=== PATIENT | female | born 1970 | race Caucasian/White ===

== ENCOUNTER → 2018-01-12 09:28 | Outpatient (CLI) | payer OTHER, SELFPAY ==
--- NOTE | 2018-01-12 09:37 | MRI_ITS ---
STUDY: MRI CERVICAL SPINE WITHOUT CONTRAST REASON FOR EXAM: Female, 47 years old. Radiculopathy and burning in hands. TECHNIQUE: Standardized fat and water weighted pulse sequences were obtained in the sagittal and axial planes. COMPARISON: Radiographs of the cervical spine dated February 10, 2013. FINDINGS: Normal foramen magnum and brainstem-cervical cord junction. Normal craniovertebral junction. Normal anterior atlantoaxial articulation. Normal odontoid process. Normal cervical lordosis. Normal vertebral bodies and posterior osseous elements. C2-3: Normal endplates. Normal disc height, signal and morphology. Normal central canal and intervertebral neural foramina. C3-4: There is a mild disc bulge and osteophyte complex. There is mild left-sided neural foraminal narrowing with uncovertebral facet joint arthropathy. The right neural foramen is patent. C4-5: Normal endplates. Normal disc height, signal and morphology. Normal central canal and intervertebral neural foramina. C5-6: There is narrowing of the disc. There is a broad central disc protrusion. There is severe left-sided neural foraminal narrowing with probable nerve impingement. The right neural foramen is mildly narrowed. There is mild central acquired canal stenosis. C6-7: There is irregularity of the inferior endplate of C6 probably related to Schmorl's node. There is a mild disc bulge and osteophyte complex. There is narrowing of the disc. There is mild left-sided neural foraminal narrowing without evidence for nerve impingement. The right neural foramen is patent. There is no significant central acquired canal stenosis. C7-T1: Normal endplates. Normal disc height, signal and morphology. Normal central canal and intervertebral neural foramina. Normal cervical cord. There is no demonstrated cervical cord syrinx cavity. Normal visualized soft tissue structures. There is moderate mucoperiosteal thickening in the right maxillary sinus and left maxillary sinus. MRI/Spine Cervical (Routine) IMPRESSION: Multilevel degenerative disc disease and degenerative arthropathy of the cervical spine with neural foraminal narrowing, acquired canal stenosis and potential nerve impingement as described. Electronically Signed: Yeni Kuhn MD at 11:59 EDT , Service support ,
== END ==
PROVIDERS: Family Provider Family Medicine; PCP Family Medicine
DX: M54.12 Radiculopathy, cervical region (principal)
CPT/HCPCS: 72141

== ENCOUNTER → 2018-02-16 10:21 | Outpatient (CLI) | payer OTHER, SELFPAY ==
--- NOTE | 2018-02-16 10:23 | BI_ITS ---
MAMMOGRAPHY - BILATERAL SCREENING REASON FOR EXAM: Female, 48 years old. Routine annual screening examination. PERTINENT HISTORY: Non-contributory. TECHNIQUE: Digital bilateral breast remedios (3D mammographic acquisition) in the CC and MLO projections. 2-D mediolateral oblique (MLO) and craniocaudad (CC) views of both breasts were obtained. CAD: Full Field Digital Mammography with Computer Added Detection was performed. COMPARISON: Comparison is made with prior outside examination dated January 14, 2017. FINDINGS: Breast Composition: The breasts are heterogeneously dense, which may obscure small masses. There are no dominant masses or suspicious calcifications. Stable benign appearing bilateral axillary lymph nodes. No other significant abnormalities are identified. There has been no significant change since the prior study. BI/SCREENING MAMM (CAD), BILAT IMPRESSION: Stable bilateral screening mammogram. Yearly follow-up mammogram recommended. (A) ASSESSMENT CATEGORY: BIRADS Category 2: Benign. A letter regarding these results will be sent to the patient by the facility within 30 days. Approximately 10% of breast cancers are not detected by mammography. A normal mammogram should not delay biopsy of a clinically suspicious abnormality. [id number] Electronically Signed: Marquise Carmona MD at 9:53 EDT Tel [phone], Service support ,
== END ==
PROVIDERS: Family Provider Family Medicine; PCP Family Medicine; Visit Provider Nurse Practitioner Women's Health
DX: Z12.31 Encounter for screening mammogram for malignant neoplasm of breast (principal)
CPT/HCPCS: 77063; 77067

== ENCOUNTER 2018-04-26 10:00 | Outpatient (RCR) | payer OTHER, SELFPAY ==
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
--- NOTE | 2018-04-26 10:43 | HP.PTDCSUM_ITS ---
HP - PT D/C Summary It has been my pleasure to treat SHIRA LEAL under orders from Out of Town Doctor, for the diagnosis of Cervical Fusion for a total of 9 visit(s). Discharge Date: Please see the following information for a summary of their discharge status. - Subjective Subjective: Patient reports that everything is changing- the fire from the armpit to the fingers is gone- jaw tightness is gone. Shocking hands are worse - is using her body more and thats when they get worse and swelling the shoulders has gotten worse. She is icing and laying supine with legs elevated which is not helping a ton. can tap a place in her shoulder and it will be shoot to her hands. Can use a lax ball to help relieve it but then its swells up. MD is trying to push through a breast reduction but the insurance is not helping. The more activity increases GLORIA at the occiput and her hands are blue. Reaches a 7-8/10 daily- If she has to put a bra on its worse and is done at about 2:00. Once she takes her bra off for an hour she is better but not great. Ice helps but she can't do it all day everyday- heat now makes it worse. Plans to go call the MD - Pain Cerv. Spine Pain Intensity (Out of 10): Unrated LUE Pain Intensity (Out of 10): Unrated RUE Pain Intensity (Out of 10): 2 - Objective Objective/Function: Posture: good throughout session. Observation: well healing incision along right anterior neck- no s/s of infection. Palpation: tender along upper trap and cervical paraspinals. ROM: UE: WNL in all planes Cervical: Flex: 50 degrees Extn: 65 degrees right sb: 50 degrees left sb: 45 degrees Rot: right: 50 degrees, left: 50 degrees. Strength: scap: good, Shoulder: 5/5 Elbow: 5/5 Wrist: 5/5, Vocational Training Director: Left: 65,60,70 Right: 70, 70, 75. Sensation/Reflex: WNL. Patient has made excellent in progress in therapy, she has good ROM and strength at this time- she is appropriate to return to MD for further evaluation. - Goals Goal 1:: Patient will be I with HEP and progression Goal Progress: Goal Met Goal 2:: Patient will maintain proper posture t/o tx session to demo increased scap s/s. Goal Progress: Goal Met Goal 3:: Patient will report 1 week 0/10 pain Goal Progress: Progressing - Plan Plan: Discharge to HEP - D/C Information If there are questions or concerns regarding this patient's physical therapy, please feel free to call me at [phone]. Thank you for the referral of this patient. Sincerely, Coleen Kyle
== END 2018-04-26 18:25 | disposition home or self-care (01) ==
LOC: PT 10:00
PROVIDERS: Family Provider Family Medicine; PCP Family Medicine
DX: Z98.1 Arthrodesis status (principal)
CPT/HCPCS: 97110; 97162; 97164

== ENCOUNTER → 2018-10-12 10:25 | Outpatient (CLI) | payer OTHER, SELFPAY ==
[2017-12-01 14:14] VITALS: BMI 31.6
[2018-10-12 17:09] LABS: Absolute Lymphocyte Count 1.92 X10^3/ul (0.83-4.51); Absolute Neutrophil Count 6.5 X10^3/uL (2.0-7.7); Basophil# 0.06 X10^3/uL; Basophil% 0.6 % (0-1); Eosinophil# 0.31 X10^3/uL; Eosinophils% 3.3 % (0-5); Hematocrit 43.4 % (37-47); Hemoglobin 14.9 g/dl (12.0-15.0); Lymphocyte # 1.92 X10^3/ul (4.0); Lymphocyte % 20.4 % (19-41); Mean Corp Hgb Conc 34.3 g/gl (32-36); Mean Corpuscular Hgb 29.6 pg (27.0-32.0); Mean Corpuscular Volume 86.3 fL (81-99); Mean Platelet Vol. 9.6 fl (6.2-12.0); Monocyte# 0.55 X10^3/uL; Monocyte% 5.9 % (0-10); Neutrophil # 6.54 X10^3/uL (2.7-7.7); Neutrophil % 69.6 % (47-70); Platelet Count 320 K/mm3 (150-450); RBC Distribution Width CV 13.4 % (11.6-14.6); RBC Distribution Width SD 41.3 fl (35.1-43.9); Red Blood Count 5.03 M/mm3 (4.2-5.4); White Blood Count 9.4 K/mm3 (4.4-11.0)
[2018-10-12 17:22] LABS: POSITIVE COUNT NO; POSITIVE DIFFERENTIAL NO; POSITIVE MORPHOLOGY NO
[2018-10-12 17:32] LABS: ALB/GLOB Ratio 1.2 RATIO (0.9-2.4); AST(SGOT) 24 U/L (15-37); Alanine Aminotransfer ALT/SGPT 38 U/L (13-56); Alkaline Phosphatase 97 U/L (45-117); Anion Gap 9 (5-15); BUN 10 mg/dL (7-18); BUN/Creat Ratio 13.1 RATIO (10-20); Calcium,Total 8.6 mg/dL (8.5-10.1); Chloride 106 mmol/L (98-107); Creatinine, Serum 0.76 mg/dL (0.55-1.02); EST Glomerular Filtration Rate 86 mL/min (>60); Est Glom Filt Rate - Afr Amer 104 mL/min (>60); Globulin 3.4 g/dL (2.2-4.2); Glucose 86 mg/dL (74-106); Potassium 3.7 mmol/L (3.5-5.1); Protein, Total 7.4 g/dL (6.4-8.2); Sodium Level 138 mmol/L (136-145); Thyroid Stim Hormone (TSH) 3.71 uIU/mL (0.358-3.74)
== END ==
PROVIDERS: Family Provider Family Medicine; PCP Family Medicine; Visit Provider Family Medicine Geriatric Medicine
DX: Z00.00 Encounter for general adult medical examination without abnormal findings (principal)
CPT/HCPCS: 36415; 80053; 84443; 85025

== ENCOUNTER → 2019-03-20 | Outpatient (CLI) | payer OTHER, SELFPAY ==
--- NOTE | 2019-03-20 17:30 | BI_ITS ---
MAMMOGRAPHY - BILATERAL SCREENING REASON FOR EXAM: Female, 49 years old. Routine annual screening examination. PERTINENT HISTORY: Non-contributory. History of bilateral breast reduction surgery. TECHNIQUE: Digital bilateral breast charisse (3D mammographic acquisition) in the CC and MLO projections. 2-D mediolateral oblique (MLO) and craniocaudad (CC) views of both breasts were obtained. CAD: Full Field Digital Mammography with Computer Added Detection was performed. COMPARISON: Comparison is made with prior study dated February 16, 2018. FINDINGS: Breast Composition: The breasts are heterogeneously dense, which may obscure small masses. There are no dominant masses or suspicious calcifications. Since prior study, the patient underwent bilateral breast reduction surgery. Stable appearance of the benign appearing axillary lymph nodes. No other significant abnormalities are identified. BI/SCREEN MAMM (CAD) W/CHARISSE BILAT IMPRESSION: Stable bilateral screening mammogram. Yearly follow-up mammogram recommended. (A) ASSESSMENT CATEGORY: BIRADS Category 2: Benign. A letter regarding these results will be sent to the patient by the facility within 30 days. Approximately 10% of breast cancers are not detected by mammography. A normal mammogram should not delay biopsy of a clinically suspicious abnormality. [id number] Electronically Signed: Marquise Carmona, at 9:01 EDT , Service support ,
== END | disposition home or self-care (01) ==
LOC: OPBI 03-21 07:35
PROVIDERS: Family Provider Family Medicine; PCP Family Medicine; Referring Provider Nurse Practitioner Women's Health; Visit Provider Nurse Practitioner Women's Health
DX: Z12.31 Encounter for screening mammogram for malignant neoplasm of breast (principal)
CPT/HCPCS: 77063; 77067

== ENCOUNTER → 2019-07-16 16:35 | Outpatient (CLI) | payer OTHER, SELFPAY ==
[2019-07-16 15:38] VITALS: BMI 31.6
[2019-07-16 17:48] LABS: Estradiol 33.6 pg/mL; Follicle Stimulating Hormone 9.7 mIU/mL; Thyroid Stim Hormone (TSH) 2.15 uIU/mL (0.358-3.74)
== END ==
PROVIDERS: Family Provider Family Medicine; PCP Family Medicine; Referring Provider Obstetrics & Gynecology; Visit Provider Obstetrics & Gynecology
DX: N80.9 Endometriosis, unspecified (principal)
CPT/HCPCS: 36415; 82670; 83001; 84443

== ENCOUNTER → 2019-08-03 12:25 | Outpatient (CLI) | payer OTHER, SELFPAY ==
[2019-07-16 15:38] VITALS: BMI 31.6
--- NOTE | 2019-08-03 12:27 | US_ITS ---
STUDY: ULTRASOUND OF THE FEMALE PELVIS - COMPLETE REASON FOR EXAM: Female, 49 years old. Pelvic pain LMP: TECHNIQUE: Transabdominal and transvaginal TECHNICAL QUALITY: Adequate. COMPARISON: None. FINDINGS: The uterus is not present status post hysterectomy The right ovary is visualized. The right ovary measures 1.7 x 1.2 x 1.1 cm. There is no right ovarian cyst or ovarian mass. There is no visualized right adnexal mass or complex lesion. There is normal arterial and normal venous vascularity. The left ovary is visualized. The left ovary measures 1.7 x 1.5 x 1 cm. There is no left ovarian cyst or ovarian mass. There is no visualized left adnexal mass or complex lesion. There is normal arterial and normal venous vascularity. There is no fluid in the cul-de-sac. The pre void volume of the bladder was 183 ml. US/Pelvic (Non ) IMPRESSION: Unremarkable pelvis status post hysterectomy Electronically Signed: Luke Zuluaga MD at 19:51 EDT , Service support ,
--- NOTE | 2019-08-03 12:47 | US_ITS ---
STUDY: ULTRASOUND OF THE FEMALE PELVIS - COMPLETE REASON FOR EXAM: Female, 49 years old. Pelvic pain LMP: TECHNIQUE: Transabdominal and transvaginal TECHNICAL QUALITY: Adequate. COMPARISON: None. FINDINGS: The uterus is not present status post hysterectomy The right ovary is visualized. The right ovary measures 1.7 x 1.2 x 1.1 cm. There is no right ovarian cyst or ovarian mass. There is no visualized right adnexal mass or complex lesion. There is normal arterial and normal venous vascularity. The left ovary is visualized. The left ovary measures 1.7 x 1.5 x 1 cm. There is no left ovarian cyst or ovarian mass. There is no visualized left adnexal mass or complex lesion. There is normal arterial and normal venous vascularity. There is no fluid in the cul-de-sac. The pre void volume of the bladder was 183 ml. US/Transvaginal Non- IMPRESSION: Unremarkable pelvis status post hysterectomy Electronically Signed: Luke Zuluaga MD at 19:51 EDT , Service support ,
== END ==
PROVIDERS: Family Provider Family Medicine; PCP Family Medicine; Referring Provider Obstetrics & Gynecology; Visit Provider Obstetrics & Gynecology
DX: N80.9 Endometriosis, unspecified (principal)
CPT/HCPCS: 76830; 76856

== ENCOUNTER → 2019-12-25 | Outpatient (CLI) | payer OTHER, SELFPAY ==
[2019-08-23 15:13] VITALS: BMI 31.6
[2019-12-25 11:23] LABS: Erythrocyte Sedimentation Rate 4 mm/hr (0-20)
== END | disposition home or self-care (01) ==
LOC: LABSPEC 10:48
PROVIDERS: PCP Family Medicine; Referring Provider Nurse Practitioner Family; Visit Provider Nurse Practitioner Family
DX: R10.31 Right lower quadrant pain (principal); R19.7 Diarrhea, unspecified
CPT/HCPCS: 85652

== ENCOUNTER → 2020-08-15 17:52 | Outpatient (CLI) | payer OTHER, SELFPAY ==
[2019-08-23 15:13] VITALS: BMI 31.6
== END ==
PROVIDERS: PCP Family Medicine; Referring Provider Nurse Practitioner Family; Visit Provider Nurse Practitioner Family
DX: Z20.828 Contact with and (suspected) exposure to other viral communicable diseases (principal)
CPT/HCPCS: 87635; C9803; U0003

== ENCOUNTER → 2021-04-21 16:40 | Outpatient (CLI) | payer OTHER, SELFPAY ==
[2021-04-07 16:11] VITALS: BMI 31.6
--- NOTE | 2021-04-21 16:30 | BI_ITS ---
MAMMOGRAPHY - BILATERAL SCREENING REASON FOR EXAM: Female, 51 years old. Routine annual screening examination. PERTINENT HISTORY: Non-contributory. TECHNIQUE: Digital bilateral breast charisse (3D mammographic acquisition) in the CC and MLO projections. 2-D mediolateral oblique (MLO) and craniocaudad (CC) views of both breasts were obtained. CAD: Full Field Digital Mammography with Computer Added Detection was performed. COMPARISON: Comparison is made with prior study dated 03/20/2019 and 02/16/2018. FINDINGS: Breast Composition: The breasts are heterogeneously dense, which may obscure small masses. There are no dominant masses or suspicious calcifications. Stable small benign-appearing bilateral axillary lymph nodes. Status post bilateral breast reduction surgery No other significant abnormalities are identified. There has been no significant change since the prior study. BI/SCRN MAMM (CAD)W/CHARISSE BILAT IMPRESSION: Stable bilateral screening mammogram. Yearly follow-up mammogram recommended. (A) ASSESSMENT CATEGORY: BIRADS Category 2: Benign. A letter regarding these results will be sent to the patient by the facility within 30 days. Approximately 10% of breast cancers are not detected by mammography. A normal mammogram should not delay biopsy of a clinically suspicious abnormality. [id number] Electronically Signed: Marquise Carmona MD at 8:04 EDT , Service support ,
== END ==
PROVIDERS: PCP Family Medicine; Referring Provider Obstetrics & Gynecology; Visit Provider Obstetrics & Gynecology
DX: Z12.31 Encounter for screening mammogram for malignant neoplasm of breast (principal)
CPT/HCPCS: 77063; 77067

== ENCOUNTER 2021-07-24 15:25 | Emergency (ER) | payer OTHER, SELFPAY ==
[2021-07-24 15:26] VITALS: BP 155/99; PULSE 93; RESP 18; TEMP 36.3; O2SAT 96; BMI 31.8
[2021-07-24 15:29] VITALS: BP 155/99; PULSE 93; RESP 18; TEMP 36.3; O2SAT 96
[2021-07-24 15:55] VITALS: O2SAT 96
--- NOTE | 2021-07-24 15:58 | RAD_ITS ---
EXAM: XR CHEST, 2 VIEWS CLINICAL INDICATION: cough. negative covid tests x 2. TECHNIQUE: Frontal and lateral views of the chest. This report was created using [employer] report generation technology. COMPARISON: None. FINDINGS: LUNGS AND PLEURAL SPACES: Unremarkable. No consolidation or edema. No pneumothorax. No effusion. HEART: Unremarkable. Cardiac silhouette not enlarged. MEDIASTINUM: Central airways and mediastinal contour are unremarkable. BONES/JOINTS: Unremarkable. No displaced fracture. No destructive or sclerotic lesions. Visualized joint spaces are unremarkable. SOFT TISSUES: Unremarkable. RAD/Chest PA and Lateral IMPRESSION: No acute cardiopulmonary disease. Electronically Signed: Gina Espinal MD at 16:22 EDT Tel , Service support ,
--- NOTE | 2021-07-24 15:59 | EX.ED.VIS.UR ---
HPI HPI - URI History of Present Illness Chief Complaint: Shortness of Breath Informant: patient Onset/Context/Timing Onset: Days Context: Gradual Onset Timing: Intermittent Current Severity: Mild Maximum Severity: Mild Associated Symptoms Associated Symptoms: Positive for Nasal Congestion, Sinus Pressure, Shortness of Breath and Nonproductive cough Narrative Narrative: 51-year-old female treated for sinusitis recently with amoxicillin twice daily for 10 days. Has had 2 - Covid test. Said she felt better after the 10 days antibiotics and then started feeling not as well and ill again on Tuesday. She denies vomiting or diarrhea. Nonproductive cough and mild shortness of breath. No chest pain. No hemoptysis. No leg swelling. Prior similar symptoms: Yes Recent Illness/Hospitalization: No ROS ROS ED ROS Narrative Nonproductive cough. Review of Systems ROS Unobtainable: Denies due to encephalopathy Constitutional Constitutional ED: Reports fever(s); Denies chills or subjective Eyes Eyes: Denies change in vision ENT ENT ED: Denies ear pain or sore throat Cardiovascular Cardiovascular: Denies chest pain or palpitations Respiratory/Chest Respiratory/Chest: Reports cough and dyspnea Gastrointestinal Gastrointestinal: Denies abdominal pain, diarrhea, nausea or vomiting Genitourinary Genitourinary ED: Denies dysuria or hematuria Musculoskeletal Musculoskeletal: Denies arthralgias or myalgias Integumentary Denies rash Neurologic Neurologic: Denies headache(s) Psychiatric Psychiatric: Denies depression Endocrine Endocrinology: Denies polyuria Hematologic/Lymphatic Hematologic/Lymphatic: Denies easy bruising Allergic/Immunologic Allergic/Immunologic ED: Denies urticaria [facility] Medical History (Updated 07/24/21 @ 16:[address] Aamir Santos MD) 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 Home Medications glxteflk-hvdj-WI-calcium-mins 1 ea PO DAILY 10/13/17 [History Last Taken 10/13/17 1] levonorgestrel-ethinyl estradiol 0.1 mg-20 mcg tablet 1 tab PO QDAY #84 tab 04/07/21 [Rx Last Taken Unknown] Allergy/AdvReac Type Severity Reaction Status Date / Time No Known Allergies Allergy Verified 07/24/21 15:29 Family History Grandfather COPD (chronic obstructive pulmonary disease) Heart disease Grandmother COPD (chronic obstructive pulmonary disease) Myocardial infarction, Onset Age: 50 Diabetes Surgical History H/O neck surgery Hx of breast reduction, elective S/P laparoscopic assisted vaginal hysterectomy (LA[facility]) Social History Smoking Status: Former smoker alcohol intake: current details: social substance use type: does not use caffeine: Yes what type of physical activity do you participate in: none seatbelt use: always do you feel safe at home: Yes additional social history: [employer] EXAM Physical Exam Narrative Exam Narrative: Well-appearing middle-aged female. Vital signs stable afebrile. Pulse ox 96% on room air no signs hypoxia. HEENT exam normal. Moist with memories. Lungs clear to auscultation bilaterally. Coarse on the right. No wheezing. No rales rhonchi. Heart regular rate and rhythm rate about 90 no murmur. Abdomen soft nontender. Moving all 4 extremities. Calves nontender no edema or cords. Neurologic exam normal. Const Vital Signs: 07/24/21 15:26 07/24/21 15:29 07/24/21 15:55 Temperature 97.3 F L 97.3 F L Temperature Source Temporal Temporal Pulse Rate 93 93 Respiratory Rate 18 18 Respiratory Effort Short of Breath Respiratory Depth Normal Respiratory Pattern Normal Blood Pressure 155/99 H 155/99 H Blood Pressure Mean 117 117 Pulse Ox 96 96 Oxygen Delivery Method Room Air Positive well nourished and well developed; Negative for obese, cachectic or contractures General Appearance ED: well developed and NAD; Negative for cachectic, contractures, cyanotic or diaphoretic Nutritional Appearance: Negative for cachectic or obese HEENT Reports TM's clear and moist mucous membranes normocephalic External Ear: external ears normal External Auditory Canal: EAC's normal Tympanic Membrane ED: Yes TM's clear Eyes PERRL and EOMs intact bilaterally Neck no lymphadenopathy, supple, no meningeal signs and no JVD General: Negative for anterior neck swelling or lymphadenopathy Resp normal respiratory effort and clear to auscultation bilaterally Auscultation: Negative for rales, rhonchi or wheezes Cardio S1 normal heart sound, S2 normal heart sound and no murmurs Rate: regular rate Rhythm: regular rhythm GI non-tender, non-distended and no masses Auscultation: normoactive bowel sounds Palpation: soft; Negative for tender or guarding Back/Spine no CVA tenderness Extremity normal to inspection and full ROM Neuro oriented x3 Sensorium / Orientation: alert, oriented to person, oriented to place and oriented to time; Negative for orientation impaired, lethargic or stuporous Motor Exam: strength 5/5 throughout Psych mental status grossly normal Skin Lesions: no lesions Rashes: no rashes MDM MDM MDM Narrative Medical decision making narrative: 51-year-old female with URI symptoms. Status post recent 10-day antibiotic course of amoxicillin. 2 prior negative Covid test. Chest x-ray being obtained. Sent in by her PCP for evaluation and a chest x-ray to be done. Repeat exam doing well at 4:30 PM and will be discharged home. Outpatient follow-up. Radiography Diagnostic Testing: Clinical Impression(s) from Imaging Studies Chest X-Ray 07/24/21 15:58 IMPRESSION: No acute cardiopulmonary disease. Electronically Signed: Gina Espinal MD at 16:22 EDT Tel , Service support , Chest x-ray 2 views AP and lateral interpreted by myself and the radiologist shows no acute abnormality. I did go over the film with the patient. Discharge Plan Triage Chief Complaint: Shortness of Breath ED Provider: Aamir Santos Dx/Rx/DC Orders Clinical Impression: Viral URI Instructions: ED URI, Viral, No Abx (Adult) Prescriptions: No Action levonorgestrel-ethinyl estrad [Aviane] 0.1-20 mg-mcg tablet 1 tab PO QDAY Qty: 84 RF: 4 zhtkwemu-fkuy-IC-calcium-mins 1 EACH tablet 1 ea PO DAILY RF: 0 Primary Care Provider: Luke Boss Referrals: Luke Boss MD [Primary Care Provider] - Activity Restrictions/Additional Instructions: Fluids and rest. Follow-up with your PCP if not improving. Chest x-ray normal today. Disposition Disposition: Home, Self Care
== END 2021-07-24 16:36 | disposition home or self-care (01) ==
PROVIDERS: Emergency Provider Emergency Medicine; PCP Family Medicine
DX: J06.9 Acute upper respiratory infection, unspecified (principal); Z87.891 Personal history of nicotine dependence
CPT/HCPCS: 71046; 99282

== ENCOUNTER → 2022-05-19 | Outpatient (CLI) | payer OTHER, SELFPAY ==
--- NOTE | 2022-05-19 12:51 | BI_ITS ---
MAMMOGRAPHY - BILATERAL SCREENING 3-D TOMOSYNTHESIS REASON FOR EXAM: Female, 52 years old. Routine screening mammogram. PERTINENT HISTORY: No significant family history. TECHNIQUE: 2-D mammograms and 3-D Tomosynthesis of the breast (s) were performed. CAD was performed. COMPARISON: 04/21/2021, 03/20/2019, 02/16/2018. FINDINGS: The breast composition is composed of scattered fibroglandular density. Stable lymph nodes. No dense spiculated masses or suspicious microcalcifications are identified. No architectural distortion is identified. There is no skin thickening or retraction. BI/SCRN MAMM (CAD)W/CHARISSE BILAT IMPRESSION: No interval change and no mammographic signs of malignancy. Routine yearly mammograms recommended. ASSESSMENT CATEGORY: BIRADS Category 2: Benign. A letter regarding these results will be sent to the patient by the facility within 30 days. FOLLOW UP RECOMMENDATION: Yearly follow up mammogram recommended. (A) Approximately 10% of breast cancers are not detected by mammography. A normal mammogram should not delay biopsy of a clinically suspicious abnormality. Electronically Signed: Kendell Flores MD at 15:08 EDT ,
== END | disposition home or self-care (01) ==
LOC: OPBI 12:50
PROVIDERS: PCP Family Medicine; Visit Provider Obstetrics & Gynecology
DX: Z12.31 Encounter for screening mammogram for malignant neoplasm of breast (principal)
CPT/HCPCS: 77063; 77067

== ENCOUNTER → 2022-09-27 | Outpatient (CLI) | payer OTHER, SELFPAY ==
[2022-09-27 09:07] LABS: Absolute Lymphocyte Count 1.75 X10^3/uL (0.83-4.51); Absolute Neutrophil Count 4.6 X10^3/uL (2.0-7.7); Basophil# 0.09 X10^3/uL; Basophil% 1.2 % (0-1); Eosinophil# 0.48 X10^3/uL; Eosinophils% 6.4 % (0-5); Hematocrit 41.3 % (37-47); Hemoglobin 13.8 g/dL (12.0-15.0); Lymphocyte # 1.75 X10^3/ul (0.83-4.51); Lymphocyte % 23.5 % (19-41); Mean Corp Hgb Conc 33.4 g/dL (32-36); Mean Corpuscular Hgb 29.1 pg (27.0-32.0); Mean Corpuscular Volume 87.1 fL (81-99); Mean Platelet Vol. 9.6 fl (6.2-12.0); Monocyte# 0.54 X10^3/uL; Monocyte% 7.2 % (0-10); NRBC Flagged by Analyzer 0 % (0-5); Neutrophil # 4.55 X10^3/uL (2.7-7.7); Neutrophil % 61.2 % (47-70); Platelet Count 319 K/mm3 (150-450); RBC Distribution Width CV 12.3 % (11.6-14.6); RBC Distribution Width SD 39.3 fl (35.1-43.9); Red Blood Count 4.74 M/mm3 (4.2-5.4); White Blood Count 7.5 K/mm3 (4.4-11.0)
[2022-09-27 09:41] LABS: ALB/GLOB Ratio 1.1 RATIO (0.9-2.4); AST(SGOT) 22 U/L (15-37); Alanine Aminotransfer ALT/SGPT 25 U/L (13-56); Albumin, Serum 3.7 g/dL (3.2-5.0); Alkaline Phosphatase 103 U/L (45-117); Anion Gap 6 (5-15); BUN 17 mg/dL (7-18); BUN/Creat Ratio 17.9 RATIO (10-20); Calcium,Total 8.7 mg/dL (8.5-10.1); Chloride 109 mmol/L (98-107); Cholesterol 177 mg/dL (200); Creatinine, Serum 0.95 mg/dL (0.55-1.02); EST Glomerular Filtration Rate 65 mL/min (>60); Est Glom Filt Rate - Afr Amer 79 mL/min (>60); Globulin 3.3 g/dL (2.2-4.2); Glucose 98 mg/dL (74-106); High Density Lipoprotein 49 mg/dL; Potassium 3.8 mmol/L (3.5-5.1); Sodium Level 141 mmol/L (136-145); Thyroid Stim Hormone (TSH) 5.47 uIU/mL (0.358-3.74); Triglycerides 177 mg/dL; Very Low Density Lipoprotein 35 mg/dL (5-40)
[2022-09-27 09:50] LABS: Vitamin D,25 Hydroxy 22.7 ng/mL
[2022-09-27 09:55] LABS: Hemoglobin A1c 5.5 % (3.8-5.6)
[2022-09-27 12:06] LABS: Free T3 2.7 pg/mL (2.18-3.98); T4 Free Direct 0.82 ng/dL (0.76-1.46)
== END | disposition home or self-care (01) ==
LOC: LAB 08:20
PROVIDERS: PCP Internal Medicine; Referring Provider Internal Medicine; Visit Provider Internal Medicine
DX: Z00.00 Encounter for general adult medical examination without abnormal findings (principal); I10 Essential (primary) hypertension; E55.9 Vitamin D deficiency, unspecified
CPT/HCPCS: 36415; 80053; 80061; 82306; 83036; 84439; 84443; 84481; 85025

== ENCOUNTER → 2022-12-23 | Outpatient (CLI) | payer OTHER, SELFPAY ==
[2022-12-23 12:26] LABS: Free T3 2.4 pg/mL (2.18-3.98); T4 Free Direct 0.78 ng/dL (0.76-1.46); Thyroid Stim Hormone (TSH) 4.22 uIU/mL (0.358-3.74)
== END | disposition home or self-care (01) ==
LOC: LAB 10:45
PROVIDERS: PCP Internal Medicine; Referring Provider Internal Medicine; Visit Provider Internal Medicine
DX: R79.89 Other specified abnormal findings of blood chemistry (principal)
CPT/HCPCS: 36415; 84439; 84443; 84481

== ENCOUNTER → 2023-01-05 | Outpatient (CLI) | payer OTHER, SELFPAY ==
[2023-01-05 15:34] LABS: Bacteria 0 SEEN /hpf (None Seen); Mucous, Urine 0 SEEN /hpf (<or=2+); Red Blood Cells-Urine 0 SEEN /hpf (0-5); White Blood Cells 0 SEEN /hpf (0-5)
[2023-01-05 16:16] LABS: Color, Urine Straw (Yellow); Glucose, Dipstick Normal (Normal); Ketone-Dipstick Negative (Negative); Leukocyte Esterase-Dipstick Negative /ul (Negative); Nitrite-Dipstick Negative (Negative); Occult Blood-Urine Negative /ul (Negative); Protein-Dipstick Negative (Negative); Urine Bilirubin Dipstick Negative (Negative); Urine Clarity Clear (Clear); Urine Urobilinogen Normal (Normal)
[2023-01-05 16:26] LABS: Squamous Epithelial Cells - UA 0-5 SEEN /hpf (5-10)
== END | disposition home or self-care (01) ==
PROVIDERS: PCP Internal Medicine; Referring Provider Physician Assistant Surgical; Visit Provider Physician Assistant Surgical
DX: R39.9 Unspecified symptoms and signs involving the genitourinary system (principal)
CPT/HCPCS: 81001; 87086; 87088

== ENCOUNTER → 2023-04-05 | Outpatient (CLI) | payer OTHER, SELFPAY ==
--- NOTE | 2023-04-05 08:11 | VDLE_ITS ---
Reason For Study: Rt Leg Swelling RIGHT LEFT GSV is normal. CFV is compressible, spontaneous, phasic, CFV is compressible, spontaneous, phasic, competent, and demonstrates normal competent and demonstrates normal augmentation. augmentation. FV is compressible, spontaneous, phasic, competent and demonstrates normal augmentation. POP V is compressible, spontaneous, phasic, competent and demonstrates normal augmentation. T/P Trunk is compressible. PTV is compressible. RT PerV is compressible. Procedure This is a venous duplex using B-mode, color flow and spectral Doppler. Exam performed in department. The exam was diagnostic. A preliminary report was called and/or faxed to Dr. uSero. VL/Venous Duplex US, Unilateral Interpretation Summary Deep veins of the right lower extremity are patent and compressible segmentally . There is no evidence of right lower extremity deep vein thrombosis. The right great sapheno us vein appears patent and compressible segmentally. Ordering Physician: NELI SUERO Referring Physician: Lenore Proctor M.D. Performed By: Papa Liu RVT
== END | disposition home or self-care (01) ==
PROVIDERS: PCP Internal Medicine; Referring Provider Chiropractor; Visit Provider Chiropractor
DX: R22.41 Localized swelling, mass and lump, right lower limb (principal)
CPT/HCPCS: 93971

== ENCOUNTER → 2023-05-25 | Outpatient (CLI) | payer OTHER, SELFPAY ==
--- NOTE | 2023-05-25 07:31 | BI_ITS ---
MAMMOGRAPHY - BILATERAL SCREENING REASON FOR EXAM: Female, 53 years old. Routine annual screening examination. PERTINENT HISTORY: Mother with breast cancer. History of bilateral breast reduction surgery. TECHNIQUE: Digital bilateral breast charisse (3D mammographic acquisition) in the CC and MLO projections. 2-D mediolateral oblique (MLO) and craniocaudad (CC) views of both breasts were obtained. CAD: Full Field Digital Mammography with Computer Added Detection was performed. COMPARISON: Comparison is made with prior study date May 19, 2022 and April 21, 2012 FINDINGS: Breast Composition: The breasts are heterogeneously dense, which may obscure small masses. There are no dominant masses or suspicious calcifications. Stable bilateral axillary lymph nodes. No other significant abnormalities are identified. There has been no significant change since the prior study. BI/SCRN MAMM (CAD)W/CHARISSE BILAT IMPRESSION: Stable bilateral screening mammogram. Yearly follow-up mammogram recommended. (A) ASSESSMENT CATEGORY: BIRADS Category 2: Benign. A letter regarding these results will be sent to the patient by the facility within 30 days. Approximately 10% of breast cancers are not detected by mammography. A normal mammogram should not delay biopsy of a clinically suspicious abnormality. [id number] Electronically Signed: Marquise Carmona MD at 8:51 EDT ,
== END | disposition home or self-care (01) ==
LOC: OPBI 07:30
PROVIDERS: PCP Family Medicine; Referring Provider Obstetrics & Gynecology; Visit Provider Obstetrics & Gynecology
DX: Z12.31 Encounter for screening mammogram for malignant neoplasm of breast (principal)
CPT/HCPCS: 77063; 77067

== ENCOUNTER → 2023-07-27 | Outpatient (CLI) | payer OTHER, SELFPAY ==
[2023-07-27 08:57] LABS: Free T3 2.3 pg/mL (2.18-3.98); T4 Free Direct 0.81 ng/dL (0.76-1.46)
== END | disposition home or self-care (01) ==
PROVIDERS: PCP Internal Medicine; Referring Provider Internal Medicine; Visit Provider Internal Medicine
DX: R79.89 Other specified abnormal findings of blood chemistry (principal)
CPT/HCPCS: 36415; 84439; 84443; 84481

== ENCOUNTER → 2023-09-03 | Outpatient (CLI) | payer OTHER, SELFPAY ==
[2023-09-03 10:11] LABS: Hemoglobin A1c 5.6 % (3.8-5.6)
[2023-09-03 10:12] LABS: ALB/GLOB Ratio 0.9 RATIO (0.9-2.4); AST(SGOT) 40 U/L (15-37); Alanine Aminotransfer ALT/SGPT 71 U/L (13-56); Albumin, Serum 3.4 g/dL (3.2-5.0); Alkaline Phosphatase 120 U/L (45-117); Anion Gap 4 (5-15); BUN 13 mg/dL (7-18); BUN/Creat Ratio 14.4 RATIO (10-20); CRP 3.22 mg/L (0.0-3.0); Calcium,Total 8.6 mg/dL (8.5-10.1); Chloride 111 mmol/L (98-107); EST Glomerular Filtration Rate 69 mL/min (>60); Est Glom Filt Rate - Afr Amer 84 mL/min (>60); Globulin 3.6 g/dL (2.2-4.2); Glucose 95 mg/dL (74-106); Potassium 4.1 mmol/L (3.5-5.1); Sodium Level 141 mmol/L (136-145)
[2023-09-03 10:45] LABS: Erythrocyte Sedimentation Rate 10 mm/hr (0-30)
[2023-09-03 10:47] LABS: Absolute Lymphocyte Count 1.36 X10^3/uL (0.83-4.51); Absolute Neutrophil Count 5.1 X10^3/uL (2.0-7.7); Basophil# 0.09 X10^3/uL; Basophil% 1.2 % (0-1); Eosinophil# 0.38 X10^3/uL; Eosinophils% 5.1 % (0-5); Hemoglobin 14.2 g/dL (12.0-15.0); Lymphocyte # 1.36 X10^3/ul (0.83-4.51); Lymphocyte % 18.2 % (19-41); Mean Corp Hgb Conc 32.3 g/dL (32-36); Mean Corpuscular Hgb 28.2 pg (27.0-32.0); Mean Corpuscular Volume 87.5 fL (81-99); Monocyte% 6.7 % (0-10); NRBC Flagged by Analyzer 0 % (0-5); Neutrophil # 5.12 X10^3/uL (2.7-7.7); Neutrophil % 68.4 % (47-70); Platelet Count 300 K/mm3 (150-450); RBC Distribution Width CV 13.6 % (11.6-14.6); RBC Distribution Width SD 43.2 fl (35.1-43.9); Red Blood Count 5.03 M/mm3 (4.2-5.4); White Blood Count 7.5 K/mm3 (4.4-11.0)
[2023-09-04 13:07] LABS: Lyme Scn Total Ab w/Rflx Negative (Negative)
[2023-09-05 09:19] LABS: Insulin 12.2 mU/L (2.6-37.6); Vitamin B12 642 pg/mL (211-911); Vitamin D,25 Hydroxy 39.4 ng/mL
== END | disposition home or self-care (01) ==
LOC: LAB 08:46
PROVIDERS: PCP Internal Medicine; Visit Provider Internal Medicine
DX: R79.89 Other specified abnormal findings of blood chemistry (principal); I10 Essential (primary) hypertension; R53.83 Other fatigue; E53.8 Deficiency of other specified B group vitamins; E55.9 Vitamin D deficiency, unspecified; W57.XXXA Bitten or stung by nonvenomous insect and other nonvenomous arthropods, initial encounter
CPT/HCPCS: 36415; 80053; 82306; 82607; 83036; 83525; 85025; 85652; 86140; 86618

== ENCOUNTER → 2023-09-07 | Outpatient (CLI) | payer OTHER, SELFPAY ==
--- NOTE | 2023-09-07 07:17 | US_ITS ---
STUDY: ABDOMINAL ULTRASOUND - RIGHT UPPER QUADRANT REASON FOR VISIT: Female, 53 years old Elevated LFTs TECHNIQUE: Ultrasound evaluation of the right upper quadrant was performed with real-time and static hitchcock-scale imaging. TECHNICAL QUALITY: Adequate. COMPARISON: None. FINDINGS: Liver: The liver measures 17.5 cm. Increased echogenicity of liver parenchyma due to fatty infiltration. The bile ducts are within normal limits. There is hepatic color flow. The direction of portal flow is hepatopetal. There is no demonstrated mass lesion. Gallbladder: Normal distended gallbladder. The gallbladder wall measures 1.7 mm. There is a negative sonographic Bonner''s sign. There is no pericholecystic fluid. There are no gallstones. Common Bile Duct (C.B.D.): The common bile duct measures 7.3 mm. Pancreas: Normal size of the head, body and tail of the pancreas. Mild increased echogenicity of the pancreas. There is no demonstrated pancreatic mass or cyst. The pancreatic duct is not dilated. Right Kidney: Normal size of the right kidney. The right kidney measures 10.6 x 5.5 x 4.5 cm. Normal renal cortex. The right cortex measures 1.2 cm. There is an anechoic cyst measuring 1.1 x 0.9 x 0.8 cm.. There is no right hydronephrosis. US/Liver IMPRESSION: 1. Mild diffuse hepatic steatosis. 2. Small right renal cyst. 3. No acute abnormality in the right upper quadrant of the abdomen. Electronically Signed: Panda Grimaldo MD at 14:37 EST ,
== END | disposition home or self-care (01) ==
LOC: US 07:16
PROVIDERS: PCP Internal Medicine; Referring Provider Internal Medicine; Visit Provider Internal Medicine
DX: R79.89 Other specified abnormal findings of blood chemistry (principal)
CPT/HCPCS: 76705

== ENCOUNTER → 2024-01-05 | Outpatient (CLI) | payer OTHER, SELFPAY ==
[2024-01-05 11:14] LABS: Absolute Lymphocyte Count 1.48 X10^3/uL (0.83-4.51); Absolute Neutrophil Count 4.8 X10^3/uL (2.0-7.7); Basophil# 0.09 X10^3/uL; Basophil% 1.3 % (0-1); Eosinophil# 0.21 X10^3/uL; Hemoglobin 13.7 g/dL (12.0-15.0); Lymphocyte # 1.48 X10^3/ul (0.83-4.51); Lymphocyte % 21.1 % (19-41); Mean Corp Hgb Conc 32.6 g/dL (32-36); Mean Corpuscular Hgb 27.7 pg (27.0-32.0); Mean Corpuscular Volume 84.8 fL (81-99); Mean Platelet Vol. 9.6 fl (6.2-12.0); Monocyte# 0.42 X10^3/uL; NRBC Flagged by Analyzer 0 % (0-5); Neutrophil # 4.77 X10^3/uL (2.7-7.7); Neutrophil % 68.2 % (47-70); Platelet Count 321 K/mm3 (150-450); RBC Distribution Width CV 12.7 % (11.6-14.6); RBC Distribution Width SD 39.1 fl (35.1-43.9); Red Blood Count 4.95 M/mm3 (4.2-5.4)
[2024-01-05 11:34] LABS: Insulin 9.8 mU/L (2.6-37.6); Vitamin D,25 Hydroxy 27.9 ng/mL
[2024-01-05 11:37] LABS: Hemoglobin A1c 5.6 % (3.8-5.6)
[2024-01-05 11:43] LABS: AST(SGOT) 20 U/L (15-37); Alanine Aminotransfer ALT/SGPT 28 U/L (13-56); Albumin, Serum 3.5 g/dL (3.2-5.0); Alkaline Phosphatase 102 U/L (45-117); Anion Gap 7 (5-15); BUN 9 mg/dL (7-18); BUN/Creat Ratio 11.4 RATIO (10-20); Calcium,Total 8.8 mg/dL (8.5-10.1); Chloride 111 mmol/L (98-107); Cholesterol 158 mg/dL (200); Creatinine, Serum 0.79 mg/dL (0.55-1.02); EST Glomerular Filtration Rate 81 mL/min (>60); Est Glom Filt Rate - Afr Amer 98 mL/min (>60); Globulin 3.5 g/dL (2.2-4.2); Glucose 95 mg/dL (74-106); High Density Lipoprotein 50 mg/dL; Potassium 3.6 mmol/L (3.5-5.1); Sodium Level 142 mmol/L (136-145); Thyroid Stim Hormone (TSH) 3.06 uIU/mL (0.358-3.74); Triglycerides 131 mg/dL; Very Low Density Lipoprotein 26 mg/dL (5-40)
== END | disposition home or self-care (01) ==
LOC: LAB 10:16
PROVIDERS: PCP Internal Medicine; Referring Provider Internal Medicine; Visit Provider Internal Medicine
DX: R79.89 Other specified abnormal findings of blood chemistry (principal); E88.819 Insulin resistance, unspecified; I10 Essential (primary) hypertension; Z13.220 Encounter for screening for lipoid disorders; E55.9 Vitamin D deficiency, unspecified
CPT/HCPCS: 36415; 80053; 80061; 82306; 83036; 83525; 84443; 85025

== ENCOUNTER 2024-03-13 15:02 | Emergency (ER) | payer OTHER, SELFPAY ==
[2024-03-13 15:06] VITALS: BP 180/105; PULSE 79; RESP 18; TEMP 36.2; O2SAT 98; BMI 33.0
[2024-03-13 15:19] VITALS: BMI 33.5
--- NOTE | 2024-03-13 16:11 | EDS_ITS ---
HPI History of Present Illness Chief Complaint: Neuro S/Sx Informant: patient Onset/Context/Timing Onset: Days Context: Sudden Onset Timing: Intermittent Quality: Sharp, throbbing Location: Occiput and lateral occipital area Worsened by: Laying down and pressure on the back of her neck. Relieved by: Nausea, vomiting, ice, and heat. Associated Symptoms Associated Symptoms: Expressive aphasia Narrative Narrative: Patient presents with headache and neck pain that has been intermittent over the past few days. Patient states it is gradually getting worse. Patient states is becoming more frequent. Patient states that whenever she lays on her neck, it triggers headache. Patient states the headache starts in the occiput and radiates to her temporal areas bilaterally. Patient states that it causes her to have some nausea and vomiting. Patient states the nausea and vomiting helps with the headache. Patient also states that when she puts ice or heat on the back of her neck it helps with her headache. Patient states her headache is also triggered with palpation to the atlantooccipital area. Patient states that she was talking to her and she was having difficulty getting some of the words out. Patient states that her told her that she was not making sense. Patient states this only lasted for a few seconds. Patient states that her symptoms started a few weeks after her most recent cervical fusion surgery. Patient also admits to some soreness in both of her shoulders. Patient states she has also been feeling some muscle spasms in her tongue at times. [facility] Medical History (Updated 03/13/24 @ 19:[address] Jamari Arroyo, DO) Arthritis Degenerative disc disease Hypertension 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 Home Medications ?Medication ?Instructions ?Recorded ?Last Taken ?Type multivit-iron 18 mg-folic acid 400 1 ea PO DAILY SUPPLEMENTS 10/13/17 10/13/17 History mcg-calcium 500 mg-minerals tablet 1 vitamin d3 PO 09/29/22 Unknown History glucosamine PO 09/14/23 Unknown History tumeric PO 09/14/23 Unknown History tuna oil PO 09/14/23 Unknown History restorative formulations HTN 180 PX PO 01/11/24 Unknown History metoprolol tartrate 25 mg tablet 12.5 mg (1/2 x 25 mg) PO DAILY #30 02/06/24 Unknown Rx tabs cyclobenzaprine 10 mg tablet 10 mg PO HS PRN muscle spasm #10 03/13/24 Unknown Rx tabs Allergy/AdvReac Type Severity Reaction Status Date / Time animal dander Allergy sneezing Verified 03/13/24 15:06 house dust Allergy sneezing Verified 03/13/24 15:06 mold (mold spores) Allergy Other Verified 03/13/24 15:06 Seasonal Allergies: Uncoded Allergy sneezing Verified 03/13/24 15:06 Family History Grandfather COPD (chronic obstructive pulmonary disease) Heart disease Grandmother COPD (chronic obstructive pulmonary disease) Myocardial infarction, Onset Age: 50 Diabetes Mother Breast cancer, Onset Age: 73 Surgical History (Updated 03/13/24 @ 16:[address] Jamari Arroyo DO) Hx of lumbar discectomy History of carpal tunnel surgery H/O section H/O neck surgery Hx of breast reduction, elective S/P laparoscopic assisted vaginal hysterectomy (LAVH) Social History Smoking Status: Former smoker alcohol intake: current details: social substance use type: does not use caffeine: Yes what type of physical activity do you participate in: none seatbelt use: always do you feel safe at home: Yes additional social history: Jalil FOSTER ED Constitutional Constitutional ED: Denies chills or fever(s) Eyes Eyes: Denies blurry vision or change in vision ENT ENT ED: Denies rhinorrhea or sore throat Cardiovascular Cardiovascular: Reports palpitations; Denies chest pain Respiratory/Chest Respiratory/Chest: Denies cough or dyspnea Gastrointestinal Gastrointestinal: Reports nausea and vomiting Genitourinary Genitourinary ED: Denies dysuria or hematuria Musculoskeletal Musculoskeletal: Reports neck pain; Denies back pain Integumentary Denies abscess or rash Neurologic Neurologic: Reports headache(s); Denies weakness Allergic/Immunologic Allergic/Immunologic ED: Denies mouth swelling or urticaria EXAM Physical Exam Const Vital Signs: 03/13/24 15:06 03/13/24 16:55 03/13/24 18:00 Temperature 97.1 F L Temperature Source Temporal Pulse Rate 79 74 69 Respiratory Rate 18 15 17 Blood Pressure 180/105 H 152/85 H 128/71 H Blood Pressure Mean 130 107 90 Pulse Ox 98 Oxygen Delivery Method Room Air Room Air Room Air Positive well nourished and well developed General Appearance ED: well developed and NAD HEENT Reports moist mucous membranes Neck supple and no JVD Resp normal respiratory effort and clear to auscultation bilaterally Cardio regular rate and regular rhythm GI non-tender and non-distended Palpation: soft Back/Spine Back/Spine Narrative: There is mild cervical paraspinal muscle spasm and tenderness. There is no bony crepitance or step-off noted. Neuro oriented x3, CN's II-XII intact bilaterally and no sensory deficits noted Sensorium / Orientation: alert Motor Exam: strength 5/5 throughout Psych mental status grossly normal MDM MDM MDM Narrative Medical decision making narrative: Differential diagnose include stroke, cardiac dysrhythmia, cardiac ischemia, intracranial bleeding, tension headache, migraine headache, and electrolyte abnormality. CT scan of the brain will be obtained to assess for intracranial bleeding and stroke. EKG will be obtained to assess for cardiac dysrhythmia and cardiac ischemia. Chest x-ray will be obtained to assess for pneumonia or pneumothorax. CBC will be obtained to assess for leukocytosis and anemia. Basic metabolic profile will be obtained to assess for electrolyte abnormality and renal function. PT with INR and PTT will be obtained to assess for coagulopathy. High-sensitivity troponin will be obtained to assess for cardiac ischemia. Lab Data Attestation: I reviewed the patient's lab results. Lab results narrative: CBC was reviewed and was within normal limits. Basic metabolic profile was reviewed and was within normal limits. High-sensitivity troponin was reviewed and was normal at 3. Labs: Laboratory Results - last 24 hr 03/13/24 03/13/24 16:30 17:03 WBC 9.0 RBC 4.82 Hgb 13.2 Hct 41.1 MCV 85.3 MCH 27.4 MCHC 32.1 RDW Std Deviation 42.1 RDW Coeff of Ramiro 13.5 Plt Count 364 MPV 9.5 Immature Gran % (Auto) 0.400 Neut % (Auto) 74.3 H Lymph % (Auto) 17.6 L [place] % (Auto) 5.0 Eos % (Auto) 1.9 Baso % (Auto) 0.8 Absolute Neuts (auto) 6.7 Absolute Lymphs (auto) 1.58 Nucleated RBC % 0 PT 14.8 INR 1.2 APTT 35.7 Sodium 139 Potassium 4.0 Chloride 105 Carbon Dioxide 27.0 Anion Gap 7 BUN 7 Creatinine 0.83 Estim Creat Clear Calc 77.48 Est GFR (MDRD) Af Amer 92 Est GFR (MDRD) Non-Af 76 BUN/Creatinine Ratio 8.4 L Glucose 105 Calcium 9.8 Troponin I High Sens 3 POC Glucose 89 Radiography Diagnostic Testing: Clinical Impression(s) from Imaging Studies Brain CT 03/13/24 16:19 IMPRESSION: No acute intracranial findings. Electronically Signed: Jian Bernal MD at 17:31 EDT , Chest X-Ray 03/13/24 16:42 IMPRESSION: No radiographic evidence of acute cardiopulmonary disease. Electronically Signed: Jian Bernal MD at 17:32 EDT , PA and lateral chest x-ray was obtained. There are 2 views. On my independent interpretation, lung singer are clear. There is normal cardiac silhouette. Bony thorax is normal. There is no acute process noted. Radiologist also interpreted the x-ray and agrees. CT scan of the brain was obtained. There is no acute intracranial abnormality. This was interpreted by the radiologist and was also independently reviewed by myself. EKG Initial EKG: Interpretation: Sinus Rhythm (73) and No Acute Injury Pattern Comments: EKG was obtained. On my independent interpretation, it showed a normal sinus rhythm with a rate of 73. ME interval, QRS interval, and QTc intervals were all normal. [place] was normal. There are no acute ST or T wave changes. Prior EKG tracings: not available for review Prior: No Prior Treatment and Re-Evaluation :: Patient was ordered a dose of labetalol initially for her initial blood pressure 180/105. However, prior to administration of the labetalol, patient's blood pressure improved. Currently it is 128/71. Patient was advised of her findings. Patient was advised that this could be a tension headache that could be causing compression of her posterior occipital nerves. Patient was given a prescription for Flexeril. Patient was instructed to take these at bedtime. Patient was instructed to follow-up with her primary care physician as well as her orthopedic spine surgeon. Patient was instructed to return if worse in any way. Patient understood and was agreeable with the plan. All questions were answered. Discharge Plan Triage Chief Complaint: Neuro S/Sx ED Provider: Jamari Arroyo Dx/Rx/DC Orders Clinical Impression: Headache, Degenerative disc disease, Elevated blood pressure reading without diagnosis of hypertension Instructions: ED Headache, Tension Prescriptions: Continued cyclobenzaprine 10 mg tablet 10 mg PO HS PRN (Reason: muscle spasm) Qty: 10 0RF No Action vitamin d3 PO Rx Instructions: 500mg daily OTC tuna oil PO tumeric PO glucosamine PO restorative formulations HTN 180 PX PO Rx Instructions: 2 caps once a day for Blood pressure bfkroadh-gqye-CJ-calcium-mins 1 EACH tablet 1 ea PO DAILY metoprolol tartrate 25 mg tablet 12.5 mg PO DAILY Qty: 30 1RF Primary Care Provider: Lenore Proctor Referrals: Lenore Proctor MD [Primary Care Provider] - 5-7 Days Print Language: Pashto Disposition Disposition: Home, Self Care
--- NOTE | 2024-03-13 16:19 | EKG12_ITS ---
Test Reason : GENERAL Blood Pressure : / mmHG Vent. Rate : 073 BPM Atrial Rate : 073 BPM P-R Int : 150 ms QRS Dur : 084 ms QT Int : 398 ms P-R-T Axes : 056 033 045 degrees QTc Int : 438 ms Normal sinus rhythm Normal ECG Confirmed by MICHELE JIMÉNEZ, INOCENCIA ([id number]), technical editor ROZ CHAPA ([id number]) on 03/15/2024 6:30:34 AM Referred By: Confirmed By:PAM BAUTISTA MD
--- NOTE | 2024-03-13 16:19 | CT_ITS ---
INDICATION: Headache EXAMINATION: CT BRAIN - CT Head or Brain W/O Contrast Injection TECHNIQUE: Multiple axial images were obtained of the head without intravenous contrast. A radiation dose optimization technique was used for this scan. IV Contrast dosage and agent: None. COMPARISON: None. FINDINGS: BRAIN PARENCHYMA: No intra- or extra-axial hemorrhage. No evidence of acute infarct. No intracranial mass or mass effect. There is preservation of the hitchcock/white matter interface. Posterior fossa structures are unremarkable. CSF SPACES: Appropriate for age. No hydrocephalus. Basal cisterns are patent. CALVARIUM, SKULL BASE, PARANASAL SINUSES AND MASTOID AIR CELLS: Opacification of multiple right mastoid air cells. No discrete lytic or blastic abnormalities. ORBITS: Both globes, extraocular muscles, optic nerves and retrobulbar fat appear unremarkable. CT/Brain/Head without Contrast IMPRESSION: No acute intracranial findings. Electronically Signed: Jian Bernal MD at 17:31 EDT ,
--- NOTE | 2024-03-13 16:42 | RAD_ITS ---
INDICATION: Hypertension EXAMINATION/TECHNIQUE: X-RAY - XR Chest 2 Views COMPARISON: 07/24/2021 FINDINGS: LINES/DEVICES: None. LUNGS: No consolidation, edema or effusion. No pneumothorax. MEDIASTINUM AND CARDIOVASCULAR STRUCTURES: Cardiac silhouette not enlarged. Central airways and mediastinal contour are unremarkable. BONES AND SOFT TISSUES: Unremarkable. RAD/Chest PA and Lateral IMPRESSION: No radiographic evidence of acute cardiopulmonary disease. Electronically Signed: Jian Bernal MD at 17:32 EDT ,
[2024-03-13 16:48] LABS: Absolute Lymphocyte Count 1.58 X10^3/uL (0.83-4.51); Absolute Neutrophil Count 6.7 X10^3/uL (2.0-7.7); Basophil# 0.07 X10^3/uL; Basophil% 0.8 % (0-1); Eosinophil# 0.17 X10^3/uL; Eosinophils% 1.9 % (0-5); Hematocrit 41.1 % (37-47); Hemoglobin 13.2 g/dL (12.0-15.0); Lymphocyte # 1.58 X10^3/ul (0.83-4.51); Lymphocyte % 17.6 % (19-41); Mean Corp Hgb Conc 32.1 g/dL (32-36); Mean Corpuscular Hgb 27.4 pg (27.0-32.0); Mean Corpuscular Volume 85.3 fL (81-99); Mean Platelet Vol. 9.5 fl (6.2-12.0); Monocyte# 0.45 X10^3/uL; NRBC Flagged by Analyzer 0 % (0-5); Neutrophil # 6.67 X10^3/uL (2.7-7.7); Neutrophil % 74.3 % (47-70); Platelet Count 364 K/mm3 (150-450); RBC Distribution Width CV 13.5 % (11.6-14.6); RBC Distribution Width SD 42.1 fl (35.1-43.9); Red Blood Count 4.82 M/mm3 (4.2-5.4)
[2024-03-13 16:55] VITALS: BP 152/85; PULSE 74; RESP 15
[2024-03-13 17:01] LABS: Anion Gap 7 (5-15); BUN 7 mg/dL (7-18); BUN/Creat Ratio 8.4 RATIO (10-20); Calcium,Total 9.8 mg/dL (8.5-10.1); Chloride 105 mmol/L (98-107); Creatinine, Serum 0.83 mg/dL (0.55-1.02); EST Glomerular Filtration Rate 76 mL/min (>60); Est Glom Filt Rate - Afr Amer 92 mL/min (>60); Estimated Creatinine Clearance 77.48 ml/min; Glucose 105 mg/dL (74-106); Sodium Level 139 mmol/L (136-145); Troponin-I HS 3 pg/mL (3.0-54.0)
[2024-03-13 17:26] LABS: Bedside Glucose 89 mg/dL (74-106)
[2024-03-13 17:28] LABS: International Normalized Ratio 1.2; Prothrombin Time (Protime)PT. 14.8 SECONDS (11.7-14.9)
[2024-03-13 17:29] LABS: Partial Thromboplast Time 35.7 Seconds (24.1-36.2)
[2024-03-13 18:00] VITALS: BP 128/71; PULSE 69; RESP 17
[2024-03-13 19:13] VITALS: BP 142/89; PULSE 69; RESP 16; TEMP 37.2; O2SAT 98
== END 2024-03-13 19:19 | disposition home or self-care (01) ==
PROVIDERS: Emergency Provider Emergency Medicine; PCP Internal Medicine; Visit Provider Emergency Medicine
DX: R51.9 Headache, unspecified (principal); Z87.891 Personal history of nicotine dependence; R03.0 Elevated blood-pressure reading, without diagnosis of hypertension; I10 Essential (primary) hypertension; Z79.899 Other long term (current) drug therapy; Z90.710 Acquired absence of both cervix and uterus
CPT/HCPCS: 70450; 71046; 80048; 82962; 84484; 85025; 85610; 85730; 93005; 96374; 99283

== ENCOUNTER 2024-03-27 07:00 | Outpatient (RCR) | payer OTHER, SELFPAY ==
--- NOTE | 2024-02-13 08:46 | HP.PTEVAL_ITS ---
Patient's Visit Information Visit Information Visit Information: SHIRA LEAL is a 54 year old F referred to Physical Therapy by Dr. Booker Natarajan MD with a diagnosis of 01/20/24- Removal of plate inspection fusion C5-C7 and anterior cervical dis. Date of Evaluation: 02/13/24 Physical Therapist: Coleen Kyle DPT Visit Plan Frequency: 2-3x /Week Duration: 6 Weeks Plan: 01/20/24- Removal of plate inspection fusion C5-C7 and anterior cervical discectomy and fusion C4-C5 with allograft and plate and Right Shoulder. Focus on postural correction- scapular strength/stabilization. HEP Given IE: Postural education, wall posture drill, bilateral ER with OTB, mid row GTB, scapular retractions Subjective Subjective: In July she had a lot of pain in the right shoulder- clicking/popping- can't lay on it- so she went to the MD at [facility]- injection-did not work-so he wanted to start with the neck- had an MRI- showed disc bulge- she works for a [employer]- she worked through rehab- traction- not seeing success so she had surgery 01/20/24- Removal of plate inspection fusion C5- C7 and anterior cervical disectomy and fusion C4-C5 with allograft and plate. She had anterior neck pain and N/T that is now gone- if she overdoes she does have a little bit of N/T that happens. She went for her check up and she was cleared to lift up to #40. She is not back to herself yet but is working to try to get back to her normal routine. She has upper trap pain on the right side. Its a stabbing and pinching pain and still has a lot of pain in the shoulder. The pain radiates down the back of the arm and the anterior shoulder. The pain radiates down to the deltoid. Sleep: is in the recliner- has made it a few nights in the bed- supine legs elevated with a small roll under the neck. During the day she does not notice the upper trap pain during the day but she does notice the shoulder pain all day. She flew this week and she did okay. She feels that she is healing way faster this time her first one was February of 2018. Neck pain feels more like deep incision healing discomfort- swelling and tightness- she has to have wet food normal: 3/10. when it gets to a 4-5/10 she takes Tylenol and ice and it returns to a 3/10- she feels that it continues to change and heals. Right hand dominate. Upper Trap Pain: Worst: 06/26 Agg: sleeping, pushing on the back of the neck like the neck roll she sleeps with Eases: heat Best: 01/24. Shoulder Pain: Worst: 07/26 Agg: out to the side and above 90 degrees, laying on it Eases: keeping it down to the side. Best: 01/24. Describes the pain as a sharp and shooting pain and can grab her- will take her breathe away. She has not had an MRI on her shoulder. She has had an x-ray. Her shoulder doctor is not convinced that its not a torn RTC. She does not have an apt to see the shoulder doctor until after she finishes PT and with the neck doctor. 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 No GLORIA, blurred vision or dizziness. She does have some tinnitus. She is performing ADL's but she takes breaks as needed- uses heat/ice. PMHx: HTN Meds: beta clay Objective Objective: Posture: slightly guarded- forward head, rounded shoulders- she can correct with verbal cues but does not maintain Gait: good arm swing and trunk rotation Observation: incision healing well no s/s of infection Palpation: tender along upper trap on the right, infraspinatus, and bicipital groove Sensation: WNL to gross touch ROM: Cervical: flexion: mod limitation, extn: mod limitation, sb: severe limitation, rotation: moderate limitation, left shoulder: WFL, right shoulder: flexion: WFL with pain at end range, abd: 90 degrees with pain, IR: to bra line with pain, ER: 60 degrees, Ext: WNL, Elbow/Wrist: WNL Strength: Scap: fair minus, Shoulder: flexion: 4-/5, Abd: 2+/5, Ext: 4/5, IR: 4/5, ER: 4/5, all tested at neutral Elbow: 4+/5, Chief Of Anesthesiology: Right: 40 lbs Left: 65 lbs Special Tests R Shoulder Lift Off Test - Subscapular Tear: Positive R Shoulder Drop Sign - IS Test: Positive R Shoulder Empty Can - SS: Positive R Shoulder Belly Press - SupScap: Positive R Shoulder Neer - Impingement: Positive R Shoulder Qureshi Andrew - Impingement: Positive Balance/Special Test Scores Oswestry Neck Score: 17 Goals Goal 1:: Patient will report participation in home exercise program activities a minimum of 5 days per week, as adjunct to skilled physical therapy intervention in preparation for independent home management upon discharge. Goal 2:: Patient will maintain proper posture t/o tx session to demo increased scap s/s Goal Time Frame: 4-6 Weeks Goal 3:: Patient will demo full AROM of the right shoulder without pain for 1 week Goal Time Frame: 4-6 Weeks Goal 4:: Patient will report 80% improvement Goal Time Frame: 4-6 Weeks Rehabilitation Potential Physical Therapy Diagnosis: Patient presents with hypomobility- she has decreased pain free ROM, scapular strength/stabilization and muscular endurance leading to poor posture and increased pain with ADLs. Rehabilitation Potential: Fair Anticipated Interventions Patient/Client Instruction: Educate patient on: Benefits of Fitness Program Therapeutic Exercise to Include: Strength training, Endurance training, Coordination, Agility training, Body mechanics, Postural training, Flexibilty training, Neuromotor development, Passive ROM, Active ROM, Dynamic Lumbar Stabilization and Scapular Strength/Stabilization For the Purpose of:: To improve muscle performance and motor function Manual Therapy Techniques to Include: Soft tissue mobilization For the Purpose of:: To decrease pain and To decrease swelling/inflammation TENS: Yes Cryotherapy (ice pack, ice massage): Yes Thermo therapy (hot pack): Yes Ultrasound (thermal/non thermal): No Text: Thank you for the opportunity to evaluate your patient. For Medicare and Medicare HMO plans, please review the plan of care and approve it. It will need to be FAXED BACK to us at [phone] for Medicare purposes. For Medicare only, by signing this I certify the plan of care. Please let me know if there are questions or concerns regarding this plan of care. Physician Signature: Date:
--- NOTE | 2024-03-27 07:52 | HP.PTDCSUM ---
Discharge Summary D/C summary: It has been my pleasure to treat SHIRA LEAL referred by Dr. Booker Natarajan MD, with the diagnosis of 01/20/24- Removal of plate inspection fusion C5-C7 and anterior cervical dis for a total of 15 visit(s). Discharge Date: Please see the following information for a summary of their discharge status. Subjective Subjective: The first week back to work was good- but then son got then working and then it was really bad- ended up in ER- thinks neuro may need to get involved- the last few days she feels that she has gotten slightly better. Last week was slightly better- she is a little stiff today she woke on her left side today so she is a little more stiff today. The catching and painful moments are located more on her left side- she pulled weeds on Tuesday and went to work on Tuesday- she is more tight today. She has discomfort in her pec and down the arm to the fingers. She goes back to the [facility] in May. Patient feels that she is 50% back to normal. Pain Cervical neck and shoulders: Pain Intensity (Out of 10): 3 Overall Improvement % Improvement: 50 Objective Objective/Function: Objective: Posture: good throughout session- no guarding Gait: good arm swing and trunk rotation Observation: incision healing well no s/s of infection Palpation: mild tenderness along the left upper trap and pecs Sensation: WNL to gross touch ROM: Cervical: WFL in all ranges with ACDF Bilateral shoulders: WNL without discomfort Elbow/Wrist: WNL Strength: Scap: fair plus, Shoulder: flexion: 4+/5, Abd: 4/5, Ext: 4+/5, IR: 4+/5, ER: 4+/5, all tested at neutral Elbow: 4+/5, Receivable Clerk: Right: 65 lbs Left: 65 lbs Goals Goal 1:: Patient will report participation in home exercise program activities a minimum of 5 days per week, as adjunct to skilled physical therapy intervention in preparation for independent home management upon discharge. Goal Progress: Goal Met Goal 2:: Patient will maintain proper posture t/o tx session to demo increased scap s/s Goal Progress: Goal Met Goal 3:: Patient will demo full AROM of the right shoulder without pain for 1 week Goal Progress: Goal Met Goal 4:: Patient will report 80% improvement Goal Progress: Progressing Plan Plan: 03/27/24: Discharge to [facility]- encourage to call if questions or concerns 01/20/24- Removal of plate inspection fusion C5-C7 and anterior cervical discectomy and fusion C4-C5 with allograft and plate and Right Shoulder. Focus on postural correction- scapular strength/stabilization. D/C Information d/c sentence: If there are questions or concerns regarding this patient's physical therapy, please feel free to call me at [phone]. Thank you for the referral of this patient. Sincerely, Coleen Kyle, ANASTACIOT Balance/Gait/Functional tests Balance/Special Test Scores Oswestry Neck Score: 15 Improvement % Improvement: 50
== END 2024-03-27 19:00 | disposition home or self-care (01) ==
LOC: PT 07:00
PROVIDERS: PCP Internal Medicine; Referring Provider Orthopaedic Surgery Orthopaedic Surgery of the Spine; Visit Provider Orthopaedic Surgery Orthopaedic Surgery of the Spine
DX: M54.12 Radiculopathy, cervical region (principal); M75.41 Impingement syndrome of right shoulder
CPT/HCPCS: 97014; 97110; 97162; 97164; G0283

== ENCOUNTER → 2024-05-30 | Outpatient (CLI) | payer OTHER, SELFPAY ==
--- NOTE | 2024-05-30 07:09 | BI_ITS ---
MAMMOGRAPHY - BILATERAL SCREENING REASON FOR EXAM: Female, 54 years old. Routine annual screening examination. PERTINENT HISTORY: Mother with breast cancer. History of prior bilateral breast reduction surgery. TECHNIQUE: Digital bilateral breast charisse (3D mammographic acquisition) in the CC and MLO projections. 2-D mediolateral oblique (MLO) and craniocaudad (CC) views of both breasts were obtained. CAD: Full Field Digital Mammography with Computer Added Detection was performed. COMPARISON: Comparison is made with prior study May 25, 2023 and May 19, 2022. FINDINGS: Breast Composition: The breasts are heterogeneously dense, which may obscure small masses. There are no dominant masses or suspicious calcifications. No other significant abnormalities are identified. There has been no significant change since the prior study. BI/SCRN MAMM (CAD)W/CHARISSE BILAT IMPRESSION: Stable bilateral screening mammogram. Yearly follow-up mammogram recommended. (A) ASSESSMENT CATEGORY: BIRADS Category 1: Negative. A letter regarding these results will be sent to the patient by the facility within 30 days. Approximately 10% of breast cancers are not detected by mammography. A normal mammogram should not delay biopsy of a clinically suspicious abnormality. [id number] Electronically Signed: Marquise Carmona MD at 8:23 EDT ,
== END | disposition home or self-care (01) ==
LOC: OPBI 07:09
PROVIDERS: PCP Internal Medicine; Referring Provider Obstetrics & Gynecology; Visit Provider Obstetrics & Gynecology
DX: Z12.31 Encounter for screening mammogram for malignant neoplasm of breast (principal); Z80.3 Family history of malignant neoplasm of breast
CPT/HCPCS: 77063; 77067

== ENCOUNTER → 2024-06-27 | Outpatient (CLI) | payer OTHER, SELFPAY ==
[2024-06-27 09:26] LABS: Absolute Lymphocyte Count 1.45 X10^3/uL (0.83-4.51); Absolute Neutrophil Count 4.6 X10^3/uL (2.0-7.7); Basophil# 0.08 X10^3/uL; Basophil% 1.2 % (0-1); Eosinophil# 0.28 X10^3/uL; Eosinophils% 4.1 % (0-5); Hematocrit 45.4 % (37-47); Hemoglobin 14.8 g/dL (12.0-15.0); Lymphocyte # 1.45 X10^3/ul (0.83-4.51); Lymphocyte % 21.4 % (19-41); Mean Corp Hgb Conc 32.6 g/dL (32-36); Mean Corpuscular Hgb 28.1 pg (27.0-32.0); Mean Corpuscular Volume 86.3 fL (81-99); Mean Platelet Vol. 10.1 fl (6.2-12.0); Monocyte# 0.39 X10^3/uL; Monocyte% 5.8 % (0-10); NRBC Flagged by Analyzer 0 % (0-5); Neutrophil # 4.55 X10^3/uL (2.7-7.7); Neutrophil % 67.2 % (47-70); Platelet Count 302 K/mm3 (150-450); RBC Distribution Width CV 13.2 % (11.6-14.6); RBC Distribution Width SD 40.9 fl (35.1-43.9); Red Blood Count 5.26 M/mm3 (4.2-5.4); White Blood Count 6.8 K/mm3 (4.4-11.0)
[2024-06-27 10:40] LABS: ALB/GLOB Ratio 1.2 RATIO (0.9-2.4); AST(SGOT) 26 U/L (15-37); Alanine Aminotransfer ALT/SGPT 32 U/L (13-56); Alkaline Phosphatase 107 U/L (45-117); Anion Gap 5 (5-15); BUN 17 mg/dL (7-18); BUN/Creat Ratio 20.1 RATIO (10-20); Calcium,Total 9.9 mg/dL (8.5-10.1); Chloride 108 mmol/L (98-107); Cholesterol 165 mg/dL (200); Creatinine, Serum 0.85 mg/dL (0.55-1.02); EST Glomerular Filtration Rate 74 mL/min (>60); Est Glom Filt Rate - Afr Amer 90 mL/min (>60); Globulin 3.4 g/dL (2.2-4.2); Glucose 109 mg/dL (74-106); High Density Lipoprotein 57 mg/dL; Potassium 3.8 mmol/L (3.5-5.1); Protein, Total 7.4 g/dL (6.4-8.2); Sodium Level 140 mmol/L (136-145); Triglycerides 111 mg/dL; Very Low Density Lipoprotein 22 mg/dL (5-40)
[2024-06-27 11:06] LABS: Hemoglobin A1c 5.7 % (3.8-5.6)
[2024-06-27 20:43] LABS: Free T3 2.8 pg/mL (2.18-3.98); T4 Free Direct 0.91 ng/dL (0.76-1.46)
[2024-06-28 07:09] LABS: Insulin Level 13.6 uIU/mL (2.6-24.9)
== END | disposition home or self-care (01) ==
LOC: LAB 08:50
PROVIDERS: PCP Internal Medicine; Referring Provider Internal Medicine; Visit Provider Internal Medicine
DX: K76.0 Fatty (change of) liver, not elsewhere classified (principal); R79.89 Other specified abnormal findings of blood chemistry; I10 Essential (primary) hypertension; E88.819 Insulin resistance, unspecified; E55.9 Vitamin D deficiency, unspecified; Z13.220 Encounter for screening for lipoid disorders
CPT/HCPCS: 36415; 80053; 80061; 82306; 83036; 83525; 84439; 84443; 84481; 85025

== ENCOUNTER → 2024-10-05 | Outpatient (CLI) | payer OTHER, SELFPAY ==
--- NOTE | 2024-10-05 10:48 | ECHOD_ITS ---
Reason For Study: R/O Bicuspid AV Procedure This was a 2D Doppler, Color Flow transthoracic echocardiogram. Exam performed in department. Left Ventricle Normal LV size. Left ventricular systolic function is normal. The left ventricular ejection fraction is 60 %. No regional wall motion abnormalities noted. Right Ventricle Normal RV size. Normal systolic function. Atria Normal left atrium. Normal right atrium. Mitral Valve Normal mitral valve. Tricuspid Valve Normal tricuspid valve. Mild tricuspid valve insufficiency. Aortic Valve Trisinus/trileaflet aortic valve. Pulmonic Valve Normal pulmonic valve. Great Vessels Normal aortic root. The pulmonary artery is normal size. Inferior vena cava collapse with respiration. Pericardium/Pleural No pericardial effusion. MMode/2D Measurements & Calculations LVIDd: 4.3 cm IVSd: 1.1 cm Ao root diam: 3.0 cm LVIDs: 2.4 cm LVPWd: 1.1 cm RVDd: 3.1 cm FS: 44.1 % LAV(MOD-bp): 33.2 ml LVAd ap4: 26.6 cm2 LVAd ap2: 25.1 cm2 LAV(MOD-bp) Indexed: 17.9 ml/m2 LVLd ap4: 7.8 cm LVLd ap2: 8.0 cm LAV(MOD-sp2): 31.4 ml EDV(MOD-sp4): 76.5 ml EDV(MOD-sp2): 67.5 ml LAV(MOD-sp4): 31.4 ml EDV(sp4-el): 77.2 ml EDV(sp2-el): 67.1 ml LVAs ap4: 15.3 cm2 LVAs ap2: 12.5 cm2 LVLs ap4: 6.5 cm LVLs ap2: 6.7 cm ESV(MOD-sp4): 32.4 ml ESV(MOD-sp2): 20.2 ml ESV(sp4-el): 30.7 ml ESV(sp2-el): 19.9 ml EF(MOD-sp4): 57.6 % EF(MOD-sp2): 70.0 % EF(sp4-el): 60.3 % SV(MOD-sp4): 44.1 ml SV(MOD-sp2): 47.3 ml SV(sp4-el): 46.5 ml SI(MOD-sp4): 23.8 ml/m2 SI(MOD-sp2): 25.6 ml/m2 LA A4 area: 13.7 cm2 LA dimension(2D): 3.2 cm RA A4 area: 11.3 cm2 TAPSE: 2.2 cm Time Measurements MV dec time: 0.29 sec Doppler Measurements & Calculations MV E max kenny: 55.0 cm/sec Lat Peak E' Kenny: 7.4 cm/sec Med Peak E' Kenny: 6.5 cm/sec MV A max kenny: 75.6 cm/sec E/E' lat: 7.4 E/E' med: 8.5 MV E/A: 0.73 Ao V2 max: 135.9 cm/sec LV V1 max: 93.0 cm/sec MV dec slope: 192.2 cm/sec2 Ao max P.4 mmHg LV V1 max P.5 mmHg Ao V2 mean: 87.2 cm/sec LV V1 mean P.6 mmHg Ao mean P.5 mmHg LV V1 mean: 57.0 cm/sec Ao V2 VTI: 28.9 cm LV V1 VTI: 18.6 cm AV (velocity ratio): 0.65 PA V2 max: 72.8 cm/sec TR max kenny: 230.3 cm/sec TR max P.2 mmHg ECHO/Echo Complete Interpretation Summary Normal LV size. Left ventricular systolic function is normal. The left ventricular ejection fraction is 60 %. Trisinus/trileaflet aortic valve. Ordering Physician: Lenore Proctor Referring Physician: Lenore Proctor Performed By: Laurence Astudillo RDCS
== END | disposition home or self-care (01) ==
LOC: CVS 10:45
PROVIDERS: PCP Internal Medicine; Referring Provider Internal Medicine; Visit Provider Internal Medicine
DX: R06.09 Other forms of dyspnea (principal); I10 Essential (primary) hypertension; Z82.49 Family history of ischemic heart disease and other diseases of the circulatory system; Z82.79 Family history of other congenital malformations, deformations and chromosomal abnormalities
CPT/HCPCS: 93306

== ENCOUNTER 2024-10-31 08:01 | Day surgery (SDC) | payer OTHER, SELFPAY ==
--- NOTE | 2024-10-30 16:13 | PAT.ANESEVAL ---
Pre-Assessment Diagnosis/Proposed Procedure Planned Operative Procedure(s): COLONOSCOPY Anesthesia History Anesthesia History - video tape duplicator: Anesthesia History - video tape duplicator Hx Hospitalization Yes: CERVICAL SURGERY 10/30/24 13:48 Any Problems With Anesthesia Yes: N&V 10/30/24 13:48 Cholinesterase deficiency No 10/30/24 13:48 You/Your Family Experience No 10/30/24 13:48 fever (hyperthermia) with Relationship Recent Exposure to Contagious No 09/17/22 13:14 Disease Does patient have nerve No 10/30/24 13:48 stimulator Patient instructed to have device shut off --Does patient have Pacemaker or ICD? When Was Last Pacemaker Check QUESTION #4 FULL TEXT: You/Your Family Experience fever (hyperthermia) with Anesthesia Last Oral Intake Last Oral intake: Last Oral Intake NPO since Meds taken in AM with sips of water? Meds patient instructed to take am of surgery PONV PONV - video tape duplicator: PONV - video tape duplicator Female Yes 10/30/24 13:48 HX of Motion Sickness No 10/30/24 13:48 HX of N/V After Surgery No 10/30/24 13:48 Non-Smoker Yes 10/30/24 13:48 Duration of Surgery greater No 10/30/24 13:48 than 60 minutes Number of Risk Factors 2 10/30/24 13:48 PONV Score Moderate Risk 10/30/24 13:48 Height & Weight Height & Weight: Anesthesia: Height & Weight Height 5 ft 2 in 10/05/24 14:00 Respiratory Assessment Respiratory Assessment - video tape duplicator: Respiratory Tract Infection Hx - video tape duplicator Hx Respiratory Tract Infection No 10/30/24 13:48 STOP Sleep Apnea STOP Sleep Apnea - video tape duplicator: STOP Sleep Apnea - video tape duplicator Hx Hypertension Yes: CONTROLLED ON MED 10/30/24 13:48 Hx Sleep Apnea No 10/30/24 13:48 CPAP BIPAP Do you snore loudly (louder Yes 10/30/24 13:48 than talking or can be heard Do you often feel tired/ No 10/30/24 13:48 fatigued/ sleepy during daytime? Has anyone observed you stop No 10/30/24 13:48 breathing during sleep? STOP Results Positive 10/30/24 13:48 QUESTION #5 FULL TEXT : Do you snore loudly (louder than talking or can be heard through closed doors)? 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 Specify any problems Hx of Preganancy in last 3 No 10/30/24 13:48 Months Nurse Filling Out Transfusion VCHRISTIN 10/30/24 13:48 & Questions: Date: 10/30/24 10/30/24 13:48 Time: 13:49 10/30/24 13:48 Patient unable to answer at this time (ie. confused, unrespo /Reproduction History /Reproductive History - video tape duplicator: /Reproductive Hx- video tape duplicator Hx Now No 10/30/24 13:48 Gestational Age (in weeks): EDC: Hx Hx Para Hx Section SAB No 10/30/24 13:48 [facility] Medical History (Updated 10/30/24 @ 13:48 by Darline Khan) Alcohol use Wears glasses Post-menopausal Fatty liver Injury of head and neck Former smoker History of echocardiogram Family history of colon cancer Right knee pain Family history of Lopez syndrome Family history of aortic valve disorder Dyspnea on exertion Pes anserine bursitis Contact dermatitis due to poison oak Acute sinusitis, unspecified Acute otitis media, right Arthritis Degenerative disc disease Hypertension 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 Home Medications ?Medication ?Instructions ?Recorded ?Last Taken ?Type multivit-iron 18 mg-folic acid 400 1 ea PO DAILY SUPPLEMENTS 10/13/17 10/25/24 History mcg-calcium 500 mg-minerals tablet glucosamine 1 tab PO DAILY 09/14/23 10/25/24 History f complex for women 1 tab PO TID 10/05/24 10/25/24 History lisinopril 10 mg tablet 10 mg PO QDAY #90 tabs 10/08/24 Unknown Rx CBD Oral (INFORMATIONAL USE 10/25/24 Unknown History ONLY-PT USES ORAL CBD) cholecalciferol (vitamin D3) 10 5 mcg PO QDAY 10/25/24 10/25/24 History mcg/0.25 mL oral drops cod liver oil 1 cap PO DAILY 10/25/24 10/25/24 History turmeric root extract 500 mg 500 mg PO BID 10/25/24 10/25/24 History capsule ascorbic acid 1,000 1 ea PO DAILY PRN 10/30/24 Unknown History [id number]-nqidrnox powder effervescent pack (Emergen-C) Allergy/AdvReac Type Severity Reaction Status Date / Time animal dander Allergy sneezing Verified 10/30/24 13:38 house dust Allergy sneezing Verified 10/30/24 13:38 mold (mold spores) Allergy Other Verified 10/30/24 13:38 Seasonal Allergies: Uncoded Allergy sneezing Verified 10/30/24 13:38 Family History (Updated 10/25/24 @ 09:21 by Yudith Alegria) Grandfather COPD (chronic obstructive pulmonary disease) Heart disease Colon cancer Grandmother COPD (chronic obstructive pulmonary disease) Myocardial infarction, Onset Age: 50 Diabetes Colon cancer Mother Breast cancer, Onset Age: 73 Colon polyps Surgical History (Updated 10/30/24 @ 13:48 by Darline Khan) Hx of colonoscopy S/P cervical spinal fusion Hx of lumbar discectomy History of carpal tunnel surgery H/O section H/O neck surgery Hx of breast reduction, elective S/P laparoscopic assisted vaginal hysterectomy (LAVH) Social History (Updated 10/25/24 @ 09:27 by Yudith Alegria) household members: spouse number of children: 3 current occupational status: employed current occupation: [employer] Smoking Status: Former smoker alcohol intake: current details: social substance use type: does not use caffeine: Yes what type of physical activity do you participate in: none seatbelt use: always do you feel safe at home: Yes additional social history: Jalil Audit: Pertinent Findings Pertinent Findings EKG Perinent findings: March 13, 2024. Normal sinus rhythm. Echo (EF%) pertinent findings: October 05, 2024. Ejection fraction 60%. No aortic stenosis noted. Recommendation Anesthesia Recommendation Anesthesia recommendation: OPTIMIZED for anesthesia
[2024-10-31] VITALS (9 sets, daily range): BP systolic 118–149; BP diastolic 70–78; PULSE 53–67; RESP 16; TEMP 36.3–36.8; O2SAT 98–100; BMI 32.0
--- NOTE | 2024-10-31 08:26 | HP.PCM_ITS ---
HPI - General General Date of Service: 10/31/24 HPI Narrative SHIRA LEAL, is a 54 F who presents for screening colonoscopy due to history of colon polyps. Patient's last colonoscopy was 03/[address] Farrar had polyps at that time. Patient's maternal grandmother and grandfather colon cancer, patient's mom's only had polyps?not greater than a centimeter. Patient has bowel movements once a week, denies any blood. Patient denies any chronic abdominal pain/nausea/vomiting/reflux. [facility] Medical History Alcohol use Wears glasses Post-menopausal Fatty liver Injury of head and neck Former smoker History of echocardiogram Family history of colon cancer Right knee pain Family history of Lopez syndrome Family history of aortic valve disorder Dyspnea on exertion Pes anserine bursitis Contact dermatitis due to poison oak Acute sinusitis, unspecified Acute otitis media, right Arthritis Degenerative disc disease Hypertension 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 Home Medications ?Medication ?Instructions ?Recorded ?Last Taken ?Type multivit-iron 18 mg-folic acid 400 1 ea PO DAILY SUPPLEMENTS 10/13/17 10/25/24 History mcg-calcium 500 mg-minerals tablet glucosamine 1 tab PO DAILY 09/14/23 10/25/24 History f complex for women 1 tab PO TID 10/05/24 10/25/24 History lisinopril 10 mg tablet 10 mg PO QDAY #90 tabs 10/08/24 Unknown Rx CBD Oral (INFORMATIONAL USE 10/25/24 Unknown History ONLY-PT USES ORAL CBD) cholecalciferol (vitamin D3) 10 5 mcg PO QDAY 10/25/24 10/25/24 History mcg/0.25 mL oral drops cod liver oil 1 cap PO DAILY 10/25/24 10/25/24 History turmeric root extract 500 mg 500 mg PO BID 10/25/24 10/25/24 History capsule ascorbic acid 1,000 1 ea PO DAILY PRN 10/30/24 Unknown History [id number]-kflzpcqc powder effervescent pack (Emergen-C) Allergy/AdvReac Type Severity Reaction Status Date / Time animal dander Allergy sneezing Verified 10/31/24 08:33 house dust Allergy sneezing Verified 10/31/24 08:33 mold (mold spores) Allergy Other Verified 10/31/24 08:33 Seasonal Allergies: Uncoded Allergy sneezing Verified 10/31/24 08:33 Family History Grandfather COPD (chronic obstructive pulmonary disease) Heart disease Colon cancer Grandmother COPD (chronic obstructive pulmonary disease) Myocardial infarction, Onset Age: 50 Diabetes Colon cancer Mother Breast cancer, Onset Age: 73 Colon polyps Surgical History Hx of colonoscopy S/P cervical spinal fusion Hx of lumbar discectomy History of carpal tunnel surgery H/O section H/O neck surgery Hx of breast reduction, elective S/P laparoscopic assisted vaginal hysterectomy (LAVH) Social History household members: spouse number of children: 3 current occupational status: employed current occupation: [employer] Smoking Status: Former smoker alcohol intake: current details: social substance use type: does not use caffeine: Yes what type of physical activity do you participate in: none seatbelt use: always do you feel safe at home: Yes additional social history: Jalil Past Medical/Surgical History Planned Operation Planned Operative Procedure(s): COLONOSCOPY S.O.S: No Previous Hospitalizations/Surgeries HX Hospitalizations: Yes (CERVICAL SURGERY) HX of Surgeries: 3 SECTIONS HERNIATED DISC Any Problems With Anesthesia: Yes (N&V) You/Your Family Experience Fever (Hyperthermia) With Anes: No Cholinesterase deficiency: No Cardiovascular Hx Chest Pain within Last 2 months: No Hx of Irregular Heartbeat and/or Afib: No Hx Heart Attack: No Hx Congestive Heart Failure: No Hx Rheumatic Fever: No Hx Hypertension: Yes (CONTROLLED ON MED) Hx Internal Defibrillator: No Hx Pacemaker: No Hx Cardiac Catheterization: No Hx Cardiac Surgery/Stents/Etc.: No Hx Stress Test: No Hx Pain in Legs when Walking/Leg Cramps: No Respiratory Chronic Cough: No HX of Shortness of Breath: No Hoarseness: No Hx Chronic Obstructive Pulmonary Disease (COPD): No Hx Asthma: No Hx Emphysema: No Hx Sleep Apnea: No Hx Respiratory Tract Infection/Cold (presently): No Do You Snore Loudly (louder than talking or can be heard): Yes Do You Often Feel Tired/ Fatigued/ Sleepy Dring Daytime?: No Has Anyone Observed You Stop Breathing During Sleep?: No Result (for STOP score): Positive Hx Smoking: Yes Smoking Status: Former smoker Gastrointestinal Hx Gastrointestinal Disorders: No Hx Gastrointestinal Bleed: No Hx Ulcer: No Hx Hiatal Hernia: No Difficulty Chewing/Swallowing: No Special diet followed at home: No Hx Unplanned Weight Loss of 20#: No HX Unplanned Weight Gain of 20#: No Neurological Hx Seizures: No HX Syncope/Blackout Spells/Unconsciousness: No Hx Transient Ischemic Attacks (TIA): No Hx Multiple Sclerosis: No Hx Parkinson's Disease: No Hx Head/Neck Injury: Yes (NECK TO SPINE FROM HEAD ON SHIRIN, DDD) Hx Headaches: No Hx Back Injury/Pain: No Recent Onset of Speech Difficulty: No Restless Legs: No Does patient have nerve stimulator: No Blood Disorder Hx Leukemia: No Bleeding Tendencies: No Hx Deep Vein Thrombosis: No Hx High Cholesterol: No Blood Transmitted Disease: No Hx Hepatitis: No Hx Cirrhosis: No Hx Anemia: Yes Hx Blood Disorders: No Reproduction : No Is Patient Lactating: No Hx Hysterectomy: No Hx Tubal Ligation: Yes Are You Post Menopause: No Genitourinary Hx Renal Disease: No Musculoskeletal Hx Arthritis: No Hx Rheumatoid Arthritis: No Hx Gout: No Recent Onset of an Orthopedic Problem: No Endocrine Hx Diabetes: No Thyroid Disease: No Hx Steroid Therapy: No Psycho/Social Hx Substance Use: No Hx Alcohol Use: No Hx Anxiety: No Hx Depression: No Mental Illness: No Hx Dementia: No Miscellaneous Hx Cancer: No Recent Exposure to Contagious Disease: No Hx of C-Diff: No Any Loose Teeth: No Allergies animal dander Allergy (Verified 10/31/24 08:33) sneezing house dust Allergy (Verified 10/31/24 08:33) sneezing mold (mold spores) Allergy (Verified 10/31/24 08:33) Other sinusitis Seasonal Allergies: Uncoded Allergy (Verified 10/31/24 08:33) sneezing Discharge Is Pt Admitted From a Correction, or a Usp: No After D/C, Where Do you Plan to Go: Return Home Physical Exam Const alert, oriented x3 and no apparent distress HEENT normocephalic and head/scalp atraumatic Resp normal respiratory effort Cardio regular rate GI soft to palpation and non-tender; Negative for non-distended Palpation: Negative for guarding Extremity no clubbing, cyanosis or edema Skin no rashes or lesions noted Neuro CN's II-XII intact bilaterally Psych mental status grossly normal Assessment & Plan Assessment/Plan (1) Encounter for screening for malignant neoplasm of colon: Surgery Risks - Colonoscopy I discussed with the patient the risks of the procedure: Yes Risks Include but are not Limited To: Risks include but are not limited to: Bleeding, perforation requiring further surgery, inability to complete colonoscopy requiring barium enema.
--- NOTE | 2024-10-31 08:41 | PCM.PRE.AN2 ---
ASA Classification* ASA Classification ASA Classification: 2 Assessment & Plan Anesthesia* Anesthesia Assessment Anesthesia Assessment: Discussed sedation and/or anesthesia options, risks, benefits, and alternatives with patient/parents/legal guardian/POA. Questions invited. The patient/parents/legal guardian/POA seems to understand and agrees to proceed with anesthesia plan. Reviewed the physical assessment, medical history, allergy history and patient home medications list prior to surgery/procedure/anesthetic and documented any changes. Performed airway and anesthesia risk assessments. Anesthesia Type Anesthesia Type: MAC (request zofran due to nausea history) Anesthesia Focused Assessment* Temperature: 98.1 F Pulse Rate: 56 Blood Pressure: 138/71 Respiratory Rate: 16 Pulse Ox: 99 Airway Assessment Mouth opens: >3 cm Mallampati Score: II Focused Labs Anesthesia Preop lab: CBC WBC 6.8 K/mm3 (4.4-11.0) 06/27/24 08:52 RBC 5.26 M/mm3 (4.2-5.4) 06/27/24 08:52 Hgb 14.8 g/dL (12.0-15.0) 06/27/24 08:52 Hct 45.4 % (37-47) 06/27/24 08:52 Plt Count 302 K/mm3 (150-450) 06/27/24 08:52 CHEMISTRY Potassium 3.8 mmol/L (3.5-5.1) 06/27/24 08:52 Sodium 140 mmol/L (136-145) 06/27/24 08:52 BUN 17 mg/dL (7-18) 06/27/24 08:52 Creatinine 0.85 mg/dL (0.55-1.02) 06/27/24 08:52 Glucose 109 mg/dL (74-106) H 06/27/24 08:52 POC Glucose 89 mg/dL (74-106) 03/13/24 17:03 TSH 3.990 uIU/mL (0.358-3.740) H 06/27/24 08:52 COAG PT 14.8 SECONDS (11.7-14.9) 03/13/24 16:30 Pre-Assessment Diagnosis/Proposed Procedure Planned Operative Procedure(s): COLONOSCOPY Anesthesia History Anesthesia History - first aid trainer: Anesthesia History - first aid trainer Hx Hospitalization Yes: CERVICAL SURGERY 10/31/24 08:27 Any Problems With Anesthesia Yes: N&V 10/31/24 08:27 Cholinesterase deficiency No 10/31/24 08:27 You/Your Family Experience No 10/31/24 08:27 fever (hyperthermia) with Relationship Recent Exposure to Contagious No 10/31/24 08:34 Disease Does patient have nerve No 10/31/24 08:27 stimulator Patient instructed to have device shut off --Does patient have Pacemaker or ICD? When Was Last Pacemaker Check QUESTION #4 FULL TEXT: You/Your Family Experience fever (hyperthermia) with Anesthesia Last Oral Intake Last Oral intake: Last Oral Intake NPO since 04:00 10/31/24 08:34 Meds taken in AM with sips of No 10/31/24 08:34 water? Meds patient instructed to take am of surgery PONV PONV - first aid trainer: PONV - first aid trainer Female Yes 10/30/24 13:48 HX of Motion Sickness No 10/30/24 13:48 HX of N/V After Surgery No 10/30/24 13:48 Non-Smoker Yes 10/30/24 13:48 Duration of Surgery greater No 10/30/24 13:48 than 60 minutes Number of Risk Factors 2 10/30/24 13:48 PONV Score Moderate Risk 10/30/24 13:48 Height & Weight Height & Weight: Anesthesia: Height & Weight Height 5 ft 3 in 10/31/24 08:34 Weight: 82 kg 10/31/24 08:34 Body Mass Index (BMI) 32.0 10/31/24 08:34 Respiratory Assessment Respiratory Assessment - first aid trainer: Respiratory Tract Infection Hx - first aid trainer Hx Respiratory Tract Infection No 10/31/24 08:27 STOP Sleep Apnea STOP Sleep Apnea - first aid trainer: STOP Sleep Apnea - first aid trainer Hx Hypertension Yes: CONTROLLED ON MED 10/31/24 08:27 Hx Sleep Apnea No 10/31/24 08:27 CPAP BIPAP Do you snore loudly (louder Yes 10/31/24 08:27 than talking or can be heard Do you often feel tired/ No 10/31/24 08:27 fatigued/ sleepy during daytime? Has anyone observed you stop No 10/31/24 08:27 breathing during sleep? STOP Results Positive 10/31/24 08:27 QUESTION #5 FULL TEXT : Do you snore loudly (louder than talking or can be heard through closed doors)? Tobacco Use History Tobacco Use History - first aid trainer: Tobacco Use History - first aid trainer Tobacco Use Smoking Status Former smoker 10/31/24 08:27 Hx Tobacco Use Yes 10/30/24 13:48 Years Smoking Packs Smoked per Day Smoking Cessation Date was No - quit smoking greater 10/30/24 13:48 within the last 15 years than 15 years ago Hx Smoking Cessation Date 10/17/11 10/30/24 13:48 Hx Smoking Cessation Counseling Hematologic Medial History Hematologic Hx - first aid trainer: Hematologic Medical Hx - documentation coordinator Hx of Blood Transfusion No 10/30/24 13:48 Hx of Transfusion in last 3 No 10/30/24 13:48 Months Date of Last Transfusion (if within last 3 months) Ever experience any problems No 10/30/24 13:48 with transfusion(s)? Specify any problems Hx of Preganancy in last 3 No 10/30/24 13:48 Months Nurse Filling Out Transfusion VCHRISTIN 10/30/24 13:48 & Questions: Date: 10/30/24 10/30/24 13:48 Time: 13:49 10/30/24 13:48 Patient unable to answer at this time (ie. confused, unrespo /Reproduction History /Reproductive History - first aid trainer: /Reproductive Hx- first aid trainer Hx Now No 10/31/24 08:27 Gestational Age (in weeks): EDC: Hx Hx Para Hx Section SAB No 10/30/24 13:48 PFSH Medical History Alcohol use Wears glasses Post-menopausal Fatty liver Injury of head and neck Former smoker History of echocardiogram Family history of colon cancer Right knee pain Family history of Lopez syndrome Family history of aortic valve disorder Dyspnea on exertion Pes anserine bursitis Contact dermatitis due to poison [place] Acute sinusitis, unspecified Acute otitis media, right Arthritis Degenerative disc disease Hypertension 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 Home Medications ?Medication ?Instructions ?Recorded ?Last Taken ?Type multivit-iron 18 mg-folic acid 400 1 ea PO DAILY SUPPLEMENTS 10/13/17 10/25/24 History mcg-calcium 500 mg-minerals tablet glucosamine 1 tab PO DAILY 11/29/23 01/09/25 History f complex for women 1 tab PO TID 10/05/24 10/25/24 History lisinopril 10 mg tablet 10 mg PO QDAY #90 tabs 10/08/24 Unknown Rx CBD Oral (INFORMATIONAL USE 10/25/24 Unknown History ONLY-PT USES ORAL CBD) cholecalciferol (vitamin D3) 10 5 mcg PO QDAY 10/25/24 10/25/24 History mcg/0.25 mL oral drops cod liver oil 1 cap PO DAILY 10/25/24 10/25/24 History turmeric root extract 500 mg 500 mg PO BID 10/25/24 10/25/24 History capsule ascorbic acid 1,000 1 ea PO DAILY PRN 10/30/24 Unknown History zn-trbqzsyzfwsy-hzbwkrhn powder effervescent pack (Emergen-C) Allergy/AdvReac Type Severity Reaction Status Date / Time animal dander Allergy sneezing Verified 10/31/24 08:33 house dust Allergy sneezing Verified 10/31/24 08:33 mold (mold spores) Allergy Other Verified 10/31/24 08:33 Seasonal Allergies: Uncoded Allergy sneezing Verified 10/31/24 08:33 Family History Grandfather COPD (chronic obstructive pulmonary disease) Heart disease Colon cancer Grandmother COPD (chronic obstructive pulmonary disease) Myocardial infarction, Onset Age: 50 Diabetes Colon cancer Mother Breast cancer, Onset Age: 73 Colon polyps Surgical History Hx of colonoscopy S/P cervical spinal fusion Hx of lumbar discectomy History of carpal tunnel surgery H/O section H/O neck surgery Hx of breast reduction, elective S/P laparoscopic assisted vaginal hysterectomy (LAVH) Social History household members: spouse number of children: 3 current occupational status: employed current occupation: [employer] Smoking Status: Former smoker alcohol intake: current details: social substance use type: does not use caffeine: Yes what type of physical activity do you participate in: none seatbelt use: always do you feel safe at home: Yes additional social history: Jalil Review of Systems (Anesthesia) ROS Narrative System reviewed and no additional complaints, except as documented.
--- NOTE | 2024-10-31 09:30 | COLBX_PTH ---
PATIENT: SHIRA LEAL LOC: EN U#:[id number] AGE/SX: 54/F ROOM: RE10/31/[address]: Dr. Sharona Zafar MD : 1970 BED: DIS: 10/31/2024 SPEC #: [id number] RECD: 10/31/24 10:41 STATUS: CELENA REMelony #: [id number] BOBBY: 10/31/24 09:[address]: Sharona Zafar DEPT: SURGICAL PATHOLOGY RECD BY: Teri Hernandez ENTERED: 10/31/24 11:19 SP TYPE: COLON BX OTHR DR: Dr. Lenore Proctor MD Tissues: Rectum, NOS Procedures: Surgery Specimen Level IV HEADER OPERATION: Colonoscopy, biopsy PRE-OP DIAGNOSIS: Encounter for screening for malignant neoplasm of colon TISSUE SUBMITTED: Rectum polyp biopsy x5 MICROSCOPIC DIAGNOSIS Rectal polyp x5, biopsy: Fragments of hyperplastic polyp. SJ.mr 11/01/2024 MICROSCOPIC DESCRIPTION Slides are reviewed. GROSS DESCRIPTION Received in fixative is one container labeled with the patient's name and designated Rectum polyp biopsy x5. The specimen consists of multiple irregular fragments of light best soft tissue that in aggregate measure 1.3 x 0.3 x 0.2 cm. The specimen is totally submitted in one cassette. 10/31/2024 TC:1 CPT:24112
--- NOTE | 2024-10-31 10:33 | OP.COLON_ITS ---
Patient Name: Ana Maria Rodriguez Procedure Date: 10/31/2024 9:58 AM Date of : 1970 Age: 54 Procedure: Colonoscopy Indications: High risk colon cancer surveillance: Personal history of colonic polyps Providers: Sharona Zafar MD Referring MD: Sharona Zafar MD Medicines: Monitored Anesthesia Care Patient Profile: This is a 54 year old female. Last Colonoscopy: 2019. Complications: No immediate complications. Procedure: Pre-Anesthesia Assessment: - Prior to the procedure, a History and Physical was performed, and patient medications and allergies were reviewed. The patient's tolerance of previous anesthesia was also reviewed. The risks and benefits of the procedure and the sedation options and risks were discussed with the patient. All questions were answered, and informed consent was obtained. Prior Anticoagulants: The patient has taken no anticoagulant or antiplatelet agents. ASA Grade Assessment: Per anesthesia. After reviewing the risks and benefits, the patient was deemed in satisfactory condition to undergo the procedure. After I obtained informed consent, the scope was passed under direct vision. Throughout the procedure, the patient's blood pressure, pulse, and oxygen saturations were monitored continuously. The Colonoscope was introduced through the anus and advanced to the cecum, identified by appendiceal orifice and ileocecal valve. The colonoscopy was performed without difficulty. The patient tolerated the procedure well. The quality of the bowel preparation was good. Scope In: 10:06:53 AM Scope Withdrawal Time 0 hours 12 minutes 49 seconds Scope Out: 10:27:17 AM Total Procedure Duration Time 0 hours 20 minutes 24 seconds Findings: Hemorrhoids were found on perianal exam. Five sessile polyps were found in the rectum. The polyps were less than 5 mm in size. These polyps were removed with a cold biopsy forceps. Resection and retrieval were complete. Multiple small-mouthed diverticula were found in the sigmoid colon. The exam was otherwise without abnormality on direct and retroflexion views. Impression: - Hemorrhoids found on perianal exam. - Five less than 5 mm polyps in the rectum, removed with a cold biopsy forceps. Resected and retrieved. - Diverticulosis in the sigmoid colon. - The examination was otherwise normal on direct and retroflexion views. Recommendation: - Discharge patient to home. - Resume previous diet. - Continue present medications. - Await pathology results. - Repeat colonoscopy in 5-10 years for surveillance based on pathology results. Procedure Code(s): --- Professional --- 05877, PT, Colonoscopy, flexible; with biopsy, single or multiple Diagnosis Code(s): --- Professional --- Z86.010, Personal history of colonic polyps K64.9, Unspecified hemorrhoids D12.8, Benign neoplasm of rectum K57.30, Diverticulosis of large intestine without perforation or abscess without bleeding CPT copyright 2021 [employer]. All rights reserved. The codes documented in this report are preliminary and upon backhoe operator review may be revised to meet current compliance requirements. MD Sharona Strange MD 10/31/2024 10:32:51 AM This report has been signed electronically. Number of Addenda: 0 Note Initiated On: 10/31/2024 9:58 AM
--- NOTE | 2024-10-31 10:33 | OP.CCLET_ITS ---
10/31/2024 Lenore Proctor [facility] [address] [place] [address] Re : Colonoscopy procedure for Ana Maria Rodriguez Dear Dr. Proctor This procedure was performed on Thursday, October 31, 2024. My impressions and recommendations are as follows: Impressions : - Hemorrhoids found on perianal exam. - Five less than 5 mm polyps in the rectum, removed with a cold biopsy forceps. Resected and retrieved. - Diverticulosis in the sigmoid colon. - The examination was otherwise normal on direct and retroflexion views. Recommendations : - Discharge patient to home. - Resume previous diet. - Continue present medications. - Await pathology results. - Repeat colonoscopy in 5-10 years for surveillance based on pathology results. My findings are described in the full procedure note, which is enclosed. If I can be of further assistance, please feel free to contact me at Doctor phone number(s): , Work: . Sincerely, MD Sharona Strange MD 10/31/2024 10:32:51 AM This report has been signed electronically.
--- NOTE | 2024-10-31 10:38 | PCM.POST.ANE ---
Anesthesia: Postop Eval I Current Vital Signs Temperature: 97.3 F Pulse Rate: 67 Blood Pressure: 119/77 Respiratory Rate: 16 Pulse Ox: 100 Assessment Airway patent: Yes Spontaneous unlabored respirations: Yes nausea: No Vomiting: No Anesthesia Complication: No Fluid Hydration Crystalloid volume administer (ml): 30 Total IV fluid infused: 30 Progress Note Anesthesia document: Postop Eval 1 completed: Yes
--- NOTE | 2024-10-31 13:00 | POSTOPAN2_ITS ---
Anesthesia Postop Eval I Sum Postop Eval Completion status Anesthesia document: Postop Eval 1 completed: Yes Anesthesia Postop Eval I Summary Anesthesia Postop Eval I Summary: Anesthesia Postop Eval I: Assessment Summary Airway patent Yes 10/31/24 10:38 PASTE UP ARTIST.[email or web address] Spontaneous unlabored Yes 10/31/24 10:38 PASTE UP ARTIST.TNES respirations Mental status nausea No 10/31/24 10:38 PASTE UP ARTIST.TNES Vomiting No 10/31/24 10:38 PASTE UP ARTIST.TNES Anesthesia Postop Eval I: Fluid Summary Crystalloid volume administer 30 10/31/24 10:38 PASTE UP ARTIST.TNES (ml) Colloids volume administered ( ml) Blood Product volume administered (ml) Total IV fluid infused 30 10/31/24 10:38 PASTE UP ARTIST.TNES Anesthesia Postop Eval I: Summary Notes Anesthesia Complication No 10/31/24 10:38 PASTE UP ARTIST.TNES Anesthesia Complication Comment: Post-operative progress note Anesthesia: Postop Eval II Evaluation Mental status: Awake Pain Level: 0 nausea: No Vomiting: No
--- NOTE | 2024-10-31 13:00 | PCM.POSTANE2 ---
Anesthesia Postop Eval I Sum Postop Eval Completion status Anesthesia document: Postop Eval 1 completed: Yes Anesthesia Postop Eval I Summary Anesthesia Postop Eval I Summary: Anesthesia Postop Eval I: Assessment Summary Airway patent Yes 10/31/24 10:38 POSTDOCTORAL [email or web address].[email or web address] Spontaneous unlabored Yes 10/31/24 10:38 POSTDOCTORAL FELLOW.TNES respirations Mental status nausea No 10/31/24 10:38 POSTDOCTORAL FELLOW.[email or web address] Vomiting No 10/31/24 10:38 POSTDOCTORAL FELLOW.TNES Anesthesia Postop Eval I: Fluid Summary Crystalloid volume administer 30 10/31/24 10:38 POSTDOCTORAL FELLOW.TNES (ml) Colloids volume administered ( ml) Blood Product volume administered (ml) Total IV fluid infused 30 10/31/24 10:38 POSTDOCTORAL FELLOW.[email or web address] Anesthesia Postop Eval I: Summary Notes Anesthesia Complication No 10/31/24 10:38 POSTDOCTORAL FELLOW.[email or web address] Anesthesia Complication Comment: Post-operative progress note Anesthesia: Postop Eval II Evaluation Mental status: Awake Pain Level: 0 nausea: No Vomiting: No
== END 2024-10-31 11:32 | disposition home or self-care (01) ==
LOC: EN 08:02 → AC 08:03
PROVIDERS: PCP Internal Medicine; Referring Provider Internal Medicine; Visit Provider Surgery
PROC: 0DJD8ZZ Inspection of Lower Intestinal Tract, Via Natural or Artificial Opening Endoscopic (ICD-10-PCS; CPT 45378; principal; 2024-10-31 09:25)
DX: Z12.11 Encounter for screening for malignant neoplasm of colon (principal); K64.9 Unspecified hemorrhoids; K57.30 Diverticulosis of large intestine without perforation or abscess without bleeding; Z87.891 Personal history of nicotine dependence; Z86.0100 Personal history of colon polyps, unspecified; Z90.710 Acquired absence of both cervix and uterus; D12.8 Benign neoplasm of rectum; I10 Essential (primary) hypertension; Z80.0 Family history of malignant neoplasm of digestive organs
CPT/HCPCS: 45380; 88305; A4216

== ENCOUNTER → 2025-01-16 | Outpatient (CLI) | payer OTHER, SELFPAY ==
[2025-01-16 12:00] LABS: Absolute Lymphocyte Count 1.89 X10^3/uL (0.83-4.51); Absolute Neutrophil Count 4.6 X10^3/uL (2.0-7.7); Basophil# 0.08 X10^3/uL; Basophil% 1.1 % (0-1); Eosinophil# 0.42 X10^3/uL; Eosinophils% 5.7 % (0-5); Hematocrit 42.3 % (37-47); Hemoglobin 14.3 g/dL (12.0-15.0); Lymphocyte # 1.89 X10^3/ul (0.83-4.51); Lymphocyte % 25.6 % (19-41); Mean Corp Hgb Conc 33.8 g/dL (32-36); Mean Corpuscular Hgb 28.8 pg (27.0-32.0); Mean Corpuscular Volume 85.1 fL (81-99); Mean Platelet Vol. 9.6 fl (6.2-12.0); Monocyte# 0.36 X10^3/uL; Monocyte% 4.9 % (0-10); NRBC Flagged by Analyzer 0 % (0-5); Neutrophil # 4.61 X10^3/uL (2.7-7.7); Neutrophil % 62.4 % (47-70); Platelet Count 292 K/mm3 (150-450); RBC Distribution Width CV 13.4 % (11.6-14.6); RBC Distribution Width SD 41.8 fl (35.1-43.9); Red Blood Count 4.97 M/mm3 (4.2-5.4); White Blood Count 7.4 K/mm3 (4.4-11.0)
[2025-01-16 16:47] LABS: Cholesterol 172 mg/dL (<=200); High Density Lipoprotein 58 mg/dL; Low Density Lipoprotein Calc. 93 mg/dL; Triglycerides 102 mg/dL; Very Low Density Lipoprotein 20 mg/dL (5-40); cholesterol:hdl ratio screen 2.96
[2025-01-16 18:00] LABS: ALB/GLOB Ratio 1.6 RATIO (0.9-2.4); AST(SGOT) 32 U/L (<=31); Alanine Aminotransfer ALT/SGPT 28 U/L (<=34); Albumin, Serum 4.4 g/dL (3.5-5.0); Alkaline Phosphatase 105 U/L (35-104); Anion Gap 11 (5-15); BUN 11 mg/dL (4-19); Calcium,Total 9.5 mg/dL (7.6-11.0); Carbon Dioxide 23.5 mmol/L (21.0-32.0); Chloride 106 mmol/L (98-108); Creatinine, Serum 0.73 mg/dL (0.70-1.20); EST Glomerular Filtration Rate 96 (>60); Globulin 2.7 g/dL (2.2-4.2); Glucose 92 mg/dL (70-99); Hemoglobin A1c 5.8 % (<=5.6); Protein, Total 7.1 g/dL (5.9-8.4); Sodium Level 140 mmol/L (133-145); Total Bilirubin 0.56 mg/dL (0.00-1.30)
== END | disposition home or self-care (01) ==
LOC: LAB 11:35
PROVIDERS: PCP Internal Medicine; Referring Provider Internal Medicine; Visit Provider Internal Medicine
DX: K76.0 Fatty (change of) liver, not elsewhere classified (principal); E88.819 Insulin resistance, unspecified; I10 Essential (primary) hypertension; E55.9 Vitamin D deficiency, unspecified; Z13.220 Encounter for screening for lipoid disorders; R73.9 Hyperglycemia, unspecified
CPT/HCPCS: 36415; 80053; 80061; 82306; 83036; 84443; 85025

== ENCOUNTER → 2025-06-19 | Outpatient (CLI) | payer OTHER, SELFPAY ==
--- NOTE | 2025-06-19 07:15 | BI_ITS ---
EXAM: SCRN MAMM (CAD)W/CHARISSE BILAT DATE: 06/19/2025 CLINICAL HISTORY: F, Age 55 y/o , SCREEN FOR BREAST CANCER Mother with breast cancer. History of prior bilateral breast reduction surgery. TECHNIQUE: Procedure Code: [id number] Modality: MG Procedure: SCRN MAMM (CAD)W/CHARISSE BILAT COMPARISON: Prior exam(s) dated May 30, 2024.. FINDINGS: TISSUE DENSITY: The breasts are heterogeneously dense, which may obscure small masses. Bilateral Breast Mammographic Findings: No significant masses, calcifications or other abnormalities are identified. No suspicious masses, areas of developing architectural distortion, or suspicious calcifications. There has been no significant interval change. BI/SCRN MAMM (CAD)W/CHARISSE BILAT IMPRESSION: Stable screening bilateral mammogram. OVERALL FINAL ASSESSMENT BI-RADS 1: NEGATIVE. RECOMMENDATION: Routine annual follow-up in 1 Year A letter with findings and recommendations will be mailed to the patient. Reading Location: [place] [id number]
--- OUTSIDE RECORDS SUMMARY | 2025-06-19 07:28 | XMS RPT_ITS | CCD ---
Author Organization [facility] Providers Care Deputy Bailiff Name Role Phone DerejeAnnitaRANDA AGUILERA Unavailable Unavailable LIZA CASTRO Unavailable Unavailable Ehrler, Nenita Unavailable Unavailable PROVIDER, UNKNOWN Unavailable Unavailable UNKNOWN, PROVIDER Unavailable Unavailable Ehrler, Nenita Unavailable Unavailable PROVIDER, UNKNOWN Unavailable Unavailable UNKNOWN, PROVIDER Unavailable Unavailable Mariana JIMÉNEZ, Shamar Staley Primary Care Provider Dr. Luke Boss Primary Care Provider Dr. Luke Boss Referring Provider Dr. Grisel Voss Attending Provider Dr. Lenore Proctor Attending Provider Dr. Luke Boss Primary Care Provider Dr. Luke Boss Referring Provider Dr. Grisel Voss Attending Provider Dr. Lenore Proctor Attending Provider Dr. Lenore Proctor Primary Care Provider Benjamin Peguero Attending Provider Unavailable Dr. Lenore Proctor Referring Provider NOHEMY Adair Attending Provider Dr. Lenore Proctor Primary Care Provider Dr. Lenore Proctor Referring Provider Dr. Jamari Hobson Attending Provider Dr. Lenore Proctor Primary Care Provider MD NELI SUERO Referring Provider Mitchell DOUGLAS MD, Frank A Primary Care Provider Mey vailable Dr. Lenore Proctor Primary Care Provider Dr. Lenore Proctor Attending Provider [phone] Luke Boss Referring Provider [phone] Grisel Voss Attending Provider CEBUL III, LIZA Primary Care Unavailable NENITA MEHTA Attending Unavailable JUAN LUIS KHALIL Attending Unavailable CEBUL III, LIZA Primary Care Unavailable EHRLER, NENITA Admitting Unavailable EHRLERNENITA Attending Unavailable CEBUL III, LIZA Primary Care Unavailable MIQUEL ZHOU Unavailable Shamar Peña MD Primary Care Provider Esthela JIMÉNEZ, Dr. Grover Primary Care Provider Dr. Lenore Proctor MD Attending Provider Dr. Lenore Proctor MD Referring Provider Bisi JIMÉNEZ, Dr. Strange Attending Provider Dr. Grisel Voss MD Attending Provider [phone] Yudith Alegria Attending Provider Unavailable Charisma JIMÉNEZ, Dr. Tabor Attending Provider [phone] Charisma JIMÉNEZ, Dr. Tabor Other Provider Chong Adair Attending Provider Podlogar GED PREPARATION TEACHER.SHOE SALESMAN, Emilee Unavailable Knoble GED PREPARATION TEACHER.SHOE SALESMAN, Jill Unavailable SHAMAR PEÑA Primary Care Unavailab PRISCILLA Maldonado Attending Unavailable Dr. Lenore Proctor MD Primary Care Provider Dr. Lenore Proctor MD Referring Provider Dr. Lenore Proctor MD Attending Provider Kael Sanabria Attending Provider Lenore Proctor Primary Care Unavailable Lenore Proctor Attending Unavailable Lenore Proctor Primary Care Unavailable Sharona Zafar Attending Unavailable Lenore Proctor Referring Unavailable Lenore Proctor Primary Care Unavailable Lenore Proctor Attending Unavailable Esthela, Lenore Referring Unavailable Shanika Grisel Attending Unavailable Altafony Grisel Referring Unavailable Esthela, Lenore Primary Care Unavailable Esthela, Lenore Attending Unavailable Esthela, Lenore Referring Unavailable Esthela, Lenore Primary Care Unavailable Esthela, Lenore Primary Care Unavailable Esthela, Lenore Attending Unavailable Esthela, Lenore Referring Unavailable Alexandr Mathews Attending Unavailable Esthela, Lenore Primary Care Unavailable Esthela, Lenore Primary Care Unavailable Yudith Alegria Attending Unavailable Esthela, Lenore Primary Care Unavailable Sharona Zafar Consulting Unavailable RobotSharona hollins Attending Unavailable Esthela, Lenore Referring Unavailable Marcanthony Grisel Attending Unavailable Esthela, Lenore Primary Care Unavailable Esthela, Lenore Referring Unavailable Esthela, Lenore Primary Care Unavailable Chong Adair Attending Unavailable Esthela, Lenore Referring Unavailable Esthela, Lenore Attending Unavailable Esthela, Lenore Primary Care Unavailable Kael Foster Attending Unavailable Esthela, Lenore Referring Unavailable Esthela, Lenore Primary Care Unavailable Allergies Allergy Classification Reported Allergen(s) Allergy Type Date of Onset Reaction(s) Facility (6 sources) Seasonal allergy Allergy to substance 8 Other [facility] (3 sources) enviromental Allergy to substance 2 other [facility] (8 sources) house dust [facility]enic [facility] animal dander; Translations: [animal dander] [facility] Seasonal Allergies: Uncoded; Translations: [Seasonal Allergies: Uncoded] Allergy to substance 3 sneezing [facility] (3 sources) Cat Hair Extract Drug Allergy 4 [facility] (5 sources) Mold Extract Drug Allergy 4 Other [facility] Comment on above: sinusitis (2 sources) HYDROcodone Drug Allergy 4 Vomiting Only [facility] (1 source) house dust allergenic extract Drug Allergy 5 [facility] (1 source) Mold Extract Drug Allergy 5 [facility] Medications Current Medications Medication Drug Class(es) Dates Sig (Normalized) Sig (Original) Cbd Oral (Informational Use Only-Pt Uses Oral Cbd) oil (2 sources) Start: 10-25-2024 Cbd Oral (Informational Use Only-Pt Uses Oral Cbd) oil Active 0 .Route October 25, 2024 1:00am As directed acetaminophen 325 mg / oxyCODONE hydrochloride 5 mg oral tablet (16 sources) Opioid Agonist Start: 01-20-2024 End: 01-29-2024 take 1 tablet by mouth every six hours as needed for pain oxyCODONE-acetami nophen (Percocet) 5-325 MG tablet Indications: Cervical stenosis of spine Take 1 tablet by mouth every 6 hours as needed for severe pain (7-10) for up to 7 days. 28 tablet 0 01/22/2024 01/29/2024 Active Start: 10-21-2017 End: 11-03-2017 Oxycodone-Acetaminophen 1 TA BLET tablet Discontinued 2 {tbl} PO EVERY 4 HOURS NEEDED as needed for Moderate-Severe pain October 21, 2017 1:00am November 03, 2017 3:28pm Start: 10-21-2017 End: 11-03-2017 take 2 tablets by mouth every four hours as needed Oxycodone-Acetaminophen Discontinued 2 TABLET PO EVERY 4 HOURS NEEDED October 21, 2017 1:00am November 03, 2017 3:28pm [id number] 200 actuat albuterol 0.09 mg/actuat metered dose inhaler (2 sources) beta2-Adrenergic Agonist Start: 11-28-2024 Albut yeimy Sulfate 90 mcg/actuation HFA aerosol inhaler Active 2 NMA INHALATION EVERY 6 HOURS as needed for shortness of breath or wheezing 8.5 November 28, 2024 1:00am With spacer amoxicillin 875 mg / clavulanate 125 mg oral tablet (3 sources) Penicillin-class Antibacterial Start: 03-13-2025 Amoxicillin-Pot Clavulanate 875-125 mg tablet Active 1 {tbl} PO TWICE A DAY March 13, 2025 12:00am Start: 03-14-2024 End: 07-25-2024 Amoxicillin-Pot Clavulanate 875-125 mg tablet Discontinued 1 {tbl} PO TWICE A DAY March 14, 2024 12:00am July 25, 2024 8:07am Ascorbic Acid (7 sources) Vitamin C ascorbic acid (V ITAMIN C ORAL) Take by mouth. Active ascorbic acid (V ITAMIN C ORAL) Take by mouth. 0 Active Comment on above: Take by mouth. Ascorbic Aodp-Slmvbpad-Hwi (Emergen-C) 1,000 mg powder effervescent in packet (2 sources) Start: 5 Ascorbic Ijdx-Ajixrwjl-Ypv (Emergen-C) 1,000 mg powder effervescent in packet Active 1 NMA PO DAILY NEEDED October 30, 2024 1:00am cholecalciferol 0.025 mg oral capsule (3 sources) Vitamin D Start: 2 cholecalciferol 25 MCG (1000 UT) capsule Take by mouth daily. 0 09/29/2022 Active Cholecalciferol (Vitamin D3) 10 mcg/0.25 mL drops (2 sources) Start: 5 take 5 ug by mouth once daily Cholecalciferol (Vitamin D3) 10 mcg/0.25 mL drops Active 5 ug PO daily October 25, 2024 1:00am Cod Liver Oil capsule (2 sources) Start: 5 Cod Liver Oil capsule Active 1 NMA PO DAILY October 25, 2024 1:00am ergocalciferol, vitamin D2, (VITAMIN D2 ORAL) (7 sources) ergocalciferol, vitamin D2, (VITAMIN D2 ORAL) Take by mouth. Active ergocalciferol, vitamin D2, (VITAMIN D2 ORAL) Take by mouth. 0 Active Comment on above: Take by mouth. f complex for women (2 sources) Start: 10-05-2024 f complex for women Active 1 {tbl} PO THREE TIMES A DAY October 05, 2024 1:00am Fish Oils (3 sources) omega-3 (FISH OI L) 300 MG capsule Take by mouth daily. 0 Active fluticasone propionate 0.05 mg/actuat metered dose nasal spray (20 sources) Corticosteroid Start: 08-18-2021 End: 03-01-2022 take 2 spray(s) by mouth once daily fluticasone (FLONASE) 50 mcg/actuation nasal spray Indications: Hypertension, unspecified type Use 2 Sprays in each nostril once daily. Rinse mouth after use. 1 Each 2 03/01/2022 Active Start: 07-16-2019 End: 04-07-2021 Fluticasone Propionate 50 mc g/actuation spray,suspension Discontinued 1 NMA INTRANASAL DAILY July 16, 2019 12:00am April 07, 2021 4:17pm Start: 07-16-2019 End: 04-07-2021 Fluticasone Propionate Disco ntinued 1 SPRAY INTRANASAL DAILY July 16, 2019 12:00am April 07, 2021 4:17pm Start: 10-13-2017 End: 11-03-2017 Fluticasone Propionate 1 SPR AY spray,suspension Discontinued 2 NMA NASAL DAILY October 13, 2017 1:00am November 03, 2017 3:28pm Start: 10-13-2017 End: 11-03-2017 Fluticasone Propionate Disco ntinued 2 SPRAY NASAL DAILY October 13, 2017 1:00am November 03, 2017 3:28pm Comment on above: Use 2 Sprays in each nostril once daily. Rinse mouth after use. Glucosamine (3 sources) Start: 09-14-2023 glucosamine Active 1 {tbl} PO DAILY September 14, 2023 1:00am Start: 09-14-2023 glucosamine Ac tive PO September 14, 2023 1:00am ibuprofen 200 mg oral tablet (10 sources) Nonsteroidal Anti-inflammatory Drug ibuprofen (IBUPROFEN IB) 200 mg tablet Take 400 mg by mouth as needed. Active Comment on above: Take 400 mg by mouth as needed. lisinopril 10 mg oral tablet (20 sources) Angiotensin Converting Enzyme Inhibitor Start: 10-08-20 take 1 tablet by mouth once daily Lisinopril 10 mg tablet Active 10 mg PO daily October 08, 2024 1:00am Start: 09-15-2022 End: 09-23-2023 take 1 tablet by mouth once daily Lisinopril 2.5 mg tablet Discontinued 2.5 mg PO DAILY September 17, 2022 1:00am September 23, 2023 3:39pm On Hold: None Start: 03-01-2022 take 1 tablet by rosaura th once daily lisinopril 2.5 mg tablet Indications: Hypertension, unspecified type Take 1 tablet by mouth once daily. 30 tablet 5 03/01/2022 Active Start: 01-04-2022 End: 02-01-2022 take 0.5 tablet by mouth once daily lisinopril (ZESTRIL, PRINIVIL) 5 mg tablet Indications: Hypertension, essential Take 0.5 tablets by mouth once daily. 90 tablet 1 01/04/2022 02/01/2022 Discontinued (Other) Start: 10-05-2021 End: 01-04-2022 take 1 tablet by mouth once daily lisinopril (ZESTRIL, PRINIVIL) 5 mg tablet Indications: Hypertension, essential Take 1 tablet by mouth once daily. 90 tablet 1 10/05/2021 01/04/2022 Discontinued (Adjust Sig - Block E-Cancel) Comment on above: Take 0.5 tablets by mouth once daily. Take 1 tablet by rosaura th once daily. Loratadine (7 sources) loratadine (CLAR ITIN ORAL) Take by mouth. Active loratadine (CLAR ITIN ORAL) Take by mouth. 0 Active Comment on above: Take by mouth. meloxicam 15 mg oral tablet (3 sources) Nonsteroidal Anti-inflammatory Drug Start: 12-08-19 24 meloxicam (Mobic) 15 MG tablet daily. 0 12/08/2023 Active methocarbamol 750 mg oral tablet (4 sources) Muscle Relaxant Start: 01-22-20 End: 02-01-20 24 take 1 tablet by mouth three times daily as needed for muscle spasms methocarbamol (Robaxin) 750 MG tablet Take 1 tablet (750 mg) by mouth 3 times daily as needed for muscle spasms for up to 10 days. 30 tablet 0 01/22/2024 02/01/2024 Active Start: 01-20-2024 End: 01-22-2024 take 1 tablet by mouth every eight hours as needed methocarbamol (Robaxin) tablet 1,000 mg Multiple Vitamin (Multi-Purvi min) tablet (3 sources) Multiple Vitamin (Multi-Vitamin) tablet Take by mouth daily. 0 Active Ftwhgzfx-Ifvu-Sd-Calcium-Min s (10 sources) Start: 10-13-2017 Multivit-Iron- Bw-Idxowcl-Ztlg Active 1 EACH PO DAILY October 13, 2017 12:00am Start: 10-13-2017 Multivit-Iron- Dy-Olsqjsq-Enrq Active 1 EACH PO DAILY October 13, 2017 1:00am Druxjvwy-Igsz-Nc-Calcium-Min s 1 EACH tablet (2 sources) Start: 10-13-2017 take 1 tablet by mouth once daily Nxshqlwf-Bhsz-Yl-Calcium-Mins 1 EACH tablet Active 1 NMA PO DAILY October 13, 2017 1:00am Multivitamin preparation (7 sources) multivitamin ( TAMIN DAILY ORAL) Take by mouth. Active multivitamin ( TAMIN DAILY ORAL) Take by mouth. 0 Active Comment on above: Take by mouth. nabumetone 500 mg oral tablet (4 sources) Nonsteroidal Anti-inflammatory Drug Start: take 1 tablet by mouth twice daily at mealtime nabumetone (RELAFEN) 500 mg tablet Indications: Pain in both hands Take 1 tablet by mouth twice daily. TAKE WITH FOOD 60 tablet 1 03/19/2022 Active Comment on above: Take 1 tablet by rosaura th twice daily. TAKE WITH FOOD nitrofurantoin, macrocrystals 25 mg / nitrofurantoin, monohydrate 75 mg oral capsule (2 sources) Nitrofuran Antibacterial Start: End: take 1 capsule by mouth twice daily nitrofurantoin monohydrate and macrocrystal (MACROBID) 100 mg capsule Take 1 capsule by mouth two times a day for 5 days. 10 capsule 02/02/2025 02/07/2025 Active NON FORMULARY (2 sources) NON FORMULARY 2 times daily. CBD OIL SUBLLINGUINAL 0 Active Oxymetazoline (7 sources) oxymetazoline HC l (AFRIN NASAL SPRAY NASAL) Use in the nose. Active oxymetazoline HC l (AFRIN NASAL SPRAY NASAL) Use in the nose. 0 Active Comment on above: Use in the nose. phenazopyridine hydrochloride 200 mg oral tablet (11 sources) Start: take 1 tablet by mouth three times daily as needed phenazopyridine (PYRIDIUM) 200 mg tablet Indications: Urinary frequency Take 1 tablet by mouth three times a day as needed. 9 tablet 02/02/2025 Active Start: 01-05-2023 End: 09-23-2023 take 1 tablet by mouth three times daily at mealtime for pain Phenazopyridine (Pyridium) 100 mg tablet Discontinued 100 mg PO THREE TIMES A DAY as needed for pain January 05, 2023 12:00am September 23, 2023 3:39pm administer with a full glass of water after each meal Pseudoephedrine (7 sources) alpha-Adrenergic Agonist pseudoe phedrine HCl (SUDAFED ORAL) Take by mouth. Active pseudoephedrine HCl (SUDAFED ORAL) Take by mouth. 0 Active Comment on above: Take by mouth. Turmeric extract (3 sources) Start: 09-14-2023 Turmeric (QC TUMERIC COMPLEX PO) Take by mouth daily. 0 09/14/2023 Active Turmeric Root Extract 500 mg capsule (2 sources) Start: 10-25-2024 take 1 capsule by mouth twice daily Turmeric Root Extract 500 mg capsule Active 500 mg PO TWICE A DAY October 25, 2024 1:00am Zinc (7 sources) ZINC ORAL Take b y mouth. Active ZINC ORAL Take b y mouth. 0 Active Comment on above: Take by mouth. zinc, chelated 12.5 mg table t split tablet (3 sources) zinc, chelated 1 2.5 mg tablet split tablet Take by mouth daily. 0 Active Completed/Discontinued Medications Medication Drug Class(es) Dates Sig (Normalized) Sig (Original) acetaminophen 325 mg oral tablet (11 sources) Start: 01-20-2024 End: 01-22-2024 take 1 tablet by mouth every six hours acetaminophen (Tylenol) tablet 650 mg Start: 01-20-2024 End: 01-20-2024 acetaminophen (Tylenol) tabl et 1,000 mg acetaminophen (T YLENOL ORAL) Take by mouth as needed. Active acetaminophen (T YLENOL ORAL) Take by mouth as needed. 0 Active Comment on above: Take by mouth as nee ded. amoxicillin 500 mg oral tablet (2 sources) Penicillin-class Antibacterial Start: 4 End: 4 take 1 tablet by mouth three times daily Amoxicillin 500 mg tablet Discontinued 500 mg PO THREE TIMES A DAY March 14, 2024 12:00am March 14, 2024 7:41am aprepitant 40 mg oral capsule (2 sources) Substance P/Neurokinin-1 Receptor Antagonist Start: 4 End: 4 aprepitant (Emend) capsule 40 mg Start: 01-20-2024 End: 01-20-2024 aprepitant (Emend) capsule 4 0 mg azithromycin 250 mg oral tablet (2 sources) Macrolide Antimicrobial Start: 11-28-2024 End: 01-16-2025 Azithromycin 250 mg tablet Discontinued 0 PO .COMPLEX November 28, 2024 1:00am January 16, 2025 10:05am For 250 mg dose pack: take 500 mg today (day 1), then 250 mg for 4 days (days 2-5) PO calcium chloride 0.0014 meq/ml / potassium chloride 0.004 meq/ml / sodium chloride 0.103 meq/ml / sodium lactate 0.028 meq/ml injectable solution (2 sources) Start: 01-20-2024 End: 01-22-2024 lactated Ringer's (LR) infusion ceFAZolin 2000 mg injection (2 sources) Cephalosporin Antibacterial Start: 01-20-2024 End: 01-22-2024 take 2000 mg intravenously every eight hours 2,000 mg, IntraVENous, Administer over 30 Minutes, Every 8 hours, First dose on Tue01/20/24 at 2044, Recovery & On Unit, premix bag, Suspected Indication (Select all that apply): Surgical Prophylaxis celecoxib 400 mg oral capsule (2 sources) Nonsteroidal Anti-inflammatory Drug Start: 01-20-2024 End: 01-20-2024 celecoxib (CeleBREX) capsule 400 mg cephalexin 500 mg oral capsule (9 sources) Cephalosporin Antibacterial Start: 01-05-2023 End: 01-15-2023 take 1 capsule by mouth every twelve hours Cephalexin 500 mg capsule Discontinued 500 mg PO Q12H 20 January 05, 2023 12:00am January 14, 2023 12:00am January 15, 2023 12:14am cetirizine hydrochloride 10 mg oral tablet (12 sources) Histamine-1 Receptor Antagonist Start: 07-16-2019 End: 04-07-2021 take 1 tablet by mouth once daily Cetirizine (Zyrtec) 10 mg tablet Discontinued 10 mg PO DAILY July 16, 2019 12:00am April 07, 2021 4:17pm cyclobenzaprine hydrochloride 10 mg oral tablet (20 sources) Muscle Relaxant Start: 01-05-2023 End: 07-25-2024 take 1 tablet by mouth at bedtime as needed for muscle spasms Cyclobenzaprine 10 mg tablet Discontinued 10 mg PO BEDTIME as needed for muscle spasm January 18, 2024 2:28pm March 13, 2024 7:04pm Start: 08-18-2021 End: 01-05-2023 take 1 tablet by mouth at bedtime as needed for muscle spasms Cyclobenzaprine 5 mg tablet Discontinued 5 mg PO AT BEDTIME as needed for muscle spasm November 08, 2022 1:00am January 05, 2023 11:51am Comment on above: Take 1 tablet by rosaura th three times daily as needed for muscle spasm. 24 hr desvenlafaxine succinate 25 mg extended release oral tablet (11 sources) Serotonin and Norepinephrine Reuptake Inhibitor Start: End: take 1 tablet by mouth once daily, then take 1 tablet by mouth every twenty-four hours Desvenlafaxine Succinate (Pristiq) 25 mg tablet extended release 24 hr Discontinued 25 mg PO DAILY September 17, 2022 1:00am November 03, 2022 11:29am docusate sodium 50 mg / sennosides, nursing home 8.6 mg oral tablet (2 sources) Start: End: senna-docusate sodium (Senokot-S) 8.6-50 MG tablet 1 tablet Levonorgestrel-Ethinyl Estrad (20 sources) Progestin, Estrogen, Progestin-containing Intrauterine Device Start: End: take 1 tablet by mouth once daily Levonorgestrel-Ethiny l Estrad (Aviane) 0.1-20 mg-mcg tablet Discontinued 1 {tbl} PO daily April 07, 2021 4:24pm September 17, 2022 2:12pm take only active pills, discard inactive and start new pack immediately Start: 04-07-2021 End: 09-17-2022 take 1 tablet by mouth once daily Levonorgestrel-Ethinyl Estrad (Aviane) 0.1-20 mg-mcg tablet Discontinued 1 TABLET PO daily April 07, 2021 4:24pm September 17, 2022 2:12pm take only active pills, discard inactive and start new pack immediately Start: 04-07-2021 End: 09-17-2022 take 1 tablet by mouth once daily Levonorgestrel-Ethinyl Estrad (Aviane) 0.1-20 mg-mcg tablet Discontinued 1 TABLET PO daily 84 April 07, 2021 3:24pm September 17, 2022 1:12pm take only active pills, discard inactive and start new pack immediately Start: 04-07-2021 take 1 tablet by rosaura th once daily Levonorgestrel-Ethinyl Estrad (Aviane) 0.1-20 mg-mcg tablet Active 1 TABLET PO daily 84 April 07, 2021 4:24pm take only active pills, discard inactive and start new pack immediately Start: 03-26-2021 End: 04-07-2021 take 1 tablet by mouth once daily Levonorgestrel-Ethinyl Estrad (Aviane) 0.1-20 mg-mcg tablet Discontinued 1 {tbl} PO daily 84 March 26, 2021 4:22pm April 07, 2021 4:24pm take only active pills, discard inactive and start new pack immediately Start: 03-26-2021 End: 04-07-2021 take 1 tablet by mouth once daily Levonorgestrel-Ethinyl Estrad (Aviane) 0.1-20 mg-mcg tablet Discontinued 1 TABLET PO daily 84 March 26, 2021 3:22pm April 07, 2021 3:24pm take only active pills, discard inactive and start new pack immediately Start: 03-26-2021 End: 04-07-2021 take 1 tablet by mouth once daily Levonorgestrel-Ethinyl Estrad (Aviane) 0.1-20 mg-mcg tablet Discontinued 1 TABLET PO daily 84 March 26, 2021 4:22pm April 07, 2021 4:24pm take only active pills, discard inactive and start new pack immediately Start: 01-19-2021 End: 03-26-2021 take 1 tablet by mouth once daily Levonorgestrel-Ethinyl Estrad (Aviane) 0.1-20 mg-mcg tablet Discontinued 1 {tbl} PO daily January 19, 2021 1:45pm March 26, 2021 4:22pm take only active pills, discard inactive and start new pack immediately Start: 01-19-2021 End: 03-26-2021 take 1 tablet by mouth once daily Levonorgestrel-Ethinyl Estrad (Aviane) 0.1-20 mg-mcg tablet Discontinued 1 TABLET PO daily January 19, 2021 12:45pm March 26, 2021 3:22pm take only active pills, discard inactive and start new pack immediately Start: 01-19-2021 End: 03-26-2021 take 1 tablet by mouth once daily Levonorgestrel-Ethinyl Estrad (Aviane) 0.1-20 mg-mcg tablet Discontinued 1 TABLET PO daily January 19, 2021 1:45pm March 26, 2021 4:22pm take only active pills, discard inactive and start new pack immediately Start: 11-03-2020 End: 01-19-2021 take 1 tablet by mouth once daily Levonorgestrel-Ethinyl Estrad (Aviane) 0.1-20 mg-mcg tablet Discontinued 1 {tbl} PO daily November 03, 2020 2:50pm January 19, 2021 1:45pm take only active pills, discard inactive and start new pack immediately Start: 11-03-2020 End: 01-19-2021 take 1 tablet by mouth once daily Levonorgestrel-Ethinyl Estrad (Aviane) 0.1-20 mg-mcg tablet Discontinued 1 TABLET PO daily November 03, 2020 1:50pm January 19, 2021 12:45pm take only active pills, discard inactive and start new pack immediately Start: 11-03-2020 End: 01-19-2021 take 1 tablet by mouth once daily Levonorgestrel-Ethinyl Estrad (Aviane) 0.1-20 mg-mcg tablet Discontinued 1 TABLET PO daily November 03, 2020 2:50pm January 19, 2021 1:45pm take only active pills, discard inactive and start new pack immediately Start: 07-16-2019 End: 11-03-2020 take 1 tablet by mouth once daily Levonorgestrel-Ethinyl Estrad (Aviane) 0.1-20 mg-mcg tablet Discontinued 1 {tbl} PO daily July 16, 2019 12:00am November 03, 2020 2:50pm take only active pills, discard inactive and start new pack immediately FLUoxetine 20 mg oral tablet (20 sources) Serotonin Reuptake Inhibitor Start: 08-23-2019 End: 04-07-2021 take 10 mg by mouth once daily Fluoxetine 20 mg tablet Discontinued 10 mg PO DAILY August 23, 2019 4:12pm April 07, 2021 4:17pm Start: 08-23-2019 End: 04-07-2021 take 10 mg by mouth once daily Fluoxetine Discontinued 10 MG PO DAILY August 23, 2019 4:12pm April 07, 2021 4:17pm Start: 07-16-2019 End: 08-23-2019 take 1 tablet by mouth once daily Fluoxetine 20 mg tablet Discontinued 20 mg PO DAILY July 16, 2019 12:00am August 23, 2019 4:12pm gabapentin 300 mg oral capsule (4 sources) Anti-epileptic Agent Start: 01-20-2024 End: 01-22-2024 gabapentin (Neurontin) capsule 300 mg Start: 01-20-2024 End: 01-20-2024 gabapentin (Neurontin) capsu le 100 mg hydrALAZINE hydrochloride 25 mg oral tablet (2 sources) Arteriolar Vasodilator Start: 01-20-2024 End: 01-22-2024 hydrALAZINE (Apresoline) tablet 25 mg 1 ml HYDROmorphone hydrochloride 1 mg/ml cartridge (2 sources) Opioid Agonist Start: 01-20-2024 End: 01-20-2024 HYDROmorphone (Dilaudid) injection 0.5 mg 1 ml LORazepam 2 mg/ml injection (2 sources) Benzodiazepine Start: 01-20-2024 End: 01-20-2024 LORazepam (Ativan) injection 0.5 mg magnesium hydroxide 80 mg/ml oral suspension (2 sources) Start: 01-20-2024 End: 01-22-2024 take 30 mL by mouth every twenty-four hours as needed for constipation magnesium hydroxide (Milk of Magnesia) 400 MG/5ML suspension 30 mL metoprolol tartrate 25 mg oral tablet (2 sources) beta-Adrenergic [place] Start: 02-06-2024 End: 07-25-2024 Metoprolol Tartrate 25 mg tablet Discontinued 12.5 mg PO DAILY February 06, 2024 12:00am July 25, 2024 8:08am morphine injection 2 mg (2 sources) Start: 01-20-2024 End: 01-22-2024 take 2 mg intravenously every four hours as needed for pain morphine injection 2 mg naloxone (Narcan) 0.4 mg in 0.9% sodium chloride 10 mL syringe (2 sources) Start: 01-20-2024 End: 01-22-2024 naloxone (Narcan) 0.4 mg in 0.9% sodium chloride 10 mL syringe naproxen 250 mg oral tablet (12 sources) Nonsteroidal Anti-inflammatory Drug Start: 10-21-2017 End: 11-03-2017 take 250-500 mg by mouth every eight hours as needed for pain Naproxen 250 MG tablet Discontinued 250 - 500 mg PO EVERY 8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 Automated lymphocyte count a s percentage of total leukocytesOrdered By: Lenore Proctor on 01-16-2025 Lymphocytes/100 WBC (Bld) 25.6 % Normal - [facility] Comment on above: Performed By: #### L 501.9985, L100.0100, L506.1001, L500.4050, L501.9520, L500.4100 #### [facility] [address] [facility] [place], [place], [id number] [phone] Lymphocytes/100 WBC Auto (Unsp spec) 25.6 % - [facility] BUN/creatinine ratioOrdered By: Lenore Proctor on 01-16-2025 Urea nitrogen/Creatinine [Mass ratio] 15.0 mg/mg - [facility] Basophil percentageOrdered B y: Lenore Proctor on 01-16-2025 Basophils/100 WBC (Bld) 1.1 % High 0-1 [facility] Comment on above: Performed By: #### L 501.9985, L100.0100, L506.1001, L500.4050, L501.9520, L500.4100 #### [facility] [address] [place], [address] Bilirubin, totalOrdered By: Lenore Proctor on 01-16-2025 Bilirubin [Mass/Vol] 0.56 mg/dL Normal 0.00-1.30 [facility] Comment on above: Performed By: #### L 501.9985, L100.0100, L506.1001, L500.4050, L501.9520, L500.4100 #### [facility] [address] [place], [address] CBC W/Diff, Automatedon Absolute Lymph 1.89 X10 3/uL Normal 0.83-4.51 [facility] Comment on above: Performed By: #### L 501.9985, L100.0100, L506.1001, L500.4050, L501.9520, L500.4100 #### [facility] [address] [place], [address] Absolute Neut 4.6 X10 3/uL Normal 2.0-7.7 [facility] Comment on above: Performed By: #### L 501.9985, L100.0100, L506.1001, L500.4050, L501.9520, L500.4100 #### [facility] [address] [place], [address] IG% 0.300 Normal 0.0-0.9 [facility] Comment on above: Result Comment: IG% - Immature Granulocytes (promyelocytes, myelocytes and metamyelocytes) > 1% indicates that a LEFT SHIFT is Present. Performed By: #### L 501.9985, L100.0100, L506.1001, L500.4050, L501.9520, L500.4100 #### [facility] [address] [place], [place], [id number] Nucleated RBC (Bld) [#/Vol] 0 10*3/uL Normal 0-5 [facility] Comment on above: Performed By: #### L 501.9985, L100.0100, L506.1001, L500.4050, L501.9520, L500.4100 #### [facility] [address] [place], [address] RDW SD 41.8 fl Normal 35.1-43.9 [facility] Comment on above: Performed By: #### L 501.9985, L100.0100, L506.1001, L500.4050, L501.9520, L500.4100 #### [facility] [address] [place], [place], [id number] Calculated very low density lipoprotein (VLDL) cholesterol measurementOrdered By: Lenore Proctor on 01-16-2025 Calculated very low density lipoprotein (VLDL) cholesterol measurement 20 mg/dL 5-40 [facility] VLDL Cholesterol 20 mg/dL 5-40 [facility] Carbon dioxide, total [Moles /volume] in Central venous bloodOrdered By: Lenore Proctor on 01-16-2025 CO2 [Moles/Vol] 23.5 mmol/L Normal 21.0-32.0 [facility] Comment on above: Performed By: #### L 501.9985, L100.0100, L506.1001, L500.4050, L501.9520, L500.4100 #### [facility] [address] [place], [place], [id number] Chloride assayOrdered By: Melany Proctor on 01-16-2025 Chloride [Moles/Vol] 106 mmol/L Normal 98-108 [facility] Comment on above: Performed By: #### L 501.9985, L100.0100, L506.1001, L500.4050, L501.9520, L500.4100 #### [facility] [address] [place], [address] Comprehensive Metabolic Prof ilon 01-16-2025 ALK PHOS 105 U/L High 35-104 [facility] Comment on above: Performed By: #### L 501.9985, L100.0100, L506.1001, L500.4050, L501.9520, L500.4100 #### [facility] [address] [place], [address] BUN/CRE 15.0 RATIO Normal 10-20 [facility] Comment on above: Performed By: #### L 501.9985, L100.0100, L506.1001, L500.4050, L501.9520, L500.4100 #### [facility] [address] [place], [address] GAP 11 Normal 5-15 [facility] Comment on above: Performed By: #### L 501.9985, L100.0100, L506.1001, L500.4050, L501.9520, L500.4100 #### [facility] [address] [place], [address] T PROT 7.1 g/dL Normal 5.9-8.4 [facility] Comment on above: Performed By: #### L 501.9985, L100.0100, L506.1001, L500.4050, L501.9520, L500.4100 #### [facility] [address] [place], [address] Comprehensive Metabolic Prof ilOrdered By: Lenore Proctor on 01-16-2025 AST [Catalytic activity/Vol] 32 U/L Normal <=31 [facility] Comment on above: Performed By: #### L 501.9985, L100.0100, L506.1001, L500.4050, L501.9520, L500.4100 #### [facility] [address] [place], [place], [id number] Eosinophil percentageOrdered By: Lenore Proctor on 01-16-2025 Eosinophils/100 WBC (Bld) 5.7 % High 0-5 [facility] Comment on above: Performed By: #### L 501.9985, L100.0100, L506.1001, L500.4050, L501.9520, L500.4100 #### [facility] [address] [place], [address] Erythrocyte distribution wid th (RBC) [Ratio]Ordered By: Lenore Proctor on 01-16-2025 Erythrocyte distribution width (RBC) [Entitic vol] 41.8 fL 35.1-43.9 [facility] Erythrocyte distribution wid th ratioOrdered By: Lenore Proctor on 01-16-2025 Erythrocyte distribution width (RBC) [Ratio] 13.4 % Normal 11.6-14.6 [facility] Comment on above: Performed By: #### L 501.9985, L100.0100, L506.1001, L500.4050, L501.9520, L500.4100 #### [facility] [address] [place], [address] Erythrocyte distribution wid th standard deviationOrdered By: Lenore Proctor on 01-16-2025 Erythrocyte distribution width (RBC) [Ratio] 41.8 fl 35.1-43.9 [facility] GFR/1.73 sq M.predicted rossy g non-blacks MDRD (S/P/Bld) [Vol rate/Area]Ordered By: Lenore Proctor on 01-16-2025 Estimated GFR (MDRD) Non-Af Amer 96 >60 [facility] Comment on above: mL/min/1.73m2 CKD-EP I Creatinine Equation (2020) Glomerular filtration rate ( GFR) estimation/1.73 sq m using serum, plasma, or whole bOrdered By: Lenore Proctor on 01-16-2025 GFR/1.73 sq M.predicted among non-blacks MDRD (S/P/Bld) [Vol rate/Area] 96 mL/min/{1.73_m2} Normal >60 [facility] Comment on above: mL/min/1.73m2 CKD-EP I Creatinine Equation (2020) Result Comment: mL/m in/1.73m2 CKD-EPI Creatinine Equation (2020) Performed By: #### L 501.9985, L100.0100, L506.1001, L500.4050, L501.9520, L500.4100 #### [facility] [address] [facility] [place], [address] Hemoglobin A1c percentageOrd ered By: Lenore Proctor on 01-16-2025 HbA1c (Bld) [Mass fraction] 5.8 % Normal <=5.6 [facility] Comment on above: Performed By: #### L 501.9985, L100.0100, L506.1001, L500.4050, L501.9520, L500.4100 #### [facility] [address] [facility] [place], [address] Hemoglobin measurementOrdere d By: Lenore Proctor on 01-16-2025 Hemoglobin (Bld) [Mass/Vol] 14.3 g/dL Normal 12.0-15.0 [facility] Comment on above: Performed By: #### L 501.9985, L100.0100, L506.1001, L500.4050, L501.9520, L500.4100 #### [facility] [address] [facility] [place], [address] Immature granulocytes/100 WB C Auto (Bld)Ordered By: Lenore Proctor on 01-16-2025 Immature granulocytes/100 WBC (Bld) 0.300 % 0.0-0.9 [facility] Comment on above: IG% - Immature Granu locytes (promyelocytes, myelocytes and metamyelocytes) > 1% indicates that a LEFT SHIFT is Present. L506.1001on 01-16-2025 Vitamin D 25-OH 27.0 ng/mL Low 30-100 [facility] Comment on above: Result Comment: Purvi min D Status Deficiency: <20 ng/mL (50nmol/L) Insufficiency: 20-30 ng/mL (50-75 nmol/L) Sufficiency: 30-100 ng/mL (75-250 nmol/L) Toxicity: >100 ng/mL (>250 nmol/L) Performed By: #### L 501.9985, L100.0100, L506.1001, L500.4050, L501.9520, L500.4100 #### [facility] [address] [place], [address] LDL calc ser/plasOrdered By: Lenore Proctor on 01-16-2025 Cholesterol in LDL [Mass/Vol] 93 mg/dL [facility] Comment on above: Asgcfapwkv=677-823 m g/dL & Higher Tjoj=471 mg/dL or greater LDL Cholesterol, Calculated 93 mg/dL [facility] Comment on above: Xieckqgsgw=870-433 m g/dL & Higher Etbo=970 mg/dL or greater Lipid Profileon 01-16-2025 CHOL:HDL 2.96 Normal [facility] Comment on above: Performed By: #### L 501.9985, L100.0100, L506.1001, L500.4050, L501.9520, L500.4100 #### [facility] [address] [place], [address] Cholesterol [Mass/Vol] 172 mg/dL Normal <=200 [facility] Comment on above: Result Comment: Chol esterol level, Desirable <200 mg/dL Borderline high cholesterol 200-239 mg/dL High cholesterol >=240 mg/dL Recommendations of the NCEP Adult Treatment Panel for the following risk-cutoff thresholds for the [place] population. Performed By: #### L 501.9985, L100.0100, L506.1001, L500.4050, L501.9520, L500.4100 #### [facility] [address] [place], [address] Cholesterol in HDL [Mass/Vol] 58 mg/dL Normal [facility] Comment on above: Result Comment: Domi onal Cholesterol Education Program (NCEP) guidelines: <40 mg/dL: Low HDL-cholesterol (major risk factor for CHD) >= 60 mg/dL: High HDL-cholesterol (negative risk factor for CHD) HDL-cholesterol is affected by a number of factors, e.g. smoking, exercise, hormones, sex and age. Performed By: #### L 501.9985, L100.0100, L506.1001, L500.4050, L501.9520, L500.4100 #### [facility] [address] [place], [address] Cholesterol in LDL [Mass/Vol] 93 mg/dL Normal [facility] Comment on above: Result Comment: Bord jcthhh=287-259 mg/dL Higher Dvzd=435 mg/dL or greater Performed By: #### L 501.9985, L100.0100, L506.1001, L500.4050, L501.9520, L500.4100 #### [facility] [address] [place], [address] Cholesterol in VLDL [Mass/Vol] 20 mg/dL Normal 5-40 [facility] Comment on above: Performed By: #### L 501.9985, L100.0100, L506.1001, L500.4050, L501.9520, L500.4100 #### [facility] [address] [place], [address] Triglyceride [Mass/Vol] 102 mg/dL Normal [facility] Comment on above: Result Comment: The drugs N-Acetylcysteine and Metamizole may falsely depress this assay. Normal range: <150 mg/dL Borderline High: 150-199 mg/dL High: 200-499 mg/dL Very High: >500 mg/dL Performed By: #### L 501.9985, L100.0100, L506.1001, L500.4050, L501.9520, L500.4100 #### [facility] [address] [place], [address] Lymphocytes Auto (Unsp spec) [#/Vol]Ordered By: Lenore Proctor on 01-16-2025 Lymphocytes (Bld) [#/Vol] 1.89 10*3/uL 0.83-4.5 1 [facility] MCV (mean corpuscular volume ) determinationOrdered By: Lenore Proctor on 01-16-2025 MCV (RBC) [Entitic vol] 85.1 fL Normal 81-99 [facility] Comment on above: Performed By: #### L 501.9985, L100.0100, L506.1001, L500.4050, L501.9520, L500.4100 #### [facility] [address] [place], [place], [id number] MR/BMS.IMBon 01-16-2025 MR/BMS.B [facility] [address] [facility] [facility] [address] [place] [address] OFFICE VISIT Date of Service: 01/16/25 MR#: [id number] Acct: [id number] Name: ANA MARIA LEAL Rep #: [id number] : 1970 Provider: Dr. Lenore amor MD Age/Sex: 55/F Location: [facility] Status: Signed Intake Vital Signs 11/22/24 12:56 01/16/25 10:07 Height 5 ft 3 in 5 ft 3 in Weight: 181 lb 181 lb 4 oz BMI 32.1 32.1 BP 116/68 149/92 H Blood Pressure Location Rt brachial Position Sitting Sitting Respiration 16 Pulse 67 60 Pulse Source Monitor Temp 98.4 F 98.2 F Temp Source Oral Temporal Pulse Oximetry (%) 97 97 Oxygen Delivery Method room air room air Intake Visit Reasons: Annual/Physical Chief Complaint: Annual/Physical Resident Care Supervisor Required: No Accompanied by: Self Is patient in pain?: No Allergies animal dander Allergy (Verified 01/16/25 10:02) sneezing house dust Allergy (Verified 01/16/25 10:02) sneezing mold (mold spores) Allergy (Verified 01/16/25 10:02) Other Seasonal Allergies: Uncoded Allergy (Verified 01/16/25 10:02) sneezing Medications ???Medication ???Instructions ???Recorded ???Confirmed ???Type multivit-iron 18 mg-folic acid 400 1 ea PO DAILY SUPPLEMENTS 01/16/25 History mcg-calcium 500 mg-minerals tablet glucosamine 1 tab PO DAILY 09/14/23 01/16/25 H istory f complex for women 1 tab PO TID 10/05/24 01/16/25 His tory lisinopril 10 mg tablet 10 mg PO QDAY #90 tabs 10/08/24 Rx CBD Oral (INFORMATIONAL USE 10/25/24 01/16/25 History ONLY-PT USES ORAL CBD) cholecalciferol (vitamin D3) 10 5 mcg PO QDAY 10/25/24 01/16/25 Hi story mcg/0.25 mL oral drops cod liver oil 1 cap PO DAILY 10/25/24 01/16/25 H istory turmeric root extract 500 mg 500 mg PO BID 10/25/24 01/16/25 Hi story capsule ascorbic acid 1,000 1 ea PO DAILY PRN 10/30/24 5 History bz-nkdzfwysbrda-dsmc rals powder effervescent pack (Emergen-C) albuterol sulfate 90 mcg/actuation 2 puff inhalation Q6H PRN 01/16/25 Rx aerosol inhaler shortness of breath or wheezing #8.5 grams PFSH Medical History Alcohol use Wears glasses Post-menopausal Fatty liver Injury of head and neck Former smoker History of echocardiogram Family history of colon cancer Right knee pain Family history of Lopez syndrome Family history of aortic valve disorder Dyspnea on exertion Pes anserine bursitis Contact dermatitis due to poison oak Acute sinusitis, unspecified Acute otitis media, right Arthritis Degenerative disc disease Hypertension 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 Surgical History Hx of colonoscopy S/P cervical spinal fusion Hx of lumbar discectomy History of carpal tunnel surgery H/O section H/O neck surgery Hx of breast reduction, elective S/P laparoscopic assisted vaginal hysterectomy (LAVH) Family History Grandfather COPD (chronic obstructive pulmonary disease) Heart disease Colon cancer Grandmother COPD (chronic obstructive pulmonary disease) Myocardial infarction, Onset Age: 50 Diabetes Colon cancer Mother Breast cancer, Onset Age: 73 Colon polyps Social History household members: spouse number of children: 3 current occupational status: employed current occupation: [employer] Smoking Status: Former smoker alcohol intake: current details: social substance use type: does not use caffeine: Yes what type of physical activity do you participate in: none seatbelt use: always do you feel safe at home: Yes additional social history: Jalil FARIAS Chief Complaint: Annual/Physical Details: ANA MARIA LEAL, is a 55 F who presents to the office today for annual follow-up/physical. 55-year-old female who generally speaking has been doing quite well. She does have fatty liver, mild insulin resistance, however has not required specific treatment at this point. She has mild hypertension on lisinopril 10 mg daily, low vitamin D and takes vitamin D supplement. Generally speaking does not have any new specific concerns or issues. Has been feeling well. Self-admittedly over the winter probably did not eat as well as she had been. She and her are planning to reside in their motor home, which they have already purchased. They are planning to leave in the fall, and will probably be on the road for a year and see how things go. They are intending to continue working along the way. They have moved out of their house which they have been in for a number of years. It is an ol (more content not included)... Normal [facility] Mean corpuscular hemoglobin (MCH) determinationOrdered By: Lenore Proctor on 01-16-2025 MCH (RBC) [Entitic mass] 28.8 pg Normal 27.0-32.0 [facility] Comment on above: Performed By: #### L 501.9985, L100.0100, L506.1001, L500.4050, L501.9520, L500.4100 #### [facility] [address] [place], [address] Mean corpuscular hemoglobin concentration (MCHC) determinationOrdered By: Lenore Proctor on 01-16-2025 MCHC (RBC) [Mass/Vol] 33.8 g/dL Normal 32-36 [facility] Comment on above: Performed By: #### L 501.9985, L100.0100, L506.1001, L500.4050, L501.9520, L500.4100 #### [facility] [address] [place], [place], [id number] Mean platelet volume determi nationOrdered By: Lenore Proctor on 01-16-2025 Platelet mean volume (Bld) [Entitic vol] 9.6 fL Normal 6.2-12.0 [facility] Comment on above: Performed By: #### L 501.9985, L100.0100, L506.1001, L500.4050, L501.9520, L500.4100 #### [facility] [address] [place], [place], [id number] Monocyte percentageOrdered B y: Lenore Proctor on 01-16-2025 Monocytes/100 WBC (Bld) 4.9 % Normal 0-10 [facility] Comment on above: Performed By: #### L 501.9985, L100.0100, L506.1001, L500.4050, L501.9520, L500.4100 #### [facility] [address] [place], [address] Neutrophil percentageOrdered By: Lenore Proctor on 01-16-2025 Neutrophils/100 WBC (Bld) 62.4 % Normal 47-70 [facility] Comment on above: Performed By: #### L 501.9985, L100.0100, L506.1001, L500.4050, L501.9520, L500.4100 #### [facility] [address] [place], [place], [id number] Nucleated red blood cell per centageOrdered By: Lenore Proctor on 01-16-2025 Nucleated RBC/100 WBC (Bld) [Ratio] 0 % 0-5 [facility] Platelet countOrdered By: Melany Proctor on 01-16-2025 Platelets (Bld) [#/Vol] 292 10*3/uL Normal 150-450 [facility] Comment on above: Performed By: #### L 501.9985, L100.0100, L506.1001, L500.4050, L501.9520, L500.4100 #### [facility] [address] [place], [address] Potassium measurement (mass/ volume)Ordered By: Lenore Proctor on 01-16-2025 Potassium (Unsp spec) [Mass/Vol] 4.0 mmol/L 3.3-5.1 [facility] Potassium [Moles/Vol] 4.0 mmol/L Normal 3.3-5.1 [facility] Comment on above: Performed By: #### L 501.9985, L100.0100, L506.1001, L500.4050, L501.9520, L500.4100 #### [facility] [address] [place], [address] Screening total cholesterol/ high density lipoprotein (HDL) cholesterol ratioOrdered By: Lenore Proctor on 01-16-2025 Cholesterol.total/Cholest yeimy in HDL [Mass ratio] 2.96 {ratio} [facility] Serum creatinine measurement (mass/volume)Ordered By: Lenore Proctor on 01-16-2025 Creatinine [Mass/Vol] 0.73 mg/dL Normal 0.70-1.20 [facility] Comment on above: Performed By: #### L 501.9985, L100.0100, L506.1001, L500.4050, L501.9520, L500.4100 #### [facility] [address] [place], [address] Serum globulin measurementOr dered By: Lenore Proctor on 01-16-2025 Globulin (S) [Mass/Vol] 2.7 g/dL Normal 2.2-4.2 [facility] Comment on above: Performed By: #### L 501.9985, L100.0100, L506.1001, L500.4050, L501.9520, L500.4100 #### [facility] [address] [place], [place], [id number] (082) Serum glucose measurement (m ass/volume)Ordered By: Lenore Proctor on 01-16-2025 Glucose [Mass/Vol] 92 mg/dL Normal 70-99 [facility] Comment on above: Performed By: #### L 501.9985, L100.0100, L506.1001, L500.4050, L501.9520, L500.4100 #### [facility] [address] [place], [address] Serum or plasma alanine acuna otransferase (ALT) measurementOrdered By: Lenore Proctor on 01-16-2025 ALT [Catalytic activity/Vol] 28 U/L Normal <=34 [facility] Comment on above: Performed By: #### L 501.9985, L100.0100, L506.1001, L500.4050, L501.9520, L500.4100 #### [facility] [address] [place], [address] (180) Serum or plasma albumin kathryn urement (mass/volume)Ordered By: Lenore Proctor on 01-16-2025 Albumin [Mass/Vol] 4.4 g/dL Normal 3.5-5.0 [facility] Comment on above: Performed By: #### L 501.9985, L100.0100, L506.1001, L500.4050, L501.9520, L500.4100 #### [facility] [address] [place], [address] (596) Serum or plasma albumin/glob ulin mass ratioOrdered By: Lenore Proctor on 01-16-2025 Albumin/Globulin [Mass ratio] 1.6 {ratio} Normal 0.9-2.4 [facility] Comment on above: Performed By: #### L 501.9985, L100.0100, L506.1001, L500.4050, L501.9520, L500.4100 #### [facility] [address] [place], [place], [id number] Serum or plasma alkaline charlotte sphatase measurementOrdered By: Lenore Proctor on 01-16-2025 ALP [Catalytic activity/Vol] 105 U/L High 35-104 [facility] Serum or plasma calcium kathryn urement (mass/volume)Ordered By: Lenore Proctor on 01-16-2025 Calcium [Mass/Vol] 9.5 mg/dL Normal 7.6-11.0 [facility] Comment on above: Performed By: #### L 501.9985, L100.0100, L506.1001, L500.4050, L501.9520, L500.4100 #### [facility] [address] [place], [address] Serum or plasma cholesterol in HDL measurement (mass/volume)Ordered By: Lenore Proctor on 01-16-2025 Cholesterol in HDL [Mass/Vol] 58 mg/dL >40 [facility] Comment on above: National Cholesterol Education Program (NCEP) guidelines:<40 mg/dL: Low HDL-cholesterol (major risk factor for CHD)>= 60 mg/dL: High HDL-cholesterol (negative risk factor for CHD)HDL-cholesterol is affected by a number of factors, e.g. smoking, exercise, hormones, sex and age. Serum or plasma cholesterol measurement (mass/volume)Ordered By: Lenore Proctor on 01-16-2025 Cholesterol [Mass/Vol] 172 mg/dL <201 [facility] Comment on above: Cholesterol level, D esirable <200 mg/dLBorderline high cholesterol 200-239 mg/dLHigh cholesterol >=240 mg/dLRecommendations of the NCEP Adult Treatment Panel for the following risk-cutoff thresholds for the [place] population. Serum or plasma urea nitroge n measurement (mass/volume)Ordered By: Lenore Proctor on 01-16-2025 Urea nitrogen [Mass/Vol] 11 mg/dL Normal 4-19 [facility] Comment on above: Performed By: #### L 501.9985, L100.0100, L506.1001, L500.4050, L501.9520, L500.4100 #### [facility] [address] [place], [place], [id number] Sodium levelOrdered By: Neyda Proctor on 01-16-2025 Sodium [Moles/Vol] 140 mmol/L Normal 133-145 [facility] Comment on above: Performed By: #### L 501.9985, L100.0100, L506.1001, L500.4050, L501.9520, L500.4100 #### [facility] [address] [place], [address] TSH DL <= 0.005 mIU/L QnOrde red By: Lenore Proctor on 01-16-2025 Thyroid Stimulating Hormone (TSH) 2.940 uIU/mL 0.300-4.200 [facility] TSH Qn 2.940 uIU/mL 0.300-4.200 [facility] Thyroid Stim Hormone (TSH)on 01-16-2025 TSH 2.940 uIU/mL Normal 0.300-4.200 [facility] Comment on above: Performed By: #### L 501.9985, L100.0100, L506.1001, L500.4050, L501.9520, L500.4100 #### [facility] [address] [facility] [place], [address] Total proteinOrdered By: Honey Proctor on 01-16-2025 Protein [Mass/Vol] 7.1 g/dL 5.9-8.4 [facility] Triglycerides measurementOrd ered By: Lenore Proctor on 01-16-2025 Triglyceride [Mass/Vol] 102 mg/dL <199 [facility] Comment on above: The drugs N-Acetylcy steine and Metamizole may falsely depress this assay. Normal range: <150 mg/dLBorderline High: 150-199 mg/dLHigh: 200-499 mg/dLVery High: >500 mg/dL Vitamin D, 25-hydroxyOrdered By: Lenore Proctor on 01-16-2025 Vitamin D 25-Hydroxy 27.0 ng/mL Low 30-100 [facility] Comment on above: Vitamin D StatusDefi ciency: <20 ng/mL (50nmol/L)Insufficiency: 20-30 ng/mL (50-75 nmol/L)Sufficiency: 30-100 ng/mL (75-250 nmol/L)Toxicity: >100 ng/mL (>250 nmol/L) White blood cell (WBC) count Ordered By: Lenore Proctor on 01-16-2025 WBC (Bld) [#/Vol] 7.4 10*3/uL Normal 4.4-11.0 [facility] Comment on above: Performed By: #### L 501.9985, L100.0100, L506.1001, L500.4050, L501.9520, L500.4100 #### [facility] [address] [place], [place], [address] Laboratory - Microbiology an d Antimicrobial susceptibilityOrdered By: Chong Brambila on 11-22-2024 SARS-CoV-2 (COVID-19) RNA DALLIN+probe Ql (Unsp spec) Not detected [facility] No Panel InformationOrdered By: Chong Brambila on 11-22-2024 Influenza Types A,B Rapid (Clinic) Detected [facility] Urgent Care Visit Reporton 0 11-22-2024 Urgent Care Visit Report [facility] [address], [address] [place], [place] [address] OFFICE VISIT Date of Service: 11/22/24 MR#: [id number] Acct: [id number] Name: ANA MARIA LEAL Rep #: [id number] : 1970 Provider: NOHEMY Spears Age/Sex: 54/F Location: [facility] Status: Signed Intake Vital Signs 10/31/24 08:34 11/22/24 12:56 Height 5 ft 3 in 5 ft 3 in Weight: 181 lb BMI 32.1 BP 116/68 Position Sitting Pulse 67 Temp 98.4 F Temp Source Oral Pulse Oximetry (%) 97 Oxygen Delivery Method room air Intake Visit Reasons: HEADACHE, SORE THROAT, FEVER, COUGH Accompanied by: Self Allergies animal dander Allergy (Verified 11/22/24 12:49) sneezing house dust Allergy (Verified 11/22/24 12:49) sneezing mold (mold spores) Allergy (Verified 11/22/24 12:49) Other Seasonal Allergies: Uncoded Allergy (Verified 11/22/24 12:49) sneezing Medications ???Medication ???Instructions ???Recorded ???Confirmed ???Type multivit-iron 18 mg-folic acid 400 1 ea PO DAILY SUPPLEMENTS 11/22/24 History mcg-calcium 500 mg-minerals tablet glucosamine 1 tab PO DAILY 09/14/23 11/22/24 H istory f complex for women 1 tab PO TID 10/05/24 11/22/24 His tory lisinopril 10 mg tablet 10 mg PO QDAY #90 tabs 10/08/24 Rx CBD Oral (INFORMATIONAL USE 10/25/24 11/22/24 History ONLY-PT USES ORAL CBD) cholecalciferol (vitamin D3) 10 5 mcg PO QDAY 10/25/24 11/22/24 Hi story mcg/0.25 mL oral drops cod liver oil 1 cap PO DAILY 10/25/24 11/22/24 H istory turmeric root extract 500 mg 500 mg PO BID 10/25/24 11/22/24 Hi story capsule ascorbic acid 1,000 1 ea PO DAILY PRN 10/30/24 5 History kd-bcathcoxjnpe-gnud rals powder effervescent pack (Emergen-C) Nurse's Note: Patient has a GLORIA,ST,Fever,cough and chest tightness since yesterday. 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 Surgical History Hx of colonoscopy S/P cervical spinal fusion Hx of lumbar discectomy History of carpal tunnel surgery H/O section H/O neck surgery Hx of breast reduction, elective S/P laparoscopic assisted vaginal hysterectomy (LAVH) Family History Grandfather COPD (chronic obstructive pulmonary disease) Heart disease Colon cancer Grandmother COPD (chronic obstructive pulmonary disease) Myocardial infarction, Onset Age: 50 Diabetes Colon cancer Mother Breast cancer, Onset Age: 73 Colon polyps Social History household members: spouse number of children: 3 current occupational status: employed current occupation: [employer] Smoking Status: Former smoker alcohol intake: current details: social substance use type: does not use caffeine: Yes what type of physical activity do you participate in: none seatbelt use: always do you feel safe at home: Yes additional social history: [facility] Details: ANA MARIA LEAL, is a 54 F who presents to the office today for complaint of cough, fever, sore throat and headache starting last night. Patient denies hemoptysis, shortness of breath or difficulty breathing. No nausea, vomiting or diarrhea. No loss of taste or smell. No other associated symptoms or alleviating/aggravat ing factors. ROS Const Constitutional: No other (As above) Exam Const General: cooperative and well developed HENMT Head: normal to inspection and atraumatic Ears: hearing grossly normal bilaterally Nose: nasal discharge clear Face and sinus: normal facial exam Mouth: oral mucosae normal Throat: abnormal tonsil bilaterally hypertrophy 1+ Resp Effort Inspection: normal respiratory effort and no audible wheezes Auscultation: Bilateral: Clear to Auscultation Cardio Palpation: normal PMI Rate: regular rate Rhythm: regular rhythm Neuro General: patient alert and CN's II-XI intact bilaterally Psych Appearance: grossly normal Mental Status: mental status grossly normal Results POC VALDEMAR Covid FluAB PCR POC Valdemar Covid PCR Not Detected Last Edit by Tania Littlejohn on 11/22/24 13:23 POC VALDEMAR FLU ONLY FLU A DETECTED Last Edit b (more content not included)... Normal [facility] Colonoscopy Reporton 025 Colonoscopy Report [facility] Medical Records Department [address] [facility] [place] [address] Colonoscopy Report MR#: [id number] Acct: [id number] Name: ANA MARIA LEAL Rep #: [id number] : 1970 54 From: Sharona Zafar MD PCP: Dr. Lenore Proctor MD Status:[facility] Patient Name: Ana Maria Leal Procedure Date: 10/31/2024 9:58 AM Date of : 1970 Age: 54 Procedure: Colonoscopy Indications: High risk colon cancer surveillance: Personal history of colonic polyps Providers: Sharona Zafar MD Referring MD: Sharona Zafar MD Medicines: Monitored Anesthesia Care Patient Profile: This is a 54 year old female. Last Colonoscopy: 2019. Complications: No immediate complications. Procedure: Pre-Anesthesia Assessment: - Prior to the procedure, a History and Physical was performed, and patient medications and allergies were reviewed. The patient's tolerance of previous anesthesia was also reviewed. The risks and benefits of the procedure and the sedation options and risks were discussed with the patient. All questions were answered, and informed consent was obtained. Prior Anticoagulants: The patient has taken no anticoagulant or antiplatelet agents. ASA Grade Assessment: Per anesthesia. After reviewing the risks and benefits, the patient was deemed in satisfactory condition to undergo the procedure. After I obtained informed consent, the scope was passed under direct vision. Throughout the procedure, the patient's blood pressure, pulse, and oxygen saturations were monitored continuously. The Colonoscope was introduced through the anus and advanced to the cecum, identified by appendiceal orifice and ileocecal valve. The colonoscopy was performed without difficulty. The patient tolerated the procedure well. The quality of the bowel preparation was good. Scope In: 10:06:53 AM Scope Withdrawal Time 0 hours 12 minutes 49 seconds Scope Out: 10:27:17 AM Total Procedure Duration Time 0 hours 20 minutes 24 seconds Findings: Hemorrhoids were found on perianal exam. Five sessile polyps were found in the rectum. The polyps were less than 5 mm in size. These polyps were removed with a cold biopsy forceps. Resection and retrieval were complete. Multiple small-mouthed diverticula were found in the sigmoid colon. The exam was otherwise without abnormality on direct and retroflexion views. Impression: - Hemorrhoids found on perianal exam. - Five less than 5 mm polyps in the rectum, removed with a cold biopsy forceps. Resected and retrieved. - Diverticulosis in the sigmoid colon. - The examination was otherwise normal on direct and retroflexion views. Recommendation: - Discharge patient to home. - Resume previous diet. - Continue present medications. - Await pathology results. - Repeat colonoscopy in 5-10 years for surveillance based on pathology results. Procedure Code(s): --- Professional --- 04792, PT, Colonoscopy, flexible; with biopsy, single or multiple Diagnosis Code(s): --- Professional --- Z86.010, Personal history of colonic polyps K64.9, Unspecified hemorrhoids D12.8, Benign neoplasm of rectum K57.30, Diverticulosis of large intestine without perforation or abscess without bleeding CPT copyright 2021 [employer]. All rights reserved. The codes documented in this report are preliminary and upon pole cutter review may be revised to meet current compliance requirements. MD Sharona Strange MD 10/31/2024 10:32:51 AM This report has been signed electronically. Number of Addenda: 0 Note Initiated On: 10/31/2024 9:58 AM 10/31/24 1032 Date Sharona Zafar MD Cosigner Signature: Date (if indicated) CC: Dr. Lenore Proctor MD; Dr. Sharona Zafar MD Date Dictated: 10/31/24 0958 Date Transcribed: Business Development Specialist: GAVIN Signed [facility] MR/POSTOP.ANEon 10-31-2024 MR/POSTOP.[facility] Medical Records Department [address] [place] [address] Anesthesia Postop Eval I 10/31/24 1038 MR#: [id number] Acct: [id number] Name: ANA MARIA LEAL Rep #: [id number] : 1970 54 From: Tyrel Mcguire CRNA PCP: Dr. Lenore Proctor MD Status:[facility] Y Race: C Location: [place] [address] Anesthesia: Postop Eval I Current Vital Signs Temperature: 97.3 F Pulse Rate: 67 Blood Pressure: 119/77 Respiratory Rate: 16 Pulse Ox: 100 Assessment Airway patent: Yes Spontaneous unlabored respirations: Yes nausea: No Vomiting: No Anesthesia Complication: No Fluid Hydration Crystalloid volume administer (ml): 30 Total IV fluid infused: 30 Progress Note Anesthesia document: Postop Eval 1 completed: Yes 10/31/24 1039 Date Tyrel Mcguire CRNA Cosigner Signature: Date CC: Signed [facility] MR/[id number] 10-31-2024 MR/POSTOPAN2 [facility] Medical Records Department [address] [place] [address] Anesthesia Postop Eval II 10/31/24 1300 MR#: [id number] Acct: [id number] Name: ANA MARIA LEAL Rep #: [id number] : 1970 54 From: Luisito Xiao MD PCP: Dr. Lenore Proctor MD Status:[facility] Y Race: C Location: [place] Anesthesia Postop Eval I Sum Postop Eval Completion status Anesthesia document: Postop Eval 1 completed: Yes Anesthesia Postop Eval I Summary Anesthesia Postop Eval I Summary: Anesthesia Postop Eval I: Assessment Summary Airway patent Yes 10/31/24 10:38 SKIN CARE CONSULTANT.TNES Spontaneous unlabored Yes 10/31/24 10:38 SKIN CARE CONSULTANT.TNES respirations Mental status nausea No 10/31/24 10:38 SKIN CARE CONSULTANT.TNES Vomiting No 10/31/24 10:38 SKIN CARE CONSULTANT.TNES Anesthesia Postop Eval I: Fluid Summary Crystalloid volume administer 30 10/31/24 10:38 SKIN CARE CONSULTANT.TNES (ml) Colloids volume administered ( ml) Blood Product volume administered (ml) Total IV fluid infused 30 10/31/24 10:38 SKIN CARE CONSULTANT.TNES Anesthesia Postop Eval I: Summary Notes Anesthesia Complication No 10/31/24 10:38 SKIN CARE CONSULTANT.TNES Anesthesia Complication Comment: Post-operative progress note Anesthesia: Postop Eval II Evaluation Mental status: Awake Pain Level: 0 nausea: No Vomiting: No 10/31/24 1300 Date Luisito Youssef Signature: Date CC: Signed Normal [facility] Surgery Specimen Level Deepali 10-31-2024 Surgery Specimen Level IV ------ Patient Age/Sex Location Account Attending Physician ANA MARIA LEAL 54/F EN [id number] Dr. Sharona Zafar MD Specimen: [id number] Received: 10/31/24 Status: CELENA Gregory Num: [id number] Spec Type: COLON BX Subm Dr: Dr. Sharona Zafar MD HEADER OPERATION: Colonoscopy, biopsy PRE-OP DIAGNOSIS: Encounter for screening for malignant neoplasm of colon TISSUE SUBMITTED: Rectum polyp biopsy x5 MICROSCOPIC DIAGNOSIS Rectal polyp x5, biopsy: Fragments of hyperplastic polyp. SJ.mr 11/01/2024 MICROSCOPIC DESCRIPTION Slides are reviewed. GROSS DESCRIPTION Received in fixative is one container labeled with the patient's name and designated Rectum polyp biopsy x5. The specimen consists of multiple irregular fragments of light best soft tissue that in aggregate measure 1.3 x 0.3 x 0.2 cm. The specimen is totally submitted in one cassette. BW.mr 10/31/2024 TC:1 CPT:16739 Patient Age/Sex Location Account Attending Physician ZAINAB LEALISSA FAYE 54/F EN [id number] Dr. Sharona Zafar MD Signed (signature on file) Dr. Ilia Elizabeth MD 11/01/24 1150 Normal [facility] Comment on above: Performed By: #### P SUIV #### [facility] [address] [place], [address] MR/Lm 10-30-2024 MR/DMITRIY [facility] Medical Records Department [address] [place] [address] PAT - Anesthesia 10/30/24 1613 MR#: [id number] Acct: [id number] Name: ZAINAB LEALMEÑO MCKINNEY Rep #: [id number] : 1970 54 From: Ranjan Ndiaye MD PCP: Dr. Lenore Proctor MD Status:PRE SD Y Race: C Location: EN Pre-Assessment Diagnosis/Proposed Procedure Planned Operative Procedure(s): COLONOSCOPY Anesthesia History Anesthesia History - corporate buyer: Anesthesia History - corporate buyer Hx Hospitalization Yes: CERVICAL SURGERY 10/30/24 13:48 Any Problems With Anesthesia Yes: N V 10/30/24 13:48 Cholinesterase deficiency No 10/30/24 13:48 You/Your Family Experience No 10/30/24 13:48 fever (hyperthermia) with Relationship Recent Exposure to Contagious No 09/17/22 13:14 Disease Does patient have nerve No 10/30/24 13:48 stimulator Patient instructed to have device shut off --Does patient have Pacemaker or ICD? When Was Last Pacemaker Check QUESTION #4 FULL TEXT: You/Your Family Experience fever (hyperthermia) with Anesthesia Last Oral Intake Last Oral intake: Last Oral Intake NPO since Meds taken in AM with sips of water? Meds patient instructed to take am of surgery PONV PONV - corporate buyer: PONV - corporate buyer Female Yes 10/30/24 13:48 HX of Motion Sickness No 10/30/24 13:48 HX of N/V After Surgery No 10/30/24 13:48 Non-Smoker Yes 10/30/24 13:48 Duration of Surgery greater No 10/30/24 13:48 than 60 minutes Number of Risk Factors 2 10/30/24 13:48 PONV Score Moderate Risk 10/30/24 13:48 Height Weight Height Weight: Anesthesia: Height Weight Height 5 ft 2 in 10/05/24 14:00 Respiratory Assessment Respiratory Assessment - corporate buyer: Respiratory Tract Infection Hx - corporate buyer Hx Respiratory Tract Infection No 10/30/24 13:48 STOP Sleep Apnea STOP Sleep Apnea - corporate buyer: STOP Sleep Apnea - corporate buyer Hx Hypertension Yes: CONTROLLED ON MED 10/30/24 13:48 Hx Sleep Apnea No 10/30/24 13:48 CPAP BIPAP Do you snore loudly (louder Yes 10/30/24 13:48 than talking or can be heard Do you often feel tired/ No 10/30/24 13:48 fatigued/ sleepy during daytime? Has anyone observed you stop No 10/30/24 13:48 breathing during sleep? STOP Results Positive 10/30/24 13:48 QUESTION #5 FULL TEXT : Do you snore loudly (louder than talking or can be heard through closed doors)? 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 Specify any problems Hx of Preganancy in last 3 No 10/30/24 13:48 Months Nurse Filling Out Transfusion VCHRISTIN 10/30/24 13:48 Questions: Date: 10/30/24 10/30/24 13:48 Time: 13:49 10/30/24 13:48 Patient unable to answer at this time (ie. confused, unrespo /Reproducti on History /Reproducti ve History - corporate buyer: /Reproducti ve Hx- corporate buyer Hx Now No 10/30/24 13:48 Gestational Age (in weeks): EDC: Hx Hx Para Hx Section SAB No 10/30/24 13:48 [facility] Medical History (Updated 10/30/24 @ 13:48 by Darline Khan) Alcohol use Wears glasses Post-menopausal Fatty liver Injury of head and neck Former smoker History of echocardiogram Family history of colon cancer Right knee pain Family history of Lopez syndrome Family history of aortic valve disorder Dyspnea on exertion Pes anserine bursitis Contact dermatitis due to poison oak Acute sinusitis, unspecified Acute otitis media, right Arthritis Degenerative disc disease Hypertension 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 Normal [facility] Echo Completeon 10-05-2024 Echo Complete [facility] [address] [place] [address] Echo Complete 10/05/24 1053 MR#: [id number] Acct: [id number] Name: ANA MARIA LEAL Rep #: [id number] : 1970 54 From: Alexandr Mathews MD Attending Dr: Dr. Lenore Proctor MD Status: RE G CLI Ordering Dr: Lenore Proctor MD Date: 10/05/24 Location: [facility] Sex: F C Admitted: Reason For Study: R/O Bicuspid AV Procedure This was a 2D Doppler, Color Flow transthoracic echocardiogram. Exam performed in department. Left Ventricle Normal LV size. Left ventricular systolic function is normal. The left ventricular ejection fraction is 60 %. No regional wall motion abnormalities noted. Right Ventricle Normal RV size. Normal systolic function. Atria Normal left atrium. Normal right atrium. Mitral Valve Normal mitral valve. Tricuspid Valve Normal tricuspid valve. Mild tricuspid valve insufficiency. Aortic Valve Trisinus/trileaflet aortic valve. Pulmonic Valve Normal pulmonic valve. Great Vessels Normal aortic root. The pulmonary artery is normal size. Inferior vena cava collapse with respiration. Pericardium/Pleural No pericardial effusion. MMode/2D Measurements Calculations LVIDd: 4.3 cm IVSd: 1.1 cm Ao root diam: 3.0 cm LVIDs: 2.4 cm LVPWd: 1.1 cm RVDd: 3.1 cm FS: 44.1 % _ LAV(MOD-bp): 33.2 ml LVAd ap4: 26.6 cm2 LVAd ap2: 25.1 cm2 LAV(MOD-bp) Indexed: 17.9 ml/m2 LVLd ap4: 7.8 cm LVLd ap2: 8.0 cm LAV(MOD-sp2): 31.4 ml EDV(MOD-sp4): 76.5 ml EDV(MOD-sp2): 67.5 ml LAV(MOD-sp4): 31.4 ml EDV(sp4-el): 77.2 ml EDV(sp2-el): 67.1 ml LVAs ap4: 15.3 cm2 LVAs ap2: 12.5 cm2 LVLs ap4: 6.5 cm LVLs ap2: 6.7 cm ESV(MOD-sp4): 32.4 ml ESV(MOD-sp2): 20.2 ml ESV(sp4-el): 30.7 ml ESV(sp2-el): 19.9 ml EF(MOD-sp4): 57.6 % EF(MOD-sp2): 70.0 % EF(sp4-el): 60.3 % _ SV(MOD-sp4): 44.1 ml SV(MOD-sp2): 47.3 ml SV(sp4-el): 46.5 ml SI(MOD-sp4): 23.8 ml/m2 SI(MOD-sp2): 25.6 ml/m2 _ LA A4 area: 13.7 cm2 LA dimension(2D): 3.2 cm RA A4 area: 11.3 cm2 _ TAPSE: 2.2 cm Time Measurements MV dec time: 0.29 sec Doppler Measurements Calculations MV E max sandra: 55.0 cm/sec Lat Peak E' Sandra: 7.4 cm/sec Med Peak E' Sandra: 6.5 cm/sec MV A max sandra: 75.6 cm/sec E/E' lat: 7.4 E/E' med: 8.5 MV E/A: 0.73 _ Ao V2 max: 135.9 cm/sec LV V1 max: 93.0 cm/sec MV dec slope: 192.2 cm/sec2 Ao max P.4 mmHg LV V1 max P.5 mmHg Ao V2 mean: 87.2 cm/sec LV V1 mean P.6 mmHg Ao mean P.5 mmHg LV V1 mean: 57.0 cm/sec Ao V2 VTI: 28.9 cm LV V1 VTI: 18.6 cm AV (velocity ratio): 0.65 _ PA V2 max: 72.8 cm/sec TR max sandra: 230.3 cm/sec TR max P.2 mmHg ECHO/Echo Complete Interpretation Summary Normal LV size. Left ventricular systolic function is normal. The left ventricular ejection fraction is 60 %. Trisinus/trileaflet aortic valve. Ordering Physician: Lenore Proctor Referring Physician: Lenore Proctor Performed By: Laurence Astudillo RDCS 10/05/24 1536 Date Alexandr Mathews MD CC: Dr. Lenore Proctor MD Date Dictated: 10/05/24 1053 Date Transcribed: 10/05/241535 Business Development Specialist: Signed Normal [facility] District Agent Office Visit Reporton 10-05-2024 District Agent Office Visit Report [facility], [facility] [address] [place] [address] OFFICE VISIT Date of Service: 10/05/24 MR#: [id number] Acct: [id number] Name: ANA MARIA LEAL Rep #: [id number] : 1970 Provider: Dr. Grisel walker MD Age/Sex: 54/F Location: 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) Resident Care Supervisor Required: No Is patient in pain?: No Allergies animal dander Allergy (Verified 10/05/24 14:02) sneezing house dust Allergy (Verified 10/05/24 14:02) sneezing mold (mold spores) Allergy (Verified 10/05/24 14:02) Other Seasonal Allergies: Uncoded Allergy (Verified 10/05/24 14:02) sneezing Medications ???Medication ???Instructions ???Recorded ???Confirmed ???Type multivit-iron 18 mg-folic acid 400 1 ea PO DAILY SUPPLEMENTS 10/13/17 10/05/24 History mcg-calcium 500 mg-minerals tablet vitamin d3 PO 09/29/22 10/05/24 History glucosamine PO 09/14/23 10/05/24 History tumeric PO 09/14/23 10/05/24 History tuna oil PO 09/14/23 10/05/24 History restorative formulations HTN 180 PX PO 01/11/24 10/05/24 History f complex for women PO TID 10/05/24 History Is last menstrual period known: No Patient : No : No PFSH Medical History Right knee pain Family history of Lopez syndrome Family history of aortic valve disorder Dyspnea on exertion Pes anserine bursitis Contact dermatitis due to poison oak Acute sinusitis, unspecified Acute otitis media, right Arthritis Degenerative disc disease Hypertension 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 Surgical History (Updated 10/05/24 @ 14:06 by Mini Hayes) S/P cervical spinal fusion Hx of lumbar discectomy History of carpal tunnel surgery H/O section H/O neck surgery Hx of breast reduction, elective S/P laparoscopic assisted vaginal hysterectomy (LAVH) Family History Grandfather COPD (chronic obstructive pulmonary disease) Heart disease Grandmother COPD (chronic obstructive pulmonary disease) Myocardial infarction, Onset Age: 50 Diabetes Mother Breast cancer, Onset Age: 73 Social History (Updated 10/05/24 @ 14:06 by Mini Hayes) number of children: 3 current occupational status: employed current occupation: [employer] Smoking Status: Former smoker alcohol intake: current details: social substance use type: does not use caffeine: Yes what type of physical activity do you participate in: none seatbelt use: always do you feel safe at home: Yes additional social history: Jalil History 6 Elective abortions Hx Para 3 Spontaneous abortions Hx # Term Pregnancies Ectopic pregnancies Hx # Pregnancies Multiple births # of living children Past Pregnancies Del. Date Name GA/Weeks Outcome Route Bth Weight Gen Labor Lgth Anesthesia Del Locatn Provider FOB Unknown 1988 Brandon Unknown 1990 Olvin Unknown 1995 Kanika [facility] Encounter for routine gynecological examination Details: ANA MARIA LEAL is a 54 year old who presents for annual exam. planning on traveling the country in an RV for the next few years Last PAP: Hysterectomy History of abnormal PAP: Last mammogram: 05/30/2024 - normal History of abnormal mammogram: Colon cancer screening: due this Spring Other preventative health care screenings: PCP is Esthela - routine labs ordered by PCP Female Reproductive History Questions: metorrhagia: No, sexually active: Yes, dyspareunia: No and PCB: No Menopausal Symptoms: No hot flashes, No night sweats, No weight change, No mood changes, No difficulty concentrating, No sleep problems and No change in libido ROS Const Constitutional: Reports as per HPI; Denies fatigue, increased appetite, poor appetite, night sweats, weight gain or weight loss Cardio Card: Denies chest pain Resp Resp: Denies cough or dyspnea GI GI: Reports as per HPI; Denies abdominal pain, bloating, constipation, nausea or vomiting : Reports as per HPI and other; Denies difficulty voiding, dysuria, hematuria, hot flashes, nipple discharge, pelvic pain, prolapse symptoms, urinary frequency, urinary incontinence, urinary urgency, vaginal discharge, vaginal dryness, vaginal odor or vaginal pruritus Skin Skin/Breast: Denies changing lesions, breast mass, breast pain, breast skin changes or nipple discharge Psych Psych: Denies anxiety, change in libido, depression or difficulty concentrating Exam Const General: cooperative, healthy (more content not included)... Normal [facility] MR/BMS.[facility] 07-25-2024 /BMS.[facility] [address] [place] [id number] OFFICE VISIT Date of Service: 07/25/24 MR#: [id number] Acct: [id number] Name: ANA MARIA LEAL Rep #: [id number] : 1970 Provider: Dr. Lenore amor MD Age/Sex: 54/F Location: [facility] Status: Signed with Addenda ADDENDUM by Dr. Lenore Proctor MD on 09/12/24 at 1337 HPI Details: ANA MARIA LEAL, is a 54 F who presents to the office today for Assessment and Plan Assessment and Plan (1) Pes anserine bursitis: Status: Acute (2) Fatty liver disease, nonalcoholic: Status: Acute (3) Insulin resistance: Status: Acute (4) Hypertension: Status: Chronic (5) Dyspnea on exertion: Status: Acute Orders: Referrals PT Referral M70.50 - Other bursitis of knee, unspecified knee Plan Details Additional Comments: Addendum: Patient has had intermittently, not persistently, dyspnea on exertion. Overall however is feeling better. She does have a daughter who has Lopez syndrome, and mother who had aortic valvular heart disease. Would recommend echocardiogram to 1 time look at structurally the heart, particularly in light of the familial issues as above. Arrange echo. 09/12/24 1337 Date Lenore Proctor MD cc: * Signed Intake Vital Signs 01/11/24 11:32 03/13/24 15:19 07/25/24 08:11 Height 5 ft 3 in 5 ft 2 in 5 ft 2 in Weight: 176 lb 4 oz BMI 32.2 BP 149/86 H Blood Pressure Location Lt brachial Position Sitting Respiration 16 Pulse 68 Pulse Source Monitor Temp 99.3 F H Temp Source Temporal Pulse Oximetry (%) 96 Oxygen Delivery Method room air Intake Visit Reasons: 6 M FU Chief Complaint: 6 m fu Resident Care Supervisor Required: No Accompanied by: Self Is patient in pain?: Yes (R knee) Pain scale (1-10): 3 Allergies animal dander Allergy (Verified 07/25/24 07:59) sneezing house dust Allergy (Verified 07/25/24 07:59) sneezing mold (mold spores) Allergy (Verified 07/25/24 07:59) Other Seasonal Allergies: Uncoded Allergy (Verified 07/25/24 07:59) sneezing Medications ???Medication ???Instructions ???Recorded ???Confirmed ???Type multivit-iron 18 mg-folic acid 400 1 ea PO DAILY SUPPLEMENTS 10/13/17 07/25/24 History mcg-calcium 500 mg-minerals tablet vitamin d3 PO 09/29/22 07/25/24 History glucosamine PO 09/14/23 07/25/24 History tumeric PO 09/14/23 07/25/24 History tuna oil PO 09/14/23 07/25/24 History restorative formulations HTN 180 PX PO 01/11/24 07/25/24 History PFSH Medical History (Updated 07/25/24 @ 08:[address] 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 Surgical History Hx of lumbar discectomy History of carpal tunnel surgery H/O section H/O neck surgery Hx of breast reduction, elective S/P laparoscopic assisted vaginal hysterectomy (LAVH) Family History Grandfather COPD (chronic obstructive pulmonary disease) Heart disease Grandmother COPD (chronic obstructive pulmonary disease) Myocardial infarction, Onset Age: 50 Diabetes Mother Breast cancer, Onset Age: 73 Social History Smoking Status: Former smoker alcohol intake: current details: social substance use type: does not use caffeine: Yes what type of physical activity do you participate in: none seatbelt use: always do you feel safe at home: Yes additional social history: Jalil FARIAS HPI Chief Complaint: 6 m fu Details: ANA MARIA LEAL, is a 54 F who presents to the office today for 6-month follow-up. 54-year-old female who has a history of insulin resistance, elevated LFTs, mild fatty liver disease. Borderline high blood pressure in the past. Overall is actually doing quite well. She continues to eat a very good high-quality diet, continuing to slowly lose weight. Now down to 176. She is feeling better all the time she states from that standpoint. They focus on mostly vegetables, smaller amounts of fruit, some meats, usually grass fed, venison. She is trying to be fairly active. 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 The main issue of concern right now is is that she has right knee pain that she describes, along the medial aspect of the right knee, down to the medial aspect of the right lower leg. She states when she was doing some cleaning recently, she was stooped down o (more content not included)... Normal [facility] Insulin Levelon 06-28-2024 INSULIN,FASTING 13.6 uIU/mL Normal 2.6-24.9 [facility] Comment on above: Result Comment: Perf ormed at: [facility] [id number] Prevention Rn: Robi White PhD, Phone: [phone] Performed By: #### L 501.9985, L100.0100, L506.1001, L500.4050, L501.9520, L500.4100 #### [facility] [address] [place], [place], [id number] (241 CBC W/Diff, Automatedon 06-17 Absolute Lymph 1.45 X10 3/uL Normal 0.83-4.51 [facility] Comment on above: Performed By: #### L 501.9985, L100.0100, L506.1001, L500.4050, L501.9520, L500.4100 #### [facility] [address] [place], [address] Absolute Neut 4.6 X10 3/uL Normal 2.0-7.7 [facility] Comment on above: Performed By: #### L 501.9985, L100.0100, L506.1001, L500.4050, L501.9520, L500.4100 #### [facility] [address] [place], [address] Basophils/100 WBC (Bld) 1.2 % High 0-1 [facility] Comment on above: Performed By: #### L 501.9985, L100.0100, L506.1001, L500.4050, L501.9520, L500.4100 #### [facility] [address] [place], [address] Eosinophils/100 WBC (Bld) 4.1 % Normal 0-5 [facility] Comment on above: Performed By: #### L 501.9985, L100.0100, L506.1001, L500.4050, L501.9520, L500.4100 #### [facility] [address] [place], [address] Erythrocyte distribution width (RBC) [Ratio] 13.2 % Normal 11.6-14.6 [facility] Comment on above: Performed By: #### L 501.9985, L100.0100, L506.1001, L500.4050, L501.9520, L500.4100 #### [facility] [address] [place], [address] Hematocrit (Bld) [Volume fraction] 45.4 % Normal 37-47 [facility] Comment on above: Performed By: #### L 501.9985, L100.0100, L506.1001, L500.4050, L501.9520, L500.4100 #### [facility] [address] [place], [address] Hemoglobin (Bld) [Mass/Vol] 14.8 g/dL Normal 12.0-15.0 [facility] Comment on above: Performed By: #### L 501.9985, L100.0100, L506.1001, L500.4050, L501.9520, L500.4100 #### [facility] [address] [place], [address] IG% 0.300 Normal 0.0-0.9 [facility] Comment on above: Result Comment: IG% - Immature Granulocytes (promyelocytes, myelocytes and metamyelocytes) > 1% indicates that a LEFT SHIFT is Present. Performed By: #### L 501.9985, L100.0100, L506.1001, L500.4050, L501.9520, L500.4100 #### [facility] [address], [address] Lymphocytes/100 WBC (Bld) 21.4 % Normal 19-41 [facility] Comment on above: Performed By: #### L 501.9985, L100.0100, L506.1001, L500.4050, L501.9520, L500.4100 #### [facility] [address], [address] MCH (RBC) [Entitic mass] 28.1 pg Normal 27.0-32.0 [facility] Comment on above: Performed By: #### L 501.9985, L100.0100, L506.1001, L500.4050, L501.9520, L500.4100 #### [facility] [address] [place], [address] MCHC (RBC) [Mass/Vol] 32.6 g/dL Normal 32-36 [facility] Comment on above: Performed By: #### L 501.9985, L100.0100, L506.1001, L500.4050, L501.9520, L500.4100 #### [facility] [address] [place], [address] MCV (RBC) [Entitic vol] 86.3 fL Normal 81-99 [facility] Comment on above: Performed By: #### L 501.9985, L100.0100, L506.1001, L500.4050, L501.9520, L500.4100 #### [facility] [address] [place], [address] Monocytes/100 WBC (Bld) 5.8 % Normal 0-10 [facility] Comment on above: Performed By: #### L 501.9985, L100.0100, L506.1001, L500.4050, L501.9520, L500.4100 #### [facility] [address] [place], [address] Neutrophils/100 WBC (Bld) 67.2 % Normal 47-70 [facility] Comment on above: Performed By: #### L 501.9985, L100.0100, L506.1001, L500.4050, L501.9520, L500.4100 #### [facility] [address] [place], [address] Nucleated RBC (Bld) [#/Vol] 0 10*3/uL Normal 0-5 [facility] Comment on above: Performed By: #### L 501.9985, L100.0100, L506.1001, L500.4050, L501.9520, L500.4100 #### [facility] [address] [place], [address] Platelet mean volume (Bld) [Entitic vol] 10.1 fL Normal 6.2-12.0 [facility] Comment on above: Performed By: #### L 501.9985, L100.0100, L506.1001, L500.4050, L501.9520, L500.4100 #### [facility] [address] [place], [address] Platelets (Bld) [#/Vol] 302 10*3/uL Normal 150-450 [facility] Comment on above: Performed By: #### L 501.9985, L100.0100, L506.1001, L500.4050, L501.9520, L500.4100 #### [facility] [address] [place], [address] RBC (Bld) [#/Vol] 5.26 10*6/uL Normal 4.2-5.4 [facility] Comment on above: Performed By: #### L 501.9985, L100.0100, L506.1001, L500.4050, L501.9520, L500.4100 #### [facility] [address] [place], [address] RDW SD 40.9 fl Normal 35.1-43.9 [facility] Comment on above: Performed By: #### L 501.9985, L100.0100, L506.1001, L500.4050, L501.9520, L500.4100 #### [facility] [address] [place], [address] WBC (Bld) [#/Vol] 6.8 10*3/uL Normal 4.4-11.0 [facility] Comment on above: Performed By: #### L 501.9985, L100.0100, L506.1001, L500.4050, L501.9520, L500.4100 #### [facility] [address] [place], [address] Comprehensive Metabolic Prof [facility] 06-27-2024 Albumin [Mass/Vol] 4.0 g/dL Normal 3.2-5.0 [facility] Comment on above: Performed By: #### L 501.9985, L100.0100, L506.1001, L500.4050, L501.9520, L500.4100 #### [facility] [address] [place], [address] Albumin/Globulin [Mass ratio] 1.2 {ratio} Normal 0.9-2.4 [facility] Comment on above: Performed By: #### L 501.9985, L100.0100, L506.1001, L500.4050, L501.9520, L500.4100 #### [facility] [address] [place], [address] ALK P 107 U/L Normal 45-117 [facility] Comment on above: Performed By: #### L 501.9985, L100.0100, L506.1001, L500.4050, L501.9520, L500.4100 #### [facility] [address] [place], [address] ALT [Catalytic activity/Vol] 32 U/L Normal 13-56 [facility] Comment on above: Performed By: #### L 501.9985, L100.0100, L506.1001, L500.4050, L501.9520, L500.4100 #### [facility] [address] [place], [address] AST [Catalytic activity/Vol] 26 U/L Normal 15-37 [facility] Comment on above: Performed By: #### L 501.9985, L100.0100, L506.1001, L500.4050, L501.9520, L500.4100 #### [facility] [address] [place], [address] Bilirubin [Mass/Vol] 0.70 mg/dL Normal 0.20-1.00 [facility] Comment on above: Result Comment: For patients on eltrombopag therapy, use of Dimension [place] TBIL is not recommended. Performed By: #### L 501.9985, L100.0100, L506.1001, L500.4050, L501.9520, L500.4100 #### [facility] [address] [place], [address] BUN/CRE 20.1 RATIO High 10-20 [facility] Comment on above: Performed By: #### L 501.9985, L100.0100, L506.1001, L500.4050, L501.9520, L500.4100 #### [facility] [address] [place], [address] CA,Total 9.9 mg/dL Normal 8.5-10.1 [facility] Comment on above: Performed By: #### L 501.9985, L100.0100, L506.1001, L500.4050, L501.9520, L500.4100 #### [facility] [address] [place], [address] Chloride [Moles/Vol] 108 mmol/L High 98-107 [facility] Comment on above: Performed By: #### L 501.9985, L100.0100, L506.1001, L500.4050, L501.9520, L500.4100 #### [facility] [address] [place], [address] CO2 [Moles/Vol] 27.0 mmol/L Normal 21.0-32.0 [facility] Comment on above: Performed By: #### L 501.9985, L100.0100, L506.1001, L500.4050, L501.9520, L500.4100 #### [facility] [address] [place], [address] Creatinine [Mass/Vol] 0.85 mg/dL Normal 0.55-1.02 [facility] Comment on above: Result Comment: The validity of the calculated GFR GFRAA in patients over 70 years has not been determined. Clinical correlation is essential. Performed By: #### L 501.9985, L100.0100, L506.1001, L500.4050, L501.9520, L500.4100 #### [facility] [address] [place], [address] EST GFR - AA 90 mL/min Normal >60 [facility] Comment on above: Result Comment: Afri can [place] GFR Calc Performed By: #### L 501.9985, L100.0100, L506.1001, L500.4050, L501.9520, L500.4100 #### [facility] [address] [place], [address] GAP 5 Normal 5-15 [facility] Comment on above: Performed By: #### L 501.9985, L100.0100, L506.1001, L500.4050, L501.9520, L500.4100 #### [facility] [address] [place], [address] GFR/1.73 sq M.predicted among non-blacks MDRD (S/P/Bld) [Vol rate/Area] 74 mL/min/{1.73_m2} Normal >60 [facility] Comment on above: Result Comment: Non- GFR Calc Performed By: #### L 501.9985, L100.0100, L506.1001, L500.4050, L501.9520, L500.4100 #### [facility] [address] [place], [address] Globulin (S) [Mass/Vol] 3.4 g/dL Normal 2.2-4.2 [facility] Comment on above: Performed By: #### L 501.9985, L100.0100, L506.1001, L500.4050, L501.9520, L500.4100 #### [facility] [address], [address] Glucose [Mass/Vol] 109 mg/dL High 74-106 [facility] Comment on above: Result Comment: Fast ing Glucose result from 100 to 125 mg/dL suggests IMPAIRED HOMEOSTASIS per A.D.A. criteria. Performed By: #### L 501.9985, L100.0100, L506.1001, L500.4050, L501.9520, L500.4100 #### [facility] [address] [place], [address] Potassium [Moles/Vol] 3.8 mmol/L Normal 3.5-5.1 [facility] Comment on above: Performed By: #### L 501.9985, L100.0100, L506.1001, L500.4050, L501.9520, L500.4100 #### [facility] [address] [place], [address] Sodium [Moles/Vol] 140 mmol/L Normal 136-145 [facility] Comment on above: Performed By: #### L 501.9985, L100.0100, L506.1001, L500.4050, L501.9520, L500.4100 #### [facility] [address] [place], [address] T PROT 7.4 g/dL Normal 6.4-8.2 [facility] Comment on above: Performed By: #### L 501.9985, L100.0100, L506.1001, L500.4050, L501.9520, L500.4100 #### [facility] [address] [place], [address] Urea nitrogen [Mass/Vol] 17 mg/dL Normal 7-18 [facility] Comment on above: Performed By: #### L 501.9985, L100.0100, L506.1001, L500.4050, L501.9520, L500.4100 #### [facility] [address] [place], [address] Free T3on 06-27-2024 Free T3 [Mass/Vol] 2.8 pg/mL Normal 2.18-3.98 [facility] Comment on above: Performed By: #### L 501.06896, L506.0400 #### [facility] [address] [place], [address] Hemoglobin A1con 06-27-2024 HbA1c (Bld) [Mass fraction] 5.7 % High 3.8-5.6 [facility] Comment on above: Result Comment: Norm al < 5.7 % Prediabetic 5.7 - 6.4 % Diabetic >or= 6.5 % Please note range changes. Performed By: #### L 501.9985, L100.0100, L506.1001, L500.4050, L501.9520, L500.4100 #### [facility] [address], [address] Lipid Profileon 06-27-2024 Cholesterol [Mass/Vol] 165 mg/dL Normal 200 [facility] Comment on above: Result Comment: <200 mg/dL Desirable 200-240 mg/dL Borderline >240 mg/dL High Risk Performed By: #### L 501.9985, L100.0100, L506.1001, L500.4050, L501.9520, L500.4100 #### [facility] [address], [address] Cholesterol in HDL [Mass/Vol] 57 mg/dL Normal [facility] Comment on above: Result Comment: The drugs N-Acetylcysteine and Metamizole may falsely depress this assay. Reference Range HDL <40 mg/dL Low HDL Cholesterol HDL >or= 60 mg/dL High HDL Cholesterol Performed By: #### L 501.9985, L100.0100, L506.1001, L500.4050, L501.9520, L500.4100 #### [facility] [address], [address] Cholesterol in LDL [Mass/Vol] 86 mg/dL Normal 0-130 [facility] Comment on above: Performed By: #### L 501.9985, L100.0100, L506.1001, L500.4050, L501.9520, L500.4100 #### [facility] [address], [address] Cholesterol in VLDL [Mass/Vol] 22 mg/dL Normal 5-40 [facility] Comment on above: Performed By: #### L 501.9985, L100.0100, L506.1001, L500.4050, L501.9520, L500.4100 #### [facility] [address], [address] Triglyceride [Mass/Vol] 111 mg/dL Normal [facility] Comment on above: Result Comment: The drugs N-Acetylcysteine and Metamizole may falsely depress this assay. Serum Triglycerides Reference Interval Normal <150 mg/dL Borderline high 150 - 199 mg/dL High 200 - 499 mg/dL Very High > or = 500 mg/dL Performed By: #### L 501.9985, L100.0100, L506.1001, L500.4050, L501.9520, L500.4100 #### [facility] [address] [place], [address] T4 Free Directon 06-27-2024 T4 FREE DIRECT 0.91 ng/dL Normal 0.76-1.46 [facility] Comment on above: Performed By: #### L 501.69273, L506.0400 #### [facility] [address] [place], [address] Thyroid Stim Hormone (TSH)on 06-27-2024 TSH 3.990 uIU/mL High 0.358-3.740 [facility] Comment on above: Performed By: #### L 501.9985, L100.0100, L506.1001, L500.4050, L501.9520, L500.4100 #### [facility] [address] [place], [address] Vitamin D,25 Hydroxyon 06-27 Vitamin D 25-OH 40.0 ng/mL Normal [facility] Comment on above: Result Comment: Purvi min D 25(OH) Status Range Deficiency <20 ng/mL (50nmol/L) Insufficiency 20 - 30 ng/mL (50 - 75 nmol/L) Sufficiency 30 - 100 ng/mL (75 - 250 nmol/L) Toxicity >100 ng/mL (>250 nmol/L) Performed By: #### L 501.9985, L100.0100, L506.1001, L500.4050, L501.9520, L500.4100 #### [facility] [place], [address] BASIC METABOLIC PANELon 04-0 Anion gap [Moles/Vol] 8 mmol/L Normal 3-13 [facility] Comment on above: Performed By: #### L [id number] #### [employer]: ALCIDES VICTOR ([id number]) [facility] ([facility]) [address] [place] [address] Calcium [Mass/Vol] 9.0 mg/dL Normal 8.4-10.4 [facility] Comment on above: Performed By: #### L [id number] #### [employer]: ALCIDES VICTOR ([id number]) [facility] ([facility] [address] [place] [address] Chloride [Moles/Vol] 106 mmol/L Normal 98-107 [facility] Comment on above: Performed By: #### L [id number] #### [employer]: ALCIDES VICTOR ([id number]) [facility] ([facility] [address] [place] [address] [place] CO2 [Moles/Vol] 25 mmol/L Normal 22-30 [facility] Comment on above: Performed By: #### L [id number] #### [employer]: ALCIDES VICTOR ([id number]) [facility] ([facility] [address] [place] [address] [place] Creatinine [Mass/Vol] 0.72 mg/dL Normal 0.52-1.04 [facility] Comment on above: Performed By: #### L [id number] #### [employer]: ALCIDES VICTOR ([phone]) [facility] ([facility]) [address] [place] [address] [place] GLOMERULAR FILTRATION RATE ML/MIN/1.73 SQ M.PREDICTED >90.0 Normal >60.0 [facility] Comment on above: Result Comment: Calc ulation based on the Chronic Kidney Disease Epidemiology Collaboration (CKD-EPI) equation refit without adjustment for race Performed By: #### L [id number] #### [employer]: ALCIDES VICTOR ([id number]) [facility] ([facility] [address] [place] [address] [place] Glucose [Mass/Vol] 113 mg/dL High 70-100 [facility] Comment on above: Performed By: #### L [id number] #### [employer]: ALCIDES VICTOR ([id number]) [facility] ([facility]) [address] [place] [address] Potassium [Moles/Vol] 4.2 mmol/L Normal 3.5-5.1 [facility] Comment on above: Performed By: #### L [id number] #### [employer]: ALICDES VICTOR ([id number]) [facility] ([facility]) [address] [place] [address] Sodium [Moles/Vol] 140 mmol/L Normal 135-145 [facility] Comment on above: Performed By: #### L [id number] #### [employer]: ALCIDES VICTOR ([id number]) [facility] ([facility] [address] [place] [address] Urea nitrogen [Mass/Vol] 17 mg/dL Normal 7-17 [facility] Comment on above: Performed By: #### L [id number] #### [employer]: ALCIDES VICTOR ([id number]) [facility] ([facility]) [address] [place] [address] Basic metabolic 1998 panelon 01-22-2024 Anion gap [Moles/Vol] 8 mmol/L 3 - 13 mmol/L [facility] Calcium [Mass/Vol] 9.0 mg/dL 8.4 - 10. 4 mg/dL [facility] Chloride [Moles/Vol] 106 mmol/L 98 - 10 7 mmol/L [facility] CO2 [Moles/Vol] 25 mmol/L 22 - 30 mmol/L [facility] Creatinine [Mass/Vol] 0.72 mg/dL 0.52 - 1.04 mg/dL [facility] GFR/1.73 sq M.predicted MDRD (S/P/Bld) [Vol rate/Area] - PINF [facility] Comment on above: Calculation based on the Chronic Kidney Disease Epidemiology Collaboration (CKD-EPI) equation refit without adjustment for race Glucose [Mass/Vol] 113 mg/dL High 70 - 100 mg/dL [facility] Interpretation and review of laboratory results Abnormal [facility] Potassium [Moles/Vol] 4.2 mmol/L 3.5 - 5.1 mmol/L [facility] Sodium [Moles/Vol] 140 mmol/L 135 - 145 mmol/L [facility] Urea nitrogen [Mass/Vol] 17 mg/dL 7 - 17 mg/d L [facility] CARECOORDon 01-22-2024 [facility] Care Managment Initial Assessment Date: 01/22/2024 Patient Name: Ana Maria Leal : 1970 Patient Information Source of Information: Patient Cognition/Language: WFL - Within Functional Limits Permission given to speak with patient eligibility services representative/careg iver as indicated: Confirmation of Payer with patient/family: Yes Payer Name: [employer] [place]: No Confirmation of Primary Care Physician: Confirmed PCP Name: MD Mitchell Seen in last 2 years?: Yes Primary Caregiver: Self If assistance needed, confirmed caregiver ready, willing and able to care for patient at discharge: Yes Confirmed with: spouse Living Arrangements Current Residence: House Number of Floors 2 Number of Entry Steps: 1 Bed/Bath Levels: Both first floor Facility: Facility Name: Plan to Return: Lives with: Spouse/significant other Support Systems: Spouse/significant other, Children, Family members Activities of Daily Living Ambulation: Independent Bathing/Dressing: Independent Elimination/Continen ce/Toileting: Independent Feeding: Independent Who Assists with Activities of Daily Living: Instrumental Activities of Daily Living Prescription Coverage: Yes Pharmacy Used: [facility] Medication Management: Independent Transportation/Shopp ing: Independent Transportation Mode: Car Needs Assistance with Transportation at Discharge: No Meal Preparation: Independent Laundry/Cleaning: Independent Finances/Bill Paying: Independent Communication: Independent Types of Care Services/Equipment Utilized Care Services: Dialysis Type: NA Durable Medical Equipment: DME Provider: none Patient's Goal/Discharge Plan Patient expects to be discharged to: home Discharge Planning Actions: Continue to follow, No needs identified Patient's Choice Rights and [employer] and Collaborative Relationships Disclosed as Indicated for Post-Acute Care: Interdisciplinary Team Engagement: Social Work Referral for: Additional Information: Spoke with patient on phone. Patient admitted to for s/p C4-5 ACDF on 01/19. Plan for patient to dc home tomorrow once drain is able to be removed. PT rec home with assist PRN. Patient lives at home with her and dgt, who are able to assist as needed. Patient denies TCC needs and DME needs. Patient would like her meds to be filled thru meds to beds upon dc tomorrow for convenience, due to probable traffic in the area related to solar eclipse. TCC to follow. Moriah Torres RN Normal [facility] CBC (HEMOGRAM)on 01-22-2024 Erythrocyte distribution width (RBC) [Ratio] 13.2 % Normal 11.5-15.0 [facility] Comment on above: Performed By: #### L [id number] #### [employer]: ALCIDES VICTOR ([id number]) [address] Hematocrit (Bld) [Volume fraction] 41.3 % Normal 35.0-47.0 [facility] Comment on above: Performed By: #### L [id number] #### [employer]: ALCIDES VICTOR ([id number]) [address] Hemoglobin (Bld) [Mass/Vol] 13.8 g/dL Normal 11.7-16.0 [facility] Comment on above: Performed By: #### L [id number] #### [employer]: ALCIDES VICTOR ([id number]) [facility]) [address] [place] [address] MCH (RBC) [Entitic mass] 28.3 pg Normal 26.0-34.0 [facility] Comment on above: Performed By: #### L [id number] #### [employer]: ALCIDES VICTOR ([id number]) [facility]) [address] [place] [address] MCHC 33.4 % Normal 30.5-36.0 [facility] Comment on above: Performed By: #### L [id number] #### [employer]: ALCIDES VICTOR ([id number]) [facility] ([facility]) [address] [place] [address] MCV (RBC) [Entitic vol] 84.8 fL Normal 77.0-99.0 [facility] Comment on above: Performed By: #### L [id number] #### [employer]: ALCIDES VICTOR ([id number]) [facility] ([facility]) [address] [place] [address] Platelet mean volume (Bld) [Entitic vol] 9.9 fL Normal 9.0-12.7 [facility] Comment on above: Performed By: #### L [id number] #### [employer]: ALCIDES VICTOR ([id number]) [facility] ([facility]) [address] [place] [address] Platelets (Bld) [#/Vol] 342 10*3/uL Normal 140-440 [facility] Comment on above: Performed By: #### L [id number] #### [employer]: ALCIDES VICTOR ([id number]) [facility] ([facility]) [address] [place] [address] RBC (Bld) [#/Vol] 4.87 10*6/uL Normal 3.80-5.20 [facility] Comment on above: Performed By: #### L [id number] #### [employer]: ALCIDES VICTOR ([id number]) [facility] ([facility]) [address] [place] [address] WBC (Bld) [#/Vol] 16.0 10*3/uL High 3.6-10.7 [facility] Comment on above: Performed By: #### L [id number] #### [employer]: ALCIDES VICTOR ([id number]) [facility]) [address] [place] [address] CBC panel Auto (Bld)on 01-21 Erythrocyte distribution width (RBC) [Ratio] 13.2 % 11.5 - 15.0 % [facility] Hematocrit (Bld) [Volume fraction] 41.3 % 35.0 - 47.0 % [facility] Hemoglobin (Bld) [Mass/Vol] 13.8 g/dL 11.7 - 16.0 g/dL [facility] Interpretation and review of laboratory results Abnormal [facility] MCH (RBC) [Entitic mass] 28.3 pg 26. 0 - 34.0 pg [facility] MCHC (RBC) [Mass/Vol] 33.4 % 30.5 - 36.0 % [facility] MCV (RBC) [Entitic vol] 84.8 fL 77.0 - 99.0 fL [facility] Platelet mean volume (Bld) [Entitic vol] 9.9 fL 9.0 - 12.7 fL [facility] Platelets (Bld) [#/Vol] 342 10*3/uL 140 - 440 10*3/uL [facility] RBC (Bld) [#/Vol] 4.87 10*6/uL 3.80 - 5.2 0 10*6/uL [facility] WBC (Bld) [#/Vol] 16.0 10*3/uL High 3.6 - 10.7 10*3/uL [facility] Nursing Noteon 01-22-2024 Nursing Note Called from charge nurse--pt had concerns and wanted to discuss. Arrived to pt's room and introduced myself. Pt's concerns written down on complaint log and will forward to manager cardiology. Pt informed and understands. Had primary nurse page resident corporate health consultant to explain the plan to the patient. Resident arrived while I was in the room. Pt satisfied with actions taken. Normal [facility] Progress Noteon 01-22-2024 Progress Note .Nutrition rescreen completed. Chart reviewed. Patient to be monitored and followed by the diet engine emission technician. GIANLUCA Laird [facility] Progress Note [phone]: Please page me ([phone]) for patient care issues. [phone]: Please page [facility] Hospitalist for any issues. Subjective: Admit Date: 01/20/2024 PCP: Liza Castro III, MD Room#: H-5430/[id number] A Ana Maria Leal is a 54 y.o. female who presents with Cervical stenosis of spine admitted for hardware removal of C5-C7 ACDF and C4-C5 ACDF. Internal medicine consulted for postop management. Patient medical problems significant for hypertension. Interval History: No overnight issues. Denies chest pain, sob, abdominal pain, nausea, vomiting, diarrhea, constipation, fevers, or chills. Drain in place Tolerating p.o. well, passing flatus, no bowel movement. ambulating well Adult diet Regular 24HR INTAKE/OUTPUT: Intake/Output Summary (Last 24 hours) at 01/22/2024 0909 Last data filed at 01/21/2024 1401 Gross per 24 hour Intake 300 ml Output -- Net 300 ml LABS: CBC: Recent Labs 01/21/24 0042 01/22/24 0124 WBC 13.3* 16.0* RBC 4.85 4.87 HGB 13.5 13.8 HCT 41.1 41.3 MCV 84.7 84.8 RDW 12.7 13.2 PLT 309 342 BMP: Recent Labs 01/21/24 0042 01/22/24 0124 NA 137 140 K 3.8 4.2 CL 104 106 CO2 17* 25 BUN 8 17 CREATININE 0.71 0.72 GLUCOSE 210* 113* CALCIUM 8.6 9.0 ANIONGAP 16* 8 LIVER PROFILE:No results for input(s): AST, ALT, BILITOT, ALKPHOS, PROT in the last 72 hours. No lab exists for component: LABALBU PT/INR: No results for input(s): PROTIME, INR in the last 72 hours. CARDIAC ENZYMES: No results for input(s): TROPONINI in the last 72 hours. Procalcitonin: No results found for: PROCAL Objective: Vitals: BP 154/82 Pulse 77 Temp 37.1 ?C (98.7 ?F) (Temporal) Resp 18 Ht 5' 2.99 (1.6 m) Wt 180 lb (81.6 kg) SpO2 93% BMI 31.89 kg/m? Pulse Ox: SpO2 Av.5 % Min: 93 % Max: 94 % Supplemental O2: O2 Flow Rate (L/min): 2 L/min 01/22/2024 General appearance: No apparent distress, appears stated age, AAOX4 Oral: Tongue is semi-moist Cardiovascular: S1/S2 heard, RRR Respiratory: Clear to auscultation bilaterally Abdomen: Soft, non-tender, non-distended bowel sounds positive Musculoskeletal: Medications: lactated Ringer's, 50 mL/hr, Last Rate: 50 mL/hr (01/21/24 2221) acetaminophen, 650 mg, Oral, q6h ceFAZolin, 2,000 mg, IntraVENous, q8h gabapentin, 300 mg, Oral, Nightly senna-docusate sodium, 1 tablet, Oral, BID sodium chloride 0.9%, 10 mL, IntraVENous, 2 times per day Assessment Cervical stenosis s/p hardware removal of C5-C7 ACDF, C4-C5 ACDF History of postop nausea vomiting Leukocytosis-reactiv e Chronic problems Hypertension Plan Ortho primary, drain care per orthopedics Pain control Blood pressure stable Continue senna PT, OT DVT leg prophylaxis per primary Stable for DC from medical standpoint -am labs, replace lytes prn -increase activity Diet Adult diet Regular DVT Prophylaxis [] Lovenox, [] Heparin, [x] SCDs, [x] Ambulation [] Already on Anticoagulation GI Prophylaxis [] PPI, [] H2 Clay, [] Carafate, [] Diet/Tube Feeds Code Status No Order MDM [] Low, [x] Moderate,[] High Patient's risk as above Anticipated Discharge - Date -01/22 - Location - Home - Pending the following -pending PT, OT eval Total time spent (which include face to face and non face to face encounters) : 35 minutes Toxic drug monitoring/narrow therapeutic index drug monitoring : # Drug name : # Route administered : # Method of monitoring : Extended Emergency Contact Information Primary Emergency Contact: Yuli William Relation: Child Secondary Emergency Contact: Jalil Leal Relation: Spouse Advance Directive: No Order Discharge planning: TBDereje CANAS MD Division of Hospitalist Medicine Inpatient Medical Services/[facility] Progress Note Orthopedic surgery to bedside to discuss patient concerns. Patient was upset that her drain could not be pulled this afternoon she needed to stay another night in the hospital. It was explained to her that the anterior drain was placed to prevent postoperative hematoma formation which could lead to airway compromise. Dr. Mehta specified 10 cc of drain output per shift as the criteria for her drain to be pulled, and the day nursing staff reported her output has [address] Mehta was contacted directly regarding patient's wishes to be discharged, and he insisted that the drain remain in place and patient stay at the hospital until output was less than 10 cc per shift. Patient expressed good understanding and was agreeable to the plan. Dawit Ruano MD PGY2 Orthopaedic Surgery 01/22/2024 12:43 AM Normal [facility] BASIC METABOLIC PANELon 04-0 Anion gap [Moles/Vol] 16 mmol/L High 3-13 [facility] Comment on above: Performed By: #### L [id number] ####[employer]: ALCIDES VICTOR ([id number])[facility])[address] [place] [address] Calcium [Mass/Vol] 8.6 mg/dL Normal 8.4-10.4 [facility] Comment on above: Performed By: #### L AB15 ####[employer]: ALCIDES VICOTR ([id number])[facility] ([facility])[address] [place] [address] Chloride [Moles/Vol] 104 mmol/L Normal 98-107 [facility] Comment on above: Performed By: #### L AB15 ####[employer]: ALCIDES VICTOR ([id number])[facility] ([facility])[address] [place] [address] CO2 [Moles/Vol] 17 mmol/L Low 22-30 [facility] Comment on above: Performed By: #### L AB15 ####[employer]: ALCIDES VICTOR ([id number])[facility] ([facility])[address] [place] [address] Creatinine [Mass/Vol] 0.71 mg/dL Normal 0.52-1.04 [facility] Comment on above: Performed By: #### L AB15 ####[employer]: ALCIDES VICTOR ([id number])[facility] ([facility])[address] [place] [address] GLOMERULAR FILTRATION RATE ML/MIN/1.73 SQ M.PREDICTED >90.0 Normal >60.0 [facility] Comment on above: Result Comment: Calc ulation based on the Chronic Kidney Disease Epidemiology Collaboration (CKD-EPI) equation refit without adjustment for race Performed By: #### L AB15 ####[employer]: ALCIDES VICTOR ([id number])[facility] ([facility])[address] [place] [address] Glucose [Mass/Vol] 210 mg/dL High 70-100 [facility] Comment on above: Performed By: #### L AB15 ####[employer]er: ALCIDES VICTOR ([id number])[facility] ([facility])[address] [place] [address] Potassium [Moles/Vol] 3.8 mmol/L Normal 3.5-5.1 [facility] Comment on above: Performed By: #### L AB15 ####[employer]: ALCIDES VICTOR ([id number])[facility] ([facility])[address] [place] [address] Sodium [Moles/Vol] 137 mmol/L Normal 135-145 [facility] Comment on above: Performed By: #### L AB15 ####[employer]: ALCIDES VICTOR ([id number])[facility])[address] [place] [address] Urea nitrogen [Mass/Vol] 8 mg/dL Normal 7-17 [facility] Comment on above: Performed By: #### L AB15 ####[employer]: ALCIDES VICTOR ([id number])[facility])[address] [place] [address] Basic metabolic 1998 panelon 01-21-2024 Anion gap [Moles/Vol] 16 mmol/L High 3 - 13 mmol/L [facility] Calcium [Mass/Vol] 8.6 mg/dL 8.4 - 10. 4 mg/dL [facility] Chloride [Moles/Vol] 104 mmol/L 98 - 10 7 mmol/L [facility] CO2 [Moles/Vol] 17 mmol/L Low 22 - 30 mmol/L [facility] Creatinine [Mass/Vol] 0.71 mg/dL 0.52 - 1.04 mg/dL [facility] GFR/1.73 sq M.predicted MDRD (S/P/Bld) [Vol rate/Area] - PINF [facility] Comment on above: Calculation based on the Chronic Kidney Disease Epidemiology Collaboration (CKD-EPI) equation refit without adjustment for race Glucose [Mass/Vol] 210 mg/dL High 70 - 100 mg/dL [facility] Interpretation and review of laboratory results Abnormal [facility] Potassium [Moles/Vol] 3.8 mmol/L 3.5 - 5.1 mmol/L [facility] Sodium [Moles/Vol] 137 mmol/L 135 - 145 mmol/L [facility] Urea nitrogen [Mass/Vol] 8 mg/dL 7 - 17 mg/d L [facility] CBC (HEMOGRAM)on 01-21-2024 Erythrocyte distribution width (RBC) [Ratio] 12.7 % Normal 11.5-15.0 [facility] Comment on above: Performed By: #### L [id number] #### [employer]: ALCIDES VICTOR ([id number]) [facility]) [address] [place] [address] Hematocrit (Bld) [Volume fraction] 41.1 % Normal 35.0-47.0 [facility] Comment on above: Performed By: #### L [id number] #### [employer]: ALCIDES VICTOR ([id number]) [facility]) [address] [place] [address] Hemoglobin (Bld) [Mass/Vol] 13.5 g/dL Normal 11.7-16.0 [facility] Comment on above: Performed By: #### L [id number] #### [employer]: ALCIDES VICTOR ([id number]) [facility] ([facility]) [address] [place] [address] MCH (RBC) [Entitic mass] 27.8 pg Normal 26.0-34.0 [facility] Comment on above: Performed By: #### L [id number] #### [employer]: ALCIDES VICTOR ([id number]) [facility]) [address] [place] [address] MCHC 32.8 % Normal 30.5-36.0 [facility] Comment on above: Performed By: #### L [id number] #### [employer]: ALCIDES VICTOR ([id number]) [facility] ([facility]) [address] [place] [address] MCV (RBC) [Entitic vol] 84.7 fL Normal 77.0-99.0 [facility] Comment on above: Performed By: #### L [id number] #### [employer]: ALCIDES VICTOR ([id number]) [facility] ([facility]) [address] [place] [address] Platelet mean volume (Bld) [Entitic vol] 9.8 fL Normal 9.0-12.7 [facility] Comment on above: Performed By: #### L [id number] #### [employer]: ALCIDES VICTOR ([id number]) [facility] ([facility]) [address] [place] [address] Platelets (Bld) [#/Vol] 309 10*3/uL Normal 140-440 [facility] Comment on above: Performed By: #### L [id number] #### [employer]: ALCIDES VICTOR ([id number]) [facility] ([facility]) [address] [place] [address] RBC (Bld) [#/Vol] 4.85 10*6/uL Normal 3.80-5.20 [facility] Comment on above: Performed By: #### L [id number] #### [employer]: ALCIDES VICTOR ([id number]) [facility] ([facility]) [address] [place] [address] WBC (Bld) [#/Vol] 13.3 10*3/uL High 3.6-10.7 [facility] Comment on above: Performed By: #### L [id number] #### [employer]er: ALCIDES VICTOR ([id number]) [facility] ([facility]) [address] [place] [address] CBC panel Auto (Bld)on 01-20 Erythrocyte distribution width (RBC) [Ratio] 12.7 % 11.5 - 15.0 % [facility] Hematocrit (Bld) [Volume fraction] 41.1 % 35.0 - 47.0 % [facility] Hemoglobin (Bld) [Mass/Vol] 13.5 g/dL 11.7 - 16.0 g/dL [facility] Interpretation and review of laboratory results Abnormal [facility] MCH (RBC) [Entitic mass] 27.8 pg 26. 0 - 34.0 pg [facility] MCHC (RBC) [Mass/Vol] 32.8 % 30.5 - 36.0 % [facility] MCV (RBC) [Entitic vol] 84.7 fL 77.0 - 99.0 fL [facility] Platelet mean volume (Bld) [Entitic vol] 9.8 fL 9.0 - 12.7 fL [facility] Platelets (Bld) [#/Vol] 309 10*3/uL 140 - 440 10*3/uL [facility] RBC (Bld) [#/Vol] 4.85 10*6/uL 3.80 - 5.2 0 10*6/uL [facility] WBC (Bld) [#/Vol] 13.3 10*3/uL High 3.6 - 10.7 10*3/uL [facility] Consulton 01-21-2024 Consult PAGING: The Acute Pain Service providers are available exclusively via [employer] SECURE CHAT. APS does not utilize pagers. 01/21/2024 Lab Results Component Value Date CREATININE 0.71 01/21/2024 AST 30 01/04/2024 ALT 26 01/04/2024 Discharge Recommendations: Percocet 5/325. 1 tab q6h prn, robaxin, stool softener Pain Management Adjuvants: 0700 --> 0700 01/20/2024 Scheduled APAP 650mg Gabapentin Lidocaine patches PRN Hydromorphone IV Methocarbamol Oxycodone 10mg Assessment / Pain Management Plan: Pain controlled, minimal opiate use, encouraged use if she needs them. Recs made, signing off, thank you for the consult. Acute Postsurgical Neck pain Multimodal pain regimen: BLOCK: n/a Continue Acetaminophen 650 mg po q4h scheduled ATC. Liver enzymes WNL, last checked: 01/04/24 Continue Gabapentin 300 mg po nightly. Continue Lidocaine patch x 1. Cut and [address] as needed. Continue Hydromorphone 0.25 mg - 0.5 mg IVP q4h prn moderate to severe breakthrough pain. Please utilize oral medications first. Continue Methocarbamol 1000 mg PO TID PRN. Continue Oxycodone 5 - 10 mg po q4h prn moderate to severe breakthrough pain. Continue Naloxone 0.4 mg IVP prn opioid reversal. PRN if respiratory rate is less than 6/min and patient is difficult to arouse then notify physician STAT. Mix 9 mL of sodium chloride 0.9% with 0.4 mg (1 mL) of naloxone (NARCAN) in 10 mL syringe. (Note: dilution is 0.04 mg/mL) Give 0.08 mg (2 mL of special dilution), slow IV push, repeat up to 0.4 mg (10 mL) or until patient is responsive to physical stimulation and respiratory rate is equal to or greater than 6 breaths/min. Continue to observe, if no response within 3 minutes of administration of 0.4 mg (10 mL) total, repeat dose (0.4 mg as administered previously). Spinal stenosis, cervical region S/p REMOVAL PLATE INSPECTION FUSION CERVICAL 5-7, ANTERIOR CERVICAL DISCECTOMY AND FUSION CERVICAL 4-5 WITH ALLOGRAFT AND PLATE 01/20/[address] Mehta See #1 Opioid Use Acute: Expected to be short term post op pain, see #1 [place] reviewed for past two years. (No recurrent opiates RX filled) Reviewed and educated patient on responsible use of opioids: after surgery, it can be normal to experience pain. If it is mild and you can move about without great difficulty or discomfort, you may not need to take pain medication. It is very important to take your pain medication only as needed. Avoiding excessive or unnecessary medication, will enable you to progress your activity each day to improve your muscle tone and movement, deep breathing, digestion, circulation and your body's ability to heal itself. Constipation At risk for opioid induced constipation Patient currently receiving opioids for pain management necessitating a bowel regimen. Recommend initiating scheduled Sennakot-S 8.6/50mg, 1 tablet PO BID. Would also recommend Milk of Magnesia 400mg/5ml, administer 30mL by mouth daily PRN. ---- Chief Complaint: Neck surgery History of Present Illness: We have been asked to see this 54 y.o. female for postoperative pain management s/p REMOVAL PLATE INSPECTION FUSION CERVICAL 5-7, ANTERIOR CERVICAL DISCECTOMY AND FUSION CERVICAL 4-5 WITH ALLOGRAFT AND PLATE 01/20/[address] Mehta Reviewed EKG 01/04/24 DIONTE, no pages. On arrival, pt lying in bed. Pt appears well, comfortable. Pt talkative and cooperative throughout exam, happy with current pain regimen. Pain controlled. Tolerating diet, denies f/c, cp, sob, n/v/d. - BM, +flatulence Pain Location: Neck Aggravating Factors: Moving Sedation score: 1: Awake and alert Pain Severity: 5 on scale of 1-10 Pain Quality: aching Alleviating Factors: Rest/Pain medications Patient educated on pain regimen, aware that oxycodone po, hydromorphone IV, methocarbamol are PRN and patient must ask for these medications when needed. Educated patient to utilize oral pain medications as first line and reserve IV pain medications for severe breakthrough pain. Pt is realistic about pain control: Not all pain will be taken away, but pain should be tolerable/manageable with current regimen. Pt instructed to have staff page APS if pain becomes uncontrolled when utilizing present regimen. Pt agreeable, denies further questions. PMH reviewed below Pain Management: n/a The patient's medical history and physical assessment, medications, allergies, patient's current medical condition, imaging, and labs were reviewed as part of this consultation. [x] Patient's Medications have been reviewed. [x] Patient's OARRS report (PDMP) have been reviewed. Past Medical History: Past Medical History: No date: Arthritis No date: Bulging of cervical intervertebral disc No date: DDD (degenerative disc disease), cervical No date: Liver disease Comment: FATTY LIVER No date: PONV (postoperative nausea and vomiting) No da (more content not included)... [facility] Progress Noteon 01-21-2024 Progress Note [id number]: Please page me ([phone]) for patient care issues. [phone]: Please page [facility] Hospitalist for any issues. Subjective: Admit Date: 01/20/2024 PCP: Liza Castro III, MD Room#: [id number] Ana Maria Leal is a 54 y.o. female who presents with Cervical stenosis of spine admitted for hardware removal of C5-C7 ACDF and C4-C5 ACDF. Internal medicine consulted for postop management. Patient medical problems significant for hypertension. Interval History: No overnight issues. Denies chest pain, sob, abdominal pain, nausea, vomiting, diarrhea, constipation, fevers, or chills. Tolerating p.o. well, passing flatus, ambulating okay Adult diet Regular 24HR INTAKE/OUTPUT: Intake/Output Summary (Last 24 hours) at 01/21/2024 1028 Last data filed at 01/21/2024 0511 Gross per 24 hour Intake 1720.18 ml Output -- Net 1720.18 ml LABS: CBC: Recent Labs 01/21/24 0042 WBC 13.3* RBC 4.85 HGB 13.5 HCT 41.1 MCV 84.7 RDW 12.7 PLT 309 BMP: Recent Labs 01/21/24 0042 NA 137 K 3.8 CL 104 CO2 17* BUN 8 CREATININE 0.71 GLUCOSE 210* CALCIUM 8.6 ANIONGAP 16* LIVER PROFILE:No results for input(s): AST, ALT, BILITOT, ALKPHOS, PROT in the last 72 hours. No lab exists for component: LABALBU PT/INR: No results for input(s): PROTIME, INR in the last 72 hours. CARDIAC ENZYMES: No results for input(s): TROPONINI in the last 72 hours. Procalcitonin: No results found for: PROCAL Objective: Vitals: BP 155/79 (BP Location: Left arm, Patient Position: Sitting) Pulse 59 Temp 37.1 ?C (98.7 ?F) (Temporal) Resp 17 Ht 5' 2.99 (1.6 m) Wt 180 lb (81.6 kg) SpO2 95% BMI 31.89 kg/m? Pulse Ox: SpO2 Av.4 % Min: 93 % Max: 99 % Supplemental O2: O2 Flow Rate (L/min): 2 L/min 01/21/2024 General appearance: No apparent distress, appears stated age, AAOX4 Oral: Tongue is semi-moist Cardiovascular: S1/S2 heard, RRR Respiratory: Clear to auscultation bilaterally Abdomen: Soft, non-tender, non-distended bowel sounds positive Musculoskeletal: Medications: lactated Ringer's, 50 mL/hr, Last Rate: Stopped (01/20/242052) acetaminophen, 650 mg, Oral, q6h ceFAZolin, 2,000 mg, IntraVENous, q8h gabapentin, 300 mg, Oral, Nightly senna-docusate sodium, 1 tablet, Oral, BID sodium chloride 0.9%, 10 mL, IntraVENous, 2 times per day Assessment Cervical stenosis s/p hardware removal of C5-C7 ACDF, C4-C5 ACDF History of postop nausea vomiting Chronic problems Hypertension Plan Ortho primary Pain control Blood pressure stable PT, OT DVT leg prophylaxis per primary Stable for DC from medical standpoint -am labs, replace lytes prn -increase activity Diet Adult diet Regular DVT Prophylaxis [] Lovenox, [] Heparin, [] SCDs, [] Ambulation [] Already on Anticoagulation GI Prophylaxis [] PPI, [] H2 Clay, [] Carafate, [] Diet/Tube Feeds Code Status No Order MDM [] Low, [] Moderate,[] High Patient's risk as above Anticipated Discharge - Date -01/20 - Location - Home - Pending the following -pending PT, OT eval Total time spent (which include face to face and non face to face encounters) : 35 minutes Toxic drug monitoring/narrow therapeutic index drug monitoring : # Drug name : # Route administered : # Method of monitoring : Extended Emergency Contact Information Primary Emergency Contact: Yuli William Relation: Child Secondary Emergency Contact: Jalil Leal Relation: Spouse Advance Directive: No Order Discharge planning: TBD ISABELLA CANAS MD Division of Hospitalist Medicine Inpatient Medical Services/[facility] Consulton 01-20-2024 Consult [facility] Medicine Consult Patient - Ana Maria Leal, Age - 54 y.o. - 1970 Room Number - [phone] [id number] Consulting - Nenita Mehta MD Primary Care Physician - Liza Castro III, MD [facility] # - [id number] Date of Admission - 01/20/2024 11:24 AM Hospital Day - 0 Reason for Consult: Medical Management HISTORY OF PRESENT ILLNESS: Ana Maria is a 54 y.o. female POD #0 Hardware removal of C5-7 ACDF and C4-5 ACDF . Per Orthopedic specialty documentation no intraoperative complication or concern reported. USACS consulted for postoperative evaluation. Pt Hx significant for HTN. On arrival to Pt sleeping heavily - Per MAR has recently received 10mg Oxycodone. Rouses briefly to gentle tactile stimulation but returns to sleep. Limited examination - chart, vitals reviewed. Vitals stable - mild HTN. Pt SpO2 >90% on room air. Full assessment in AM Past Medical History: Past Medical History: Diagnosis Date Arthritis Bulging of cervical intervertebral disc DDD (degenerative disc disease), cervical Liver disease FATTY LIVER PONV (postoperative nausea and vomiting) Spinal stenosis Past Surgical History: Past Surgical History: Procedure Laterality Date BREAST REDUCTION CARPAL TUNNEL RELEASE Bilateral CERVICAL DISCECTOMY 03/01/2018 ACDF C5-6, C6-7 CERVICAL FUSION 01/20/2024 removal plate inspection fusion cervical 5-7, anterior cervical disectomy and fusion cervical 4-5 with allograft and plate SECTION (HISTORICAL) x 3 HYSTERECTOMY LUMBAR DISC SURGERY Medications: acetaminophen, 650 mg, Oral, q6h ceFAZolin, 2,000 mg, IntraVENous, q8h gabapentin, 300 mg, Oral, Nightly senna-docusate sodium, 1 tablet, Oral, BID sodium chloride 0.9%, 10 mL, IntraVENous, 2 times per day lactated Ringer's, 50 mL/hr, Last Rate: Stopped (01/20/242052) PRN medications: hydrALAZINE, magnesium hydroxide, methocarbamol, morphine sulfate OR morphine sulfate, naloxone (Narcan) 0.4 mg in 0.9% sodium chloride 10 mL syringe, ondansetron ODT OR ondansetron, oxyCODONE OR oxyCODONE, polyethylene glycol (PEG) 3350, sodium chloride, sodium chloride 0.9% Allergies: Seasonal, Cat hair extract, Hydrocodone, and Mold [molds & smuts] Social History: Social History Socioeconomic History Marital status: Spouse name: Not on file Number of children: Not on file Years of education: Not on file Highest education level: Not on file Occupational History Not on file Tobacco Use Smoking status: Former Packs/day: 0.25 Years: 30.00 Additional pack years: 0.00 Total pack years: 7.50 Types: Cigarettes Quit date: 10/17/2015 Years since quittin.2 Smokeless tobacco: Never Vaping Use Vaping Use: Never used Substance and Sexual Activity Alcohol use: Yes Alcohol/week: 1.0 standard drink of alcohol Types: 1 Glasses of wine per week Comment: OCCAS 1 glass a week Drug use: Yes Types: Other Comment: CBD OIL Sexual activity: Not on file Other Topics Concern Not on file Social History Narrative Not on file Social Determinants of Health Financial Resource Strain: Not on file Food Insecurity: Not on file Transportation Needs: Not on file Physical Activity: Not on file Stress: Not on file Social Connections: Not on file Intimate Partner Violence: Not At Risk (01/20/2024) Humiliation, Afraid, Rape, and Kick questionnaire Fear of Current or Ex-Partner: No Emotionally Abused: No Physically Abused: No Sexually Abused: No Housing Stability: Not on file Family History: No family history on file. REVIEW OF SYSTEMS: 10 point ROS obtained, as per HPI, otherwise NEG Physical Exam: Vitals: BP (!) 169/96 (BP Location: Right arm, Patient Position: Lying) Pulse 73 Temp 36.1 ?C (97 ?F) (Temporal) Resp 16 Ht 5' 2.99 (1.6 m) Wt 180 lb (81.6 kg) SpO2 98% BMI 31.89 kg/m? BMI Classification: Obese (BMI 30.0-39.9) Pulse Ox: SpO2 Av.5 % Min: 93 % Max: 99 % Supplemental O2: O2 Flow Rate (L/min): 2 L/min Physical Exam Constitutional: General: She is awake. Comments: Sleeping heavily. Rouses briefly to tactile stimulation but returns to sleep. Limited examination HENT: Head: Normocephalic and atraumatic. Eyes: General: Vision grossly intact. Gaze aligned appropriately. Cardiovascular: Rate and Rhythm: Normal rate and regular rhythm. Pulmonary: Breath sounds: Normal breath sounds. No wheezing. Skin: General: Skin is warm and dry. Neurological: General: No focal deficit present. Psychiatric: Behavior: Behavior is cooperative. LABS: No results found for this or any previous visit (from the past 24 hour(s)). Urine Culture: No results found for this or any previous visit. IMAGING: See report Assessment Data: (LOW: 2x CAT1 or independent historian MOD: 3x CAT1 or 1x CAT3 EXTENSIVE: 3x CAT1 and 1x CAT3) Acute, acute on chronic, unstable/uncontrolle d chronic problems/diagnoses: (more content not included)... Normal [facility] No Panel Informationon 01-19 There is no interpretation needed for this exam. IMAGING Nursing Noteon 01-20-2024 Nursing Note Report given to RN for Room 6130 on H6 [facility] Nursing Note Faxed report sheet to [address] Op Noteon 01-20-2024 Op Note OPERATIVE NOTE Patient Name: Ana Maria Leal : 1970 DATE OF PROCEDURE: 01/20/2024 SURGEON: MD Juan Luis DONIS DO PREOPERATIVE DIAGNOSES: Status post ACDF C5-6-7 stenosis C4-5 POSTOPERATIVE DIAGNOSES: Same PROCEDURE: Same removal plate C5-6-7 anterior cervical spine inspection fusion mass C5-6-7) no repeat fusion anterior cervical discectomy fusion allograft structural bone and plate C4-5 INDICATION FOR PROCEDURE: Recalcitrant arm pain DESCRIPTION OF PROCEDURE: Patient was taken the operating room timeout was done for patient procedure neck is prepped and draped in normal sterile fashion. did the approach to the cervical spine he will describe that in a separate op note once this was done we dissected out the plate at C5-6-7 that plate was removed en bloc. Inspected the fusion mass at C5-6 and C6-7 was noted to be very strong requiring no repeat fusion Soft tissue stripped off the inferior aspect of C4 and the superior aspect of C5. Self-retaining retractors were put in. The disc at C4-5 was removed with a pituitary rongeur and Kerrisons. The disc space was distracted. Bilateral foraminotomies carried out with Kerrisons and C4-5 this decompressing the exiting C5 nerve roots which were free. It was sized to be an 8 mm piece of structural allograft bone. This was tapped into position. Distraction was removed. Plate was applied screws inserted final tightening carried out. Lateral x-ray of the neck showed the graft and plate to be appropriate. Wound was irrigated. Drain was placed sewn in. Platysma was closed with 2-0 Vicryl, 3 oh subcu, running 4 oh for skin. No spinal cord monitoring changes [facility] Absolute lymphocyte countOrd ered By: Lenore Proctor on 01-05-2024 Lymphocytes Auto (Unsp spec) [#/Vol] 1.48 10*3/uL 0.83-4.51 [facility] Automated lymphocyte count a s percentage of total leukocytesOrdered By: Lenore Proctor on 01-05-2024 Lymphocytes/100 WBC Auto (Unsp spec) 21.1 % 19-41 [facility] Basophil percentageOrdered B y: Lenore Proctor on 01-05-2024 Basophils/100 WBC (Bld) 1.3 % 0-1 [facility] Bilirubin [Mass/Vol] 0.60 mg/dL 0.20-1.00 [facility] Comment on above: For patients on eltr ombopag therapy, use of Dimension [place] TBIL is not recommended. Chloride [Moles/Vol] 111 mmol/L 98-107 [facility] Cholesterol [Mass/Vol] 158 mg/dL <200 [facility] Comment on above: <200 mg/dL Desirable 200-240 mg/dL Borderline >240 mg/dL High Risk Eosinophils/100 WBC (Bld) 3.0 % 0-5 [facility] Glucose [Mass/Vol] 95 mg/dL 74-106 [facility] Hemoglobin (Bld) [Mass/Vol] 13.7 g/dL 12.0-15.0 [facility] Monocytes/100 WBC (Bld) 6.0 % 0-10 [facility] Neutrophils (Bld) [#/Vol] 4.8 10*3/uL 2.0-7.7 [facility] Neutrophils/100 WBC (Bld) 68.2 % 47-70 [facility] Potassium [Moles/Vol] 3.6 mmol/L 3.5-5.1 [facility] Protein [Mass/Vol] 7.0 g/dL 6.4-8.2 [facility] Sodium [Moles/Vol] 142 mmol/L 136-145 [facility] Triglyceride [Mass/Vol] 131 mg/dL <199 [facility] Comment on above: The drugs N-Acetylcy steine and Metamizole may falsely depress this assay.Serum Triglycerides Reference Interval Normal <150 mg/dL Borderline high 150 - 199 mg/dL High 200 - 499 mg/dL Very High > or = 500 mg/dL WBC (Bld) [#/Vol] 7.0 10*3/uL 4.4-11.0 [facility] Determination of erythrocyte mean corpuscular volume (MCV)Ordered By: Lenore Proctor on 01-05-2024 MCV (RBC) [Entitic vol] 84.8 fL 81-99 [facility] ECG 12-LEADon 01-05-2024 ECG 12-LEAD IMPRESSION: Sinus bradycardia Electronically Signed On 01-05-2024 10:35:10 EDT by Markos Crocker [facility] Erythrocyte distribution wid th ratioOrdered By: Lenore Proctor on 01-05-2024 Erythrocyte distribution width (RBC) [Ratio] 12.7 % 11.6-14.6 [facility] Erythrocyte distribution wid th standard deviationOrdered By: Lenore Proctor on 01-05-2024 Erythrocyte distribution width (RBC) [Entitic vol] 39.1 fL 35.1-43.9 [facility] Hematocrit Auto (Bld) [Volum e fraction]Ordered By: Lenore Proctor on 01-05-2024 Hematocrit (Bld) [Volume fraction] 42.0 % 37-47 [facility] Immature granulocytes/100 WB C Auto (Bld)Ordered By: Lenore Proctor on 01-05-2024 Immature granulocytes/100 WBC (Bld) 0.400 % 0.0-0.9 [facility] Comment on above: IG% - Immature Granu locytes (promyelocytes, myelocytes and metamyelocytes) > 1% indicates that a LEFT SHIFT is Present. Laboratory - Chemistry and C hemistry - challengeOrdered By: Lenore Proctor on 01-05-2024 Albumin/Globulin [Mass ratio] 1.0 {ratio} 0.9-2.4 [facility] ALP [Catalytic activity/Vol] 102 U/L 45-117 [facility] ALT [Catalytic activity/Vol] 28 U/L 13-56 [facility] Cholesterol in HDL [Mass/Vol] 50 mg/dL >40 [facility] Comment on above: The drugs N-Acetylcy steine and Metamizole may falsely depress this assay. Reference Range HDL <40 mg/dL Low HDL Cholesterol HDL >or= 60 mg/dL High HDL Cholesterol Cholesterol in LDL [Mass/Vol] 82 mg/dL 0-130 [facility] CO2 [Moles/Vol] 24.0 mmol/L 21.0-32.0 [facility] Globulin (S) [Mass/Vol] 3.5 g/dL 2.2-4.2 [facility] Urea nitrogen/Creatinine [Mass ratio] 11.4 mg/mg 10-20 [facility] Laboratory - Hematology and Cell countsOrdered By: Lenore Proctor on 01-05-2024 MCH (RBC) [Entitic mass] 27.7 pg 27.0-32.0 [facility] MCHC (RBC) [Mass/Vol] 32.6 g/dL 32-36 [facility] Nucleated RBC/100 WBC (Bld) [Ratio] 0 % 0-5 [facility] Platelet mean volume (Bld) [Entitic vol] 9.6 fL 6.2-12.0 [facility] Platelets (Bld) [#/Vol] 321 10*3/uL 150-450 [facility] No Panel InformationOrdered By: Lenore Proctor on 01-05-2024 Estimated GFR (MDRD) Amer 98 mL/min >60 [facility] Comment on above: GFR Calc Estimated GFR (MDRD) Non-Af Amer 81 mL/min >60 [facility] Comment on above: Non- GFR Calc Insulin Level 9.8 mU/L 2.6-37.6 [facility] Vitamin D 25-Hydroxy 27.9 ng/mL [facility] Comment on above: Vitamin D 25(OH) Sta tus Range Deficiency <20 ng/mL (50nmol/L) Insufficiency 20 - 30 ng/mL (50 - 75 nmol/L) Sufficiency 30 - 100 ng/mL (75 - 250 nmol/L) Toxicity >100 ng/mL (>250 nmol/L) VLDL Cholesterol 26 mg/dL 5-40 [facility] RBC Auto (Bld) [#/Vol]Ordere d By: Lenore Proctor on 01-05-2024 RBC (Bld) [#/Vol] 4.95 10*6/uL 4.2-5.4 [facility] Serum or plasma calcium kathryn urement (mass/volume)Ordered By: Lenore Proctor on 01-05-2024 Calcium [Mass/Vol] 8.8 mg/dL 8.5-10.1 [facility] Serum or plasma creatinine m easurement (mass/volume)Ordered By: Lenore Proctor on 01-05-2024 Creatinine [Mass/Vol] 0.79 mg/dL 0.55-1.02 [facility] Comment on above: The validity of the calculated GFR & GFRAA in patients over 70 years has not been determined. Clinical correlation is essential. Serum or plasma thyroid stim ulating hormone (TSH) measurement (units/volume)Ordered By: Lenore Proctor on 01-05-2024 TSH Qn 3.06 uIU/mL 0.358-3.74 [facility] Serum or plasma urea nitroge n measurement (mass/volume)Ordered By: Lenore Proctor on 01-05-2024 Urea nitrogen [Mass/Vol] 9 mg/dL 7-18 [facility] Thin prep Papanicolaou smear with manual screeningOrdered By: Lenore Proctor on 01-05-2024 Thin prep Papanicolaou smear with manual screening 3.5 g/dL 3.2-5.0 [facility] Thin prep Papanicolaou smear with manual screening 20 U/L 15-37 [facility] Thin prep Papanicolaou smear with manual screening 7 5-15 [facility] Whole blood hemoglobin A1c/t otal hemoglobin ratio (mass fraction)Ordered By: Lenore Proctor on 01-05-2024 HbA1c (Bld) [Mass fraction] 5.6 % 3.8-5.6 [facility] Comment on above: Normal < 5.7 % Predi abetic 5.7 - 6.4 % Diabetic >or= 6.5 % Please note range changes. BLOOD TYPE AND SCREEN GELon 01-04-2024 ABO GROUPING O Normal [facility] Comment on above: Performed By: #### L [id number] #### [employer]: ALCIDES VICTOR ([id number]) [facility] ([facility]) [address] [place] [address] RH TYPE IN BLOOD Positive Normal [facility] Comment on above: Performed By: #### L [id number] #### [employer]: ALCIDES VICTOR ([id number]) [facility] ([facility]) [address] [place] [address] CBC (HEMOGRAM)on 01-04-2024 Erythrocyte distribution width (RBC) [Ratio] 12.6 % Normal 11.5-15.0 [facility] Comment on above: Performed By: #### L [id number] #### [employer]: ALCIDES VICTOR ([id number]) [facility] ([facility]) [address] [place] [address] Hematocrit (Bld) [Volume fraction] 43.2 % Normal 35.0-47.0 [facility] Comment on above: Performed By: #### L [id number] #### [employer]: ALCIDES VICTOR ([id number]) [facility]) [address] [place] [address] Hemoglobin (Bld) [Mass/Vol] 14.1 g/dL Normal 11.7-16.0 [facility] Comment on above: Performed By: #### L [id number] #### [employer]: ALCIDES VICTOR ([id number]) [facility] ([facility]) [address] [place] [address] MCH (RBC) [Entitic mass] 27.8 pg Normal 26.0-34.0 [facility] Comment on above: Performed By: #### L [id number] #### [employer]: ALCIDES VICTOR ([id number]) [facility]) [address] [place] [address] MCHC 32.6 % Normal 30.5-36.0 [facility] Comment on above: Performed By: #### L [id number] #### [employer]: ALCIDES VICTOR ([id number]) [facility] ([facility]) [address] [place] [address] MCV (RBC) [Entitic vol] 85.0 fL Normal 77.0-99.0 [facility] Comment on above: Performed By: #### L [id number] #### [employer]: ALCIDES VICTOR ([id number]) [facility] ([facility]) [address] [place] [address] Platelet mean volume (Bld) [Entitic vol] 9.8 fL Normal 9.0-12.7 [facility] Comment on above: Performed By: #### L [id number] #### [employer]: ALCIDES VICTOR ([id number]) [facility] ([facility]) [address] [place] [address] Platelets (Bld) [#/Vol] 341 10*3/uL Normal 140-440 [facility] Comment on above: Performed By: #### L [id number] #### [employer]: ALCIDES VICTOR ([id number]) [facility] ([facility]) [address] [place] [address] RBC (Bld) [#/Vol] 5.08 10*6/uL Normal 3.80-5.20 [facility] Comment on above: Performed By: #### L [id number] #### [employer]: ALCIDES VICTOR ([id number]) [facility] ([facility]) [address] [place] [address] WBC (Bld) [#/Vol] 10.5 10*3/uL Normal 3.6-10.7 [facility] Comment on above: Performed By: #### L [id number] #### [employer]: ALCIDES VICTOR ([id number]) [facility]) [address] [place] [address] COMPREHENSIVE METABOLIC PANE Bradley 01-04-2024 Albumin [Mass/Vol] 4.3 g/dL Normal 3.5-5.0 [facility] Comment on above: Performed By: #### L [id number], [id number], LAB17 ####[employer]: ALCIDES VICTOR ([id number])[facility] ([facility])[address] [place] [address] ALP [Catalytic activity/Vol] 97 U/L Normal 38-126 [facility] Comment on above: Performed By: #### L [id number], [id number], LAB17 ####[employer]: ALCIDES VICTOR ([id number])[facility] ([facility])[address] [place] [address] ALT [Catalytic activity/Vol] 26 U/L Normal 0-34 [facility] Comment on above: Performed By: #### L [id number], [id number], LAB17 ####[employer]: ALCIDES VICTOR ([id number])[facility] ([facility])[address] [place] [address] Anion gap [Moles/Vol] 10 mmol/L Normal 3-13 [facility] Comment on above: Performed By: #### L [id number], [id number], LAB17 ####[employer]: ALCIDES VICTOR ([id number])[facility] ([facility])[address] [place] [address] AST [Catalytic activity/Vol] 30 U/L Normal 15-46 [facility] Comment on above: Performed By: #### L [id number], [id number], LAB17 ####[employer]: ALCIDES VICTOR ([id number])[facility] ([facility])[address] [place] [address] Bilirubin [Mass/Vol] 0.6 mg/dL Normal 0.2-1.3 [facility] Comment on above: Performed By: #### L AB115, [id number], LAB17 ####[employer]: ALCIDES VICTOR ([id number])[facility])[address] [place] [address] Calcium [Mass/Vol] 9.4 mg/dL Normal 8.4-10.4 [facility] Comment on above: Performed By: #### L [id number], [id number], LAB17 ####[employer]: ALCIDES VICTOR ([id number])[facility] ([facility])[address] [place] [address] Chloride [Moles/Vol] 104 mmol/L Normal 98-107 [facility] Comment on above: Performed By: #### L AB115, [id number], [id number] ####[employer]: ALCIDES VICTOR ([id number])[facility] ([facility])[address] [place] [address] CO2 [Moles/Vol] 28 mmol/L Normal 22-30 [facility] Comment on above: Performed By: #### L [id number], [id number], [id number] ####[employer]: ALCIDES VICTOR ([id number])[facility])[address] [place] [address] Creatinine [Mass/Vol] 0.89 mg/dL Normal 0.52-1.04 [facility] Comment on above: Performed By: #### L AB115, [id number], [id number] ####[employer]: ALCIDES VICTOR ([id number])[facility] ([facility])[address] [place] [address] GLOMERULAR FILTRATION RATE ML/MIN/1.73 SQ M.PREDICTED 77.6 mL/min/1.73m*2 Normal >60.0 [facility] Comment on above: Result Comment: Calc ulation based on the Chronic Kidney Disease Epidemiology Collaboration (CKD-EPI) equation refit without adjustment for race Performed By: #### L AB115, [id number], LAB17 ####[employer]: ALCIDES VICTOR ([id number])[facility] ([facility])[address] [place] [address] [place] Glucose [Mass/Vol] 112 mg/dL High 70-100 [facility] Comment on above: Performed By: #### L AB115, [id number], LAB17 ####[employer]: ALCIDES VICTOR ([id number])[facility])[address] [place] [address] Potassium [Moles/Vol] 3.9 mmol/L Normal 3.5-5.1 [facility] Comment on above: Performed By: #### L AB115, [id number], LAB17 ####[employer]: ALCIDES VICTOR ([id number])[facility])[address] [place] [address] Protein [Mass/Vol] 7.3 g/dL Normal 6.3-8.2 [facility] Comment on above: Performed By: #### L AB115, [id number], LAB17 ####[employer]: ALCIDES VICTOR ([id number])[facility] ([facility])[address] [place] [address] Sodium [Moles/Vol] 141 mmol/L Normal 135-145 [facility] Comment on above: Performed By: #### L AB115, [id number], LAB17 ####[employer]: ALCIDES VICTOR ([id number])[facility])[address] [place] [address] Urea nitrogen [Mass/Vol] 11 mg/dL Normal 7-17 [facility] Comment on above: Performed By: #### L AB115, [id number], LAB17 ####[employer]: ALCIDES VICTOR ([id number])[facility] ([facility])[address] [place] [address] HEMOGLOBIN A1Con 01-04-2024 Glucose [Mass/Vol] 114 mg/dL Normal [facility] Comment on above: Performed By: #### L AB90 #### [employer]: ALCIDES VICTOR ([id number]) [facility]) [address] [place] [address] HbA1c (Bld) [Mass fraction] 5.6 % Normal <5.7 [facility] Comment on above: Result Comment: Norm al less than 5.7% Prediabetes 5.7% to 6.4% Diabetes 6.5% or higher --HgbA1C levels may not be accurate in patients who have renal disease, received recent blood transfusions, are anemic, or who have dyshemoglobinemia. Performed By: #### L AB90 #### [employer]: ALCIDES VICTOR ([id number]) [facility]) [address] [place] [address] MRSA BY PCRon 01-04-2024 MRSA BY PCR STAPHYLOCOCCUS AUREUS Reference Not Detected Not Detected MECA GENE Reference Not Detected Not Detected ORDER COMMENTS: No Staphylococcus aureus detected. Negative nasal MRSA PCR has a high negative predictive value for MRSA pneumonia. Consider stopping Vancomycin if no other clinical indication. Contact Antimicrobial Stewardship for further recommendations. Staphylococcus aureus nasal screen by real-time PCR. This test was modified and its performance characteristics determined by [facility]. The U. S. Food and Drug Administration has not approved or cleared this test; however, FDA clearance or approval is not currently required for clinical use. The results are not intended to be used as the sole means for clinical diagnosis or patient management decisions. Normal [facility] Comment on above: Performed By: #### L [id number] #### [employer]: ALCIDES VICTOR ([id number]) [facility] ([facility]) [address] [place] [address] Office Visiton 01-04-2024 Follow-up visit [id number] Ana Maria Leal 1970 F Date Provider Department Center 01/04/2024 [facility] None No family history on file Level of Service:05694 NE OFFICE/OUTPATIENT NEW MODERATE MDM 45 MINUTES Reason for Visit and Comments: New Patient [542] Normal [facility] PREALBUMINon 01-04-2024 Prealbumin [Mass/Vol] 26.9 mg/dL Normal 17.6-36.0 [facility] Comment on above: Performed By: #### L AB115, [id number], LAB17 ####[employer]: ALCIDES VICTOR ([id number])[facility] ([facility])[address] [place] [address] PREPROCINSon 01-04-2024 PREPROCINS Medication List Accurate as of January 04, 2024 3:55 PM. Always use your most recent med list. cholecalciferol 25 MCG (1000 UT) capsule Generic drug: cholecalciferol Medication Adjustments for Surgery: Hold morning of surgery Hibiclens 4 % external liquid Generic drug: chlorhexidine Apply topically 1 (one) time if needed (pre-op) for up to 1 dose. ibuprofen 200 MG tablet Medication Adjustments for Surgery: Stop 1 day before surgery meloxicam 15 MG tablet Commonly known as: Mobic Medication Adjustments for Surgery: Stop 5 days before surgery Multi-Vitamin tablet Medication Adjustments for Surgery: Hold morning of surgery NON FORMULARY Medication Adjustments for Surgery: Hold morning of surgery omega-3 300 MG capsule Commonly known as: FISH OIL Medication Adjustments for Surgery: Hold morning of surgery QC TUMERIC COMPLEX PO Medication Adjustments for Surgery: Hold morning of surgery zinc, chelated 12.5 mg tablet split tablet Medication Adjustments for Surgery: Hold morning of surgery 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 PARKING IN THE DECK-- AFTER PARKING TAKE THE ELEVATOR TO LEVEL ONE AND TAKE THE BRIDGE TO THE HOSPITAL. GO TO THE RIGHT AND GO AROUND THE CORNER TO THE SAME DAY SURGERY DESK AND CHECK IN THERE. IF GOING IN THE MAIN ENTRANCE-- TURN LEFT AND GO DOWN THE LEROY TO THE H ELEVATORS AND TAKE THEM TO ONE, LEFT OFF THE ELEVATOR AND GO AROUND TO THE SAME DAY DESK AND CHECK IN. Additional Instructions: You may take your prescription pain medication. You may take Tylenol for pain. NO Motrin, ibuprofen or Advil for 7 days prior to surgery or longer if instructed by your surgeon. NO Aleve or Naprosyn for 7days prior to surgery or longer if instructed by your surgeon. IF YOU TAKE BLOOD THINNERS OR ASPIRIN: stop aspirin 5 days prior Follow any instructions given to you by Dr. Mehta Showmt with an antibacterial soap such as Dial or Safeguard or shower kit provided to you before coming to the hospital. No makeup, lotion, powder, deodorant or body spays. No hair products. Remove all jewelry and leave it at home. Wear loose comfortable clothing to go home in. You may brush your teeth morning of surgery. Do not wear contacts day of surgery. No marijuana (THC), smoking or alcohol for 24 hours prior to surgery. Please arrange for a responsible adult to drive you home after your surgery and that there is a responsible adult with you for 24 hours post discharge. If you have specific questions, please call your surgeon. You will receive a call the day before your surgery to verify your arrival time and date. You will be asked to arrive at least two hours prior to your scheduled surgery time. Please bring your [facility] Surgical folder and medication list with you day of surgery. We encourage you to write down any questions you may have for the surgeon, anesthesiologist, or other members of the surgical team and bring it with you the day of surgery. Please bring photo ID and insurance information. Normal [facility] PROTHROMBIN TIMEon INR Coag (PPP) [Relative time] 1.0 {INR} Normal 0.9-1.1 [facility] Comment on above: Result Comment: Dieter mmended Anticoagulant Therapy: SEE BELOW ----- INR of 2.0 - 3.0 : - Prophylaxis of Venous Thrombosis (high-risk surgery) - Treatment of Venous Thrombosis - Treatment of Pulmonary Embolism (Includes tissue heart valves, Acute Myocardial Infarction to prevent systemic embolism, Valvular Heart Disease, and Atrial Fibrillation) ----- INR of 2.5 - 3.5 : - Mechanical Prosthetic Valves (high risk) - If oral anticoagulant therapy is used to prevent Myocardial Infarction Performed By: #### L [id number] ####[employer]: ALCIDES VICTOR ([id number])[address] PT Coag (PPP) [Time] 11.1 s Normal 9.0-12.0 [facility] Comment on above: Performed By: #### L AB320 ####[employer]: ALCIDES VICTOR ([id number])[address] Progress Noteon 01-04-2024 Progress Note [facility] Ana Maria Leal : 1970 Primary Care Physician: Liza Castro III, MD The patient and/or family/surrogate voluntarily agreed to participate in ACP services. Patient?s cognitive capacity: A&OX3 Code Status: [X_] [FULL CODE - Continue all advanced life support: CPR,intubation,invas shireen procedures] [_] [DNR-CCA - DO NOT do CPR, intubation] [_] [DNR-RESEARCH RECRUITER - Comfort care only] [_] DNR form [was/was not] signed Summary of discussion: The patient HCPOA is the following: N/A. The patient DPOA is the following: N/A. [Condition that instigated the ACP on this DOS, relevant PMH, functional status, goals of care, and whom this was discussed with including names and relationship to the patient, and any relevant advance care documentation discussion] I answered all the patient/family questions that I could within the range and scope of the current medical situation. We discussed the medical conditions, risks, benefits, outcomes, and goals of care at this time for the patient's medical issues at hand in the face of the patient's chronic issues and current presentation. Total time spent: 2 minutes were spent discussing the patient's resuscitation status, advance care planning, and end of life care, with patient and/or family/surrogate. Randa Wells NP Acute Care [facility] 01/04/2024, 4:15 PM Normal [facility] Progress Note [facility] E[facility] [address] [facility] [address] Dept: [phone] Dept Loc: [phone] Assessment and Recommendations Ana Maria was seen today for new patient. Diagnoses and all orders for this visit: Cervical stenosis of spine (Primary) Patient's laryngoscopy shows no evidence of vocal cord abnormality or paralysis or paresis. Will proceed with left-sided revision anterior cervical approach. Discussed my role with exposure to the patient in detail. Risk benefits and alternatives of the procedure were discussed with the patient who apparently understands and wishes to proceed Electronically signed by Juan Luis Khalil D.O. Subjective: Patient: Ana Maria Leal is a 53 y.o. female HPI Ana Maria Leal is a 53 y.o. yo female who presents to clinic today for preoperative evaluation for upcoming revision ACDF. Previously underwent right-sided cervical approach. Postoperatively with that approach did not have any difficulty with swallowing or her voice. Preoperative consultation for laryngoscopy as well as to discuss my role in providing exposure for orthopedic spine surgery and lieu of revision surgery. Review of Systems 14 point review of systems completed and all negative except as noted in HPI. Allergies Allergen Reactions Seasonal Other Cat Hair Extract All fur animals Mold [Molds & Smuts] Current Outpatient Medications Medication Sig Dispense Refill cholecalciferol 25 MCG (1000 UT) capsule Take by mouth daily. meloxicam (Mobic) 15 MG tablet daily. Multiple Vitamin (Multi-Vitamin) tablet Take by mouth daily. omega-3 (FISH OIL) 300 MG capsule Take by mouth daily. Turmeric (QC TUMERIC COMPLEX PO) Take by mouth daily. zinc, chelated 12.5 mg tablet split tablet Take by mouth daily. ibuprofen 200 MG tablet Take 400 mg by mouth every 6 hours as needed. NON FORMULARY 2 times daily. CBD OIL SUBLLINGUINAL No current facility-administere d medications for this visit. Past Medical History: Diagnosis Date Arthritis Bulging of cervical intervertebral disc DDD (degenerative disc disease), cervical Liver disease FATTY LIVER PONV (postoperative nausea and vomiting) Spinal stenosis Past Surgical History: Procedure Laterality Date BREAST REDUCTION CARPAL TUNNEL RELEASE Bilateral CERVICAL DISCECTOMY 03/01/2018 ACDF C5-6, C6-7 SECTION (HISTORICAL) x 3 HYSTERECTOMY LUMBAR DISC SURGERY No family history on file. Social History Tobacco Use Smoking status: Former Packs/day: 0.25 Years: 30.00 Additional pack years: 0.00 Total pack years: 7.50 Types: Cigarettes Quit date: 10/17/2015 Years since quittin.2 Smokeless tobacco: Never Substance Use Topics Alcohol use: Yes Alcohol/week: 1.0 standard drink of alcohol Types: 1 Glasses of wine per week Comment: OCCAS 1 glass a week Objective: Ht 5' 2 (1.575 m) Wt 185 lb (83.9 kg) BMI 33.84 kg/m? Physical Exam General: Patient is not in acute distress. Appearance: Patient is well-developed. Eyes: Conjunctiva/sclera: Conjunctivae normal. Pupils: Pupils are equal, round, and reactive to light. HENT: Jaw: No trismus. Ears: Microscope brought in for exam. Bilateral external ears normal. Right EAC normal, TM clear with normal middle ear landmarks. Left EAC normal, TM clear with normal middle ear landmarks Nose: No nasal deformity, mucosal edema or rhinorrhea. Mouth: Mucous membranes are not pale, not dry and not cyanotic. No oral lesions. Pharynx: Uvula midline. No oropharyngeal exudate or uvula swelling. Tonsils: No tonsillar exudate. No abnormal masses or lesions Neck: No lymphadenopathy Thyroid: No significant thyromegaly. Trachea: Trachea and phonation normal. No tracheal deviation. Pulmonary: Effort: Pulmonary effort is normal. No respiratory distress. Breath sounds: No stridor. Musculoskeletal: Head: Normocephalic and atraumatic. Neck: Full passive range of motion without pain, neck supple. Skin: General: Skin is warm and dry. Findings: No erythema or rash. Neurological: Cranial Nerves: No cranial nerve deficit. Sensory: No sensory deficit. Coordination: Coordination normal. Extremities: No significant peripheral edema or varicosities Psychiatric: Mood and Affect: Mood and affect normal. Cognition and Memory: Cognition and memory normal. Procedure: Flexible fiberoptic laryngoscopy Indications: Previous ACDF mirror examination was attempted for visualization of the hypopharynx and vocal cords, this was unsuccessful secondary to patient's gag reflex therefore flexible laryngoscopy was obtained Anesthesia: None Consent: Indications, risks, benefits and alternatives were discussed with the patient. The patient was given an opportunity to ask questions and after they were answered he verbally consented to the procedure. Description: The fiberoptic scope was adv (more content not included)... Normal [facility] THYROID STIMULATING HORMONEo n 01-04-2024 THYROID STIMULATING HORMONE 2.415 uIU/mL Normal 0.465-4.680 [facility] Comment on above: Performed By: #### L AB115, [id number], LAB17 ####[employer]: ALCIDES VICTOR ([id number])[facility] ([facility])[address] [place] [address] VITAMIN D DEFICIENCY SCREENI NG (VIT D 25)on 01-04-2024 VIT D 25-OH, TOTAL 27 ng/mL Low 30-100 [facility] Comment on above: Result Comment: LYLE Garcia COMMENTS: Therapy is based on measurement of Total 25-OHD with the following classification levels: Less than 20 ng/mL: Indicative of Vit D deficiency 20-30 ng/mL: Suggests Vit D insufficiency Optimal: Greater than or equal to 30 ng/mL Test performed by [employer] Competitive Immunoassay, measuring Total Vitamin D, not individual fractions. Performed By: #### L [id number] #### [employer]: ALCIDES VICTOR ([id number]) [facility] ([facility]) [address] [place] [address] Absolute lymphocyte countOrd ered By: Lenore Proctor on 09-03-2023 Lymphocytes Auto (Unsp spec) [#/Vol] 1.36 10*3/uL 0.83-4.51 [facility] Basophil percentageOrdered B y: Lenore Proctor on 09-03-2023 Basophils/100 WBC (Bld) 1.2 % 0-1 [facility] Bilirubin [Mass/Vol] 0.50 mg/dL 0.20-1.00 [facility] Comment on above: For patients on eltr ombopag therapy, use of Dimension [place] TBIL is not recommended. Chloride [Moles/Vol] 111 mmol/L 98-107 [facility] Eosinophils/100 WBC (Bld) 5.1 % 0-5 [facility] Glucose [Mass/Vol] 95 mg/dL 74-106 [facility] Neutrophils (Bld) [#/Vol] 5.1 10*3/uL 2.0-7.7 [facility] Neutrophils/100 WBC (Bld) 68.4 % 47-70 [facility] Potassium [Moles/Vol] 4.1 mmol/L 3.5-5.1 [facility] Protein [Mass/Vol] 7.0 g/dL 6.4-8.2 [facility] Sodium [Moles/Vol] 141 mmol/L 136-145 [facility] WBC (Bld) [#/Vol] 7.5 10*3/uL 4.4-11.0 [facility] Blood erythrocytes count (nu mber/volume)Ordered By: Lenore Proctor on 09-03-2023 RBC (Bld) [#/Vol] 5.03 10*6/uL 4.2-5.4 [facility] Blood hemoglobin measurement (mass/volume)Ordered By: Lenore Proctor on 09-03-2023 Hemoglobin (Bld) [Mass/Vol] 14.2 g/dL 12.0-15.0 [facility] Blood lymphocytes/100 leukoc ytesOrdered By: Lenore Proctor on 09-03-2023 Lymphocytes/100 WBC (Bld) 18.2 % 19-41 [facility] Blood monocytes/100 leukocyt esOrdered By: Lenore Proctor on 09-03-2023 Monocytes/100 WBC (Bld) 6.7 % 0-10 [facility] Blood platelet mean volumeOr dered By: Lenore Proctor on 09-03-2023 Platelet mean volume (Bld) [Entitic vol] 10.0 fL 6.2-12.0 [facility] Determination of erythrocyte mean corpuscular volume (MCV)Ordered By: Lenore Proctor on 09-03-2023 MCV (RBC) [Entitic vol] 87.5 fL 81-99 [facility] Erythrocyte sedimentation ra teOrdered By: Lenore Proctor on 09-03-2023 ESR (Bld) [Velocity] 10 mm/h 0-30 [facility] Hematocrit Auto (Bld) [Volum e fraction]Ordered By: Lenore Proctor on 09-03-2023 Hematocrit (Bld) [Volume fraction] 44.0 % 37-47 [facility] Laboratory - Chemistry and C hemistry - challengeOrdered By: Lenorebryanna Proctor on 09-03-2023 ALP [Catalytic activity/Vol] 120 U/L 45-117 [facility] ALT [Catalytic activity/Vol] 71 U/L 13-56 [facility] CO2 [Moles/Vol] 26.0 mmol/L 21.0-32.0 [facility] Cobalamin (Vitamin B12) [Mass/Vol] 642 pg/mL 211-911 [facility] Globulin (S) [Mass/Vol] 3.6 g/dL 2.2-4.2 [facility] Urea nitrogen/Creatinine [Mass ratio] 14.4 mg/mg 10-20 [facility] Laboratory - Hematology and Cell countsOrdered By: Lenore Proctor on 09-03-2023 Erythrocyte distribution width (RBC) [Entitic vol] 43.2 fL 35.1-43.9 [facility] Erythrocyte distribution width (RBC) [Ratio] 13.6 % 11.6-14.6 [facility] Immature granulocytes/100 WBC (Bld) 0.400 % 0.0-0.9 [facility] Comment on above: IG% - Immature Granu locytes (promyelocytes, myelocytes and metamyelocytes) > 1% indicates that a LEFT SHIFT is Present. MCH (RBC) [Entitic mass] 28.2 pg 27.0-32.0 [facility] Nucleated RBC/100 WBC (Bld) [Ratio] 0 % 0-5 [facility] MCHC Auto (RBC) [Mass/Vol]Or dered By: Lenore Proctor on 09-03-2023 MCHC (RBC) [Mass/Vol] 32.3 g/dL 32-36 [facility] No Panel InformationOrdered By: Lenore Proctor on 09-03-2023 CSF Lyme Disease IgM Antibody Not Reportable [facility] Estimated GFR (MDRD) Amer 84 mL/min >60 [facility] Comment on above: GFR Calc Estimated GFR (MDRD) Non-Af Amer 69 mL/min >60 [facility] Comment on above: Non- GFR Calc Insulin Level 12.2 mU/L 2.6-37.6 [facility] Lyme Disease IgG Antibody Not Reportable [facility] Vitamin D 25-Hydroxy 39.4 ng/mL [facility] Comment on above: Vitamin D 25(OH) Sta tus Range Deficiency <20 ng/mL (50nmol/L) Insufficiency 20 - 30 ng/mL (50 - 75 nmol/L) Sufficiency 30 - 100 ng/mL (75 - 250 nmol/L) Toxicity >100 ng/mL (>250 nmol/L) Platelets bldOrdered By: Honey Proctor on 09-03-2023 Platelets (Bld) [#/Vol] 300 10*3/uL 150-450 [facility] Serum or plasma C reactive p rotein measurement (mass/volume)Ordered By: Lenore Proctor on 09-03-2023 CRP [Mass/Vol] 3.22 mg/L 0.0-3.0 [facility] Comment on above: C-Reactive Protein ( CRP) provides useful information for thediagnosis, therapy and monitoring of inflammatory processesand associated diseases. For the evaluation of Relative Riskfor Cardiovascular Disease, a High Sensitivity CRP (HSCRP)should be ordered. Serum or plasma albumin kathryn urement (mass/volume)Ordered By: Lenore Proctor on 09-03-2023 Albumin [Mass/Vol] 3.4 g/dL 3.2-5.0 [facility] Serum or plasma albumin/glob ulin mass ratioOrdered By: Lenore Proctor on 09-03-2023 Albumin/Globulin [Mass ratio] 0.9 {ratio} 0.9-2.4 [facility] Serum or plasma calcium kathryn urement (mass/volume)Ordered By: Lenore Proctor on 09-03-2023 Calcium [Mass/Vol] 8.6 mg/dL 8.5-10.1 [facility] Serum or plasma creatinine m easurement (mass/volume)Ordered By: Lenore Proctor on 09-03-2023 Creatinine [Mass/Vol] 0.90 mg/dL 0.55-1.02 [facility] Comment on above: The validity of the calculated GFR & GFRAA in patients over 70 years has not been determined. Clinical correlation is essential. Serum or plasma urea nitroge n measurement (mass/volume)Ordered By: Lenore Proctor on 09-03-2023 Urea nitrogen [Mass/Vol] 13 mg/dL -18 [facility] Thin prep Papanicolaou smear with manual screeningOrdered By: Lenore Proctor on 09-03-2023 Thin prep Papanicolaou smear with manual screening 40 U/L 15-37 [facility] Thin prep Papanicolaou smear with manual screening 4 5-15 [facility] Thin prep Papanicolaou smear with manual screening Negative Negative [facility] Comment on above: Lyme antibodies not detected. Reflex testing is notindicated.No laboratory evidence of infection with B. burgdorferi(Lyme disease). Negative results may occur in patientsrecently infected (less than or equal to 14 days) with B.burgdorferi. If recent infection is suspected, repeattesting on a new sample collected in 7 to 14 days isrecommended.Performed at: [facility] Lab[address] [id number] Director: Robi White PhD, Phone: [phone] Whole blood hemoglobin A1c/t otal hemoglobin ratio (mass fraction)Ordered By: Lenore Proctor on 09-03-2023 HbA1c (Bld) [Mass fraction] 5.6 % 3.8-5.6 [facility] Comment on above: Normal < 5.7 % Predi abetic 5.7 - 6.4 % Diabetic >or= 6.5 % Please note range changes. Laboratory - Chemistry and C hemistry - challengeOrdered By: Lenore Proctor on 07-27-2023 Free T4 [Mass/Vol] 0.81 ng/dL 0.76-1.46 [facility] No Panel InformationOrdered By: Lenore Proctor on 07-27-2023 Free Triiodothyronine (T3) pg/dL 2.3 pg/mL 2.18-3.98 [facility] Thyroid Stimulating Hormone (TSH) 3.60 uIU/mL 0.358-3.74 [facility] Culture, urineOrdered By: Tanvi Brambila on 01-07-2023 Bacteria identified Cx Nom (U) Positive [facility] Basophil percentageOrdered B y: Chong Brambila on 01-05-2023 Basophil percentage 0 SEEN /hpf 0-5 [facility] Bilirubin Test strip Ql (U)O rdered By: Chong Brambila on 01-05-2023 Bilirubin Ql (U) Negative Negative [facility] Ketones Test strip Ql (U)Ord ered By: Chong Brambila on 01-05-2023 Ketones Ql (U) Negative Negative [facility] Laboratory - Chemistry and C hemistry - challengeon 01-05-2023 Bilirubin Ql (U) Negative [facility] Glucose Ql (U) Negative [facility] Ketones Ql (U) Negative [facility] pH (U) 5.0 [pH] [facility] Specific gravity (U) [Rel density] 1.005 [facility] Urobilinogen (U) [Mass/Vol] 0.5064047 mg/dL [facility] - Hematology and Cell countson 01-05-2023 Hemoglobin Ql (U) Negative [facility] - Specimen inform ationon 01-05-2023 Clarity (U) Clear [facility] Color (U) Straw [facility] Laboratory - Urinalysison Nitrite Ql (U) Negative [facility] Protein Ql (U) Negative [facility] Mucus LM Ql (Urine sed)Order ed By: Chong Brambila on 01-05-2023 Mucus Ql (Urine sed) 0 SEEN /hpf [facility] Nitrite Test strip Ql (U)Ord ered By: Chong Brambila on 01-05-2023 Nitrite Ql (U) Negative Negative [facility] No Panel Informationon 01-05 Urine Leukocytes Negatve [facility] Urine Non-Hemolyzed Blood [facility] Protein Test strip Ql (U)Ord ered By: Chong Brambila on 01-05-2023 Protein Ql (U) Negative Negative [facility] Squamous epithelial cells de tection in urine sediment by light microscopyOrdered By: Chong Brambila on 01-05-2023 Epithelial cells.squamous LM Ql (Urine sed) 0-5 SEEN /hpf 5-10 [facility] Urine blood detectionOrdered By: Chong Brambila on 01-05-2023 RBC Ql (U) Negative Negative [facility] RBC Ql (U) 0 SEEN /hpf 0-5 [facility] Urine clarityOrdered By: Zeyad Brambila on 01-05-2023 Clarity (U) Clear Clear [facility] Urine color determinationOrd ered By: Chong Brambila on 01-05-2023 Color (U) Straw Yellow [facility] Urine glucose detectionOrder ed By: Chong Brambila on 01-05-2023 Glucose Ql (U) Normal mg/dl Normal [facility] Urine leukocyte esterase det ection by dipstickOrdered By: Chong Brambila on 01-05-2023 Leukocyte esterase Test strip Ql (U) Negative Negative [facility] Urine pHOrdered By: Chong bloom on 01-05-2023 pH (U) 7.0 [pH] 5.0 - 8.0 [facility] Urine sediment bacteria coun t by microscopy (number/high power field)Ordered By: Chong Brambila on 01-05-2023 Bacteria LM.HPF (Urine sed) [#/Area] 0 /[HPF] None Seen [facility] Urine specific gravity measu rementOrdered By: Chong Brambila on 01-05-2023 Specific gravity (U) [Rel density] 1.010 1.002-1.030 [facility] Urobilinogen Auto test strip Ql (U)Ordered By: Chong Brambila on 01-05-2023 Urobilinogen Ql (U) Normal mg/dl Normal [facility] Laboratory - Chemistry and C hemistry - challengeOrdered By: Dr. Proctor on 12-23-2022 Free T4 [Mass/Vol] 0.78 ng/dL 0.76-1.46 [facility] No Panel InformationOrdered By: Dr. Proctor on 12-23-2022 Free Triiodothyronine (T3) pg/dL 2.4 pg/mL 2.18-3.98 [facility] Thyroid Stimulating Hormone (TSH) 4.22 uIU/mL 0.358-3.74 [facility] Absolute lymphocyte countOrd ered By: Dr. Proctor on 09-27-2022 Lymphocytes Auto (Unsp spec) [#/Vol] 1.75 10*3/uL 0.83-4.51 [facility] Basophil percentageOrdered B y: Dr. Proctor on 09-27-2022 Basophils/100 WBC (Bld) 1.2 % 0-1 [facility] Bilirubin [Mass/Vol] 0.40 mg/dL 0.20-1.00 [facility] Comment on above: For patients on eltr ombopag therapy, use of Dimension [place] TBIL is not recommended. Chloride [Moles/Vol] 109 mmol/L 98-107 [facility] Cholesterol [Mass/Vol] 177 mg/dL <200 [facility] Comment on above: <200 mg/dL Desirable 200-240 mg/dL Borderline >240 mg/dL High Risk Eosinophils/100 WBC (Bld) 6.4 % 0-5 [facility] Glucose [Mass/Vol] 98 mg/dL 74-106 [facility] Neutrophils (Bld) [#/Vol] 4.6 10*3/uL 2.0-7.7 [facility] Neutrophils/100 WBC (Bld) 61.2 % 47-70 [facility] Potassium [Moles/Vol] 3.8 mmol/L 3.5-5.1 [facility] Protein [Mass/Vol] 7.0 g/dL 6.4-8.2 [facility] Sodium [Moles/Vol] 141 mmol/L 136-145 [facility] Triglyceride [Mass/Vol] 177 mg/dL <199 [facility] Comment on above: The drugs N-Acetylcy steine and Metamizole may falsely depress this assay.Serum Triglycerides Reference Interval Normal <150 mg/dL Borderline high 150 - 199 mg/dL High 200 - 499 mg/dL Very High > or = 500 mg/dL WBC (Bld) [#/Vol] 7.5 10*3/uL 4.4-11.0 [facility] Blood erythrocytes count (nu mber/volume)Ordered By: Dr. Proctor on 09-27-2022 RBC (Bld) [#/Vol] 4.74 10*6/uL 4.2-5.4 [facility] Blood hemoglobin measurement (mass/volume)Ordered By: Dr. Proctor on 09-27-2022 Hemoglobin (Bld) [Mass/Vol] 13.8 g/dL 12.0-15.0 [facility] Blood lymphocytes/100 leukoc ytesOrdered By: Dr. Proctor on 09-27-2022 Lymphocytes/100 WBC (Bld) 23.5 % 19-41 [facility] Blood monocytes/100 leukocyt esOrdered By: Dr. Proctor on 09-27-2022 Monocytes/100 WBC (Bld) 7.2 % 0-10 [facility] Blood platelet mean volumeOr dered By: Dr. Proctor on 09-27-2022 Platelet mean volume (Bld) [Entitic vol] 9.6 fL 6.2-12.0 [facility] Determination of erythrocyte mean corpuscular volume (MCV)Ordered By: Dr. Proctor on 09-27-2022 MCV (RBC) [Entitic vol] 87.1 fL 81-99 [facility] Hematocrit Auto (Bld) [Volum e fraction]Ordered By: Dr. Proctor on 09-27-2022 Hematocrit (Bld) [Volume fraction] 41.3 % 37-47 [facility] - Chemistry and C hemistry - challengeOrdered By: Dr. Proctor on 09-27-2022 ALP [Catalytic activity/Vol] 103 U/L 45-117 [facility] ALT [Catalytic activity/Vol] 25 U/L 13-56 [facility] CO2 [Moles/Vol] 26.0 mmol/L 21.0-32.0 [facility] Free T4 [Mass/Vol] 0.82 ng/dL 0.76-1.46 [facility] Globulin (S) [Mass/Vol] 3.3 g/dL 2.2-4.2 [facility] Urea nitrogen/Creatinine [Mass ratio] 17.9 mg/mg 10-20 [facility] - Hematology and Cell countsOrdered By: Dr. Proctor on 09-27-2022 Erythrocyte distribution width (RBC) [Entitic vol] 39.3 fL 35.1-43.9 [facility] Erythrocyte distribution width (RBC) [Ratio] 12.3 % 11.6-14.6 [facility] Immature granulocytes/100 WBC (Bld) 0.500 % 0.0-0.9 [facility] Comment on above: IG% - Immature Granu locytes (promyelocytes, myelocytes and metamyelocytes) > 1% indicates that a LEFT SHIFT is Present. MCH (RBC) [Entitic mass] 29.1 pg 27.0-32.0 [facility] Nucleated RBC/100 WBC (Bld) [Ratio] 0 % 0-5 [facility] MCHC Auto (RBC) [Mass/Vol]Or dered By: Dr. Proctor on 09-27-2022 MCHC (RBC) [Mass/Vol] 33.4 g/dL 32-36 [facility] No Panel InformationOrdered By: Dr. Proctor on 09-27-2022 Estimated GFR (MDRD) Amer 79 mL/min >60 [facility] Comment on above: GFR Calc Estimated GFR (MDRD) Non-Af Amer 65 mL/min >60 [facility] Comment on above: Non- GFR Calc Free Triiodothyronine (T3) pg/dL 2.7 pg/mL 2.18-3.98 [facility] Thyroid Stimulating Hormone (TSH) 5.47 uIU/mL 0.358-3.74 [facility] Vitamin D 25-Hydroxy 22.7 ng/mL [facility] Comment on above: Vitamin D 25(OH) Sta tus Range Deficiency <20 ng/mL (50nmol/L) Insufficiency 20 - 30 ng/mL (50 - 75 nmol/L) Sufficiency 30 - 100 ng/mL (75 - 250 nmol/L) Toxicity >100 ng/mL (>250 nmol/L) Platelets bldOrdered By: Dr. Proctor on 09-27-2022 Platelets (Bld) [#/Vol] 319 10*3/uL 150-450 [facility] Serum or plasma albumin kathryn urement (mass/volume)Ordered By: Dr. Proctor on 09-27-2022 Albumin [Mass/Vol] 3.7 g/dL 3.2-5.0 [facility] Serum or plasma albumin/glob ulin mass ratioOrdered By: Dr. Proctor on 09-27-2022 Albumin/Globulin [Mass ratio] 1.1 {ratio} 0.9-2.4 [facility] Serum or plasma calcium kathryn urement (mass/volume)Ordered By: Dr. Proctor on 09-27-2022 Calcium [Mass/Vol] 8.7 mg/dL 8.5-10.1 [facility] Serum or plasma cholesterol in HDL measurement (mass/volume)Ordered By: Dr. Proctor on 09-27-2022 Cholesterol in HDL [Mass/Vol] 49 mg/dL >40 [facility] Comment on above: The drugs N-Acetylcy steine and Metamizole may falsely depress this assay. Reference Range HDL <40 mg/dL Low HDL Cholesterol HDL >or= 60 mg/dL High HDL Cholesterol Serum or plasma cholesterol in VLDL measurement (mass/volume)Ordered By: Dr. Proctor on 09-27-2022 Cholesterol in VLDL [Mass/Vol] 35 mg/dL 5-40 [facility] Serum or plasma creatinine m easurement (mass/volume)Ordered By: Dr. Proctor on 09-27-2022 Creatinine [Mass/Vol] 0.95 mg/dL 0.55-1.02 [facility] Comment on above: The validity of the calculated GFR & GFRAA in patients over 70 years has not been determined. Clinical correlation is essential. Serum or plasma low density lipoprotein (LDL) cholesterol measurement (mass/volume)Ordered By: Dr. Proctor on 09-27-2022 Cholesterol in LDL [Mass/Vol] 93 mg/dL 0-130 [facility] Serum or plasma urea nitroge n measurement (mass/volume)Ordered By: Dr. Proctor on 09-27-2022 Urea nitrogen [Mass/Vol] 17 mg/dL 7-18 [facility] Thin prep Papanicolaou smear with manual screeningOrdered By: Dr. Prcotor on 09-27-2022 Thin prep Papanicolaou smear with manual screening 22 U/L 15-37 [facility] Thin prep Papanicolaou smear with manual screening 6 5-15 [facility] Whole blood hemoglobin A1c/t otal hemoglobin ratio (mass fraction)Ordered By: Dr. Proctor on 09-27-2022 HbA1c (Bld) [Mass fraction] 5.5 % 3.8-5.6 [facility] Comment on above: Normal < 5.7 % Predi abetic 5.7 - 6.4 % Diabetic >or= 6.5 % Please note range changes. Basic Metabolic Panelon 05- Calcium mass conc 8.7 mg/dL Normal 8.4-10.2 [facility] Comment on above: Performed By: #### H EMDF, BMP3 ####[facility] [employer] [id number] [place] [address] Glucose mass conc 106 mg/dL High 70-100 [facility] Comment on above: Performed By: #### H EMDF, BMP3 ####[facility] [employer] [id number] [place] [address] Urea nitrogen mass conc 5 mg/dL Low 7-20 [facility] Comment on above: Performed By: #### H EMDF, BMP3 ####[employer] [address] [place] [address] Anion gap 3 molar conc 10 Normal [facility] Comment on above: Performed By: #### H EMDF, BMP3 ####[employer] [id number] [place] [address] CO2 molar conc 25 mmol/L Normal 22-30 [facility] Comment on above: Performed By: #### H EMDF, BMP3 ####[employer] [address] [place] [address] Creatinine mass conc 0.65 mg/dL Normal 0.52-1.25 [facility] Comment on above: Performed By: #### H EMDF, BMP3 ####[employer] [id number] [place] [address] GFR/1.73 sq M predicted among blacks MDRD vol rate/area (S/P/Bld) mL/min/{1.73_m2} Normal >60 [facility] Comment on above: Performed By: #### H TAYLA BMP3 ####[facility] [employer] [id number] [place] [address] GFR/1.73 sq M predicted among non-blacks MDRD vol rate/area (S/P/Bld) mL/min/{1.73_m2} Normal >60 [facility] Comment on above: Result Comment: Sour ce- MDRD equation with creatinine calibration to IDMS(NKDEP) eGFR not recommended for drug dose adjustment Performed By: #### H TAYLA BMP3 ####[facility] [address] [place], [place] Chloride molar conc 107 mmol/L Normal 98-107 [facility] Comment on above: Performed By: #### H TAYLA BMP3 ####[facility] [address] [place] [address] Potassium molar conc 3.9 mmol/L Normal 3.5-5.1 [facility] Comment on above: Performed By: #### H TAYLA BMP3 ####[facility] [address] [place] [address] Sodium molar conc 142 mmol/L Normal 137-145 [facility] Comment on above: Performed By: #### H TAYLA BMP3 ####[facility] [employer] [address] Hemogram w/ Autodiffon 03-02 Abs Baso Cnt 0.1 10*3/uL Normal 0.0-0.2 [facility] Comment on above: Performed By: #### H TAYLA, BMP3 ####[facility] [address] [place] [address] Abs Neutrophile Cnt 12.6 10*3/uL High 1.8-7.0 [facility] Comment on above: Performed By: #### H TAYLA, BMP3 ####[facility] [employer] [address] Basophils/100 WBC Auto (Bld) 0.5 % Normal 0.0-2.0 [facility] Comment on above: Performed By: #### H EMDF, BMP3 ####[id number] [place], [place] Eosinophils Auto #/vol (Bld) 0.0 10*3/uL Normal 0.0-0.5 [facility] Comment on above: Performed By: #### H EMDF, BMP3 ####[id number] [place], [place] Eosinophils/100 WBC Auto (Bld) 0.2 % Low 1.0-6.0 [facility] Comment on above: Performed By: #### H EMDF, BMP3 ####[address] Erythrocyte distribution width Auto Ratio (RBC) 14.3 % Normal 11.5-14.5 [facility] Comment on above: Performed By: #### H EMDF, BMP3 ####[address] Granulocytes/100 WBC (Bld) 84.2 % High 40.0-80.0 [facility] Comment on above: Performed By: #### H EMDF, BMP3 ####[address] Hematocrit Auto Volume Fraction (Bld) 37.9 % Normal 35.0-47.0 [facility] Comment on above: Performed By: #### H EMDF, BMP3 ####[address] Hemoglobin mass conc (Bld) 12.9 g/dL Normal 11.7-16.0 [facility] Comment on above: Performed By: #### H EMDF, BMP3 ####[address] Lymphocytes Auto #/vol (Bld) 1.5 10*3/uL Normal 1.0-4.3 [facility] Comment on above: Performed By: #### H EMDF, BMP3 ####[address] Lymphocytes/100 WBC Auto (Bld) 10.1 % Low 20.0-40.0 [facility] Comment on above: Performed By: #### H TAYLA BMP3 ####[address] MCH Auto Entitic mass (RBC) 29.3 pg Normal 26.0-34.0 [facility] Comment on above: Performed By: #### H TAYLA BMP3 ####[address] MCHC Auto mass conc (RBC) 34.0 % Normal 32.0-36.0 [facility] Comment on above: Performed By: #### H TAYLA BMP3 ####[address] MCV Auto Entitic volume (RBC) 86.0 fL Normal 79.0-98.0 [facility] Comment on above: Performed By: #### H TAYLA BMP3 ####[address] Monocytes Auto #/vol (Bld) 0.8 10*3/uL Normal 0.0-0.8 [facility] Comment on above: Performed By: #### H TAYLA BMP3 ####[address] Monocytes/100 WBC Auto (Bld) 5.0 % Normal 2.0-10.0 [facility] Comment on above: Performed By: #### H TAYLA BMP3 ####[address] Platelet mean volume Auto Entitic volume (Bld) 7.7 fL Normal 7.4-10.4 [facility] Comment on above: Performed By: #### H TAYLA BMP3 ####[address] Platelets Auto #/vol (Bld) 306 10*3/uL Normal 140-440 [facility] Comment on above: Performed By: #### H TAYLA BMP3 ####[address] [address] RBC Auto #/vol (Bld) 4.41 10*6/uL Normal 3.80-5.20 [facility] Comment on above: Performed By: #### H EMDF, BMP3 ####[address] [address] WBC Auto #/vol (Bld) 15.0 10*3/uL High 3.6-10.7 [facility] Comment on above: Performed By: #### H EMDF, BMP3 ####[address] [address] Hemoglobinon 02-22-2018 Hematocrit Auto Volume Fraction (Bld) 38.9 % Normal 35.0-47.0 [facility] Comment on above: Performed By: #### H GHCT ####The performing lab is in the report. Hemoglobin mass conc (Bld) 13.3 g/dL Normal 11.7-16.0 [facility] Comment on above: Performed By: #### H GHCT ####The performing lab is in the report. TS GELon 02-22-2018 TS GEL ABO Group: O Rh, Gel: POS Antibody Screen Gel: NEG Normal [facility] Comment on above: Performed By: #### T SGL ####[address] [address] Urinalysis,Macroon 8 Appearance clear Normal Clear [facility] Comment on above: Performed By: #### U AMAC ####The performing lab is in the report. Bilirubin,Ur Negative Normal Negative [facility] Comment on above: Performed By: #### U AMAC ####The performing lab is in the report. Color yellow Normal Lt. Yellow [facility] Comment on above: Performed By: #### U AMAC ####The performing lab is in the report. Glucose Ql (U) NORM Normal Negative [facility] Comment on above: Performed By: #### U AMAC ####The performing lab is in the report. Ketone,Urine Negative Normal Negative [facility] Comment on above: Performed By: #### U AMAC ####The performing lab is in the report. Leukocytes Negative Normal Negative [facility] Comment on above: Performed By: #### U AMAC ####The performing lab is in the report. Nitrites Negative Normal Negative [facility] Comment on above: Performed By: #### U AMAC ####The performing lab is in the report. Occult Blood,Ur Negative Normal Negative [facility] Comment on above: Performed By: #### U AMAC ####The performing lab is in the report. pH Test strip (U) 7.0 [pH] Normal 5.0-8.0 [facility] Comment on above: Performed By: #### U AMAC ####The performing lab is in the report. Specific [place],Urine 1.005 Normal 1.005-1.030 [facility] Comment on above: Performed By: #### U AMAC ####The performing lab is in the report. Total Protein,Urine Negative Normal Negative [facility] Comment on above: Performed By: #### U AMAC ####The performing lab is in the report. Urobilinogen NORM Normal 0-1 [facility] Comment on above: Performed By: #### U AMAC ####The performing lab is in the report. Vital Signs Date Time Vital Sign Value Performing Clinician Facility 03-13-2025 10:40-0400 Body temperature 98.2 [degF] Dr. Lenore Proctor MD Work Phone: [facility] 03-13-2025 10:40-0400 Diastolic blood pressure 76 mm[Hg] Dr. Lenore Proctor MD Work Phone: [facility] 03-13-2025 10:40-0400 Heart rate 61 /min Dr. Lenore Proctor MD Work Phone: [facility] 03-13-2025 10:40-0400 Respiratory rate 16 /min Dr. Lenore Proctor MD Work Phone: [facility] 03-13-2025 10:40-0400 SaO2% (BldA) [Mass fraction] 97 % Dr. Lenore Proctor MD Work Phone: [facility] 03-13-2025 10:40-0400 Systolic blood pressure 126 mm[Hg] Dr. Lenore Proctor MD Work Phone: [facility] 02-02-2025 15:22-0400 Body mass index (BMI) [Ratio] 32.5 kg/m2 Priscilla Praisler-Wood [employer] Work Phone: [facility] 02-02-2025 15:22-0400 Body temperature 97.81 [degF] Priscilla Praisler-Wood [employer] Work Phone: [facility] 02-02-2025 15:22-0400 Body weight 81.9 kg Priscilla Praisler-Wood [employer] Work Phone: [facility] 02-02-2025 15:22-0400 Diastolic blood pressure 82 mm[Hg] Priscilla Praisler-Wood [employer] Work Phone: [facility] 02-02-2025 15:22-0400 Heart rate 66 /min Priscilla Praisler-Wood [employer] Work Phone: [facility] 02-02-2025 15:22-0400 Respiratory rate 18 /min Priscilla Praisler-Wood [employer] Work Phone: [facility] 02-02-2025 15:22-0400 SaO2% (BldA) [Mass fraction] 96 % Priscilla Praisler-Wood [employer] Work Phone: [facility] 02-02-2025 15:22-0400 Systolic blood pressure 130 mm[Hg] Priscilla Praisler-Wood [employer] Work Phone: [facility] 01-16-2025 10:07-0400 Body height 160.[address] Lenore Proctor MD Work Phone: [facility] 01-16-2025 10:07-0400 Body mass index (BMI) [Ratio] 32.1 kg/m2 Dr. Lenore Proctor MD Work Phone: [facility] 01-16-2025 10:07-0400 Body temperature 98.2 [degF] Dr. Lenore Proctor MD Work Phone: [facility] 01-16-2025 10:07-0400 Body weight 82.[address] Lenore Proctor MD Work Phone: [facility] 01-16-2025 10:07-0400 Diastolic blood pressure 92 mm[Hg] Dr. Lenore Proctor MD Work Phone: [facility] 01-16-2025 10:07-0400 Heart rate 60 /min Dr. Lenore Proctor MD Work Phone: [facility] 01-16-2025 10:07-0400 Respiratory rate 16 /min Dr. Lenore Proctor MD Work Phone: [facility] 01-16-2025 10:07-0400 SaO2% (BldA) [Mass fraction] 97 % Dr. Lenore Proctor MD Work Phone: [facility] 01-16-2025 10:07-0400 Systolic blood pressure 149 mm[Hg] Dr. Lenore Proctor MD Work Phone: [facility] 11-22-2024 12:56-0500 Body mass index (BMI) [Ratio] 32.1 kg/m2 Dr. Lenore Proctor MD Work Phone: [facility] 11-22-2024 12:56-0500 Body temperature 98.4 [degF] Dr. Lenore Proctor MD Work Phone: [facility] 11-22-2024 12:56-0500 Body weight 82.[address] Lenore Proctor MD Work Phone: [facility] 11-22-2024 12:56-0500 Diastolic blood pressure 68 mm[Hg] Dr. Lenore Proctor MD Work Phone: [facility] 11-22-2024 12:56-0500 Heart rate 67 /min Dr. Lenore Proctor MD Work Phone: [facility] 11-22-2024 12:56-0500 SaO2% (BldA) [Mass fraction] 97 % Dr. Lenore Proctor MD Work Phone: [facility] 11-22-2024 12:56-0500 Systolic blood pressure 116 mm[Hg] Dr. Lenore Proctor MD Work Phone: [facility] 10-31-2024 10:50-0500 Body temperature 98.2 [degF] Dr. Lenore Proctor MD Work Phone: [phone] [place] [address] 10-31-2024 10:50-0500 Diastolic blood pressure 78 mm[Hg] Dr. Lenore Proctor MD Work Phone: [facility] 10-31-2024 10:50-0500 Heart rate 55 /min Dr. Lenore Proctor MD Work Phone: [facility] 10-31-2024 10:50-0500 Respiratory rate 16 /min Dr. Lenore Proctor MD Work Phone: [facility] 10-31-2024 10:50-0500 SaO2% (BldA) [Mass fraction] 100 % Dr. Lenore Proctor MD Work Phone: [facility] 10-31-2024 10:50-0500 Systolic blood pressure 149 mm[Hg] Dr. Lenore Proctor MD Work Phone: [facility] 10-31-2024 08:34-0500 Body mass index (BMI) [Ratio] 32 kg/m2 Dr. Lenore Proctor MD Work Phone: [facility] 10-31-2024 08:34-0500 Body weight [address] Lenore Proctor MD Work Phone: [facility] 10-25-2024 09:34-0500 Body mass index (BMI) [Ratio] 31.8 kg/m2 Dr. Lenore Proctor MD Work Phone: [facility] 10-25-2024 09:34-0500 Body weight 81.[address] Lenore Proctor MD Work Phone: [facility] 10-05-2024 14:00-0500 Body mass index (BMI) [Ratio] 32.9 kg/m2 Dr. Lenore Proctor MD Work Phone: [facility] 10-05-2024 14:00-0500 Body weight 81.[address] Lenore Proctor MD Work Phone: [facility] 10-05-2024 14:00-0500 Diastolic blood pressure 78 mm[Hg] Dr. Lenore Proctor MD Work Phone: [facility] 10-05-2024 14:00-0500 Systolic blood pressure 152 mm[Hg] Dr. Lenore Proctor MD Work Phone: [facility] 01-22-2024 08:29-0400 Body temperature 98.71 [degF] Nenita Mehta MD Work Phone: [facility] 01-22-2024 08:29-0400 Diastolic blood pressure 82 mm[Hg] Nenita Mehta MD Work Phone: [facility] 01-22-2024 08:29-0400 Heart rate 77 /min Nenita Mehta MD Work Phone: [facility] 01-22-2024 08:29-0400 Respiratory rate 18 /min Nenita Mehta MD Work Phone: [facility] 01-22-2024 08:29-0400 SaO2% (BldA) [Mass fraction] 93 % Nenita Mehta MD Work Phone: [facility] 01-22-2024 08:29-0400 Systolic blood pressure 154 mm[Hg] Nenita Mehta MD Work Phone: [facility] 01-20-2024 12:15-0400 Body height 160 cm Nenita Mehta MD Work Phone: [facility] 01-20-2024 12:15-0400 Body mass index (BMI) [Ratio] 31.89 kg/m2 Nenita Mehta MD Work Phone: [facility] 01-20-2024 12:15-0400 Body weight 81.65 kg Nenita Mehta MD Work Phone: [facility] 01-04-2024 14:16-0400 Body height 157.5 cm Juan Luis DO Work Phone: [facility] 01-04-2024 14:16-0400 Body mass index (BMI) [Ratio] 33.84 kg/m2 Juan Luis DO Work Phone: [facility] 01-04-2024 14:16-0400 Body weight 83.92 kg Juan Luis Lorenzoalil DO Work Phone: [facility] 09-23-2023 14:40-0500 Body height 160.[address] Lenore Proctor Work Phone: [facility] 09-23-2023 14:34-0500 Body mass index (BMI) [Ratio] 33.3 kg/m2 Dr. Lenore Proctor Work Phone: [facility] 09-23-2023 14:34-0500 Body weight 85.[address] Lenore Proctor Work Phone: [facility] 09-23-2023 14:34-0500 Diastolic blood pressure 76 mm[Hg] Dr. Lenore Proctor Work Phone: [facility] 09-23-2023 14:34-0500 Systolic blood pressure 122 mm[Hg] Dr. Lenore Proctor Work Phone: [facility] 09-14-2023 08:08-0500 Body mass index (BMI) [Ratio] 34 kg/m2 Dr. Lenore Proctor Work Phone: [facility] 09-14-2023 08:08-0500 Body temperature 98 [degF] Dr. Lenore Proctor Work Phone: [facility] 09-14-2023 08:08-0500 Body weight 87.[address] Lenore Proctor Work Phone: [facility] 09-14-2023 08:08-0500 Diastolic blood pressure 82 mm[Hg] Dr. Lenore Proctor Work Phone: [facility] 09-14-2023 08:08-0500 Heart rate 70 /min Dr. Lenore Proctor Work Phone: [facility] 09-14-2023 08:08-0500 Respiratory rate 16 /min Dr. Lenore Proctor Work Phone: [facility] 09-14-2023 08:08-0500 SaO2% (BldA) [Mass fraction] 94 % Dr. Lenore Proctor Work Phone: [facility] 09-14-2023 08:08-0500 Systolic blood pressure 137 mm[Hg] Dr. Lenore Proctor Work Phone: [facility] 11-03-2022 10:29-0500 Diastolic blood pressure 76 mm[Hg] Dr. Luke Boss Work Phone: [facility] 11-03-2022 10:29-0500 Systolic blood pressure 117 mm[Hg] Dr. Luke Boss Work Phone: [facility] 11-03-2022 10:26-0500 Body temperature 97 [degF] Dr. Luke Boss Work Phone: [facility] 11-03-2022 10:26-0500 Body weight 82.[address] Luke Boss Work Phone: [facility] 11-03-2022 10:26-0500 Heart rate 76 /min Dr. Luke Boss Work Phone: [facility] 11-03-2022 10:26-0500 Respiratory rate 16 /min Dr. Luke Boss Work Phone: 6(555)514-152431 [place] [address] 11-03-2022 10:26-0500 SaO2% (BldA) [Mass fraction] 94 % Dr. Luke Boss Work Phone: 5(437)035-921431 [place] [address] 09-23-2022 14:32-0500 Body temperature 97.6 [degF] Dr. Luke Boss Work Phone: 0(051)307-867531 [place] [address] 09-23-2022 14:32-0500 Body weight 84.[address] Luke Boss Work Phone: 5(241)780-168331 [place] [address] 09-23-2022 14:32-0500 Diastolic blood pressure 98 mm[Hg] Dr. Luke Boss Work Phone: 2(957)064-766431 [place] [address] 09-23-2022 14:32-0500 Heart rate 71 /min Dr. Luke Boss Work Phone: 1(421)192-337831 [place] [address] 09-23-2022 14:32-0500 Respiratory rate 16 /min Dr. Luke Bsos Work Phone: 8(172)071-343431 [place] [address] 09-23-2022 14:32-0500 SaO2% (BldA) [Mass fraction] 96 % Dr. Luke Boss Work Phone: 7(344)371-166831 [place] [address] 09-23-2022 14:32-0500 Systolic blood pressure 150 mm[Hg] Dr. Luke Boss Work Phone: 9(489)531-139931 [place] [address] 09-17-2022 13:12-0500 Body mass index (BMI) [Ratio] 32.5 kg/m2 Dr. Luke Boss Work Phone: 3(143)342-095731 [place] [address] 09-17-2022 13:12-0500 Body weight 83.[address] Luke Boss Work Phone: 3(693)625-798931 [place] [address] 09-17-2022 13:12-0500 Diastolic blood pressure 73 mm[Hg] Dr. Luke Boss Work Phone: 3(786)779-592231 [place] [address] 09-17-2022 13:12-0500 Systolic blood pressure 146 mm[Hg] Dr. Luke Boss Work Phone: [facility] 04-13-2022 16:09-0400 Diastolic blood pressure 82 mm[Hg] Ivet Haagen GED PREPARATION TEACHER.[employer] SALESMAN Work Phone: [facility] 04-13-2022 16:09-0400 Heart rate 70 /min Ivet Haagen GED PREPARATION TEACHER.[employer] SALESMAN Work Phone: [facility] 04-13-2022 16:09-0400 Respiratory rate 18 /min Ivet Haagen GED PREPARATION TEACHER.SH[employer] SALESMAN Work Phone: [facility] 04-13-2022 16:09-0400 SaO2% (BldA) [Mass fraction] 97 % Ivet Haagen GED PREPARATION TEACHER.SHOE SALESMAN Work Phone: [facility] 04-13-2022 16:09-0400 Systolic blood pressure 126 mm[Hg] Ivet Haagen GED PREPARATION TEACHER.SHOE SALESMAN Work Phone: [facility] 03-01-2022 16:02-0400 Diastolic blood pressure 90 mm[Hg] Ivet Haagen GED PREPARATION TEACHER.SHOE SALESMAN Work Phone: [facility] 03-01-2022 16:02-0400 Heart rate 79 /min Ivet Haagen GED PREPARATION TEACHER.SHOE SALESMAN Work Phone: [facility] 03-01-2022 16:02-0400 Respiratory rate 18 /min Ivet Haagen GED PREPARATION TEACHER.SHOE SALESMAN Work Phone: [facility] 03-01-2022 16:02-0400 SaO2% (BldA) [Mass fraction] 98 % Ivet Haagen GED PREPARATION TEACHER.SHOE SALESMAN Work Phone: [facility] 03-01-2022 16:02-0400 Systolic blood pressure 142 mm[Hg] Ivet Haagen GED PREPARATION TEACHER.SHOE SALESMAN Work Phone: [facility] 02-01-2022 16:02-0400 Body weight 83.46 kg Ivet Haagen GED PREPARATION TEACHER.SH[employer] SALESMAN Work Phone: [facility] 02-01-2022 16:02-0400 Diastolic blood pressure 84 mm[Hg] Ivet Haagen GED PREPARATION TEACHER.SHOE SALESMAN Work Phone: [facility] 02-01-2022 16:02-0400 Heart rate 81 /min Ivet Haagen GED PREPARATION TEACHER.SH[employer] SALESMAN Work Phone: [facility] 02-01-2022 16:02-0400 Respiratory rate 18 /min Ivet Haagen GED PREPARATION TEACHER.SHOE SALESMAN Work Phone: [facility] 02-01-2022 16:02-0400 SaO2% (BldA) [Mass fraction] 99 % Ivet Haagen GED PREPARATION TEACHER.SHOE SALESMAN Work Phone: [facility] 02-01-2022 16:02-0400 Systolic blood pressure 126 mm[Hg] Ivet Haagen GED PREPARATION TEACHER.SHOE SALESMAN Work Phone: [facility] 01-04-2022 16:02-0400 Body weight 83.01 kg Ivet Haagen GED PREPARATION TEACHER.SHOE SALESMAN Work Phone: [facility] 01-04-2022 16:02-0400 Diastolic blood pressure 70 mm[Hg] Ivet Haagen GED PREPARATION TEACHER.SHOE SALESMAN Work Phone: [facility] 01-04-2022 16:02-0400 Heart rate 81 /min Ivet Haagen GED PREPARATION TEACHER.SHOE SALESMAN Work Phone: [facility] 01-04-2022 16:02-0400 Respiratory rate 18 /min Ivet Haagen GED PREPARATION TEACHER.SHOE SALESMAN Work Phone: [facility] 01-04-2022 16:02-0400 SaO2% (BldA) [Mass fraction] 97 % Ivet Haagen GED PREPARATION TEACHER.SHOE SALESMAN Work Phone: [facility] 01-04-2022 16:02-0400 Systolic blood pressure 108 mm[Hg] Ivet Haagen GED PREPARATION TEACHER.SHOE SALESMAN Work Phone: [facility] Encounters Encounter Date Encounter Type Care Provider Facility Start: 06-19-2025 ambulatory Grisel Chilel lity:[facility] Start: 03-13-2025 End: 03-13-2025 Patient encounter procedure Kael Foster [facility] Work Phone: Start: 03-13-2025 End: 03-13-[address] Lenore Proctor MD Work Phone: [facility] Work Phone: Start: 02-04-2025 End: 02-04-2025 Follow-up encounter Thanh Alegria APRN.SHOE SALESMAN Work Phone: [facility] Comment on above: Results Start: 02-02-2025 End: 02-02-2025 [facility] Start: 02-02-2025 End: 02-02-2025 Patient encounter procedure Priscilla Alonzo APRN.SHOE SALESMAN Work Phone: [facility] Comment on above: Urinary frequency (P rimary Dx) Start: 01-16-2025 End: 01-16-[address] Lenore Proctor MD Work Phone: [facility] Work Phone: Start: 01-16-2025 End: 01-16-[address] Lenore Proctor MD -Laboratory Work Phone: Start: 01-16-2025 End: 01-16-[address] Lenore Proctor MD -[facility] Work Phone: Start: 01-16-2025 End: 01-16-[address] Lenore Proctor MD [facility] Start: 01-16-2025 End: 01-16-2025 ambulatory Lenore Proctor Facility:[facility] Start: 01-16-2025 End: 01-16-2025 ambulatory Lenore Proctor Facility:[facility] Start: 11-22-2024 End: 11-22-2024 Patient encounter procedure Chong Brambila [place] -[facility] Work Phone: Start: 11-22-2024 End: 11-22-2024 ambulatory Lenore Proctor Facility:[facility] Start: 10-31-2024 Non-patient / Non-visit Dr. Sharona mcleod MD -[facility] Start: 10-31-2024 End: 10-31-2024 Admission to same day surgery center Dr. Sharona Zafar MD -Endoscopy Work Phone: Start: 10-31-2024 End: 10-31-2024 ambulatory [facility] Facility:[facility] Start: 10-25-2024 ambulatory [facility] Facility :[facility] Start: 10-25-2024 Non-patient / Non-visit Dr. Melany Proctor MD Work Phone: -[facility] Work Phone: Start: 10-05-2024 Encounter for gynecological examination (general) (routine) without abnormal findings Grisel Voss [facility] Start: 10-05-2024 End: 10-05-[address] Grisel Voss MD -[facility] Work Phone: Start: 10-05-2024 End: 10-05-[address] Grisel Voss MD [facility] Start: 10-05-2024 End: 10-05-2024 ambulatory Grisel Voss Facility:[facility] Start: 10-05-2024 ambulatory Alexandr Mathews Facility:[facility] Start: 10-05-2024 Non-patient / Non-visit Dr. Prudencio JIMÉNEZ -[facility] Start: 10-05-2024 End: 10-05-[address] Lenore Proctor MD -Cardiovascular Services Work Phone: Start: 10-05-2024 End: 10-05-2024 ambulatory Lenore Esthela Facility:[facility] Start: 07-25-2024 End: 07-25-2024 ambulatory [facility] Facility:[facility] Start: 07-04-2024 End: 07-09-2024 ambulatory Shamar Peña MD Work Phone: Internal Medicine [place] [id number] Start: 06-27-2024 End: 06-27-2024 ambulatory [facility] Facility:[facility] Start: 01-20-2024 End: 01-22-2024 Evaluation and management of inpatient NENITA MEHTA [facility] Start: 01-20-2024 End: 01-22-2024 Evaluation and management of inpatient Nenita Mehat MD Work Phone: [facility] PCU H6 Comment on above: Cervical stenosis of spine (Primary Dx); Preop examination Start: 01-20-2024 End: 01-22-2024 Preprocedural examination done Nenita Mehta MD Work Phone: [facility] Start: 01-05-2024 End: 01-05-[address] Lenore Proctor Work Phone: [facility] Work Phone: Start: 01-05-2024 End: 01-05-[address] Lenore Proctor Work Phone: [facility]-Laboratory Work Phone: Start: 01-04-2024 End: 01-04-2024 Encounter for other preprocedural examination NENITA MEHTA [facility] Start: 01-04-2024 End: 01-04-2024 ambulatory LIZA CEBUL III [facility] Start: 01-04-2024 End: 01-04-2024 Office outpatient new 45 minutes Juan Luis Khalil DO Work Phone: [facility] Medical [facility] Comment on above: Cervical stenosis of spine (Primary Dx) Start: 09-23-2023 End: 09-23-[address] Lenore Proctor Work Phone: [facility] Work Phone: Start: 09-14-2023 End: 09-14-[address] Lenore Proctor Work Phone: [facility] Work Phone: Start: 09-07-2023 End: 09-07-2023 ambulatory [facility] Work Phone: Start: 09-07-2023 End: 09-07-2023 Patient encounter procedure [facility]-Ultrasound, [facility] Work Phone: Start: 09-03-2023 End: 09-03-2023 ambulatory [facility] Work Phone: Start: 09-03-2023 End: 09-03-2023 Patient encounter procedure [facility]-Laboratory Work Phone: Start: 07-27-2023 End: 07-27-[address] Lenore Proctor Work Phone: [facility] Work Phone: Start: 07-27-2023 End: 07-27-[address] Lenore Proctor Work Phone: [facility]-Laboratory Work Phone: Start: 05-25-2023 End: 05-25-[address] Lenore Proctor Work Phone: [facility] Work Phone: Start: 05-25-2023 End: 05-25-[address] Lenore Proctor Work Phone: [facility]-Outpatient Breast Imaging Work Phone: Start: 04-05-2023 Non-patient / Non-visit Dr. Melany Proctor Work Phone: [facility] Start: 04-05-2023 End: 04-05-[address] Lenore Proctor Work Phone: [facility] Work Phone: Start: 04-05-2023 End: 04-05-[address] Lenore Proctor Work Phone: [facility]-Cardiovascul ar Services Start: 01-05-2023 End: 01-05-[address] Luke Boss Work Phone: [facility] Work Phone: Start: 01-05-2023 End: 01-05-[address] [facility] Start: 01-05-2023 End: 01-05-[address] Luke Boss Work Phone: [facility] Start: 12-23-2022 End: 12-23-[address] Luke Boss Work Phone: [facility] Work Phone: Start: 12-23-2022 End: 12-23-[address] [facility] Start: 11-03-2022 End: 11-03-2022 Encounter for general adult medical examination without abnormal findings Dr. Luke Boss Work Phone: [facility] Start: 11-03-2022 End: 11-03-[address] Luke Boss Work Phone: [facility] [place] Start: 09-29-2022 Non-patient / Non-visit Dr. Dakotah Boss Work Phone: [facility] Internal Medicine Start: 09-27-2022 End: 09-27-[address] Luke Boss Work Phone: [facility] Work Phone: Start: 09-27-2022 End: 09-27-[address] [facility] Start: 09-23-[address] Dalila Boss Work Phone: [facility] Start: 09-23-2022 End: 09-23-2022 Encounter for general adult medical examination without abnormal findings Dr. Luke Boss Work Phone: [facility] [place] Start: 09-23-2022 End: 09-23-[address] Luke Boss Work Phone: [facility] [place] Start: 09-17-2022 End: 09-17-[address] Luke Boss Work Phone: [facility] Start: 05-19-2022 End: 05-19-2022 Patient encounter procedure [facility] Start: 04-13-2022 End: 04-13-2022 Patient encounter procedure Ivet Mendez GED PREPARATION TEACHER.[employer] SALESMAN Work Phone: [facility] Comment on above: Hypertension, essent ial (Primary Dx); Pain in both hands Start: 03-01-2022 End: 03-01-2022 Patient encounter procedure Ivet Mendez APRN.SHOE SALESMAN Work Phone: [facility] Comment on above: Hypertension, unspec ified type (Primary Dx) Start: 02-01-2022 End: 02-01-2022 Patient encounter procedure Ivet Mendez APRN.SHOE SALESMAN Work Phone: [facility] Comment on above: Hypertension, essent ial (Primary Dx) Start: 01-04-2022 End: 01-04-2022 Patient encounter procedure Ivet Mendez GED PREPARATION TEACHER.SHOE SALESMAN Work Phone: [facility] Comment on above: Hypertension, essent ial (Primary Dx); Abdominal bruit; Gastroenteritis Start: 06-01-2018 Patient encounter RANDA dasilvaty:[facility] Start: 03-02-2018 Evaluation and management of inpatient Nenita Mehta [facility] Start: 02-22-2018 Patient encounter Nenita Mehta [facility] Procedures Date Procedure Procedure Detail Performing Clinician Start: 02-02-2025 Urnls dip stick/tabl et rgnt auto w/o microscopy Priscilla Alonzo APRN.[employer]OE SALESMAN Work Phone: Start: 01-16-2025 Vitamin D, 25-hydrox y measurement Dr. Lenore Proctor MD Work Phone: Comment on above: Vitamin D StatusDefi ciency: <20 ng/mL (50nmol/L)Insufficiency: 20-30 ng/mL (50-75 nmol/L)Sufficiency: 30-100 ng/mL (75-250 nmol/L)Toxicity: >100 ng/mL (>250 nmol/L) Start: 01-22-2024 Basic metabolic pane l calcium total Siddhartha Titus MD Work Phone: Start: 01-21-2024 Basic metabolic pane l calcium total Siddhartha Titus MD Work Phone: Start: 01-20-2024 FL GUIDANCE OR USE O NLY - NON-RESULTABLE Nenita Mehta MD Work Phone: Start: 01-20-2024 End: 01-20-2024 Removal anterior instrumentation Nenita Mehta MD Work Phone: Start: 01-04-2024 Antibody screen LIZA Tierra EBUL III Comment on above: Performed By: #### L [id number] #### [employer]: ALCIDES VICTOR ([id number]) [facility] ([facility]) [address] [place] [address] Start: 09-07-2023 Ultrasonography of abdomen Start: 05-25-2023 End: 05-25-[address] Lenore Proctor Work Phone: Start: 05-19-2022 Screening mammography Start: 08-08-2021 Lipid 1996 panel - S debby or Plasma Shamar Peña MD Work Phone: Start: 04-21-2021 Mammography Ivet gonzalez GED PREPARATION TEACHER.[employer] SALESMAN Work Phone: Start: 02-09-2021 Adult depression scr eening assessment Ivet Mendez APRN.SHOE SALESMAN Work Phone: Start: 03-20-2020 Colonoscopy Ivet gonzalez APRN.SHOE SALESMAN Work Phone: Urine culture Dr. Luke forman Work Phone: Plan of Treatment Date Care Activity Detail Author Start: 03-20-2030 Colonoscopy COLONOSCOPY [facility] Start: 03-20-2030 COLORECTAL CANCER SCREENING COLORECTAL CANCER SCREENING [facility] Start: 03-20-2030 Screening for malign ant neoplasm of colon [facility] Start: 2030 RSV Immunization age d 60 or older (1 - 1-dose 60+ series) RSV Immunization aged 60 or older (1 - 1-dose 60+ series) [facility] Start: 01-21-2027 Diabetes Screening Diabetes Screenin g [facility] Start: 01-03-2027 Diabetes mellitus screening Diabetes Screening [facility] Start: 08-08-2026 Lipid panel Lipid Screening [facility] Start: 08-08-2026 LIPID SCREEN LIPID SCREEN [facility] Start: 10-31-2024 Colonoscopy w/biopsy single/multiple COLONOSCOPY AND BIOPSY [facility] Start: 10-31-2024 Patient discharge [facility] Start: 10-22-2024 DTaP/Tdap/Td Vaccine s (3 - Td or Tdap) DTaP/Tdap/Td Vaccines (3 - Td or Tdap) [facility] Start: 10-22-2024 Urine microalbumin profile [facility] Start: 10-05-2024 DIABETES SCREEN DIABETES SCREEN [facility] Start: 10-05-2024 Diabetes Screening Diabetes Screenin g [facility] Start: 06-17-2024 Covid-19 Vaccine ( season) Covid-19 Vaccine ( season) [facility] Start: 06-17-2024 Influenza vaccination [facility] Start: 05-25-2024 Screening for malign ant neoplasm of breast [facility] Start: 01-20-2024 End: 01-20-2024 Admission to same day surgery center 01/20/2024 1:30 PM EDT - 01/20/2024 4:00 PM EDT Surgery [facility] MAIN OR [address] [facility] [address] [facility] [place] [address] Nenita Mehta MD [address] [facility] [address] [phone] REMOVAL PLATE INSPECTION FUSION CERVICAL 5-7, ANTERIOR CERVICAL DISCECTOMY AND FUSION CERVICAL 4-5 WITH ALLOGRAFT AND PLATE [33658 (CPT )] [facility] Comment on above: REMOVAL PLATE INSPEC TION FUSION CERVICAL 5-7, ANTERIOR CERVICAL DISCECTOMY AND FUSION CERVICAL 4-5 WITH ALLOGRAFT AND PLATE [33787 (CPT )] Start: 01-20-2024 End: 01-20-2024 Anesthesia consultation 01/20/2024 1:30 PM EDT Anesthesia Event [facility] MA[facility] OR [address] [place] [address] Randa Wells, NURSE FIRST [employer] [address] [place] [address] [facility] Start: 01-20-2024 End: 01-20-2024 Removal anterior instrumentation REMOVAL OF ANTERIOR SPINAL INTSTRUMENTATION Spinal stenosis, cervical region 01/20/2024 1:30 PM EDT [facility] Operating Room Start: 01-20-2024 Subsequent hospital visit by physician 01/20/2024 1:30 PM EDT Hospital Encounter [facility] OR [address] [place] [address] Nenita Mehta MD [address] [facility] [address] [phone] [facility] Start: 06-17-2023 COVID-19 Vaccine ( season) COVID-19 Vaccine ( season) [facility] Start: 06-17-2023 Influenza vaccination Influenza Vacc ine (#1) [facility] Start: 04-13-2023 ANNUAL PCP TEAM PRESS WRITER YOSEF DISEASE VISIT ANNUAL PCP TEAM CHRONIC DISEASE VISIT [facility] Start: 03-01-2023 ANNUAL PCP TEAM PRESS WRITER YOSEF DISEASE VISIT ANNUAL PCP TEAM CHRONIC DISEASE VISIT [facility] Start: 02-01-2023 ANNUAL PCP TEAM PRESS WRITER YOSEF DISEASE VISIT ANNUAL PCP TEAM CHRONIC DISEASE VISIT [facility] Start: 01-04-2023 ANNUAL PCP TEAM PRESS WRITER YOSEF DISEASE VISIT ANNUAL PCP TEAM CHRONIC DISEASE VISIT [facility] Start: 01-04-2023 BP CONTROLLED (<130/80) BP CONTROLLE D (<130/80) [facility] Start: 08-18-2022 COVID-19 VACCINE (#1) COVID-19 VACCI NE (#1) [facility] Comment on above: Postponed from 01/13 (Declined at this time) Start: 08-18-2022 COVID-19 VACCINE (1) COVID-19 VACCIN E (1) [facility] Comment on above: Postponed from 01/13 (Declined at this time) Start: 06-17-2022 Influenza vaccination INFLUENZA (Sea son Ended) [facility] Start: 04-21-2022 Mammography MAMMOGRAM [facility] Start: 04-15-2022 Influenza vaccination INFLUENZA (#1) [facility] Comment on above: Postponed from 06/17 (Declined at this time) Start: 02-09-2022 Adult depression screening assessment DEPRESSION SCREENING [facility] Start: 01-14-2020 Pneumococcal Vaccine : 50+ (1 of 1 - PCV) Pneumococcal Vaccine: 50+ (1 of 1 - PCV) [facility] Start: 01-14-2020 SHINGRIX VACCINE (1 of 2) SHINGRIX VACCINE (1 of 2) [facility] Start: 01-14-2020 Zoster Vaccines (1 of 2) Zoster Vacc coral (1 of 2) [facility] Start: 2015 COLOGUARD (FIT-DNA) COLOGUARD (FIT-D NA) [facility] Start: [address] COLONOGRAPHY [facility] Start: 2015 FECAL OCCULT BLOOD FECAL OCCULT BLOO D [facility] Start: 2015 Screening for malign ant neoplasm of colon [facility] Start: 2015 SIGMOIDOSCOPY SIGMOIDOSCOPY [facility] Start: 1989 Hepatitis A Vaccines (1 of 2 - Risk 2-dose series) Hepatitis A Vaccines (1 of 2 - Risk 2-dose series) [facility] Start: 1989 Hepatitis B Vaccine (1 of 3 - 19+ 3-dose series) Hepatitis B Vaccine (1 of 3 - 19+ 3-dose series) [facility] Start: 1989 Hepatitis B Vaccines (1 of 3 - 19+ 3-dose series) Hepatitis B Vaccines (1 of 3 - 19+ 3-dose series) [facility] Start: 01-14-1988 Anxiety Screening Anxiety Screening [facility] Start: 01-14-1988 BP CONTROLLED (<130/80) BP CONTROLLE D (<130/80) [facility] Start: 01-14-1988 Depression Screening Depression Scre ening [facility] Start: 01-14-1988 HEPATITIS C SCREENING HEPATITIS C [facility] Start: 01-14-1988 Hepatitis C screening Hepatitis C [facility] Start: 01-14-1988 HIV SCREENING HIV SCREENING [facility] Start: 01-14-1988 HIV screening HIV Screening [facility] Start: 1982 Depression Screening Depression Scre ing [facility] Start: 1971 MMR Vaccines (1 of 1 - Standard series) MMR Vaccines (1 of 1 - Standard series) [facility] Start: 1970 HIV screening HIV Screening [facility] Start: 1970 Lipid panel Lipid Panel [facility] Start: 1970 Screening for malign ant neoplasm of colon [facility] Bacteria identified in Urine by Culture BACTERIAL CULTURE, URINE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 Nightly senna-docusate sodium, 1 tablet, Oral, BID sodium chloride 0.9%, 10 mL, IntraVENous, 2 times per day Assessment Cervical stenosis s/p hardware removal of C5-C7 ACDF, C4-C5 ACDF History of postop nausea vomiting Chronic problems Hypertension Plan Ortho primary Pain control Blood pressure stable PT, OT DVT leg prophylaxis per primary Stable for DC from medical standpoint -am labs, replace lytes prn -increase activity Diet Adult diet Regular DVT Prophylaxis [] Lovenox, [] Heparin, [] SCDs, [] Ambulation [] Already on Anticoagulation GI Prophylaxis [] PPI, [] H2 Clay, [] Carafate, [] Diet/Tube Feeds Code Status No Order MDM [] Low, [] Moderate,[] High Patient's risk as above Anticipated Discharge - Date -01/20 - Location - Home - Pending the following -pending PT, OT eval Total time spent (which include face to face and non face to face encounters) : 35 minutes Toxic drug monitoring/narrow therapeutic index drug monitoring : # Drug name : # Route administered : # Method of monitoring : Extended Emergency Contact Information Primary Emergency Contact: Yuli William Relation: Child Secondary Emergency Contact: Jalil Leal Relation: Spouse Advance Directive: No Order Discharge planning: JORDAN CANAS MD Division of Hospitalist Medicine Inpatient Medical Services/[facility] * Ira Pierson, PT - 01/21/2024 9:36 AM EDT Images from the original note were not included. PHYSICAL THERAPY [facility] Initial Evaluation Name/MRN: Ana Maria Leal ([id number]) Evaluation Date: 01/21/2024 Date of : 1970 Admission Date: 01/20/2024 11:24 AM Age: 54 y.o. Room/Bed: -6130/H-6130 A Discharge Recommendation: Home with assist PRN Equipment Needed: No Assessment IMPRESSION: 54 y.o. pt admitted to [facility] for cervical stenosis. They were Mod I for bed mobility, Wilian for transfers, and indep for ambulation. Lives with and daughter who can assist as needed. Would recommend home with assistance PRN at discharge. No acute PT needs at this time, will sign off. Diagnosis: s/p anterior cervical discectomy and fusion C4-5 with allograft and plate 4/5 Prognosis: good Performance Deficits /Impairments: Increased Pain Decision Making: Low Complexity Subjective Pt supine in bed. Agreeable to PT session. Cleared by nursing Pain: Jurado-Jeronimo Pain Ratin = Hurts little more Pain Location: anterior neck Past Medical History: Past Medical History: Diagnosis Date Arthritis Bulging of cervical intervertebral disc DDD (degenerative disc disease), cervical Liver disease FATTY LIVER PONV (postoperative nausea and vomiting) Spinal stenosis Past Surgical History: Past Surgical History: Procedure Laterality Date BREAST REDUCTION CARPAL TUNNEL RELEASE Bilateral CERVICAL DISCECTOMY 03/01/2018 ACDF C5-6, C6-7 CERVICAL FUSION 01/20/2024 removal plate inspection fusion cervical 5-7, anterior cervical disectomy and fusion cervical 4-5 with allograft and plate SECTION (HISTORICAL) x 3 HYSTERECTOMY LUMBAR DISC SURGERY Admission Diagnosis: Patient Active Problem List Diagnosis Date Noted Radiculopathy of cervical region 01/20/2024 PONV (postoperative nausea and vomiting) 01/04/2024 Cervical stenosis of spine 03/01/2018 Medical Precautions: No active isolations Proper PPE donned/doffed in accordance with facility standards. Fall Risk: Kelly Fall Risk Score: 20 (Low Risk) Precautions/Restrictions: Spine Precautions: C-Spine Precautions Lines/Drains/Airways: PIV, BRYON drain Family/Caregiver Present: spouse Overall Cognitive Status: WNL Overall Orientation Status: Oriented x4 Vision: wears glasses at all times and and are being used during the eval Hearing: normal Social/Functional History Patient admitted from home. 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 ADL Assistance: Independent Ambulation Assistance: Independent Transfer Assistance: Independent Objective Lower Extremity Assessment AROM: WNL PROM: WNL Strength: WFL (grossly 4/5 overall) Bed Mobility: Supine to sit: Modified Independent Sit to supine: Modified Independent HOB elevated Transfers Sit to stand: Modified Independent Stand to sit: Modified Independent EOB x2 Ambulation Ambulation 1 Assistive device(s) used: none Assist level: Independent Distance (ft): 650' Quality of gait: slow sydni Sensation: WFL Outcome Measures AM-PAC How much HELP from another person do you currently need Turning from your back to your side while in a flat bed without using bedrails?: None Moving from lying on your back to sitting on the side of a flat bed without using bedrails?: None Moving to and from a bed to a chair (including a wheelchair)?: None Standing up from a chair using your arms (wheelchair or bedside chair)?: None Walking in a hospital room?: None Stair climbing assessed?: No AM-PAC Inpatient Mobility Raw Score (No Stairs) : 20 JH-HLM -HL Score: Walked 250 ft or more (i.e. several laps on unit) Plan No skilled acute PT indicated at this time. Please reconsult should changes occur. Safety/Education Safety Safety Devices in place: call light within reach, left in bed, and nurse notified Restraints: No Education Education Given To: patient Education Provided: PT Role, PT Goals, Plan of Care, Precautions, Equipment, Discharge Recommendations, and Benefits of Increasing Activity Education Method: Verbal Barriers to Learning: None Education Outcome: Verbalized Understanding Goals Patient Stated Goal: to go home Encounter Problems Encounter Problems (Active) Pain - Adult Therapy Time Individual Co-treatment Time In 808 Time Out 08 Minutes 12 Timed Code Treatment Minutes: (christopher eval) Ira Pierson, PT Patient's Physical Therapy Plan of Care supervision is transferred to a [facility] Services Physical Therapist. Goals and/or treatment plan was established in collaboration with patient/family/other representatives. * Juanito Mckinney MD - 01/21/2024 8:45 AM EDT [facility] UN[facility] PCU H6 [address] [facility] [place] [address] Dept: [phone] Loc: [phone] Orthopedic Spine Progress Note Name: Ana Maria Leal Date:01/21/2024 Attending:Nenita Mehta MD Subjective No events o/n. Pain well controlled. Still has some residual right shoulder pain but numbness in hands is gone. Wants to go home today if possible. Objective Vitals: Vitals: 01/20/24 2203 01/21/24 0021 01/21/24 0512 01/21/24 0834 BP: 150/79 124/62 137/71 155/79 BP Location: Left arm Left arm Left arm Patient Position: Lying Sitting Sitting Pulse: 61 60 57 59 Resp: 16 16 18 17 Temp: 36.1 C (97 F) 36.1 C (97 F) 37.1 C (98.7 F) TempSrc: Temporal Temporal Temporal SpO2: 98% 95% 96% 95% Weight: Height: Physical Exam: General: NAD Neuro Extremity Exam: Upper Extremity Motor: Del Bi Tri WE WF Int FF Right 5 5 4+ 5 5 5 4+ Left 5 5 4+ 5 5 5 4+ Upper extremity sensation to light touch: C5 C6 C7 C8 T1 Right Intact Intact Intact Intact Intact Left Intact Intact Intact Intact Intact Neck: Dressing c/d/I Drain with around 20 ml SS output LABS: Recent Labs 01/21/24 0042 WBC 13.3* HGB 13.5 HCT 41.1 PLT 309 Recent Labs 01/21/24 0042 NA 137 K 3.8 CL 104 CO2 17* BUN 8 CREATININE 0.71 CALCIUM 8.6 No results for input(s): INR in the last 72 hours. No results for input(s): SEDRATE, CRP in the last 72 hours. No results for input(s): HCG in the last 72 hours. Assessment Ana Maria is a 54 y.o.female s/p C4-5 ACDF 01/19 Plan -Immobilization: No c-collar needed -Consults: -Internal medicine consult for medical management -Acute pain service consult for pain control recommendations -Antibiotics: ancef until drain is pulled -Dressings: Keep dressings clean dry and intact for 5 days post operatively, then ok to leave open to air if incision is without drainage. -Other: Drain care: ortho team will pull when appropriate. Record output every shift. -Neurochecks q4 -Labs: No further labs needed from ortho standpoint. -PT/OT -DVT ppx: SCDs/mobilization -Follow-up with Dr Mehta in 2 weeks -Ortho primary team. Dispo: dc home once drain able to be pulled Juanito Mckinney M.D. Orthopaedic Surgery documented in this [facility]04-07-2024 Note* Care Coordination - Moriah Torres RN - 01/22/2024 1:17 PM EDT Care Managment Initial Assessment Date: 01/22/2024 Patient Name: Ana Maria Leal : 1970 Patient Information Source of Information: Patient Cognition/Language: WFL - Within Functional Limits Permission given to speak with patient eligibility services representative/caregiver as indicated: Confirmation of Payer with patient/family: Yes Payer Name: [employer] [place] : No Confirmation of Primary Care Physician: Confirmed PCP Name: MD Mitchell Seen in last 2 years?: Yes Primary Caregiver: Self If assistance needed, confirmed caregiver ready, willing and able to care for patient at discharge:Yes Confirmed with: spouse Living Arrangements Current Residence: House Number of Floors 2 Number of Entry Steps: 1 Bed/Bath Levels: Both first floor Facility: Facility Name: Plan to Return: Lives with: Spouse/significant other Support Systems: Spouse/significant other, Children, Family members Activities of Daily Living Ambulation: Independent Bathing/Dressing: Independent Elimination/Continence/Toileting: Independent Feeding: Independent Who Assists with Activities of Daily Living: Instrumental Activities of Daily Living Prescription Coverage: Yes Pharmacy Used: [facility] [place] Medication Management: Independent Transportation/Shopping: Independent Transportation Mode: Car Needs Assistance with Transportation at Discharge: No Meal Preparation: Independent Laundry/Cleaning: Independent Finances/Bill Paying: Independent Communication: Independent Types of Care Services/Equipment Utilized Care Services: Dialysis Type: NA Durable Medical Equipment: DME Provider: none Patient's Goal/Discharge Plan Patient expects to be discharged to: home Discharge Planning Actions: Continue to follow, No needs identified Patient's Choice Rights and [employer] and Collaborative Relationships Disclosed as Indicated for Post-Acute Care: Interdisciplinary Team Engagement: Social Work Referral for: Additional Information: Spoke with patient on phone. Patient admitted to for s/p C4-5 ACDF on 01/19. Plan for patient to dc home tomorrow once drain is able to be removed. PT rec home with assist PRN. Patient lives at homewith her and dgt, who are able to assist as needed. Patient denies TCC needs and DME needs.Patient would like her meds to be filled thru meds to beds upon dc tomorrow for convenience, due toprobable traffic in the area related to solar eclipse. TCC to follow. Moriah Torres RN [facility] [id number] Note* Care Coordination - Moriah Torres RN - 01/22/2024 1:17 PM EDT Care Managment Initial Assessment Date: 01/22/2024 Patient Name: Ana Maria Leal : 1970 Patient Information Source of Information: Patient Cognition/Language: WFL - Within Functional Limits Permission given to speak with patient eligibility services representative/caregiver as indicated: Confirmation of Payer with patient/family: Yes Payer Name: [employer] [place]: No Confirmation of Primary Care Physician: Confirmed PCP Name: MD Mitchell Seen in last 2 years?: Yes Primary Caregiver: Self If assistance needed, confirmed caregiver ready, willing and able to care for patient at discharge:Yes Confirmed with: spouse Living Arrangements Current Residence: House Number of Floors 2 Number of Entry Steps: 1 Bed/Bath Levels: Both first floor Facility: Facility Name: Plan to Return: Lives with: Spouse/significant other Support Systems: Spouse/significant other, Children, Family members Activities of Daily Living Ambulation: Independent Bathing/Dressing: Independent Elimination/Continence/Toileting: Independent Feeding: Independent Who Assists with Activities of Daily Living: Instrumental Activities of Daily Living Prescription Coverage: Yes Pharmacy Used: [facility] [place] Medication Management: Independent Transportation/Shopping: Independent Transportation Mode: Car Needs Assistance with Transportation at Discharge: No Meal Preparation: Independent Laundry/Cleaning: Independent Finances/Bill Paying: Independent Communication: Independent Types of Care Services/Equipment Utilized Care Services: Dialysis Type: NA Durable Medical Equipment: DME Provider: none Patient's Goal/Discharge Plan Patient expects to be discharged to: home Discharge Planning Actions: Continue to follow, No needs identified Patient's Choice Rights and [employer] and Collaborative Relationships Disclosed as Indicated for Post-Acute Care: Interdisciplinary Team Engagement: Social Work Referral for: Additional Information: Spoke with patient on phone. Patient admitted to for s/p C4-5 ACDF on 01/19. Plan for patient to dc home tomorrow once drain is able to be removed. PT rec home with assist PRN. Patient lives at homewith her and dgt, who are able to assist as needed. Patient denies TCC needs and DME needs.Patient would like her meds to be filled thru meds to beds upon dc tomorrow for convenience, due toprobable traffic in the area related to solar eclipse. TCC to follow. Moriah Torres RN [facility] [id number] Miscellaneous Notes* Care Coordination - Moriah Torres RN - 01/22/2024 1:17 PM EDT Care Managment Initial Assessment Date: 01/22/2024 Patient Name: Ana Maria Leal : 1970 Patient Information Source of Information: Patient Cognition/Language: WFL - Within Functional Limits Permission given to speak with patient eligibility services representative/caregiver as indicated: Confirmation of Payer with patient/family: Yes Payer Name: [employer] [place] : No Confirmation of Primary Care Physician: Confirmed PCP Name: MD Mitchell Seen in last 2 years?: Yes Primary Caregiver: Self If assistance needed, confirmed caregiver ready, willing and able to care for patient at discharge:Yes Confirmed with: spouse Living Arrangements Current Residence: House Number of Floors 2 Number of Entry Steps: 1 Bed/Bath Levels: Both first floor Facility: Facility Name: Plan to Return: Lives with: Spouse/significant other Support Systems: Spouse/significant other, Children, Family members Activities of Daily Living Ambulation: Independent Bathing/Dressing: Independent Elimination/Continence/Toileting: Independent Feeding: Independent Who Assists with Activities of Daily Living: Instrumental Activities of Daily Living Prescription Coverage: Yes Pharmacy Used: [facility] Medication Management: Independent Transportation/Shopping: Independent Transportation Mode: Car Needs Assistance with Transportation at Discharge: No Meal Preparation: Independent Laundry/Cleaning: Independent Finances/Bill Paying: Independent Communication: Independent Types of Care Services/Equipment Utilized Care Services: Dialysis Type: NA Durable Medical Equipment: DME Provider: none Patient's Goal/Discharge Plan Patient expects to be discharged to: home Discharge Planning Actions: Continue to follow, No needs identified Patient's Choice Rights and [employer] and Collaborative Relationships Disclosed as Indicated for Post-Acute Care: Interdisciplinary Team Engagement: Social Work Referral for: Additional Information: Spoke with patient on phone. Patient admitted to for s/p C4-5 ACDF on 01/19. Plan for patient to dc home tomorrow once drain is able to be removed. PT rec home with assist PRN. Patient lives at homewith her and dgt, who are able to assist as needed. Patient denies TCC needs and DME needs.Patient would like her meds to be filled thru meds to beds upon dc tomorrow for convenience, due toprobable traffic in the area related to solar eclipse. TCC to follow. Moriah Torres RN * Perioperative Nursing Note - Pedro Pablo Corral RN - 01/20/2024 7:28 PM EDT Report given to RN for Room 6130 on H6 * Perioperative Nursing Note - Pedro Pablo Corral RN - 01/20/2024 6:59 PM EDT Faxed report sheet to H6 documented in this [place] [address]-07-2024 [facility] SURGICAL PROGRESSIVE CARE UNIT PCU H6 [address] [facility] [place] [address] Dept: [phone] Loc: [phone] Orthopedic Spine Progress Note Name: Ana Maria Leal Date:01/22/2024 Attending:Nenita Mehta MD Subjective Arms feeling good. Not in much pain. Eating without issue. Objective Vitals: Vitals: 01/21/24 0834 01/21/24 1151 01/21/24 1609 01/21/242023 BP: 155/79 (!) 166/79 (!) 169/90 116/82 BP Location: Left arm Left arm Left arm Right arm Patient Position: Sitting Sitting Sitting Sitting Pulse: 59 62 78 75 Resp: 17 17 17 Temp: 37.1 ?C (98.7 ?F) 37 ?C (98.6 ?F) 37.2 ?C (98.9 ?F) 37 ?C (98.6 ?F) TempSrc: Temporal Temporal Temporal Temporal SpO2: 95% 93% 94% 94% Weight: Height: Physical Exam: General: NAD Neuro Extremity Exam: Upper Extremity Motor: Del Bi Tri WE WF Int FF Right 5 5 4+ 5 5 5 4+ Left 5 5 4+ 5 5 5 4+ Upper extremity sensation to light touch: C5 C6 C7 C8 T1 Right Intact Intact Intact Intact Intact Left Intact Intact Intact Intact Intact Neck: Dressing c/d/I Drain with 25 ml SS output overnight LABS: Recent Labs 01/21/24 0042 01/22/24 0124 WBC 13.3* 16.0* HGB 13.5 13.8 HCT 41.1 41.3 PLT 309 342 Recent Labs 01/21/24 0042 01/22/24 0124 NA 137 140 K 3.8 4.2 CL 104 106 CO2 17* 25 BUN 8 17 CREATININE 0.71 0.72 CALCIUM 8.6 9.0 No results for input(s): INR in the last 72 hours. No results for input(s): SEDRATE, CRP in the last 72 hours. No results for input(s): HCG in the last 72 hours. Assessment Ana Maria is a 54 y.o.female s/p C4-5 ACDF 01/19 Plan -Immobilization: No c-collar needed -Consults: -Internal medicine consult for medical management -Acute pain service consult for pain control recommendations -Antibiotics: ancef until drain is pulled -Dressings: Keep dressings clean dry and intact for 5 days post operatively, then ok to leave open to air if incision is without drainage. -Other: Drain care: ortho team will pull when appropriate. Record output every shift. -Neurochecks q4 -Labs: No further labs needed from ortho standpoint. -PT/OT -DVT ppx: SCDs/mobilization -Follow-up with Dr Mehta in 2 weeks -Ortho primary team. Dispo: dc home once drain able to be pulled Juanito Mckinney M.D. [facility] Nurse Note* Randa Baird RN - 01/21/2024 11:30 PM EDT Called from charge nurse--pt had concerns and wanted to discuss. Arrived to pt's room and introduced myself. Pt's concerns written down on complaint log and will forward to manager cardiology. Pt informed and understands. Had primary nurse page resident corporate health consultant to explain the plan to the patient. Resident arrived while I was in the room. Pt satisfied with actions taken. [facility] [id number] Nurse Note* Randa Baird RN - 01/21/2024 11:30 PM EDT Called from charge nurse--pt had concerns and wanted to discuss. Arrived to pt's room and introduced myself. Pt's concerns written down on complaint log and will forward to manager cardiology. Pt informed and understands. Had primary nurse page resident corporate health consultant to explain the plan to the patient. Resident arrived while I was in the room. Pt satisfied with actions taken. documented in this [facility]04-06-2024 NotePHYSICAL THERAPY [facility] Initial Evaluation Name/MRN: Ana Maria Leal ([id number]) Evaluation Date: 01/21/2024 Date of : 1970 Admission Date: 01/20/2024 11:24 AM Age: 54 y.o. Room/Bed: -6130/-6130 A Discharge Recommendation: Home with assist PRN Equipment Needed: No Assessment IMPRESSION: 54 y.o. pt admitted to [facility] for cervical stenosis. They were Mod I for bed mobility, Mod I for transfers, and indep for ambulation. Lives with and daughter who can assist as needed. Would recommend home with assistance PRN at discharge. No acute PT needs at this time, will sign off. Diagnosis: s/p anterior cervical discectomy and fusion C4-5 with allograft and plate 4/5 Prognosis: good Performance Deficits /Impairments: Increased Pain Decision Making: Low Complexity Subjective Pt supine in bed. Agreeable to PT session. Cleared by nursing Pain: Jurado-Jeronimo Pain Ratin = Hurts little more Pain Location: anterior neck Past Medical History: Past Medical History: Diagnosis Date Arthritis Bulging of cervical intervertebral disc DDD (degenerative disc disease), cervical Liver disease FATTY LIVER PONV (postoperative nausea and vomiting) Spinal stenosis Past Surgical History: Past Surgical History: Procedure Laterality Date BREAST REDUCTION CARPAL TUNNEL RELEASE Bilateral CERVICAL DISCECTOMY 03/01/2018 ACDF C5-6, C6-7 CERVICAL FUSION 01/20/2024 removal plate inspection fusion cervical 5-7, anterior cervical disectomy and fusion cervical 4-5 with allograft and plate SECTION (HISTORICAL) x 3 HYSTERECTOMY LUMBAR DISC SURGERY Admission Diagnosis: Patient Active Problem List Diagnosis Date Noted Radiculopathy of cervical region 01/20/2024 PONV (postoperative nausea and vomiting) 01/04/2024 Cervical stenosis of spine 03/01/2018 Medical Precautions: No active isolations Proper PPE donned/doffed in accordance with facility standards. Fall Risk: Kelly Fall Risk Score: 20 (Low Risk) Precautions/Restrictions: Spine Precautions: C-Spine Precautions Lines/Drains/Airways: PIV, BRYON drain Family/Caregiver Present: spouse Overall Cognitive Status: WNL Overall Orientation Status: Oriented x4 Vision: wears glasses at all times and and are being used during the eval Hearing: normal Social/Functional History Patient admitted from home. 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 ADL Assistance: Independent Ambulation Assistance: Independent Transfer Assistance: Independent Objective Lower Extremity Assessment AROM: WNL PROM: WNL Strength: WFL (grossly 4/5 overall) Bed Mobility: Supine to sit: Modified Independent Sit to supine: Modified Independent HOB elevated Transfers Sit to stand: Modified Independent Stand to sit: Modified Independent EOB x2 Ambulation Ambulation 1 Assistive device(s) used: none Assist level: Independent Distance (ft): 650' Quality of gait: slow sydni Sensation: WFL Outcome Measures AM-PAC How much HELP from another person do you currently need Turning from your back to your side while in a flat bed without using bedrails?: None Moving from lying on your back to sitting on the side of a flat bed without using bedrails?: None Moving to and from a bed to a chair (including a wheelchair)?: None Standing up from a chair using your arms (wheelchair or bedside chair)?: None Walking in a hospital room?: None Stair climbing assessed?: No AM-PAC Inpatient Mobility Raw Score (No Stairs) : 20 JH-HLM -HL Score: Walked 250 ft or more (i.e. several laps on unit) Plan No skilled acute PT indicated at this time. Please reconsult should changes occur. Safety/Education Safety Safety Devices in place: call light within reach, left in bed, and nurse notified Restraints: No Education Education Given To: patient Education Provided: PT Role, PT Goals, Plan of Care, Precautions, Equipment, Discharge Recommendations, and Benefits of Increasing Activity Education Method: Verbal Barriers to Learning: None Education Outcome: Verbalized Understanding Goals Patient Stated Goal: to go home Encounter Problems Encounter Problems (Active) Pain - Adult Therapy Time Individual Co-treatment Time In 08 Time Out 0821 Minutes 12 Timed Code Treatment Minutes: (low eval) Ira Pierson PT Patient's Physical Therapy Plan of Care supervision is transferred to a [facility] Therapy Services Physical Therapist. Goals and/or treatment plan was established in collaboration with patient/family/other representatives.[facility]04-06-2024 [facility] SURGICAL PROGRESSIVE CARE UNIT PCU [address] [facility] [address] Dept: [phone] Loc: [phone] Orthopedic Spine Progress Note Name: Ana Maria Leal Date:01/21/2024 Attending:Nenita Mehta MD Subjective No events o/n. Pain well controlled. Still has some residual right shoulder pain but numbness in hands is gone. Wants to go home today if possible. Objective Vitals: Vitals: 01/20/24 2203 01/21/24 0021 01/21/24 0512 01/21/24 0834 BP: 150/79 124/62 137/71 155/79 BP Location: Left arm Left arm Left arm Patient Position: Lying Sitting Sitting Pulse: 61 60 57 59 Resp: 16 16 18 17 Temp: 36.1 ?C (97 ?F) 36.1 ?C (97 ?F) 37.1 ?C (98.7 ?F) TempSrc: Temporal Temporal Temporal SpO2: 98% 95% 96% 95% Weight: Height: Physical Exam: General: NAD Neuro Extremity Exam: Upper Extremity Motor: Del Bi Tri WE WF Int FF Right 5 5 4+ 5 5 5 4+ Left 5 5 4+ 5 5 5 4+ Upper extremity sensation to light touch: C5 C6 C7 C8 T1 Right Intact Intact Intact Intact Intact Left Intact Intact Intact Intact Intact Neck: Dressing c/d/I Drain with around 20 ml SS output LABS: Recent Labs 01/21/24 004 WBC 13.3* HGB 13.5 HCT 41.1 PLT 309 Recent Labs 01/21/2441 NA 137 K 3.8 CL 104 CO2 17* BUN 8 CREATININE 0.71 CALCIUM 8.6 No results for input(s): INR in the last 72 hours. No results for input(s): SEDRATE, CRP in the last 72 hours. No results for input(s): HCG in the last 72 hours. Assessment Ana Maria is a 54 y.o.female s/p C4-5 ACDF / Plan -Immobilization: No c-collar needed -Consults: -Internal medicine consult for medical management -Acute pain service consult for pain control recommendations -Antibiotics: ancef until drain is pulled -Dressings: Keep dressings clean dry and intact for 5 days post operatively, then ok to leave open to air if incision is without drainage. -Other: Drain care: ortho team will pull when appropriate. Record output every shift. -Neurochecks q4 -Labs: No further labs needed from ortho standpoint. -PT/OT -DVT ppx: SCDs/mobilization -Follow-up with Dr Mehta in 2 weeks -Ortho primary team. Dispo: dc home once drain able to be pulled Juanito Mckinney M.D. [facility] Discharge instructions* Discharge Instructions* Erica English MD - 01/20/2024 11:09 PM EDT DISCHARGE INSTRUCTIONS ANTERIOR CERVICAL DISCECTOMY FUSION INCISION: Please make sure your incisions are checked at least twice daily for signs and symptoms of infection: If any of the below should occur, please call the office. Drainage from incisional site Opening of incisions Fevers greater than 101 Flu-like symptoms Increased redness and/or tenderness You do not have any suture that need to be removed. SLEEPING You may sleep in any position that makes you comfortable as long as your collar is securely in place. Many patients find comfort sleeping in a recliner chair. It is normal to have difficulty sleepingfor the first several weeks following your surgery. SHOWERING: You may shower as normal once the large, bandages are removed from your incisions. If they are not removed before your discharge from the hospital, you may remove them 36-48hrs after your surgery. Hair washing is permissible while in the shower. No tub baths, hot tubs or whirlpools for 6 weeks. Keep Incision dry as able. No direct soap, rubbing, or scrubbing to the incision. Pat area dry. Reapplya clean dry dressing to the incision daily after showering. EXERCISE: You have unlimited walking and stair climbing privileges. Walking outside (in nice weather only) orwalking on a treadmill (no incline) is also allowed. Please get up and walk at least 4 times daily. Do NOT lift anything weighing greater than 10-15lbs. Especially try to avoid lifting or reaching above your head. PAIN: Take pain medication as prescribed. As your pain level decreases, you may begin to take [id number] Extra Strength Tylenol. The maximum Tylenol you are able to take is 4000 mg a day total. You should try to wean from your pain medicine in 2-3 weeks. It is illegal to drive while taking narcotic pain medication. Pain medication will not be refilled overnight and on the weekends. If you will run out please callearly. Narcotic pain medicine WILL cause constipation. Please obtain the following medication to prevent constipation. Colace twice daily. Purchase over the counter. (May substitute with similar med such as Senna.) Miralax 1-2 times daily. Over the counter. Twice daily if you are feeling constipated. Magnesium Citrate. OTC. If no bowel movement in a few days and you are becoming uncomfortable. Enema. Over the counter. If no relief with above regiment. DRIVING: You may NOT drive a car until told otherwise by your physician (usually at your first office visit). You may be a passenger for short distances (20-30 minutes). If you must take a longer trip, make sure to make several pit stops so that you can walk around and stretch your legs. Reclining the passenger seat seems to be the most comfortable position for most patients. FOLLOW-UP APPOINTMENTS: Please call to make an appointment for 2-3 weeks from your surgery date. QUESTIONS or CONCERNS: If you have any additional questions/concerns, please contact the office. documented in this [facility]04-05-2024 Consult note* Miquel Zhou MD - 01/20/2024 9:41 PM EDTAssociated Order(s): IP CONSULT TO INTERNAL MEDICINE Images from the original note were not included. Hospital Medicine Consult Patient - Ana Maria Leal, Age - 54 y.o. - 1970 Room Number - [id number] Consulting - Nenita Mehta MD Primary Care Physician - Liza Castro III[id number] Date of Admission - 01/20/2024 11:24 AM Hospital Day - 0 Reason for Consult: Medical Management HISTORY OF PRESENT ILLNESS: Ana Maria is a 54 y.o. female POD #0 Hardware removal of C5-7 ACDF and C4-5 ACDF . Per Orthopedic specialty documentation no intraoperative complication or concern reported. USACS consulted for postoperative evaluation. Pt Hx significant for HTN. On arrival to Pt sleeping heavily - Per MAR has recently received 10mg Oxycodone. Rouses briefly to gentle tactile stimulation but returns to sleep. Limited examination - chart, vitals reviewed. Vitals stable - mild HTN. Pt SpO2 >90% on room air. Full assessment in AM Past Medical History: Past Medical History: Diagnosis Date Arthritis Bulging of cervical intervertebral disc DDD (degenerative disc disease), cervical Liver disease FATTY LIVER PONV (postoperative nausea and vomiting) Spinal stenosis Past Surgical History: Past Surgical History: Procedure Laterality Date BREAST REDUCTION CARPAL TUNNEL RELEASE Bilateral CERVICAL DISCECTOMY 03/01/2018 ACDF C5-6, C6-7 CERVICAL FUSION 01/20/2024 removal plate inspection fusion cervical 5-7, anterior cervical disectomy and fusion cervical 4-5 with allograft and plate SECTION (HISTORICAL) x 3 HYSTERECTOMY LUMBAR DISC SURGERY Medications: acetaminophen, 650 mg, Oral, q6h ceFAZolin, 2,000 mg, IntraVENous, q8h gabapentin, 300 mg, Oral, Nightly senna-docusate sodium, 1 tablet, Oral, BID sodium chloride 0.9%, 10 mL, IntraVENous, 2 times per day lactated Ringer's, 50 mL/hr, Last Rate: Stopped (01/20/242052) PRN medications: hydrALAZINE, magnesium hydroxide, methocarbamol, morphine sulfate OR morphine sulfate, naloxone (Narcan) 0.4 mg in 0.9% sodium chloride 10 mL syringe, ondansetron ODT OR ondansetron, oxyCODONE OR oxyCODONE, polyethylene glycol (PEG) 3350, sodium chloride, sodium chloride 0.9% Allergies: Seasonal, Cat hair extract, Hydrocodone, and Mold [molds & smuts] Social History: Social History Socioeconomic History Marital status: Spouse name: Not on file Number of children: Not on file Years of education: Not on file Highest education level: Not on file Occupational History Not on file Tobacco Use Smoking status: Former Packs/day: 0.25 Years: 30.00 Additional pack years: 0.00 Total pack years: 7.50 Types: Cigarettes Quit date: 10/17/2015 Years since quittin.2 Smokeless tobacco: Never Vaping Use Vaping Use: Never used Substance and Sexual Activity Alcohol use: Yes Alcohol/week: 1.0 standard drink of alcohol Types: 1 Glasses of wine per week Comment: OCCAS 1 glass a week Drug use: Yes Types: Other Comment: CBD OIL Sexual activity: Not on file Other Topics Concern Not on file Social History Narrative Not on file Social Determinants of Health Financial Resource Strain: Not on file Food Insecurity: Not on file Transportation Needs: Not on file Physical Activity: Not on file Stress: Not on file Social Connections: Not on file Intimate Partner Violence: Not At Risk (01/20/2024) Humiliation, Afraid, Rape, and Kick questionnaire Fear of Current or Ex-Partner: No Emotionally Abused: No Physically Abused: No Sexually Abused: No Housing Stability: Not on file Family History: No family history on file. REVIEW OF SYSTEMS: 10 point ROS obtained, as per HPI, otherwise NEG Physical Exam: Vitals: BP (!) 169/96 (BP Location: Right arm, Patient Position: Lying) Pulse 73 Temp 36.1 C (97 F) (Temporal) Resp 16 Ht 5' 2.99 (1.6 m) Wt 180 lb (81.6 kg) SpO2 98% BMI 31.89 kg/m BMI Classification: Obese (BMI 30.0-39.9) Pulse Ox: SpO2 Av.5 % Min: 93 % Max: 99 % Supplemental O2: O2 Flow Rate (L/min): 2 L/min Physical Exam Constitutional: General: She is awake. Comments: Sleeping heavily. Rouses briefly to tactile stimulation but returns to sleep. Limited examination HENT: Head: Normocephalic and atraumatic. Eyes: General: Vision grossly intact. Gaze aligned appropriately. Cardiovascular: Rate and Rhythm: Normal rate and regular rhythm. Pulmonary: Breath sounds: Normal breath sounds. No wheezing. Skin: General: Skin is warm and dry. Neurological: General: No focal deficit present. Psychiatric: Behavior: Behavior is cooperative. LABS: No results found for this or any previous visit (from the past 24 hour(s)). Urine Culture: No results found for this or any previous visit. IMAGING: See report Assessment Data: (LOW: 2x CAT1 or independent historian MOD: 3x CAT1 or 1x CAT3 EXTENSIVE: 3x CAT1 and 1x CAT3) Acute, acute on chronic, unstable/uncontrolled chronic problems/diagnoses: S/P Hardware removal of C5-7 ACDF and C4-5 ACDF - Orthopedic specialty managing - PRN analgesia - PT/OT consulted 2. Reports Hx of Postoperative Nausea and Vomiting - PRN IV antiemetic Zofran 4mg Stable chronic problems affecting care, new non-acute diagnoses: Hypertension - PRN PO Hydralazine 25mg Plan As a result of the above findings & factors, the following mgmt was pursued: - am labs, replace lytes prn - PT/OT/CM/SW - delirium precautions: increase activity and limit nighttime disturbances - DVT prophylaxis: SCDs and encourage ambulation Complexity: Chronic illness with mild to moderate exacerbation, progression, or side effect of tx (MOD). Risk: Admission to hospital-level care was considered or occurred (HIGH). Advance Directive: FULL CODE Anticipated Discharge - Date - TBD - Location - TBD Total time spent (which include face to face and non face to face encounters) : 62 minutes Extended Emergency Contact Information Primary Emergency Contact: Yuli William Relation: Child Secondary Emergency Contact: Jalil Leal Relation: Spouse Miquel Zhou MD Division of Hospitalist Medicine Inpatient Medical Services/[facility] Work Phone: [phone] 262-264804-05-2024 Consult note* Miquel Zhou MD - 01/20/2024 9:41 PM EDTAssociated Order(s): IP CONSULT TO INTERNAL MEDICINE Images from the original note were not included. Hospital Medicine Consult Patient - Ana Maria Leal, Age - 54 y.o. - 1970 Room Number - [id number] Consulting - Nenita Mehta MD Primary Care Physician - Liza Castro III, MD [id number] Date of Admission - 01/20/2024 11:24 AM Hospital Day - 0 Reason for Consult: Medical Management HISTORY OF PRESENT ILLNESS: Ana Maria is a 54 y.o. female POD #0 Hardware removal of C5-7 ACDF and C4-5 ACDF . Per Orthopedic specialty documentation no intraoperative complication or concern reported. USACS consulted for postoperative evaluation. Pt Hx significant for HTN. On arrival to Pt sleeping heavily - Per MAR has recently received 10mg Oxycodone. Rouses briefly to gentle tactile stimulation but returns to sleep. Limited examination - chart, vitals reviewed. Vitals stable - mild HTN. Pt SpO2 >90% on room air. Full assessment in AM Past Medical History: Past Medical History: Diagnosis Date Arthritis Bulging of cervical intervertebral disc DDD (degenerative disc disease), cervical Liver disease FATTY LIVER PONV (postoperative nausea and vomiting) Spinal stenosis Past Surgical History: Past Surgical History: Procedure Laterality Date BREAST REDUCTION CARPAL TUNNEL RELEASE Bilateral CERVICAL DISCECTOMY 03/01/2018 ACDF C5-6, C6-7 CERVICAL FUSION 01/20/2024 removal plate inspection fusion cervical 5-7, anterior cervical disectomy and fusion cervical 4-5 with allograft and plate SECTION (HISTORICAL) x 3 HYSTERECTOMY LUMBAR DISC SURGERY Medications: acetaminophen, 650 mg, Oral, q6h ceFAZolin, 2,000 mg, IntraVENous, q8h gabapentin, 300 mg, Oral, Nightly senna-docusate sodium, 1 tablet, Oral, BID sodium chloride 0.9%, 10 mL, IntraVENous, 2 times per day lactated Ringer's, 50 mL/hr, Last Rate: Stopped (01/20/242052) PRN medications: hydrALAZINE, magnesium hydroxide, methocarbamol, morphine sulfate OR morphine sulfate, naloxone (Narcan) 0.4 mg in 0.9% sodium chloride 10 mL syringe, ondansetron ODT OR ondansetron, oxyCODONE OR oxyCODONE, polyethylene glycol (PEG) 3350, sodium chloride, sodium chloride 0.9% Allergies: Seasonal, Cat hair extract, Hydrocodone, and Mold [molds & smuts] Social History: Social History Socioeconomic History Marital status: Spouse name: Not on file Number of children: Not on file Years of education: Not on file Highest education level: Not on file Occupational History Not on file Tobacco Use Smoking status: Former Packs/day: 0.25 Years: 30.00 Additional pack years: 0.00 Total pack years: 7.50 Types: Cigarettes Quit date: 10/17/2015 Years since quittin.2 Smokeless tobacco: Never Vaping Use Vaping Use: Never used Substance and Sexual Activity Alcohol use: Yes Alcohol/week: 1.0 standard drink of alcohol Types: 1 Glasses of wine per week Comment: OCCAS 1 glass a week Drug use: Yes Types: Other Comment: CBD OIL Sexual activity: Not on file Other Topics Concern Not on file Social History Narrative Not on file Social Determinants of Health Financial Resource Strain: Not on file Food Insecurity: Not on file Transportation Needs: Not on file Physical Activity: Not on file Stress: Not on file Social Connections: Not on file Intimate Partner Violence: Not At Risk (01/20/2024) Humiliation, Afraid, Rape, and Kick questionnaire Fear of Current or Ex-Partner: No Emotionally Abused: No Physically Abused: No Sexually Abused: No Housing Stability: Not on file Family History: No family history on file. REVIEW OF SYSTEMS: 10 point ROS obtained, as per HPI, otherwise NEG Physical Exam: Vitals: BP (!) 169/96 (BP Location: Right arm, Patient Position: Lying) Pulse 73 Temp 36.1 C (97 F) (Temporal) Resp 16 Ht 5' 2.99 (1.6 m) Wt 180 lb (81.6 kg) SpO2 98% BMI 31.89 kg/m BMI Classification: Obese (BMI 30.0-39.9) Pulse Ox: SpO2 Av.5 % Min: 93 % Max: 99 % Supplemental O2: O2 Flow Rate (L/min): 2 L/min Physical Exam Constitutional: General: She is awake. Comments: Sleeping heavily. Rouses briefly to tactile stimulation but returns to sleep. Limited examination HENT: Head: Normocephalic and atraumatic. Eyes: General: Vision grossly intact. Gaze aligned appropriately. Cardiovascular: Rate and Rhythm: Normal rate and regular rhythm. Pulmonary: Breath sounds: Normal breath sounds. No wheezing. Skin: General: Skin is warm and dry. Neurological: General: No focal deficit present. Psychiatric: Behavior: Behavior is cooperative. LABS: No results found for this or any previous visit (from the past 24 hour(s)). Urine Culture: No results found for this or any previous visit. IMAGING: See report Assessment Data: (LOW: 2x CAT1 or independent historian MOD: 3x CAT1 or 1x CAT3 EXTENSIVE: 3x CAT1 and 1x CAT3) Acute, acute on chronic, unstable/uncontrolled chronic problems/diagnoses: S/P Hardware removal of C5-7 ACDF and C4-5 ACDF - Orthopedic specialty managing - PRN analgesia - PT/OT consulted 2. Reports Hx of Postoperative Nausea and Vomiting - PRN IV antiemetic Zofran 4mg Stable chronic problems affecting care, new non-acute diagnoses: Hypertension - PRN PO Hydralazine 25mg Plan As a result of the above findings & factors, the following mgmt was pursued: - am labs, replace lytes prn - PT/OT/CM/SW - delirium precautions: increase activity and limit nighttime disturbances - DVT prophylaxis: SCDs and encourage ambulation Complexity: Chronic illness with mild to moderate exacerbation, progression, or side effect of tx (MOD). Risk: Admission to hospital-level care was considered or occurred (HIGH). Advance Directive: FULL CODE Anticipated Discharge - Date - TBD - Location - TBD Total time spent (which include face to face and non face to face encounters) : 62 minutes Extended Emergency Contact Information Primary Emergency Contact: Yuli William Relation: Child Secondary Emergency Contact: Jalil Leal Relation: Spouse Miquel Zhou MD Division of Hospitalist Medicine Inpatient Medical Services/[facility] documented in this [facility]04-05-2024 NoteACH MAIN OR [address] [facility] [address] Dept: [phone] Adult Spine Service Patient Name: Ana Maria Leal Date of : 1970 Date: 01/22/24 Discharge Summary Admit date: 01/20/2024 Discharge date and time: 01/22/2024 7:03 PM Admitting Physician: Nenita Mehta MD Admission Diagnoses: Cervical Radiculopathy Discharge Diagnoses: same Operative Procedures: Hardware removal of C5-7 ACDF and C4-5 ACDF Indication for Admission: The patient has a history of the above diagnoses that became progressively worse and failed non-operative management. The risks and benefits of surgery were discussed with the patient and family, of which they elected to proceed with operative intervention. Hospital Course: The patient was admitted to the hospital on the day of surgery and underwent the above procedure. Post-operatively, the patient was transferred to the orthopaedic spine floor. They received 24 hours of prophylactic intravenous antibiotics. DVT prophylaxis included SCDs and early ambulation. The patient was able to tolerate a regular diet and their pain was reasonably controlled. The patient progressed well throughout the hospitalization and was deemed stable for discharge on above listed date. Disposition: Home or Self Care Discharge Medications: Medication List START taking these medications methocarbamol 750 MG tablet Commonly known as: Robaxin Take 1 tablet (750 mg) by mouth 3 times daily as needed for muscle spasms for up to 10 days. oxyCODONE-acetaminophen 5-325 MG tablet Commonly known as: Percocet Take 1 tablet by mouth every 6 hours as needed for severe pain (7-10) for up to 7 days. CONTINUE taking these medications cholecalciferol 25 MCG (1000 UT) capsule Generic drug: cholecalciferol ibuprofen 200 MG tablet meloxicam 15 MG tablet Commonly known as: Mobic Multi-Vitamin tablet NON FORMULARY omega-3 300 MG capsule Commonly known as: FISH OIL QC TUMERIC COMPLEX PO zinc, chelated 12.5 mg tablet split tablet Where to Get Your Medications These medications were sent to [facility] [address] [place] [id number] [address] methocarbamol 750 MG tablet oxyCODONE-acetaminophen 5-325 MG tablet Patient Instructions: The patient will notify me for any increased bleeding, drainage, progressively worsening pain, or other concerning symptoms such as neurologic deficit. They have been instructed to report to the emergency room immediately for any chest pain, shortness of breath, neck swelling or any of the aforementioned symptoms. Activity Precautions: No lifting more than a gallon of milk. Ok for ambulation. Wound Care: Keep incision clean and dry. See discharge instruction sheet for additional details. Follow-up visit: post-op with Dr. Mehta Signed: Siddhartha Titus MD 01/22/2024 8:53 [facility]04-05-2024 NotePatient: Ana Maria Leal Procedure Summary Date: 01/20/24 Room / Location: [address] Operating Room Anesthesia Start: 1542 Anesthesia Stop: 1819 Procedure: REMOVAL PLATE INSPECTION FUSION CERVICAL 5-7, ANTERIOR CERVICAL DISCECTOMY AND FUSION CERVICAL 4-5 WITH ALLOGRAFT AND PLATE (Spine Cervical) Diagnosis: Spinal stenosis, cervical region (Spinal stenosis, cervical region [M48.02]) Surgeons: Nenita Mehta MD Responsible Provider: Shane Tenorio MD Anesthesia Type: general ASA Status: 3 Anesthesia Type: general Vitals Value Taken Time BP 126/71 01/20/24 1821 Temp 36.1 ?C (97 ?F) 01/20/24 1821 Pulse 79 01/20/24 1821 Resp 10 01/20/24 1821 SpO2 94 % 01/20/241820 Vitals shown include unfiled device data. Anesthesia Post Evaluation Patient location during evaluation: PACU Patient participation: complete - patient participated Level of consciousness: awake and alert Pain management: satisfactory to patient Airway patency: patent Dental Injury: no Cardiovascular status: acceptable, blood pressure returned to baseline and hemodynamically stable Respiratory status: acceptable and spontaneous ventilation Hydration status: euvolemic Nausea/Vomiting: controlled No notable events documented. Patient can be discharged once all PACU criteria has been met.[facility]04-05-2024 NotePatient: Ana Maria Leal Procedure Summary Date: 01/20/24 Room / Location: [address] Operating Room Anesthesia Start: 1542 Anesthesia Stop: 1819 Procedure: REMOVAL PLATE INSPECTION FUSION CERVICAL 5-7, ANTERIOR CERVICAL DISCECTOMY AND FUSION CERVICAL 4-5 WITH ALLOGRAFT AND PLATE (Spine Cervical) Diagnosis: Spinal stenosis, cervical region (Spinal stenosis, cervical region [M48.02]) Surgeons: Nenita Mehta MD Responsible Provider: Shane Tenorio MD Anesthesia Type: general ASA Status: 3 Anesthesia Type: general Vitals Value Taken Time BP 126/71 01/20/24 1821 Temp 36.1 ?C (97 ?F) 01/20/24 1821 Pulse 79 01/20/24 1821 Resp 10 01/20/24 1821 SpO2 94 % 01/20/24 1821 Vitals shown include unfiled device data. Anesthesia Post Evaluation Patient location during evaluation: PACU Patient participation: complete - patient participated Level of consciousness: awake and alert Pain management: satisfactory to patient Multimodal analgesia pain management approach Airway patency: patent Two or more strategies used to mitigate risk of obstructive sleep apnea Cardiovascular status: acceptable and hemodynamically stable Respiratory status: acceptable Hydration status: acceptable No notable events documented. MIPS #430 PONV Patient received an inhalational anesthetic (4554F) Patient exhibits three or more risk factors for PONV (4556F) Patient received at leaset 2 prophylactic Rx PONV anti-emtic agents of different classes preop and/or intraop (G9775) MIPS # 424 Perioperative Temperature Management Anesthesia time was 60 minutes or longer (4255F) Anesthesai administered was General (inhalational or TIVA) or Neuraxial block (X0424) At least one body temperature greater than 95.8F/35.5C achieved within the 30 mins immediately prior to or the 15 minutes immediately following anesthesia end time (G9771) MIPS #477 Multimodal Pain Management Not emergent case Patient was administered multimodal pain management (two or more drugs and/or interventions excluding systemic opioids) in the periopeartive period occurring at some time between 6 hours prior to anesthesia start time until discharged from PACU (G2148) MIPS #404 Anesthesiology Smoking Abstinence The patient is not a current smoker (e.g. cigarette, cigar, pipe, e-cigarette/vaping/marijuana) If no stop here (XX404) I completed my handoff to the receiving clinician during which we: 1. Identified the patient 2. Identified the responsible provider 3. Reviewed the pertinent medical history 4. Discussed the surgical course 5. Reviewed intra-op anesthesia management and issues during anesthesia 6. Set expectations for post-procedure period 7. Allowed opportunity for questions and acknowledgement of understanding.[facility]04-05-2024 Note* Perioperative Nursing Note - Pedro Pablo Corral RN - 01/20/2024 7:28 PM EDT [facility] RN [id number]* Perioperative Nursing Note - Pedro Pablo Corral RN - 01/20/2024 7:28 PM EDT Report given to RN for [id number]* Perioperative Nursing Note - Pedro Pablo Corral RN - 01/20/2024 6:59 PM EDT Faxed report sheet to [facility] [place] [id number] Note* Perioperative Nursing Note - Pedro Pablo Corral RN - 01/20/2024 6:59 PM EDT Faxed report sheet to [facility] [place] [id number] NoteAirway Date/Time: 01/20/2024 3:49 PM Urgency: scheduled Airway not difficult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 Encounter for screening for malignant ne oplasm of colon October 31, 2024 8:01am Influenza due to influenza virus, type A , human November 22, 2024 12:47pm [facility] January 16, 2025 10:01am Fatty liver disease, nonalcoholic January 16, 2025 10:01am Insulin resistance January 16, 2025 10:0 1am Hypertension January 16, 2025 10:0 1am Chief Complaint Admit Date HEADACHE, SORE THROAT, FEVER, COUGH Febr uary 2024 12:47pm Annual/Physical January 16, 2025 10:0 1am INT LAB ORDERS January 16, 2025 11:3 4am R EAR ACHE March 13, 2025 10:28 am Reason for Visit Admit Date Influenza due to influenza virus, type A , human November 22, 2024 12:47pm [facility] January 16, 2025 10:01am Fatty liver disease, nonalcoholic January 16, 2025 10:01am Insulin resistance January 16, 2025 10:0 1am Hypertension January 16, 2025 10:0 1am Additional Source Comments INFORMATION SOURCE (unrecogn ized section and content) DATE CREATED AUTHOR 05/05/2018 [facility] DATE CREATED AUTHOR AUTHOR'S ORGANIZ ATION 05/17/2018 [facility] DATE CREATED AUTHOR AUTHOR'S ORGANIZ ATION 02/02/2024 [facility] DATE CREATED AUTHOR AUTHOR'S ORGANIZ ATION 02/20/2025 [facility] DATE CREATED AUTHOR AUTHOR'S ORGANIZ ATION 06/13/2025 [facility] Source Comments (unrecognize d section and content) In the event this informatio n is protected by the Federal Confidentiality of Alcohol and Drug Abuse Patient Records regulations: The Federal rules restrict any use of the information to criminally investigate or prosecute any alcohol or drug abuse patient.[facility] the event this information is protected by the Federal Confidentiality of Alcohol and Drug Abuse Patient Records regulations: The Federal rules restrict any use of the information to criminally investigate or prosecute any alcohol or drug abuse patient.[facility] the event this information is protected by the Federal Confidentiality of Alcohol and Drug Abuse Patient Records regulations: The Federal rules restrict any use of the information to criminally investigate or prosecute any alcohol or drug abuse patient.[facility] the event this information is protected by the Federal Confidentiality of Alcohol and Drug Abuse Patient Records regulations: The Federal rules restrict any use of the information to criminally investigate or prosecute any alcohol or drug abuse patient.[facility] the event this information is protected by the Federal Confidentiality of Alcohol and Drug Abuse Patient Records regulations: The Federal rules restrict any use of the information to criminally investigate or prosecute any alcohol or drug abuse patient.[facility] the event this information is protected by the Federal Confidentiality of Alcohol and Drug Abuse Patient Records regulations: The Federal rules restrict any use of the information to criminally investigate or prosecute any alcohol or drug abuse patient.[facility] the event this information is protected by the Federal Confidentiality of Alcohol and Drug Abuse Patient Records regulations: The Federal rules restrict any use of the information to criminally investigate or prosecute any alcohol or drug abuse patient.[facility] Reason for Visit (unrecogniz ed section and content) Reason Comments Recheck 3 month follow up Reason Comments Follow Up Reason Comments New Patient Specialty Diagnoses / Procedures Referred By Contac t Referred To Contact Diagnoses Spinal stenosis, cervical region Spinal stenosis, cervical region [M48.02] Procedures NE REMOVAL ANTERIOR INSTRUMENTATION NE ARTHRD ANT INTERBODY DECOMPRESS CERVICAL BELW C2 NE ALLOGRAFT FOR SPINE SURGERY ONLY STRUCTURAL NE ANTERIOR INSTRUMENTATION 2-3 VERTEBRAL SEGMENTS REMOVAL PLATE INSPECTION FUSION CERVICAL 5-7, ANTERIOR CERVICAL DISCECTOMY AND FUSION CERVICAL 4-5 WITH ALLOGRAFT AND PLATE Nenita Mehta MD [address] [facility] [address] [facility] [address] [address] [place] [address] [place] [address] [place] [address] Referral ID Status Reason Start Date Expiration Date Visits Re quested Visits Authorized [id number] 1 1 Reason Comments Urinary Frequency Frequency, urgency a nd burning x 1 day Reason Onset Date Comments Results 02/04/2025 Care Teams (unrecognized sec tion and content) Deputy Bailiff Relationship Specialty Start Date End Date Shamar Peña MD [address] [facility], [place] [address] PCP - [facility] 07/22/21 Deputy Bailiff Relationship Specialty Start Date End Date Shamar Peña MD [address] [facility], [place] [id number] PCP - General Family Practice 07/22/21 Deputy Bailiff Relationship Specialty Start Date End Date Shamar Peña MD [address] [facility], [place] [address] PCP - [facility] Family Practice 07/22/21 Deputy Bailiff Relationship Specialty Start Date End Date Shamar Peña MD [address] [facility], [place] [id number] PCP - General Family Practice 07/22/21 Team Status: Active Member Role Status Dates Dr. Liza Castro III, MD Family Provider Active Dr. Lenore Proctor MD Primary Care Provider Active Team Status: Inactive Member Role Status Dates Dr. Luke Boss MD Primary Care Provider, Referri ng Provider Active Dr. Grisel Voss MD Attending Provider Active Team Status: Inactive Member Role Status Dates Dr. Luke Boss MD Primary Care Provider Active Dr. Lenore Proctor MD Attending Provider Active Team Status: Active Member Role Status Dates Dr. Lenore Proctor MD Primary Care Provider Active Benjamin Peguero Attending Provider Active Team Status: Inactive Member Role Status Dates Dr. Lenore Proctor MD Primary Care Provider, Attendi ng Provider Active Team Status: Inactive Member Role Status Dates Dr. Lenore Proctor MD Primary Care Pro vider, Attending Provider, Referring Provider Active Team Status: Inactive Member Role Status Dates Dr. Lenore Proctor MD Primary Care Provider, Referri ng Provider Active Chong SLATER PA Attending Provider Active Team Status: Inactive Member Role Status Dates Dr. Lenore Proctor MD Primary Care Provider Active Chong SLATER PA Attending Provider, Referring Provi deep Active Team Status: Active Member Role Status Dates Dr. Lenore Proctor MD Primary Care Provider Active Dr. Jamari Hobson MD Attending Provider Active Team Status: Inactive Member Role Status Dates Dr. Lenore Proctor MD Primary Care Provider Active NELI SUERO MD Attending Provider, Referring Pro vider Active Team Status: Active Member Role Status Dates Dr. Lenore Proctor MD Primary Care Provider Active Dr. Jamari Hobson MD Attending Provider Active NELI SUERO MD Referring Provider Active Team Status: Inactive Member Role Status Dates Dr. Luke Boss MD Primary Care Provider Active Dr. Grisel Voss MD Attending Provider, Referr ing Provider Active Deputy Bailiff Relationship Specialty Start Date End Date Liza Castro III, MD PCP - General 02/13/18 Team Status: Inactive Member Role Status Dates Dr. Luke Boss MD Referring Provider Active Dr. Grisel Voss MD Attending Provider Active Dr. Lenore Proctor MD Primary Care Provider Active Deputy Bailiff Relationship Specialty Start Date End Date Liza Castro III, MD PCP - General 02/13/18 Deputy Bailiff Relationship Specialty Start Date End Date Shamar Peña MD [address] [place] [address] PCP - General Family Medicine 07/22/21 Team Status: Inactive Member Role Status Dates Dr. Lenore Proctor MD Primary Care Provider Active Start: October 05, 2024 End: October 05, 2024 Dr. Lenore Proctor MD Attending Provider Active Start: October 05, 2024 End: October 05, 2024 Dr. Lenore Proctor MD Referring Provider Active Start: October 05, 2024 End: October 05, 2024 Team Status: Active Member Role Status Dates Dr. Lenore Proctor MD Primary Care Provider Active Start: October 05, 2024 Dr. Alexandr Mathews MD Attending Provider Active S tart: October 05, 2024 Team Status: Inactive Member Role Status Dates Dr. Lenore Proctor MD Primary Care Provider Active Start: October 05, 2024 End: October 05, 2024 Dr. Lenore Proctor MD Referring Provider Active Start: October 05, 2024 End: October 05, 2024 Dr. Grisel Voss MD Attending Provider Active Start: October 05, 2024 End: October 05, 2024 Team Status: Active Member Role Status Dates Dr. Lenore Proctor MD Primary Care Provider Active Start: October 25, 2024 Yudith Alegria Attending Provider Active Start: [email or web address] 2024 Team Status: Inactive Member Role Status Dates Dr. Lenore Proctor MD Primary Care Provider Active Start: October 31, 2024 End: October 31, 2024 Dr. Lenore Proctor MD Referring Provider Active Start: October 31, 2024 End: October 31, 2024 Dr. Sharona Zafar MD Attending Provider Active Start: October 31, 2024 End: October 31, 2024 Team Status: Active Member Role Status Dates Dr. Lenore Proctor MD Primary Care Provider Active Start: October 31, 2024 Dr. Lenoer Proctor MD Referring Provider Active Start: October 31, 2024 Dr. Sharona Zafar MD Attending Provider Active Start: October 31, 2024 Dr. Sharona Zafar MD Other Provider Active S tart: October 31, 2024 Team Status: Inactive Member Role Status Dates Dr. Lenore Proctor MD Primary Care Provider Active Start: November 22, 2024 End: November 22, 2024 Dr. Lenore Proctor MD Referring Provider Active Start: November 22, 2024 End: November 22, 2024 NOHEMY Serrano Attending Provider Active Sta rt: November 22, 2024 End: November 22, 2024 Team Status: Inactive Member Role Status Dates Dr. Lenore Proctor MD Primary Care Provider Active Start: January 16, 2025 End: January 16, 2025 Dr. Lenore Proctor MD Attending Provider Active Start: January 16, 2025 End: January 16, 2025 Team Status: Inactive Member Role Status Dates Dr. Lenore Proctor MD Primary Care Provider Active Start: January 16, 2025 End: January 16, 2025 Dr. Lenore Proctor MD Attending Provider Active Start: January 16, 2025 End: January 16, 2025 Dr. Lenore Proctor MD Referring Provider Active Start: January 16, 2025 End: January 16, 2025 Deputy Bailiff Relationship Specialty Start Date End Date Shamar Peña MD [address] [place], [place] [id number] PCP - General Family Medicine 07/22/21 PodlogEmilee jiang, GED PREPARATION TEACHER.SHOE SALESMAN [address] [place], [place] [address] [facility] 09/[facility]/24 Jill Prieto, GED PREPARATION TEACHER.SHOE SALESMAN [address] [place], [place] [address] [facility] 01/07/25 Deputy Bailiff Relationship Specialty Start Date End Date Shamar Peña MD [address] [place], [place] [address] PCP - General Family Medicine 07/22/21 ChinalogarEmilee, GED PREPARATION TEACHER.SHOE SALESMAN [address] [place], [place] [id number] [facility] Medicine 09/22/24 Jill Prieto, GED PREPARATION TEACHER.SHOE SALESMAN [address] [place], [place] [address] [facility] 01/07/25 Team Status: Inactive Member Role Status Dates Dr. Lenore Proctor MD Primary Care Provider Active Start: March 13, 2025 End: March 13, 2025 Dr. Lenore Proctor MD Referring Provider Active Start: March 13, 2025 End: March 13, 2025 Kael SLATER, PA Attending Provider Active Start: March 13, 2025 End: March 13, 2025 Goals (unrecognized section and content) Goals may be documented in a n alternate sectionGoals may be documented in an alternate sectionGoals may be documented in an alternate sectionGoals may be documented in an alternate sectionGoals may be documented in an alternate sectionGoals may be documented in an alternate sectionGoals may be documented in an alternate sectionGoals may be documented in an alternate sectionGoals may be documented in an alternate sectionGoals may be documented in an alternate sectionGoals may be documented in an alternate section Scheduled Active and Recently Administ ered Medications (unrecognized section and content) Medication Order 01/20/2024 01/21/2024 01/22/2024 acetaminophen (Tylenol) tablet 1,000 mg (COMPLETED) 1,000 mg, Oral, Once, On Tue01/20/24 at 1215, For 1 dose, Preprocedure, Maximum dose of acetaminophen is 4000 mg from all sources in 24 hours. Do not administer if patient has taken tylenol <6 hours earlier. Do not give if contraindicated ie. patient has active liver disease or cirrhosis. 1237 (Given - Provider: Adilene Jacinto RN) acetaminophen (Tylenol) tablet 650 mg 650 mg, Oral, Every 6 hours, First dose on Tue01/20/24 at 2115, Maximum dose of acetaminophen is 4000 mg from all sources in 24 hours. 2205 (Given - Provider: Kike Nobles RN) 0324 (Given - Provider: Kike Nobles RN)1034 (Given - Provider: Irene Kerns RN)1606 (Given - Provider: Irene Kerns RN)2019 (Given - Provider: Bard Ospina RN) 0315 (Not Given - Provider: Brad Ospina RN - Reason: Other - Comment: sleeping)0815 (Given - Provider: Nenita Haney RN)1526 (Given - Provider: Nenita Haney RN) aprepitant (Emend) capsule 40 mg (COMPLETED) 40 mg, Oral, Once, On Tue01/20/24 at 1300, For 1 dose, Preprocedure 1257 (Given - Provider: Adilene Jacinto RN) ceFAZolin in dextrose 4% (Ancef) IVPB 2,000 mg (CANCELED) 2,000 mg, IntraVENous, Administer over 30 Minutes, Every 8 hours, First dose on Tue01/20/24 at 2045, Recovery & On Unit, premix bag, Suspected Indication (Select all that apply): Surgical Prophylaxis 2101 (New Bag - Provider: Kike Nobles RN)2131 (Stopped - Provider: Kike Nobles RN) 0510 (New Bag - Provider: Kike Nobles RN)0540 (Stopped - Provider: Kike Nobles RN)1150 (New Bag - Provider: Irene Kerns, RN)1220 (Stopped - Provider: Irene Kerns, RN)2019 (New Bag - Provider: Brad Ospina, RN)2048 (Stopped - Provider: Brad Ospina, RN) 0419 (New Bag - Provider: Brad Ospina, RN)0449 (Stopped - Provider: Brad Ospina, RN)1148 (New Bag - Provider: Nenita Haney, RN)1218 (Stopped - Provider: Nenita Haney, RN) celecoxib (CeleBREX) capsule 400 mg (COMPLETED) 400 mg, Oral, Once, On Tue01/20/24 at 1215, For 1 dose, Preprocedure, Avoid with sulfa allergy or creatinine greater than 1.5. Avoid severe hepatic impairment or renal transplant. Avoid if Age > 69. 1237 (Given - Provider: Adilene Jacinto RN) famotidine (Pepcid) tablet 20 mg (COMPLETED)(Linked Group 1) 20 mg, Oral, Once, On Tue01/20/24 at 1215, For 1 dose, Preprocedure, IV or ORAL 1237 (Given - Provider: Adilene Jacinto RN) gabapentin (Neurontin) capsule 100 mg (COMPLETED) 100 mg, Oral, Once, On Tue01/20/24 at 1215, For 1 dose, Preprocedure, For Age >69 or Low GFR. 1237 (Given - Provider: Adilene Jacinto RN) gabapentin (Neurontin) capsule 300 mg 300 mg, Oral, Nightly, First dose on Tue01/20/24 at 2115 2115 (Not Given - Provider: Kike Nobles RN - Reason: Patient/family refused) 2100 (Not Given - Provider: Brad Ospina RN - Reason: Patient/family refused) 2100 (Canceled Entry - Provider: Automatic Discharge Provider - Comment: Automatically canceled at discontinue of medication order) senna-docusate sodium (Senokot-S) 8.6-50 MG tablet 1 tablet 1 tablet, Oral, 2 times daily, First dose on Tue01/20/24 at 2115 2205 (Given - Provider: Kike Nobles, RN) 0756 (Given - Provider: Irene Kerns, RN)0900 (Canceled Entry - Provider: Irene Kerns RN)2019 (Given - Provider: Brad Ospina, RN) 0806 (Given - Provider: Nenita Haney, RN)2100 (Canceled Entry - Provider: Automatic Discharge Provider - Comment: Automatically canceled at discontinue of medication order) sodium chloride 0.9% (NS) flush 10 mL 10 mL, IntraVENous, Every 12 hours scheduled (2 times per day), First dose on Tue01/20/24 at 2100, Recovery & On Unit 2100 (Not Given - Provider: Kike Nobles RN - Reason: IV Fluids Infusing) 1150 (Given - Provider: Irene Kerns RN)2100 (Given - Provider: Brad Ospina, SHARDA) 0900 (Given - Provider: Nenita Haney, SHARDA)2100 (Canceled Entry - Provider: Automatic Discharge Provider - Comment: Automatically canceled at discontinue of medication order) Continuous Medication Order 01/20/2024 01/21/2024 01/22/2024 lactated Ringer's (LR) infusion (CANCELED) 50 mL/hr, IntraVENous, Continuous, Starting on Tue01/20/24 at 1215, Preprocedure, Upon admission to sameday - please start iv if patient does not have iv access. Use 500ml NS for patients on dialysis. 1237 (New Bag - Provider: Adilene Jacinto RN)1543 (Continued by Anesthesia - Provider: Markos Rosales CRNA)1820 (Anesthesia Volume Adjustment - Provider: Markos Rosales CRNA)2053 (Stopped - Provider: Kike Nobles RN) 2351 (New Bag - Provider: Brad Ospina, SHARDA) PRN Medication Order 01/20/2024 01/21/2024 01/22/2024 gelatin absorbable (Gelfoam) sponge (CANCELED) As needed, Starting on Tue01/20/24 at 1621, Intraprocedure 1621 (Given - Provider: Nenita Mehta MD - Comment: mixed with thrombin) hydrALAZINE (Apresoline) tablet 25 mg 25 mg, Oral, 3 times daily PRN, Administer as needed for SBP >160 and/or DBP >100, Starting on Tue01/20/24 at 2101 1612 (Given - Provider: Irene Kerns, SHARDA) HYDROmorphone (Dilaudid) injection 0.5 mg (CANCELED) 0.5 mg, IntraVENous, Every 5 min PRN, severe pain (7-10), Starting on Tue01/20/24 at 1817, For 4 doses, Recovery (only), Phase I and Phase II- Initial therapy for severe pain (7-10). Restricted to a 90 minute time frame starting when the patient can verbally state their pain score. If after 2 doses the pain score does not decrease by more than one point, then call the provider. If oral meds are utilized, do not return to initial therapy medications. 1834 (Given - Provider: Pedro Pablo Corral, SHARDA) labetalol (Normodyne,Trandate) injection 5 mg (CANCELED)(Linked Group 2) 5 mg, IntraVENous, Every 10 min PRN, high blood pressure, for SBP greater than 160 mmHg for 2 consecutive measurements taken from different sites., Starting on Tue01/20/24 at 1817, For 2 doses, Recovery (only), PRN for SBP >160 for 2 consecutive measurements, if HR is 60 or greater. If beta clay is contraindicated (HR less than 60, heart block, COPD or asthma) use hydralazine IV order. 1848 (Given - Provider: Pedro Pablo Corral RN) lidocaine-EPINEPHrine (Xylocaine W/EPI) 1 %-[id number] injection (CANCELED) As needed, Starting on Tue01/20/24 at 1605, Intraprocedure 1605 (Given - Provider: Juan Luis Khalil DO) LORazepam (Ativan) injection 0.5 mg (COMPLETED) 0.5 mg, IntraVENous, Once PRN, for anxiety or muscle spasm., Starting on Tue01/20/24 at 1817, For 1 dose, Recovery (only), For IV doses dilute dose with 1ml NS. 1922 (Given - Provider: Pedro Pablo Corral RN) magnesium hydroxide (Milk of Magnesia) 400 MG/5ML suspension 30 mL 30 mL, Oral, Daily PRN, constipation, Starting on Tue01/20/24 at 2107, Follow dose with 8 oz of water. methocarbamol (Robaxin) tablet 1,000 mg 1,000 mg, Oral, Every 8 hours PRN, muscle spasms, Starting on Tue01/20/24 at 2106 2019 (Given - Provider: Brad Ospina, SHARDA) 1802 (Given - Provider: Nenita Haney RN) morphine injection 2 mg(Linked Group 3) 2 mg, IntraVENous, Every 4 hours PRN, moderate pain (4-6), Starting on Tue01/20/24 at 2108, If oral and IV narcotics ordered, use oral first and only use IV if oral is ineffective or cannot take oral. Do Not give oral and IV within 1 hour of each other unless specifically ordered. morphine injection 4 mg(Linked Group 3) 4 mg, IntraVENous, Every 4 hours PRN, severe pain (7-10), Starting on Tue01/20/24 at 2108, If oral and IV narcotics ordered, use oral first and only use IV if oral is ineffective or cannot take oral. Do Not give oral and IV within 1 hour of each other unless specifically ordered. naloxone (Narcan) 0.4 mg in 0.9% sodium chloride 10 mL syringe IntraVENous, PRN, opioid reversal, Starting on Tue01/20/24 at 2108, PRN if respiratory rate is less than 6/min and patient is difficult to arouse then notify physician STAT. Mix 9 mL of sodium chloride 0.9% with 0.4 mg (1 mL) of naloxone (NARCAN) in 10 mL syringe. (Note: dilution is 0.04 mg/mL) Give 0.08 mg (2 mL of special dilution), slow IV push, repeat up to 0.4 mg (10 mL) or until patient is responsive to physical stimulation and respiratory rate is equal to or greater than 6 breaths/min. Continue to observe, if no response within 3 minutes of administration of 0.4 mg (10 mL) total, repeat dose (0.4 mg as administered previously). ondansetron (Zofran) injection 4 mg(Linked Group 4) 4 mg, IntraVENous, Every 6 hours PRN, nausea, vomiting, Starting on Tue01/20/24 at 2030, Recovery & On Unit, 1st Line. Give IV if patient is unable to take orally. If inadequate response within 60 minutes, proceed to next-line agent or contact provider if no further options ordered. ondansetron ODT (Zofran-ODT) disintegrating tablet 4 mg(Linked Group 4) 4 mg, Oral, Every 8 hours PRN, nausea, vomiting, Starting on Tue01/20/24 at 2030, Recovery & On Unit, 1st Line. If inadequate response within 60 minutes, proceed to next-line agent or contact provider if no further options ordered. Patient should allow tablet to dissolve on tongue. Do not remove from blister pack until just before administering. oxyCODONE (Roxicodone) immediate release tablet 10 mg(Linked Group 5) 10 mg, Oral, Every 4 hours PRN, severe pain (7-10), Starting on Tue01/20/24 at 2030, Recovery [facility] On Unit 210 (Given - Provider: Kike Nobles RN) 0324 (See Alternative - Provider: Kike Nobles RN)0755 (See Alternative - Provider: Irene Kerns RN)1149 (See Alternative - Provider: Irene Kerns RN)161 (See Alternative - Provider: Irene Kerns RN)2018 (See Alternative - Provider: Brad Ospina RN) 0110 (Given - Provider: Brad Ospina RN)0806 (Given - Provider: Nenita Haney RN)1356 (Given - Provider: Nenita Haney RN)1800 (Given - Provider: Nenita Haney RN) oxyCODONE (Roxicodone) immediate release tablet 5 mg(Linked Group 5) 5 mg, Oral, Every 4 hours PRN, moderate pain (4-6), Starting on Tue01/20/24 at 2030, Recovery [facility] On Unit 2106 (See Alternative - Provider: Kike Nobles RN) 0324 (Given - Provider: Kike Nobles RN)0755 (Given - Provider: Irene Kerns RN)1149 (Given - Provider: Irene Kerns RN - Comment: only wants one)161 (Given - Provider: Irene Kerns RN)2019 (Given - Provider: Brad Ospina RN) 0110 (See Alternative - Provider: Brad Ospina RN)0806 (See Alternative - Provider: Nenita Haney RN)1356 (See Alternative - Provider: Nenita Haney RN)1800 (See Alternative - Provider: Nenita Haney RN) polyethylene glycol (PEG) 3350 (Miralax) packet 17 g 17 g, Oral, Daily PRN, constipation, Starting on Tue01/20/24 at 2030, Recovery & On Unit, 1st line for treatment of constipation - give scheduled if no bowel movement in past 24 hours. sodium chloride 0.9 % infusion 5-250 mL/hr, IntraVENous, PRN, if patient receiving piggyback infusions and maintenance fluids are not ordered OR KVO fluids to protect IV site / prevent frequent line interruptions/ long duration, Starting on Tue01/20/24 at 2030, Recovery & On Unit, For piggyback infusion, administer at same rate as piggyback for a total of 25 mL. Enter 25 mL into dose field and piggyback rate into rate field of order. If piggyback is infusing at a rate less than 100 mL/hr, enter 25 mL into dose field and 100 mL/hr into rate field of order. For KVO fluids, enter rate of 20 mL/hr or less into rate field of order. sodium chloride 0.9 % irrigation solution (CANCELED) As needed, Starting on Tue01/20/24 at 1621, Intraprocedure 1621 (Given - Provider: Nenita Mehta MD) sodium chloride 0.9% (NS) flush 10 mL 10 mL, IntraVENous, PRN, line care, Starting on Tue01/20/24 at 2030, Recovery & On Unit, After every IV line use thrombin spray (CANCELED) As needed, Starting on Tue01/20/24 at 1621, Intraprocedure 1621 (Given - Provider: Nenita Mehta MD - Comment: mixed with gelfoam) Linked Groups Order Group 1: famotidine (Pepcid) tablet 20 mg (COMPLETED)Jump to med 20 mg, Oral, Once, On Tue01/20/24 at 1215, For 1 dose, Preprocedure, IV or ORAL Or famotidine (Pepcid) 20 mg in sodium chloride (PF) 0.9 % 10 mL injection (COMPLETED) 20 mg, IntraVENous, Administer over 2 Minutes, Once, On Tue01/20/24 at 1215, For 1 dose, Preprocedure, IV or ORAL Group 2: labetalol (Normodyne,Trandate) injection 5 mg (CANCELED)Jump to med 5 mg, IntraVENous, Every 10 min PRN, high blood pressure, for SBP greater than 160 mmHg for 2 consecutive measurements taken from different sites., Starting on Tue01/20/24 at 181, For 2 doses, Recovery (only), PRN for SBP >160 for 2 consecutive measurements, if HR is 60 or greater. If beta clay is contraindicated (HR less than 60, heart block, COPD or asthma) use hydralazine IV order. Or hydrALAZINE (Apresoline) injection 5 mg (CANCELED) 5 mg, IntraVENous, Every 15 min PRN, high blood pressure, for SBP greater than 160 mmHg for 2 consecutive measurements taken from different sites, Starting on Tue01/20/24 at 181, For 2 doses, Recovery (only), PRN for SBP > 160 for 2 consecutive measurements, and if one of the following conditions is met: 1) If IV labetolol is ineffective. 2) If HR is under 60. 3) If patient has heart block, COPD or asthma. If both labetalol and hydralazine ineffective, notify anesthesia provider. Group 3: morphine injection 2 mgJump to med 2 mg, IntraVENous, Every 4 hours PRN, moderate pain (4-6), Starting on Tue01/20/24 at 2108, If oral and IV narcotics ordered, use oral first and only use IV if oral is ineffective or cannot take oral. Do Not give oral and IV within 1 hour of each other unless specifically ordered. Or morphine injection 4 mgJump to med 4 mg, IntraVENous, Every 4 hours PRN, severe pain (7-10), Starting on Tue01/20/24 at 2108, If oral and IV narcotics ordered, use oral first and only use IV if oral is ineffective or cannot take oral. Do Not give oral and IV within 1 hour of each other unless specifically ordered. Group 4: ondansetron ODT (Zofran-ODT) disintegrating tablet 4 mgJump to med 4 mg, Oral, Every 8 hours PRN, nausea, vomiting, Starting on Tue01/20/24 at 2031, Recovery & On Unit, 1st Line. If inadequate response within 60 minutes, proceed to next-line agent or contact provider if no further options ordered. Patient should allow tablet to dissolve on tongue. Do not remove from blister pack until just before administering. Or ondansetron (Zofran) injection 4 mgJump to med 4 mg, IntraVENous, Every 6 hours PRN, nausea, vomiting, Starting on Tue01/20/24 at 2030, Recovery & On Unit, 1st Line. Give IV if patient is unable to take orally. If inadequate response within 60 minutes, proceed to next-line agent or contact provider if no further options ordered. Group 5: oxyCODONE (Roxicodone) immediate release tablet 5 mgJump to med 5 mg, Oral, Every 4 hours PRN, moderate pain (4-6), Starting on Tue01/20/24 at 2030, Recovery & On Unit Or oxyCODONE (Roxicodone) immediate release tablet 10 mgJump to med 10 mg, Oral, Every 4 hours PRN, severe pain (7-10), Starting on Tue01/20/24 at 2030, Recovery & On Unit FOR RECORDS PERTAINING TO PATIENTS WHO ARE OR HAVE BEEN ENROLLED IN A CHEMICAL DEPENDENCY/SUBSTANCEABUSE PROGRAM, SOME INFORMATION MAY BE OMITTED. This clinical summary was aggregated from multiple sources. Caution should be exercised in using it in the provision of clinical care. This summary normalizes information from multiple sources, and as a consequence, information in this document may materially change the coding, format and clinical context of patient data. In addition, data may be omitted in some cases. CLINICAL DECISIONS SHOULD BE BASED ON THE PRIMARY CLINICAL RECORDS. [facility]. provides no warranty or guarantee of the accuracy or completeness of information in this document.
== END | disposition home or self-care (01) ==
PROVIDERS: PCP Internal Medicine; Referring Provider Obstetrics & Gynecology; Visit Provider Obstetrics & Gynecology
DX: Z12.31 Encounter for screening mammogram for malignant neoplasm of breast (principal); Z80.3 Family history of malignant neoplasm of breast
CPT/HCPCS: 77063; 77067

== ENCOUNTER → 2025-07-30 | Outpatient (CLI) | payer OTHER, SELFPAY ==
[2025-07-30 07:33] LABS: Hematocrit 41.6 % (37-47); Hemoglobin 13.9 g/dL (12.0-15.0); Immature Granulocytes Count 0.030 X10^3/uL (0.0-0.0); Mean Corp Hgb Conc 33.4 g/dL (32-36); Mean Corpuscular Volume 86.8 fL (81-99); Mean Platelet Vol. 9.8 fl (6.2-12.0); NRBC Flagged by Analyzer 0 % (0-5); Platelet Count 329 K/mm3 (150-450); RBC Distribution Width CV 12.9 % (11.6-14.6); RBC Distribution Width SD 40.7 fl (35.1-43.9); Red Blood Count 4.79 M/mm3 (4.2-5.4); White Blood Count 8.1 K/mm3 (4.4-11.0)
[2025-07-30 08:00] LABS: AST(SGOT) 22 U/L (<=31); Alanine Aminotransfer ALT/SGPT 22 U/L (<=34); Albumin, Serum 4.2 g/dL (3.5-5.0); Alkaline Phosphatase 99 U/L (35-104); Anion Gap 11 (5-15); BUN 19 mg/dL (4-19); BUN/Creat Ratio 19.4 RATIO (10-20); Calcium,Total 9.4 mg/dL (7.6-11.0); Carbon Dioxide 22.2 mmol/L (21.0-32.0); Chloride 107 mmol/L (98-108); Cholesterol 181 mg/dL (<=200); Globulin 2.6 g/dL (2.2-4.2); Glucose 106 mg/dL (70-99); Low Density Lipoprotein Calc. 101 mg/dL; Potassium 4.2 mmol/L (3.3-5.1); Triglycerides 108 mg/dL; Very Low Density Lipoprotein 22 mg/dL (5-40); Vitamin D,25 Hydroxy 28.4 ng/mL (30-100); cholesterol:hdl ratio screen 3.08
== END | disposition home or self-care (01) ==
LOC: LAB 06:22
PROVIDERS: PCP Internal Medicine; Referring Provider Internal Medicine; Visit Provider Internal Medicine
DX: R79.89 Other specified abnormal findings of blood chemistry (principal); I10 Essential (primary) hypertension; E88.819 Insulin resistance, unspecified; K76.0 Fatty (change of) liver, not elsewhere classified; E55.9 Vitamin D deficiency, unspecified; Z13.220 Encounter for screening for lipoid disorders
CPT/HCPCS: 36415; 80053; 80061; 82306; 83036; 84443; 85025